=== PATIENT | female | born 1950 | race Caucasian/White ===

== ENCOUNTER 2018-08-14 19:20 | Inpatient (IN) | payer MEDICARE, SELFPAY ==
[2018-08-14] VITALS (7 sets, daily range): BP systolic 91–118; BP diastolic 41–82; PULSE 88–95; RESP 16–24; TEMP 36.7; O2SAT 96–100; BMI 54.5
--- NOTE | 2018-08-14 19:20 | DI.RAD.S_ITS ---
PROCEDURE: XR CHEST 1V INDICATIONS: weakness TECHNIQUE: One view of the chest was acquired. COMPARISON: None. FINDINGS: Surgical changes and devices: None. Lungs and pleura: No pleural effusions or pneumothorax. Lungs are grossly clear with the lung bases incompletely evaluated due to lordotic projection.. Mediastinum: Mediastinal contours appear normal. Heart size is normal. Bones and chest wall: No suspicious bony lesions. Overlying soft tissues appear unremarkable. IMPRESSION: 1. No definite acute cardiopulmonary disease. Dictated by: Desmond Sheffield M.D. on 08/14/2018 at 19:37 Approved by: Desmond Sheffield M.D. on 08/14/2018 at 19:38
--- NOTE | 2018-08-14 19:23 | ED.WEAKNESS ---
HPI - Weakness General Chief complaint: Nausea/Vomiting/Diarrhea Stated complaint: Generally doesn't feel well. Time Seen by Provider: 08/14/18 19:22 Source: patient and EMS Mode of arrival: EMS History of Present Illness HPI Narrative: 68-year-old nonsmoking female presents to the emergency department by EMS for evaluation of a general sensation of feeling unwell for upwards of 10 days. She states it took a significant turn for the worse over the past 2 days and she has become so weak she cannot make it to the bathroom. She is covered in her own urine and feces and profoundly weak though awake and alert. She denies any specific symptoms such as fever or chills nor any localized pain. She admittedly is had less to eat and drink over the past few days but denies runny nose, sore throat or cough. She denies any injury as a result of fall MD Complaint: generalized weakness Onset (ago): day(s) Duration: constant Location: generalized Migration: none Relieving factors: none Exacerbating factors: none Associated symptoms: denies other symptoms Related Data Previous Rx's Medication Instructions Recorded metformin [Glucophage] 500 mg PO BIDCC #180 tab 08/18/17 olmesartan [Benicar] 40 mg PO Q DAY #90 tab 07/27/18 Allergies Allergy/AdvReac Type Severity Reaction Status Date / Time No Known Drug Allergies Allergy Verified 08/14/18 19:29 Review of Systems Review of Systems All systems reviewed & are unremarkable except as noted in HPI and below Constitutional Denies chills, Reports fatigue, Denies fever(s), Denies lethargy, Reports malaise, Reports poor appetite and Reports weakness Eyes Denies change in vision, Denies eye discharge, Denies irritation and Denies loss of vision ENT Ears, Nose, Mouth, and Throat: Denies change in voice, Denies neck pain and Denies sore throat Cardiovascular Denies chest pain, Denies irregular heart rhythm, Denies lightheadedness, Denies palpitations, Denies dyspnea, Denies dyspnea on exertion and Denies orthopnea Respiratory Denies cough, Denies dyspnea, Denies dyspnea on exertion and Denies wheezing Gastrointestinal Gastrointestinal: Denies abdominal pain, Denies change in bowel habits, Denies diarrhea, Denies nausea and Denies vomiting Genitourinary Denies hematuria, Denies flank pain, Denies urinary incontinence and Denies urinary urgency Musculoskeletal Denies neck pain Integumentary/Breasts Denies pruritus, Denies erythema, Denies rash and Denies wounds Neurologic Denies confusion, Denies loss of vision and Reports weakness Psychiatric Denies anxiety, Denies confusion, Denies depression, Denies homicidal ideation and Denies suicidal ideation Endocrine Reports fatigue and Denies palpitations Hematologic/Lymphatic Denies easy bruising Allergic/Immunologic Denies wheezing PFSH Surgical History Status post hysterectomy Status post tubal ligation (10/29/87) Family History Father Diabetes mellitus Grandmother Diabetes mellitus Mother Amyloidosis Pancreatitis Pneumonia Sister Age: 59 Lupus Social History household members: none Smoking Status: Former smoker Exam Narrative Exam Narrative: GENERAL: 68F is obviously ill, generalized weakness, morbidly obese, foul smelling, of urine and feces HEAD: Atraumatic. Normocephalic. No temporal or scalp tenderness. EYES: Pupils equal round and reactive. Extraocular motions intact. No scleral icterus. No injection or drainage. ENT: Dry mucous membranes . Nose without bleeding, purulent drainage or septal hematoma. Throat without erythema, tonsillar hypertrophy or exudate. Uvula midline. Airway patent. NECK: Trachea midline. No JVD or lymphadenopathy. Supple, nontender, no meningeal signs. CARDIOVASCULAR: Regular rate and rhythm without murmurs, gallops, or rubs. RESPIRATORY: Clear to auscultation. Breath sounds equal bilaterally. No wheezes, rales, or rhonchi. GASTROINTESTINAL: Abdomen soft, non-tender, nondistended. No hepato-splenomegaly, or palpable masses. No guarding. EXTREMITIES: No clubbing, cyanosis, or edema. No joint tenderness, effusion, or edema noted. BACK: Nontender without deformity or crepitance. No flank tenderness. NEURO: AOx3. SKIN: L groin with erythema, warmth, and mild tenderness. Multiple areas of what appears to be necrotic tissue. Minimal pain and no crepitance. Initial Vital Signs Initial Vital Signs: Vital Signs Temperature 98.0 F 08/14/18 19:10 Pulse Rate 88 08/14/18 19:10 Respiratory Rate 22 08/14/18 19:10 Blood Pressure 118/55 L 08/14/18 19:10 Pulse Oximetry 100 08/14/18 19:10 Course Orders Ordered: ED Orders 08/14/18 19:20 XR chest 1V Stat Blood Culture Stat 08/14/18 20:38 C-Reactive Protein Quant Stat Complete Blood Count AUTO DIFF Stat Comprehensive Metabolic Panel Stat Lactate (Lactic Acid) Stat Magnesium Stat Procalcitonin Stat 08/14/18 22:20 Troponin & CK Cardiac Panel Stat 08/14/18 22:45 Wound Culture and Gram Stain Stat 08/14/18 23:20 MRSA PCR Stat 08/15/18 00:01 UA Complete [Urinalysis and Microscopic] Routine Urine Culture Routine 08/15/18 01:13 Lactate 4HR (Lactic Acid Rflx) Stat 08/15/18 05:00 B Type Natriuretic Peptide Routine Complete Blood Count AUTO DIFF Routine Comprehensive Metabolic Panel Routine 08/15/18 07:07 Procalcitonin DAILY Acetaminophen (Tylenol) 650 mg PO Q6HR PRN PRN Reason: As Needed for Fever/Mild Pain Dextrose (D50w) 25 gm IV PRN PRN PRN Reason: Hypoglycemia Docusate Sodium (Colace) 100 mg PO BID [facility] Enoxaparin Sodium (Lovenox) 40 mg SUBCUT DAILY [facility] Sodium Chloride (Normal Saline 0.9%) 4,490.55 mls @ 1,496.85 mls/hr 30 ml/kg infuse over 3 hr (4490.55 ml) IV CONT MICHAEL Last Infusion: 08/15/18 02:04 Dose: 0 mls/hr Infusion: 08/14/18 23:10 Dose: 999 mls/hr Admin: 08/14/18 21:35 Dose: 1,496.85 mls/hr Sodium Chloride (Normal Saline 0.9%) 1,000 mls @ 250 mls/hr IV CONT MICHAEL Last Admin: 08/15/18 02:15 Dose: 250 mls/hr Piperacillin/Tazobactam/Dextrose (Zosyn) 3.375 gm in 50 mls @ 100 mls/hr IV Q6H MICHAEL Vancomycin HCl 2,000 mg/ (Sodium Chloride) 500 mls @ 250 mls/hr IV NOW ONE Stop: 08/15/18 04:39 Last Admin: 08/15/18 02:53 Dose: 250 mls/hr Vancomycin HCl 1,000 mg/Vancomycin HCl 500 mg/ Sodium Chloride 500 mls @ 250 mls/hr IV Q24H [facility] Insulin Aspart (Novolog Flexpen) 0 unit SUBCUT ACHS MICHAEL; Protocol Oxycodone HCl (Percolone) 10 mg PO Q6HR PRN PRN Reason: Pain, Severe (7-10) Last Admin: 08/15/18 02:07 Dose: 10 mg Pantoprazole Sodium (Protonix) 40 mg PO 0700 [facility] Vancomycin HCl (Vancomycin Trough) 1 request MISC NOW ONE Stop: 08/18/18 02:31 Discontinued Medications Sodium Chloride (Normal Saline 0.9%) 1,000 mls @ 1,000 mls/hr IV BOLUS ONE Stop: 08/14/18 20:17 Last Infusion: 08/15/18 00:17 Dose: 0 mls/hr Admin: 08/14/18 19:56 Dose: 1,000 mls/hr Levofloxacin (Levaquin) 750 mg in 150 mls @ 100 mls/hr IV NOW [facility] Piperacillin/Tazobactam/Dextrose (Zosyn) 3.375 gm in 50 mls @ 100 mls/hr IV NOW ONE Stop: 08/14/18 22:10 Last Infusion: 08/14/18 22:45 Dose: 0 mls/hr Admin: 08/14/18 22:12 Dose: 100 mls/hr Vancomycin HCl 2,000 mg/ (Sodium Chloride) 500 mls @ 250 mls/hr IV NOW ONE Stop: 08/14/18 22:33 Last Admin: 08/15/18 02:58 Dose: Not Given Piperacillin/Tazobactam/Dextrose (Zosyn) 3.375 gm in 50 mls @ 100 mls/hr IV Q6H [facility] Last Admin: 08/15/18 03:00 Dose: Not Given Vancomycin HCl 600 mg/ Sodium (Chloride) 100 mls @ 200 mls/hr IV Q12H [facility] Vancomycin HCl (Vancomycin Per Pharmacy) 1 request MISC NOW ONE Stop: 08/15/18 00:16 Last Admin: 08/15/18 02:54 Dose: Not Given Reevaluation(s) Reevaluation #1: upon receipt of initial lactate the patient is recognized as severely septic and orders for fluid increase to 30mL/hr placed as well as initiation of antibiotics Consultations Consultation #1: call to Dr. Navarrete regarding admission, he is happy to see patient in the ED. There is discussion about possibility of surgery involvement, but will continue with fluids, ABX, and close observation for now Vital Signs - 8 hr 08/14/18 20:45 08/14/18 21:00 08/14/18 21:30 Temperature Pulse Rate 90 92 H 92 H Respiratory Rate 22 24 18 Blood Pressure Blood Pressure [Right Arm] 100/82 98/53 L 91/58 L Pulse Oximetry 98 100 08/14/18 22:00 08/14/18 22:30 08/14/18 23:00 Temperature Pulse Rate 91 H 92 H 95 H Respiratory Rate 22 21 16 Blood Pressure Blood Pressure [Right Arm] 104/41 L 116/47 L Pulse Oximetry 97 98 96 08/15/18 00:15 08/15/18 01:00 08/15/18 02:15 Temperature 97.2 F L 97.4 F L Pulse Rate 89 89 90 Respiratory Rate 22 21 25 H Blood Pressure 122/52 L 102/48 L 95/49 L Blood Pressure [Right Arm] Pulse Oximetry 99 98 97 08/15/18 03:15 Temperature Pulse Rate 88 Respiratory Rate 24 Blood Pressure 111/54 L Blood Pressure [Right Arm] Pulse Oximetry 96 MDM - Weakness Medical Records Attestation: I reviewed the patient's medical records. Lab Data Result diagrams: 08/14/18 20:38 08/14/18 20:38 Lab Results 08/14/18 08/14/18 08/14/18 Range/Units 20:38 20:38 20:38 WBC 19.1 H (4.5-11.0) X10^3/uL RBC 4.69 (4.0-5.2) X10^6/uL Hgb 13.8 (12.0-16.0) g/dL Hct 42.2 (36-46) % MCV 90.0 (80-100) fL MCH 29.4 (26-34) PG MCHC 32.7 (30-36) % RDW 13.8 (11.6-14.8) % Plt Count 277 (150-400) X10^3/uL Neut % (Auto) Not Reportable Lymph % (Auto) Not Reportable Tift % (Auto) Not Reportable Eos % (Auto) Not Reportable Baso % (Auto) Not Reportable Total Counted 100 Seg Neutrophils % 70.0 (38-70) % Band Neutrophils % 22.0 H (3-7) % Lymphocytes % (Manual) 3.0 L (25-45) % Monocytes % (Manual) 3.0 (2-11) % Metamyelocytes % 2.0 H (-0) % Neutrophils # (Manual) 16976 H (6418-8442) /uL RBC Morphology Normal morphology Sodium 138 (137-145) mmol/L Potassium 3.7 (3.4-5.1) mmol/L Chloride 98 (98-107) mmol/L Carbon Dioxide 18 L (22-32) mmol/L BUN 82 H (7-17) mg/dL Creatinine 2.10 H (0.52-1.04) mg/dL Estimated GFR 23.5 L (>60) mL/min BUN/Creatinine Ratio 39.0 H (6-22) Glucose 206 H (80-110) mg/dL Lactate (0.7-2.1) mmol/L Calcium 8.1 L (8.4-10.2) mg/dL Magnesium 2.5 H (1.6-2.3) mg/dL Total Bilirubin 1.5 H (0.2-1.3) mg/dL AST 122 H (14-36) IU/L ALT 48 (9-52) IU/L Alkaline Phosphatase 123 (38-126) U/L Total Creatine Kinase (30-135) U/L Troponin I (0.01-0.034) ng/mL C-Reactive Protein 40.7 H (<1.0) mg/dL Total Protein 6.4 (6.3-8.2) g/dL Albumin 3.0 L (3.5-5.0) g/dL Globulin 3.4 (1.7-4.1) g/dL Albumin/Globulin Ratio 0.9 L (1.0-2.8) Procalcitonin 24.73 H (<0.5) ng/mL Urine Color Urine Appearance Urine pH (4.5-8.0) Ur Specific [place] (1.000-1.035) Urine Protein (Negative) Urine Glucose (UA) (Negative) g/dL Urine Ketones (NEGATIVE) Urine Occult Blood (Negative) Urine Nitrate (Negative) Urine Bilirubin (NEGATIVE) Urine Urobilinogen (0.2) E.U./dL Ur Leukocyte Esterase (NEGATIVE) Urine RBC (0-5/HPF) Urine WBC (0-5/HPF) Ur Squamous Epith Cells Urine Bacteria (None) Ur Culture Indicated? Micro UA Comment Nasal Screen MRSA (PCR) (Negative) 08/14/18 08/14/18 08/14/18 Range/Units 20:38 22:20 23:20 WBC (4.5-11.0) X10^3/uL RBC (4.0-5.2) X10^6/uL Hgb (12.0-16.0) g/dL Hct (36-46) % MCV (80-100) fL MCH (26-34) PG MCHC (30-36) % RDW (11.6-14.8) % Plt Count (150-400) X10^3/uL Neut % (Auto) Lymph % (Auto) Tift % (Auto) Eos % (Auto) Baso % (Auto) Total Counted Seg Neutrophils % (38-70) % Band Neutrophils % (3-7) % Lymphocytes % (Manual) (25-45) % Monocytes % (Manual) (2-11) % Metamyelocytes % (-0) % Neutrophils # (Manual) (0479-7379) /uL RBC Morphology Sodium (137-145) mmol/L Potassium (3.4-5.1) mmol/L Chloride (98-107) mmol/L Carbon Dioxide (22-32) mmol/L BUN (7-17) mg/dL Creatinine (0.52-1.04) mg/dL Estimated GFR (>60) mL/min BUN/Creatinine Ratio (6-22) Glucose (80-110) mg/dL Lactate 5.4 H (0.7-2.1) mmol/L Calcium (8.4-10.2) mg/dL Magnesium (1.6-2.3) mg/dL Total Bilirubin (0.2-1.3) mg/dL AST (14-36) IU/L ALT (9-52) IU/L Alkaline Phosphatase (38-126) U/L Total Creatine Kinase 794 H (30-135) U/L Troponin I 0.019 (0.01-0.034) ng/mL C-Reactive Protein (<1.0) mg/dL Total Protein (6.3-8.2) g/dL Albumin (3.5-5.0) g/dL Globulin (1.7-4.1) g/dL Albumin/Globulin Ratio (1.0-2.8) Procalcitonin (<0.5) ng/mL Urine Color Urine Appearance Urine pH (4.5-8.0) Ur Specific [place] (1.000-1.035) Urine Protein (Negative) Urine Glucose (UA) (Negative) g/dL Urine Ketones (NEGATIVE) Urine Occult Blood (Negative) Urine Nitrate (Negative) Urine Bilirubin (NEGATIVE) Urine Urobilinogen (0.2) E.U./dL Ur Leukocyte Esterase (NEGATIVE) Urine RBC (0-5/HPF) Urine WBC (0-5/HPF) Ur Squamous Epith Cells Urine Bacteria (None) Ur Culture Indicated? Micro UA Comment Nasal Screen MRSA (PCR) Negative for mrsa (Negative) 08/15/18 08/15/18 Range/Units 00:01 01:13 WBC (4.5-11.0) X10^3/uL RBC (4.0-5.2) X10^6/uL Hgb (12.0-16.0) g/dL Hct (36-46) % MCV (80-100) fL MCH (26-34) PG MCHC (30-36) % RDW (11.6-14.8) % Plt Count (150-400) X10^3/uL Neut % (Auto) Lymph % (Auto) Tift % (Auto) Eos % (Auto) Baso % (Auto) Total Counted Seg Neutrophils % (38-70) % Band Neutrophils % (3-7) % Lymphocytes % (Manual) (25-45) % Monocytes % (Manual) (2-11) % Metamyelocytes % (-0) % Neutrophils # (Manual) (7623-4299) /uL RBC Morphology Sodium (137-145) mmol/L Potassium (3.4-5.1) mmol/L Chloride (98-107) mmol/L Carbon Dioxide (22-32) mmol/L BUN (7-17) mg/dL Creatinine (0.52-1.04) mg/dL Estimated GFR (>60) mL/min BUN/Creatinine Ratio (6-22) Glucose (80-110) mg/dL Lactate 2.7 H (0.7-2.1) mmol/L Calcium (8.4-10.2) mg/dL Magnesium (1.6-2.3) mg/dL Total Bilirubin (0.2-1.3) mg/dL AST (14-36) IU/L ALT (9-52) IU/L Alkaline Phosphatase (38-126) U/L Total Creatine Kinase (30-135) U/L Troponin I (0.01-0.034) ng/mL C-Reactive Protein (<1.0) mg/dL Total Protein (6.3-8.2) g/dL Albumin (3.5-5.0) g/dL Globulin (1.7-4.1) g/dL Albumin/Globulin Ratio (1.0-2.8) Procalcitonin (<0.5) ng/mL Urine Color Yellow Urine Appearance Cloudy Urine pH 7.5 (4.5-8.0) Ur Specific [place] 1.015 (1.000-1.035) Urine Protein 3+ H (Negative) Urine Glucose (UA) Trace H (Negative) g/dL Urine Ketones Negative (NEGATIVE) Urine Occult Blood 3+ H (Negative) Urine Nitrate Negative (Negative) Urine Bilirubin Negative (NEGATIVE) Urine Urobilinogen 0.2 (0.2) E.U./dL Ur Leukocyte Esterase 1+ H (NEGATIVE) Urine RBC 30-100/hpf H (0-5/HPF) Urine WBC 30-100/hpf H (0-5/HPF) Ur Squamous Epith Cells 1-5 /hpf Urine Bacteria Many (>30) H (None) Ur Culture Indicated? Specimen cultured Micro UA Comment Not Reportable Nasal Screen MRSA (PCR) (Negative) Point of Care Testing Glucose POC 185 Discharge Plan Departure Patient Disposition: Admitted As Inpatient Clinical Impression: Acute renal failure, Severe sepsis, Cellulitis of right thigh Discharge Date/Time: 08/14/18 23:10 Interventions: ED Discharge Assessment Last Done: 08/14/18 23:10 Admit Date/Time: 08/14/18 21:59 Admit Provider: Marc Navarrete
[2018-08-14] MEDS: SODIUM CHLORIDE 0.9% 1,000 ML 1000 ML IV (19:56)
[2018-08-14 20:57] LABS: Hematocrit 42.2 % (36-46); Hemoglobin 13.8 g/dL (12.0-16.0); Mean Corpuscular HGB Conc 32.7 % (30-36); Mean Corpuscular Hemoglobin 29.4 PG (26-34); Platelet Count 277 X10^3/uL (150-400); Red Blood Cell Count 4.69 X10^6/uL (4.0-5.2); Red Cell Distribution Width 13.8 % (11.6-14.8); White Blood Cell Count 19.1 X10^3/uL (4.5-11.0)
[2018-08-14 21:00] LABS: Add Manual Diff / Slide Review YES
[2018-08-14 21:05] LABS: Alanine Aminotransferase 48 IU/L (9-52); Albumin Globulin Ratio 0.9 (1.0-2.8); Alkaline Phosphatase 123 U/L (38-126); Aspartate Aminotransferase 122 IU/L (14-36); Bilirubin Total 1.5 mg/dL (0.2-1.3); Blood Urea Nitrogen 82 mg/dL (7-17); Calcium 8.1 mg/dL (8.4-10.2); Carbon Dioxide 18 mmol/L (22-32); Chloride 98 mmol/L (98-107); Estimated Glomerular Filt Rate 23.5 mL/min (>60); Globulin 3.4 g/dL (1.7-4.1); Glucose 206 mg/dL (80-110); HEMOLYSIS < 15 (0-50); Potassium 3.7 mmol/L (3.4-5.1); Sodium 138 mmol/L (137-145); Total Protein 6.4 g/dL (6.3-8.2)
[2018-08-14 21:06] LABS: Lactate (Lactic Acid) 5.4 mmol/L (0.7-2.1)
[2018-08-14 21:12] LABS: Neutrophils Absolute Manual 17572 /uL (3000-5900); RBC Morphology Normal Morphology; Total Cells Counted 100
[2018-08-14 21:20] LABS: Procalcitonin 24.73 ng/mL (<0.5)
[2018-08-14] MEDS: SODIUM CHLORIDE 0.9% 1496.85 ML IV (21:35)
--- NOTE | 2018-08-14 22:01 | P.HP_ITS ---
History of Present Illness Date Patient Seen: 08/14/18 Time Patient Seen: 22:35 Chief complaint: Generally doesn't feel well. Narrative: Pleasant 68-year-old female who comes into the emergency room with not feeling well. Symptoms started earlier this week. She just did not feel right. She felt like she lost her appetite her food did not taste good. She did not really want to drink. This continued throughout the week. It progressively got worse. She found it difficulty to ambulate and walk. He became more and more weak. Today her neighbor came and checked on her brought her her mail. And she was feeling so weak and tired that she became concerned. The neighbor called the son who came over and visited her and recommended she go to the emergency room she was too weak the to get out of her house and so 911 was called. She was having hard enough time moving that she was incontinent. She was not found down per se. But was really immobilized. She says maybe she has had a little bit of chills or fevers but she does not think so. She maybe have a little bit of a cough but she is not sure that. She has no dysuria or frequency. She has not had any chest pain or shortness of breath. She has had no significant diarrhea or abdominal pain or discomfort. Patient has not had any difficulty with headaches or blurry vision neck stiffness. Patient has a history of morbid obesity diabetes and hypertension. He has been well controlled. She is on blood pressure medication and medication for her diabetes. She is felt like she has not had any difficulty with high blood sugars lately. Patient History Surgical History Status post hysterectomy Status post tubal ligation (10/29/87) Family & Social History Family History Father Diabetes mellitus Grandmother Diabetes mellitus Mother Amyloidosis Pancreatitis Pneumonia Sister Age: 59 Lupus Safety & Behavioral: Feels Safe in Current Yes Environment Been Physically Hurt or No Threatened By a Person Tobacco & Substance use: Smoking Status Former smoker alcohol intake frequency 0-2 drinks per day Substance Use Type does not use Meds Home Medications Medication Instructions Recorded Confirmed Type metformin [Glucophage] 500 mg PO BIDCC #180 tab 08/18/17 08/14/18 Rx olmesartan [Benicar] 40 mg PO Q DAY #90 tab 07/27/18 08/14/18 Rx Allergies Allergy/AdvReac Type Severity Reaction Status Date / Time No Known Drug Allergies Allergy Verified 08/14/18 19:29 Exam Vital Signs (past 8 hours): - 08/14/18 19:10 08/14/18 20:45 08/14/18 21:00 Temperature 98.0 F Pulse Rate 88 90 92 H Respiratory Rate 22 22 24 Blood Pressure 118/55 L Blood Pressure [Right Arm] 100/82 98/53 L Pulse Oximetry 100 98 Oxygen Delivery Method Room Air Narrative Exam Narrative: Gen.: Alert good historian pale obese female who looks ill HEENT: Pupils equal round and reactive or mucosa is moist neck is supple Cardio: S1-S2 regular rate and rhythm no murmurs appreciated. Respiratory: Mild increased work of breathing. No wheezes crackles or rhonchi Abdomen: Soft morbidly obese no tenderness. Extremities: 2+ lower extremity edema. Right leg has a pannus from her abdomen. On med removal this significant swelling redness to the thigh area. She has got areas of necrotic tissue. That rotates from her upper thigh into her inguinal area and around her gluteal cleft. With surrounding cellulitis. Neurologic: Grossly intact. Objective Imaging Chest x-ray: My impression: PROCEDURE: XR CHEST 1V INDICATIONS: weakness TECHNIQUE: One view of the chest was acquired. COMPARISON: None. FINDINGS: Surgical changes and devices: None. Lungs and pleura: No pleural effusions or pneumothorax. Lungs are grossly clear with the lung bases incompletely evaluated due to lordotic projection.. Mediastinum: Mediastinal contours appear normal. Heart size is normal. Bones and chest wall: No suspicious bony lesions. Overlying soft tissues appear unremarkable. IMPRESSION: 1. No definite acute cardiopulmonary disease. Labs Result Diagrams: 08/15/18 04:38 08/15/18 04:38 Labs: Laboratory Results - last 24 hr 08/14/18 08/14/18 08/14/18 20:38 20:38 20:38 WBC 19.1 H RBC 4.69 Hgb 13.8 Hct 42.2 MCV 90.0 MCH 29.4 MCHC 32.7 RDW 13.8 Plt Count 277 Neut % (Auto) Not Reportable Lymph % (Auto) Not Reportable Daniels % (Auto) Not Reportable Eos % (Auto) Not Reportable Baso % (Auto) Not Reportable Total Counted 100 Seg Neutrophils % 70.0 Band Neutrophils % 22.0 H Lymphocytes % (Manual) 3.0 L Monocytes % (Manual) 3.0 Metamyelocytes % 2.0 H Neutrophils # (Manual) 51959 H RBC Morphology Normal morphology Sodium 138 Potassium 3.7 Chloride 98 Carbon Dioxide 18 L BUN 82 H Creatinine 2.10 H Estimated GFR 23.5 L BUN/Creatinine Ratio 39.0 H Glucose 206 H Lactate Calcium 8.1 L Total Bilirubin 1.5 H AST 122 H ALT 48 Alkaline Phosphatase 123 Total Protein 6.4 Albumin 3.0 L Globulin 3.4 Albumin/Globulin Ratio 0.9 L Procalcitonin 24.73 H 08/14/18 20:38 WBC RBC Hgb Hct MCV MCH MCHC RDW Plt Count Neut % (Auto) Lymph % (Auto) Daniels % (Auto) Eos % (Auto) Baso % (Auto) Total Counted Seg Neutrophils % Band Neutrophils % Lymphocytes % (Manual) Monocytes % (Manual) Metamyelocytes % Neutrophils # (Manual) RBC Morphology Sodium Potassium Chloride Carbon Dioxide BUN Creatinine Estimated GFR BUN/Creatinine Ratio Glucose Lactate 5.4 H Calcium Total Bilirubin AST ALT Alkaline Phosphatase Total Protein Albumin Globulin Albumin/Globulin Ratio Procalcitonin Assessment & Plan Plan: Assessment/Plan Narrative: Septic shock. Patient has septic shock she has greater than normal white blood cell count. She has a source of infection which is the cellulitis of her thigh and necrotic tissue. She has signs of end-organ damage with the elevation of her liver enzymes as well as acute renal failure. She is also hypotensive. She will be admitted to the ICU. If she does not respond to her initial fluid bolus. We will start pressors after 3 hr she will have a repeat lactic acid. Will go ahead and if her blood pressure remained stable place her on a higher than normal maintenance IV fluid. Want to her signs for significant the or furthering septic shock. Will go ahead and treat her initial skin infection with Zosyn IV 3.75 g q.6 hours and vancomycin. Will repeat calcitonin and lactic acid per protocol. Will continue with IV fluids at as well per protocol. Cellulitis and necrotic tissue of the upper thigh. As probable source of infection this was can a hidden by or overlying obesity and pannus. Will probably need to get General surgery involved to at this point I do not feel like there is any abscess in she has just got some necrotic and scabbing tissue here that that may need to be removed over time. Will go ahead and order a CT scan as well for further evaluation of this. Acute kidney injury patient has normal baseline BUN and creatinine. Her creatinine this time is 2.0. Will continue with IV fluid hydration hopefully this will improve. Moderate malnutrition as she has not been eating she has a low albumin and low calcium. Morbid obesity. With BMI 54. Certainly complicating her care Diabetes type 2 on oral medication which will be held. She will be provided insulin per protocol. Accu-Cheks. And at this point will keep her NPO until we have further idea what needs to happen with her skin infection. Patient meets inpatient criteria.
[2018-08-14] MEDS: PIPERACILLIN-TAZO 3.375 GM/50 ML FROZ.PIGGY IV (22:12)
--- NOTE | 2018-08-14 22:34 | ED_ITS ---
HPI - Weakness General Chief complaint: Nausea/Vomiting/Diarrhea Stated complaint: Generally doesn't feel well. Time Seen by Provider: 08/14/18 19:22 Source: patient and EMS Mode of arrival: EMS History of Present Illness HPI Narrative: 68-year-old nonsmoking female presents to the emergency department by EMS for evaluation of a general sensation of feeling unwell for upwards of 10 days. She states it took a significant turn for the worse over the past 2 days and she has become so weak she cannot make it to the bathroom. She is covered in her own urine and feces and profoundly weak though awake and alert. She denies any specific symptoms such as fever or chills nor any localized pain. She admittedly is had less to eat and drink over the past few days but denies runny nose, sore throat or cough. She denies any injury as a result of fall MD Complaint: generalized weakness Onset (ago): day(s) Duration: constant Location: generalized Migration: none Relieving factors: none Exacerbating factors: none Associated symptoms: denies other symptoms Related Data Previous Rx's Medication Instructions Recorded metformin [Glucophage] 500 mg PO BIDCC #180 tab 08/18/17 olmesartan [Benicar] 40 mg PO Q DAY #90 tab 07/27/18 Allergies Allergy/AdvReac Type Severity Reaction Status Date / Time No Known Drug Allergies Allergy Verified 08/14/18 19:29 Review of Systems Review of Systems All systems reviewed & are unremarkable except as noted in HPI and below Constitutional Denies chills, Reports fatigue, Denies fever(s), Denies lethargy, Reports malaise, Reports poor appetite and Reports weakness Eyes Denies change in vision, Denies eye discharge, Denies irritation and Denies loss of vision ENT Ears, Nose, Mouth, and Throat: Denies change in voice, Denies neck pain and Denies sore throat Cardiovascular Denies chest pain, Denies irregular heart rhythm, Denies lightheadedness, Denies palpitations, Denies dyspnea, Denies dyspnea on exertion and Denies orthopnea Respiratory Denies cough, Denies dyspnea, Denies dyspnea on exertion and Denies wheezing Gastrointestinal Gastrointestinal: Denies abdominal pain, Denies change in bowel habits, Denies diarrhea, Denies nausea and Denies vomiting Genitourinary Denies hematuria, Denies flank pain, Denies urinary incontinence and Denies urinary urgency Musculoskeletal Denies neck pain Integumentary/Breasts Denies pruritus, Denies erythema, Denies rash and Denies wounds Neurologic Denies confusion, Denies loss of vision and Reports weakness Psychiatric Denies anxiety, Denies confusion, Denies depression, Denies homicidal ideation and Denies suicidal ideation Endocrine Reports fatigue and Denies palpitations Hematologic/Lymphatic Denies easy bruising Allergic/Immunologic Denies wheezing PFSH Surgical History Status post hysterectomy Status post tubal ligation (10/29/87) Family History Father Diabetes mellitus Grandmother Diabetes mellitus Mother Amyloidosis Pancreatitis Pneumonia Sister Age: 59 Lupus Social History household members: none Smoking Status: Former smoker Exam Narrative Exam Narrative: GENERAL: 68F is obviously ill, generalized weakness, morbidly obese, foul smelling, of urine and feces HEAD: Atraumatic. Normocephalic. No temporal or scalp tenderness. EYES: Pupils equal round and reactive. Extraocular motions intact. No scleral icterus. No injection or drainage. ENT: Dry mucous membranes . Nose without bleeding, purulent drainage or septal hematoma. Throat without erythema, tonsillar hypertrophy or exudate. Uvula midline. Airway patent. NECK: Trachea midline. No JVD or lymphadenopathy. Supple, nontender, no meningeal signs. CARDIOVASCULAR: Regular rate and rhythm without murmurs, gallops, or rubs. RESPIRATORY: Clear to auscultation. Breath sounds equal bilaterally. No wheezes , rales, or rhonchi. GASTROINTESTINAL: Abdomen soft, non-tender, nondistended. No hepato-splenomegaly , or palpable masses. No guarding. EXTREMITIES: No clubbing, cyanosis, or edema. No joint tenderness, effusion, or edema noted. BACK: Nontender without deformity or crepitance. No flank tenderness. NEURO: AOx3. SKIN: L groin with erythema, warmth, and mild tenderness. Multiple areas of what appears to be necrotic tissue. Minimal pain and no crepitance. Initial Vital Signs Initial Vital Signs: Vital Signs Temperature 98.0 F 08/14/18 19:10 Pulse Rate 88 08/14/18 19:10 Respiratory Rate 22 08/14/18 19:10 Blood Pressure 118/55 L 08/14/18 19:10 Pulse Oximetry 100 08/14/18 19:10 Course Orders Ordered: ED Orders 08/14/18 19:20 XR chest 1V Stat Blood Culture Stat 08/14/18 20:38 C-Reactive Protein Quant Stat Complete Blood Count AUTO DIFF Stat Comprehensive Metabolic Panel Stat Lactate (Lactic Acid) Stat Magnesium Stat Procalcitonin Stat 08/14/18 22:20 Troponin & CK Cardiac Panel Stat 08/14/18 22:45 Wound Culture and Gram Stain Stat 08/14/18 23:20 MRSA PCR Stat 08/15/18 00:01 UA Complete [Urinalysis and Microscopic] Routine Urine Culture Routine 08/15/18 01:13 Lactate 4HR (Lactic Acid Rflx) Stat 08/15/18 05:00 B Type Natriuretic Peptide Routine Complete Blood Count AUTO DIFF Routine Comprehensive Metabolic Panel Routine 08/15/18 07:07 Procalcitonin DAILY Acetaminophen (Tylenol) 650 mg PO Q6HR PRN PRN Reason: As Needed for Fever/Mild Pain Dextrose (D50w) 25 gm IV PRN PRN PRN Reason: Hypoglycemia Docusate Sodium (Colace) 100 mg PO BID [facility] Enoxaparin Sodium (Lovenox) 40 mg SUBCUT DAILY [facility] Sodium Chloride (Normal Saline 0.9%) 4,490.55 mls @ 1,496.85 mls/hr 30 ml/kg infuse over 3 hr (4490.55 ml) IV CONT MICHAEL Last Infusion: 08/15/18 02:04 Dose: 0 mls/hr Infusion: 08/14/18 23:10 Dose: 999 mls/hr Admin: 08/14/18 21:35 Dose: 1,496.85 mls/hr Sodium Chloride (Normal Saline 0.9%) 1,000 mls @ 250 mls/hr IV CONT MICHAEL Last Admin: 08/15/18 02:15 Dose: 250 mls/hr Piperacillin/Tazobactam/Dextrose (Zosyn) 3.375 gm in 50 mls @ 100 mls/hr IV Q6H MICHAEL Vancomycin HCl 2,000 mg/ (Sodium Chloride) 500 mls @ 250 mls/hr IV NOW ONE Stop: 08/15/18 04:39 Last Admin: 08/15/18 02:53 Dose: 250 mls/hr Vancomycin HCl 1,000 mg/Vancomycin HCl 500 mg/ Sodium Chloride 500 mls @ 250 mls/hr IV Q24H [facility] Insulin Aspart (Novolog Flexpen) 0 unit SUBCUT ACHS MICHAEL; Protocol Oxycodone HCl (Percolone) 10 mg PO Q6HR PRN PRN Reason: Pain, Severe (7-10) Last Admin: 08/15/18 02:07 Dose: 10 mg Pantoprazole Sodium (Protonix) 40 mg PO 0700 [facility] Vancomycin HCl (Vancomycin Trough) 1 request MISC NOW ONE Stop: 08/18/18 02:31 Discontinued Medications Sodium Chloride (Normal Saline 0.9%) 1,000 mls @ 1,000 mls/hr IV BOLUS ONE Stop: 08/14/18 20:17 Last Infusion: 08/15/18 00:17 Dose: 0 mls/hr Admin: 08/14/18 19:56 Dose: 1,000 mls/hr Levofloxacin (Levaquin) 750 mg in 150 mls @ 100 mls/hr IV NOW [facility] Piperacillin/Tazobactam/Dextrose (Zosyn) 3.375 gm in 50 mls @ 100 mls/hr IV NOW ONE Stop: 08/14/18 22:10 Last Infusion: 08/14/18 22:45 Dose: 0 mls/hr Admin: 08/14/18 22:12 Dose: 100 mls/hr Vancomycin HCl 2,000 mg/ (Sodium Chloride) 500 mls @ 250 mls/hr IV NOW ONE Stop: 08/14/18 22:33 Last Admin: 08/15/18 02:58 Dose: Not Given Piperacillin/Tazobactam/Dextrose (Zosyn) 3.375 gm in 50 mls @ 100 mls/hr IV Q6H [facility] Last Admin: 08/15/18 03:00 Dose: Not Given Vancomycin HCl 600 mg/ Sodium (Chloride) 100 mls @ 200 mls/hr IV Q12H [facility] Vancomycin HCl (Vancomycin Per Pharmacy) 1 request MISC NOW ONE Stop: 08/15/18 00:16 Last Admin: 08/15/18 02:54 Dose: Not Given Reevaluation(s) Reevaluation #1: upon receipt of initial lactate the patient is recognized as severely septic and orders for fluid increase to 30mL/hr placed as well as initiation of antibiotics Consultations Consultation #1: call to Dr. Navarrete regarding admission, he is happy to see patient in the ED. There is discussion about possibility of surgery involvement , but will continue with fluids, ABX, and close observation for now Vital Signs - 8 hr 08/14/18 20:45 08/14/18 21:00 08/14/18 21:30 Temperature Pulse Rate 90 92 H 92 H Respiratory Rate 22 24 18 Blood Pressure Blood Pressure [Right Arm] 100/82 98/53 L 91/58 L Pulse Oximetry 98 100 08/14/18 22:00 08/14/18 22:30 08/14/18 23:00 Temperature Pulse Rate 91 H 92 H 95 H Respiratory Rate 22 21 16 Blood Pressure Blood Pressure [Right Arm] 104/41 L 116/47 L Pulse Oximetry 97 98 96 08/15/18 00:15 08/15/18 01:00 08/15/18 02:15 Temperature 97.2 F L 97.4 F L Pulse Rate 89 89 90 Respiratory Rate 22 21 25 H Blood Pressure 122/52 L 102/48 L 95/49 L Blood Pressure [Right Arm] Pulse Oximetry 99 98 97 08/15/18 03:15 Temperature Pulse Rate 88 Respiratory Rate 24 Blood Pressure 111/54 L Blood Pressure [Right Arm] Pulse Oximetry 96 MDM - Weakness Medical Records Attestation: I reviewed the patient's medical records. Lab Data Result diagrams: 08/14/18 20:38 08/14/18 20:38 Lab Results 08/14/18 08/14/18 08/14/18 Range/Units 20:38 20:38 20:38 WBC 19.1 H (4.5-11.0) X10^3/uL RBC 4.69 (4.0-5.2) X10^6/uL Hgb 13.8 (12.0-16.0) g/dL Hct 42.2 (36-46) % MCV 90.0 (80-100) fL MCH 29.4 (26-34) PG MCHC 32.7 (30-36) % RDW 13.8 (11.6-14.8) % Plt Count 277 (150-400) X10^3/uL Neut % (Auto) Not Reportable Lymph % (Auto) Not Reportable Piatt % (Auto) Not Reportable Eos % (Auto) Not Reportable Baso % (Auto) Not Reportable Total Counted 100 Seg Neutrophils % 70.0 (38-70) % Band Neutrophils % 22.0 H (3-7) % Lymphocytes % (Manual) 3.0 L (25-45) % Monocytes % (Manual) 3.0 (2-11) % Metamyelocytes % 2.0 H (-0) % Neutrophils # (Manual) 66536 H (2902-3533) /uL RBC Morphology Normal morphology Sodium 138 (137-145) mmol/L Potassium 3.7 (3.4-5.1) mmol/L Chloride 98 (98-107) mmol/L Carbon Dioxide 18 L (22-32) mmol/L BUN 82 H (7-17) mg/dL Creatinine 2.10 H (0.52-1.04) mg/dL Estimated GFR 23.5 L (>60) mL/min BUN/Creatinine Ratio 39.0 H (6-22) Glucose 206 H (80-110) mg/dL Lactate (0.7-2.1) mmol/L Calcium 8.1 L (8.4-10.2) mg/dL Magnesium 2.5 H (1.6-2.3) mg/dL Total Bilirubin 1.5 H (0.2-1.3) mg/dL AST 122 H (14-36) IU/L ALT 48 (9-52) IU/L Alkaline Phosphatase 123 (38-126) U/L Total Creatine Kinase (30-135) U/L Troponin I (0.01-0.034) ng/mL C-Reactive Protein 40.7 H (<1.0) mg/dL Total Protein 6.4 (6.3-8.2) g/dL Albumin 3.0 L (3.5-5.0) g/dL Globulin 3.4 (1.7-4.1) g/dL Albumin/Globulin Ratio 0.9 L (1.0-2.8) Procalcitonin 24.73 H (<0.5) ng/mL Urine Color Urine Appearance Urine pH (4.5-8.0) Ur Specific [place] (1.000-1.035) Urine Protein (Negative) Urine Glucose (UA) (Negative) g/dL Urine Ketones (NEGATIVE) Urine Occult Blood (Negative) Urine Nitrate (Negative) Urine Bilirubin (NEGATIVE) Urine Urobilinogen (0.2) E.U./dL Ur Leukocyte Esterase (NEGATIVE) Urine RBC (0-5/HPF) Urine WBC (0-5/HPF) Ur Squamous Epith Cells Urine Bacteria (None) Ur Culture Indicated? Micro UA Comment Nasal Screen MRSA (PCR) (Negative) 08/14/18 08/14/18 08/14/18 Range/Units 20:38 22:20 23:20 WBC (4.5-11.0) X10^3/uL RBC (4.0-5.2) X10^6/uL Hgb (12.0-16.0) g/dL Hct (36-46) % MCV (80-100) fL MCH (26-34) PG MCHC (30-36) % RDW (11.6-14.8) % Plt Count (150-400) X10^3/uL Neut % (Auto) Lymph % (Auto) Piatt % (Auto) Eos % (Auto) Baso % (Auto) Total Counted Seg Neutrophils % (38-70) % Band Neutrophils % (3-7) % Lymphocytes % (Manual) (25-45) % Monocytes % (Manual) (2-11) % Metamyelocytes % (-0) % Neutrophils # (Manual) (9342-1623) /uL RBC Morphology Sodium (137-145) mmol/L Potassium (3.4-5.1) mmol/L Chloride (98-107) mmol/L Carbon Dioxide (22-32) mmol/L BUN (7-17) mg/dL Creatinine (0.52-1.04) mg/dL Estimated GFR (>60) mL/min BUN/Creatinine Ratio (6-22) Glucose (80-110) mg/dL Lactate 5.4 H (0.7-2.1) mmol/L Calcium (8.4-10.2) mg/dL Magnesium (1.6-2.3) mg/dL Total Bilirubin (0.2-1.3) mg/dL AST (14-36) IU/L ALT (9-52) IU/L Alkaline Phosphatase (38-126) U/L Total Creatine Kinase 794 H (30-135) U/L Troponin I 0.019 (0.01-0.034) ng/mL C-Reactive Protein (<1.0) mg/dL Total Protein (6.3-8.2) g/dL Albumin (3.5-5.0) g/dL Globulin (1.7-4.1) g/dL Albumin/Globulin Ratio (1.0-2.8) Procalcitonin (<0.5) ng/mL Urine Color Urine Appearance Urine pH (4.5-8.0) Ur Specific [place] (1.000-1.035) Urine Protein (Negative) Urine Glucose (UA) (Negative) g/dL Urine Ketones (NEGATIVE) Urine Occult Blood (Negative) Urine Nitrate (Negative) Urine Bilirubin (NEGATIVE) Urine Urobilinogen (0.2) E.U./dL Ur Leukocyte Esterase (NEGATIVE) Urine RBC (0-5/HPF) Urine WBC (0-5/HPF) Ur Squamous Epith Cells Urine Bacteria (None) Ur Culture Indicated? Micro UA Comment Nasal Screen MRSA (PCR) Negative for mrsa (Negative) 08/15/18 08/15/18 Range/Units 00:01 01:13 WBC (4.5-11.0) X10^3/uL RBC (4.0-5.2) X10^6/uL Hgb (12.0-16.0) g/dL Hct (36-46) % MCV (80-100) fL MCH (26-34) PG MCHC (30-36) % RDW (11.6-14.8) % Plt Count (150-400) X10^3/uL Neut % (Auto) Lymph % (Auto) Piatt % (Auto) Eos % (Auto) Baso % (Auto) Total Counted Seg Neutrophils % (38-70) % Band Neutrophils % (3-7) % Lymphocytes % (Manual) (25-45) % Monocytes % (Manual) (2-11) % Metamyelocytes % (-0) % Neutrophils # (Manual) (2490-6109) /uL RBC Morphology Sodium (137-145) mmol/L Potassium (3.4-5.1) mmol/L Chloride (98-107) mmol/L Carbon Dioxide (22-32) mmol/L BUN (7-17) mg/dL Creatinine (0.52-1.04) mg/dL Estimated GFR (>60) mL/min BUN/Creatinine Ratio (6-22) Glucose (80-110) mg/dL Lactate 2.7 H (0.7-2.1) mmol/L Calcium (8.4-10.2) mg/dL Magnesium (1.6-2.3) mg/dL Total Bilirubin (0.2-1.3) mg/dL AST (14-36) IU/L ALT (9-52) IU/L Alkaline Phosphatase (38-126) U/L Total Creatine Kinase (30-135) U/L Troponin I (0.01-0.034) ng/mL C-Reactive Protein (<1.0) mg/dL Total Protein (6.3-8.2) g/dL Albumin (3.5-5.0) g/dL Globulin (1.7-4.1) g/dL Albumin/Globulin Ratio (1.0-2.8) Procalcitonin (<0.5) ng/mL Urine Color Yellow Urine Appearance Cloudy Urine pH 7.5 (4.5-8.0) Ur Specific [place] 1.015 (1.000-1.035) Urine Protein 3+ H (Negative) Urine Glucose (UA) Trace H (Negative) g/dL Urine Ketones Negative (NEGATIVE) Urine Occult Blood 3+ H (Negative) Urine Nitrate Negative (Negative) Urine Bilirubin Negative (NEGATIVE) Urine Urobilinogen 0.2 (0.2) E.U./dL Ur Leukocyte Esterase 1+ H (NEGATIVE) Urine RBC 30-100/hpf H (0-5/HPF) Urine WBC 30-100/hpf H (0-5/HPF) Ur Squamous Epith Cells 1-5 /hpf Urine Bacteria Many (>30) H (None) Ur Culture Indicated? Specimen cultured Micro UA Comment Not Reportable Nasal Screen MRSA (PCR) (Negative) Point of Care Testing Glucose POC 185 Discharge Plan Departure Patient Disposition: Admitted As Inpatient Clinical Impression: Acute renal failure, Severe sepsis, Cellulitis of right thigh Discharge Date/Time: 08/14/18 23:10 Interventions: ED Discharge Assessment Last Done: 08/14/18 23:10 Admit Date/Time: 08/14/18 21:59 Admit Provider: Marc Navarrete
[2018-08-14 22:43] LABS: Creatine Kinase 794 U/L (30-135)
[2018-08-14 22:50] LABS: Troponin I 0.019 ng/mL (0.01-0.034)
[2018-08-15] VITALS (12 sets, daily range): BP systolic 87–122; BP diastolic 40–69; PULSE 84–91; RESP 17–26; TEMP 36.2–36.9; O2SAT 94–100
--- NOTE | 2018-08-15 00:03 | PC.NURSE ---
Pt had extensive bed bath, on examination of skin folds, patient was noted to have very large gangrenous area, which wrapped around right thigh medially from anterior to posterior with black necrotic tissue. Area was macerated and skin sloughing in surrounding tissues. Dr Navarrete and Dr Rivera notified and brought into room to examine wounds. Patient had no pain or discomfort while cleaning these areas with mild soap and water. Area was then dried and shown to and photographed by ICU nurse Cortney BARBA. Pt tolerated procedure in trendelenberg on room air. Pt oriented and conversing throughout. Pt had extensive perineal care and cleaning prior to insertion of david. Pt had copious amounts of stool in labial folds. After cleaning and using sterile technique david was then inserted without difficulty.
[2018-08-15 00:41] LABS: Magnesium 2.5 mg/dL (1.6-2.3)
[2018-08-15 00:45] LABS: Reflexed Lactate in 2 Hours Y
[2018-08-15 01:32] LABS: Lactate 2HR (Lactic Acid Rflx) 2.7 mmol/L (0.7-2.1)
[2018-08-15 01:35] LABS: C-Reactive Protein Quant 40.7 mg/dL (<1.0)
[2018-08-15] MEDS: OXYCODONE IR 10 MG TABLET PO (02:07)
[2018-08-15] MEDS: SODIUM CHLORIDE 0.9% 1,000 ML 250 ML IV ×2 (02:15→04:31)
[2018-08-15 02:33] LABS: Appearance Urine UA CLOUDY; Bilirubin Urine UA NEGATIVE (NEGATIVE); Color Urine UA YELLOW; Glucose Urine UA TRACE g/dL (Negative); Ketones Urine UA NEGATIVE (NEGATIVE); Leukocyte Esterase Urine UA 1+ (NEGATIVE); Nitrite Urine UA NEGATIVE (Negative); Occult Blood Urine UA 3+ (Negative); Protein Urine UA 3+ (Negative); Specific Gravity Urine UA 1.015 (1.000-1.035); Urobilinogen Urine UA 0.2 E.U./dL (0.2); pH Urine UA 7.5 (4.5-8.0)
[2018-08-15 02:43] LABS: Bacteria Urine Many (>30); Culture Indicated Urine Specimen Cultured; RBC Urine 30-100/HPF (0-5/HPF); Squamous Epithelial Cell Urine 1-5 /HPF; WBC Urine 30-100/HPF (0-5/HPF)
[2018-08-15] MEDS: VANCOMYCIN 2,000 MG in SODIUM CHLORIDE 0.9% 500 ML 250 ML IV (02:53)
[2018-08-15] MEDS: PIPERACILLIN-TAZO 3.375 GM/50 ML FROZ.PIGGY IV ×2 (05:03→10:09)
[2018-08-15 05:09] LABS: Add Manual Diff / Slide Review YES; Hematocrit 34.8 % (36-46); Hemoglobin 11.5 g/dL (12.0-16.0); Mean Corpuscular HGB Conc 33.1 % (30-36); Mean Corpuscular Hemoglobin 29.5 PG (26-34); Mean Corpuscular Volume 89.1 fL (80-100); Platelet Count 223 X10^3/uL (150-400); Red Blood Cell Count 3.91 X10^6/uL (4.0-5.2); Red Cell Distribution Width 13.8 % (11.6-14.8); White Blood Cell Count 17.2 X10^3/uL (4.5-11.0)
[2018-08-15 05:15] LABS: Alanine Aminotransferase 39 IU/L (9-52); Albumin 2.2 g/dL (3.5-5.0); Albumin Globulin Ratio 0.8 (1.0-2.8); Alkaline Phosphatase 79 U/L (38-126); Aspartate Aminotransferase 89 IU/L (14-36); BUN Creatinine Ratio 51.2 (6-22); Bilirubin Total 0.9 mg/dL (0.2-1.3); Blood Urea Nitrogen 87 mg/dL (7-17); Carbon Dioxide 16 mmol/L (22-32); Chloride 105 mmol/L (98-107); Globulin 2.8 g/dL (1.7-4.1); Glucose 176 mg/dL (80-110); HEMOLYSIS 30 (0-50); Potassium 3.4 mmol/L (3.4-5.1); Sodium 138 mmol/L (137-145)
[2018-08-15 05:21] LABS: Calcium 6.4 mg/dL (8.4-10.2)
[2018-08-15 05:25] LABS: B Type Natriuretic Peptide 340 (<100)
[2018-08-15 06:23] LABS: RBC Morphology Normal Morphology
--- NOTE | 2018-08-15 06:59 | PC.NURSE ---
NOC Shift: Pt admitted from ED for severe sepsis re: open necrotic wounds to right buttock, right inner thigh under pannus, cellulitis. Pt obese, immobile. Awake, alert oriented. Afib CVR on tele w/no known history of Afib. SBP low but stable. Receiving sepsis protocol fluid boluses. IV ABX tx started. Parikh placed in ED, no urine output when adaquate amt. available UA will be sent. Ravin Cohen at bedside, he is active POA. Will be available tomorrow. ICU admit.
--- NOTE | 2018-08-15 07:10 | PM.PN.1 ---
Subjective Date Patient Seen: 08/15/18 Time Patient Seen: 07:21 Interval history: Patient seen again this morning. Reviewed care with nursing staff overnight. Patient did fairly well. Had some minimal pain to the thigh area. She says maybe she feels little bit better not quite so out of it. Blood pressures have been a little bit low at the systolic blood pressures in the 100. She has been mildly tachycardic. She is currently in atrial fibrillation which is new for her. She received to significant fluid bolus due to her sepsis in the emergency room. She is getting 250 cc/hour. She has 2 peripheral IV sites but will need a PICC line as she has a hard blood draw. She is still NPO. Exam Vital Signs (past 8 hours): - 08/15/18 00:15 08/15/18 01:00 08/15/18 02:15 Temperature 97.2 F L 97.4 F L Pulse Rate 89 89 90 Respiratory Rate 22 21 25 H Blood Pressure 122/52 L 102/48 L 95/49 L Pulse Oximetry 99 98 97 08/15/18 03:15 08/15/18 04:00 08/15/18 05:00 Temperature 97.6 F Pulse Rate 88 90 91 H Respiratory Rate 24 26 H 22 Blood Pressure 111/54 L 87/50 L 92/40 L Pulse Oximetry 96 97 95 08/15/18 05:30 08/15/18 06:00 Temperature 98.4 F Pulse Rate 89 Respiratory Rate 22 Blood Pressure 99/69 Pulse Oximetry 95 96 Oxygen Delivery Method Room Air Narrative Exam Narrative: Gen.: Alert oriented good historian HEENT: Pupils equal round and reactive or mucosa is very dry. Neck is supple. Cardio: S1-S2 distant heart sounds irregular rate and rhythm Respiratory: Normal respiratory effort. No wheezes crackles or rhonchi Abdomen: Soft nontender no rebound no guarding Extremities: Large area of cellulitis anterior medial and posterior upper thigh. With areas of scabbing or necrotic tissue. Still do not appreciate any big abscesses or fluctuant pockets. Neurologic: Grossly intact. Objective Labs Result Diagrams: 08/15/18 04:38 08/15/18 04:38 Labs: Laboratory Results - last 24 hr 08/14/18 08/14/18 08/14/18 20:38 20:38 20:38 WBC 19.1 H RBC 4.69 Hgb 13.8 Hct 42.2 MCV 90.0 MCH 29.4 MCHC 32.7 RDW 13.8 Plt Count 277 Neut % (Auto) Not Reportable Lymph % (Auto) Not Reportable [place] % (Auto) Not Reportable Eos % (Auto) Not Reportable Baso % (Auto) Not Reportable Total Counted 100 Seg Neutrophils % 70.0 Band Neutrophils % 22.0 H Lymphocytes % (Manual) 3.0 L Monocytes % (Manual) 3.0 Metamyelocytes % 2.0 H Myelocytes % Neutrophils # (Manual) 05422 H RBC Morphology Normal morphology Sodium 138 Potassium 3.7 Chloride 98 Carbon Dioxide 18 L BUN 82 H Creatinine 2.10 H Estimated GFR 23.5 L BUN/Creatinine Ratio 39.0 H Glucose 206 H Lactate Calcium 8.1 L Magnesium 2.5 H Total Bilirubin 1.5 H AST 122 H ALT 48 Alkaline Phosphatase 123 Total Creatine Kinase Troponin I C-Reactive Protein 40.7 H B-Natriuretic Peptide Total Protein 6.4 Albumin 3.0 L Globulin 3.4 Albumin/Globulin Ratio 0.9 L Procalcitonin 24.73 H Urine Color Urine Appearance Urine pH Ur Specific [place] Urine Protein Urine Glucose (UA) Urine Ketones Urine Occult Blood Urine Nitrate Urine Bilirubin Urine Urobilinogen Ur Leukocyte Esterase Urine RBC Urine WBC Ur Squamous Epith Cells Urine Bacteria Ur Culture Indicated? Micro UA Comment Nasal Screen MRSA (PCR) 08/14/18 08/14/18 08/14/18 20:38 22:20 23:20 WBC RBC Hgb Hct MCV MCH MCHC RDW Plt Count Neut % (Auto) Lymph % (Auto) [place] % (Auto) Eos % (Auto) Baso % (Auto) Total Counted Seg Neutrophils % Band Neutrophils % Lymphocytes % (Manual) Monocytes % (Manual) Metamyelocytes % Myelocytes % Neutrophils # (Manual) RBC Morphology Sodium Potassium Chloride Carbon Dioxide BUN Creatinine Estimated GFR BUN/Creatinine Ratio Glucose Lactate 5.4 H Calcium Magnesium Total Bilirubin AST ALT Alkaline Phosphatase Total Creatine Kinase 794 H Troponin I 0.019 C-Reactive Protein B-Natriuretic Peptide Total Protein Albumin Globulin Albumin/Globulin Ratio Procalcitonin Urine Color Urine Appearance Urine pH Ur Specific [place] Urine Protein Urine Glucose (UA) Urine Ketones Urine Occult Blood Urine Nitrate Urine Bilirubin Urine Urobilinogen Ur Leukocyte Esterase Urine RBC Urine WBC Ur Squamous Epith Cells Urine Bacteria Ur Culture Indicated? Micro UA Comment Nasal Screen MRSA (PCR) Negative for mrsa 08/15/18 08/15/18 08/15/18 00:01 01:13 04:38 WBC 17.2 H RBC 3.91 L Hgb 11.5 L Hct 34.8 L MCV 89.1 MCH 29.5 MCHC 33.1 RDW 13.8 Plt Count 223 Neut % (Auto) Not Reportable Lymph % (Auto) Not Reportable [place] % (Auto) Not Reportable Eos % (Auto) Not Reportable Baso % (Auto) Not Reportable Total Counted Seg Neutrophils % 72.0 H Band Neutrophils % 15.0 H Lymphocytes % (Manual) 6.0 L Monocytes % (Manual) 4.0 Metamyelocytes % 1.0 H Myelocytes % 2.0 H Neutrophils # (Manual) RBC Morphology Normal morphology Sodium Potassium Chloride Carbon Dioxide BUN Creatinine Estimated GFR BUN/Creatinine Ratio Glucose Lactate 2.7 H Calcium Magnesium Total Bilirubin AST ALT Alkaline Phosphatase Total Creatine Kinase Troponin I C-Reactive Protein B-Natriuretic Peptide 340 H Total Protein Albumin Globulin Albumin/Globulin Ratio Procalcitonin Urine Color Yellow Urine Appearance Cloudy Urine pH 7.5 Ur Specific [place] 1.015 Urine Protein 3+ H Urine Glucose (UA) Trace H Urine Ketones Negative Urine Occult Blood 3+ H Urine Nitrate Negative Urine Bilirubin Negative Urine Urobilinogen 0.2 Ur Leukocyte Esterase 1+ H Urine RBC 30-100/hpf H Urine WBC 30-100/hpf H Ur Squamous Epith Cells 1-5 /hpf Urine Bacteria Many (>30) H Ur Culture Indicated? Specimen cultured Micro UA Comment Not Reportable Nasal Screen MRSA (PCR) 08/15/18 08/15/18 04:38 04:38 WBC RBC Hgb Hct MCV MCH MCHC RDW Plt Count Neut % (Auto) Lymph % (Auto) [place] % (Auto) Eos % (Auto) Baso % (Auto) Total Counted Seg Neutrophils % Band Neutrophils % Lymphocytes % (Manual) Monocytes % (Manual) Metamyelocytes % Myelocytes % Neutrophils # (Manual) RBC Morphology Sodium 138 Potassium 3.4 Chloride 105 Carbon Dioxide 16 L BUN 87 H Creatinine 1.70 H Estimated GFR 30.0 L BUN/Creatinine Ratio 51.2 H Glucose 176 H Lactate Calcium 6.4 L* Magnesium Total Bilirubin 0.9 AST 89 H ALT 39 Alkaline Phosphatase 79 Total Creatine Kinase Troponin I C-Reactive Protein B-Natriuretic Peptide Total Protein 5.0 L Albumin 2.2 L Globulin 2.8 Albumin/Globulin Ratio 0.8 L Procalcitonin 35.70 H Urine Color Urine Appearance Urine pH Ur Specific [place] Urine Protein Urine Glucose (UA) Urine Ketones Urine Occult Blood Urine Nitrate Urine Bilirubin Urine Urobilinogen Ur Leukocyte Esterase Urine RBC Urine WBC Ur Squamous Epith Cells Urine Bacteria Ur Culture Indicated? Micro UA Comment Nasal Screen MRSA (PCR) Assessment & Plan Plan: Assessment/Plan Narrative: Septic shock. Patient has septic shock she has greater than normal white blood cell count. She has a source of infection which is the cellulitis of her thigh and necrotic tissue. She has signs of end-organ damage with the elevation of her liver enzymes as well as acute renal failure. She is also hypotensive. White blood cell count has mildly decreased she is afebrile. She still hypotension. Kidney function has improved a little bit. Will continue with aggressive IV fluids. Although we will decrease down from 250 to 175. Her blood pressure is still low she does not require pressors. Lactic acid level has improved although procalcitonin is still quite high. Next big worry with all this fluid is her ability to maintain her oxygen level and respiratory status. Due to her morbid obesity she would be very difficult to ventilate. She is a full code Cellulitis and necrotic tissue of the upper thigh. As probable source of infection this was can a hidden by or overlying obesity and pannus. Continue patient on vancomycin and Zosyn. She is a diabetic. General surgery will be consulted and I have contacted them today. Will proceed with a noncontrast CT scan of her upper thigh it to better delineate the underlying extent of infection abscess or possible fasciitis. Acute kidney injury patient has normal baseline BUN and creatinine. Creatinine is improved a little bit today with all the IV fluids. It is down to 1.7. Still not at her baseline. Monitor closely electrolytes status. Atrial fibrillation. Patient isn't known to be in atrial fibrillation. She she does not have significant tachycardia. Will go ahead and do an EKG. Cor she is not a candidate this time for anticoagulation due to her underlying health concerns additions and concern for possible surgery. We will continue on Lovenox a monitor for significant tachycardia. She will not tolerate any beta-blockers at this point due to her low blood pressure. Moderate malnutrition due to her illness. She has not been eating. She has low protein level low albumin level and this has caused a low calcium level. Morbid obesity. With BMI 54. Certainly complicating her care Diabetes type 2 on oral medication which will be held. Continue with insulin coverage. Try to keep her blood sugars below 200. She is written for Accu-Cheks and insulin sliding scale coverage Patient is critically ill. And still needs ICU care Quality VTE Deep Vein Thrombosis/Pulmonary Embolism Present on Admission: No
--- NOTE | 2018-08-15 08:41 | P.CONS_ITS ---
History of Present Illness Date Patient Seen: 08/15/18 Time Patient Seen: 08:10 Chief complaint: Generally doesn't feel well. Reason for consult: Cellulitis of the thigh/septic shock Requesting provider: Marc Navarrete Narrative: 68-year-old diabetic morbidly obese female who was admitted last evening when she presented to the emergency department generally not feeling well and was found have significant leukocytosis, acute renal injury, and clinical picture consistent with septic shock. In addition, she had a source of infection identified as cellulitis involving the right medial thigh extending toward the groin and pannus. I was consulted via telephone urgently this morning at 7:45 a.m. to evaluate the patient due to progression of her cellulitis and ongoing evidence of sepsis. Patient is awake, alert, and oriented x3 at the time of my visit. She tells me on further history today that she had not been feeling well over the last 48 hr or so. She noticed some pain in the right thigh area but was unable to identify any specific lesion. Denies any trauma to the area recently. [facility] Medical History Morbid obesity with BMI of 50.0-59.9, adult (Acute) Type 2 diabetes mellitus (Acute) Surgical History Status post hysterectomy Status post tubal ligation (10/29/87) Family History Father Diabetes mellitus Grandmother Diabetes mellitus Mother Amyloidosis Pancreatitis Pneumonia Sister Age: 59 Lupus Social History household members: none Smoking Status: Former smoker Meds Home Medications Medication Instructions Recorded Confirmed Type metformin [Glucophage] 500 mg PO BIDCC #180 tab 08/18/17 08/14/18 Rx olmesartan [Benicar] 40 mg PO Q DAY #90 tab 07/27/18 08/14/18 Rx Allergies Allergy/AdvReac Type Severity Reaction Status Date / Time No Known Drug Allergies Allergy Verified 08/14/18 19:29 Review of Systems Review of Systems All systems reviewed & are unremarkable except as noted in HPI and below Exam Vital Signs (past 8 hours): - 08/15/18 01:00 08/15/18 02:15 08/15/18 03:15 Temperature 97.4 F L Pulse Rate 89 90 88 Respiratory Rate 21 25 H 24 Blood Pressure 102/48 L 95/49 L 111/54 L Pulse Oximetry 98 97 96 08/15/18 04:00 08/15/18 05:00 08/15/18 05:30 Temperature 97.6 F Pulse Rate 90 91 H Respiratory Rate 26 H 22 Blood Pressure 87/50 L 92/40 L Pulse Oximetry 97 95 95 08/15/18 06:00 08/15/18 07:00 Temperature 98.4 F 97.8 F Pulse Rate 89 90 Respiratory Rate 22 21 Blood Pressure 99/69 102/52 L Pulse Oximetry 96 96 Oxygen Delivery Method Room Air Narrative Exam Narrative: Patient seen and examined with the assistance of the attending nurse this morning, Krystal Benito Again, patient is alert oriented x3. No fever currently. No tachycardia. She does have some expiratory wheezes that are audible. Remains mildly hypotensive with diastolic blood pressure 44 currently Urine output has been marginal Abdomen is morbidly obese with a extremely large pendulous pannus. Under the pannus is evidence of erythema consistent with cellulitis that extends over the right inguinal region to the right anterior and medial thigh. The thigh itself is clearly much more inflamed and edematous. There is also obvious necrotic tissue including skin along the entire medial thigh which is quite malodorous. No crepitus. She moves extremities symmetrically. Objective Labs Result Diagrams: 08/15/18 04:38 08/15/18 04:38 Labs: Laboratory Results - last 24 hr 08/14/18 08/14/18 08/14/18 20:38 20:38 20:38 WBC 19.1 H RBC 4.69 Hgb 13.8 Hct 42.2 MCV 90.0 MCH 29.4 MCHC 32.7 RDW 13.8 Plt Count 277 Neut % (Auto) Not Reportable Lymph % (Auto) Not Reportable [place] % (Auto) Not Reportable Eos % (Auto) Not Reportable Baso % (Auto) Not Reportable Total Counted 100 Seg Neutrophils % 70.0 Band Neutrophils % 22.0 H Lymphocytes % (Manual) 3.0 L Monocytes % (Manual) 3.0 Metamyelocytes % 2.0 H Myelocytes % Neutrophils # (Manual) 87850 H RBC Morphology Normal morphology Sodium 138 Potassium 3.7 Chloride 98 Carbon Dioxide 18 L BUN 82 H Creatinine 2.10 H Estimated GFR 23.5 L BUN/Creatinine Ratio 39.0 H Glucose 206 H Lactate Calcium 8.1 L Magnesium 2.5 H Total Bilirubin 1.5 H AST 122 H ALT 48 Alkaline Phosphatase 123 Total Creatine Kinase Troponin I C-Reactive Protein 40.7 H B-Natriuretic Peptide Total Protein 6.4 Albumin 3.0 L Globulin 3.4 Albumin/Globulin Ratio 0.9 L Procalcitonin 24.73 H Urine Color Urine Appearance Urine pH Ur Specific [place] Urine Protein Urine Glucose (UA) Urine Ketones Urine Occult Blood Urine Nitrate Urine Bilirubin Urine Urobilinogen Ur Leukocyte Esterase Urine RBC Urine WBC Ur Squamous Epith Cells Urine Bacteria Ur Culture Indicated? Micro UA Comment Nasal Screen MRSA (PCR) 08/14/18 08/14/18 08/14/18 20:38 22:20 23:20 WBC RBC Hgb Hct MCV MCH MCHC RDW Plt Count Neut % (Auto) Lymph % (Auto) [place] % (Auto) Eos % (Auto) Baso % (Auto) Total Counted Seg Neutrophils % Band Neutrophils % Lymphocytes % (Manual) Monocytes % (Manual) Metamyelocytes % Myelocytes % Neutrophils # (Manual) RBC Morphology Sodium Potassium Chloride Carbon Dioxide BUN Creatinine Estimated GFR BUN/Creatinine Ratio Glucose Lactate 5.4 H Calcium Magnesium Total Bilirubin AST ALT Alkaline Phosphatase Total Creatine Kinase 794 H Troponin I 0.019 C-Reactive Protein B-Natriuretic Peptide Total Protein Albumin Globulin Albumin/Globulin Ratio Procalcitonin Urine Color Urine Appearance Urine pH Ur Specific [place] Urine Protein Urine Glucose (UA) Urine Ketones Urine Occult Blood Urine Nitrate Urine Bilirubin Urine Urobilinogen Ur Leukocyte Esterase Urine RBC Urine WBC Ur Squamous Epith Cells Urine Bacteria Ur Culture Indicated? Micro UA Comment Nasal Screen MRSA (PCR) Negative for mrsa 08/15/18 08/15/18 08/15/18 00:01 01:13 04:38 WBC 17.2 H RBC 3.91 L Hgb 11.5 L Hct 34.8 L MCV 89.1 MCH 29.5 MCHC 33.1 RDW 13.8 Plt Count 223 Neut % (Auto) Not Reportable Lymph % (Auto) Not Reportable [place] % (Auto) Not Reportable Eos % (Auto) Not Reportable Baso % (Auto) Not Reportable Total Counted Seg Neutrophils % 72.0 H Band Neutrophils % 15.0 H Lymphocytes % (Manual) 6.0 L Monocytes % (Manual) 4.0 Metamyelocytes % 1.0 H Myelocytes % 2.0 H Neutrophils # (Manual) RBC Morphology Normal morphology Sodium Potassium Chloride Carbon Dioxide BUN Creatinine Estimated GFR BUN/Creatinine Ratio Glucose Lactate 2.7 H Calcium Magnesium Total Bilirubin AST ALT Alkaline Phosphatase Total Creatine Kinase Troponin I C-Reactive Protein B-Natriuretic Peptide 340 H Total Protein Albumin Globulin Albumin/Globulin Ratio Procalcitonin Urine Color Yellow Urine Appearance Cloudy Urine pH 7.5 Ur Specific [place] 1.015 Urine Protein 3+ H Urine Glucose (UA) Trace H Urine Ketones Negative Urine Occult Blood 3+ H Urine Nitrate Negative Urine Bilirubin Negative Urine Urobilinogen 0.2 Ur Leukocyte Esterase 1+ H Urine RBC 30-100/hpf H Urine WBC 30-100/hpf H Ur Squamous Epith Cells 1-5 /hpf Urine Bacteria Many (>30) H Ur Culture Indicated? Specimen cultured Micro UA Comment Not Reportable Nasal Screen MRSA (PCR) 08/15/18 08/15/18 04:38 04:38 WBC RBC Hgb Hct MCV MCH MCHC RDW Plt Count Neut % (Auto) Lymph % (Auto) [place] % (Auto) Eos % (Auto) Baso % (Auto) Total Counted Seg Neutrophils % Band Neutrophils % Lymphocytes % (Manual) Monocytes % (Manual) Metamyelocytes % Myelocytes % Neutrophils # (Manual) RBC Morphology Sodium 138 Potassium 3.4 Chloride 105 Carbon Dioxide 16 L BUN 87 H Creatinine 1.70 H Estimated GFR 30.0 L BUN/Creatinine Ratio 51.2 H Glucose 176 H Lactate Calcium 6.4 L* Magnesium Total Bilirubin 0.9 AST 89 H ALT 39 Alkaline Phosphatase 79 Total Creatine Kinase Troponin I C-Reactive Protein B-Natriuretic Peptide Total Protein 5.0 L Albumin 2.2 L Globulin 2.8 Albumin/Globulin Ratio 0.8 L Procalcitonin 35.70 H Urine Color Urine Appearance Urine pH Ur Specific [place] Urine Protein Urine Glucose (UA) Urine Ketones Urine Occult Blood Urine Nitrate Urine Bilirubin Urine Urobilinogen Ur Leukocyte Esterase Urine RBC Urine WBC Ur Squamous Epith Cells Urine Bacteria Ur Culture Indicated? Micro UA Comment Nasal Screen MRSA (PCR) Assessment & Plan Plan: Assessment/Plan Narrative: 68-year-old morbidly obese diabetic female with what appears to be obvious gangrene of the right medial thigh at this point. I would anticipate that the soft tissue infection is also progressing toward the perineum. In my opinion, the patient requires urgent surgical debridement which most likely will be quite aggressive resulting in significant large long-term open wound. She will require significant care for such. Furthermore, she is quite high risk not only because of her current pathology but also her comorbid medical conditions and significant morbid obesity. She is high risk for anesthesia, and may very likely have some prolonged ventilatory dependence following surgical debridement. I also suspect she will require multiple operations to control the infection in addition to the intravenous antibiotics. I have requested that she receive 20,000,000 units of penicillin G immediately as well. I discussed all the above with the patient at length. In my opinion, we do not have the necessary resources at this institution to provide adequate care in her case for the above reasons. She requires tertiary level critical care resources. I have therefore recommended to her primary physician that she be transferred urgently to such hospital that has bed availability. He is in the process of making those arrangements at the time of my dictation. Again, I discussed this with the patient at length. All questions were answered to her satisfaction, and she voiced understanding. She was agreeable to transfer.
--- NOTE | 2018-08-15 09:03 | PC.NURSE ---
Addendum entered by Wen Benito R.N. 08/15/18 11:19: pt transferred to [facility] per orders- Original Note: initial assessment of pt in coordination with Dr. Gracia's surgical consult. Pt reports no pain at present but does feel lethargic- explained at length the plan for potential transfer to [facility] for management of wounds and post-op care- updated Noel, son of pt, per telephone call as Dr. Navarrete attempting to find available bed to transfer- PEN G iv ordered and awaiting administration upon arrival from pharmacy
--- NOTE | 2018-08-15 09:56 | P.DS_ITS ---
History of Present Illness Chief complaint: Generally doesn't feel well. Narrative: Pleasant 68-year-old female who comes into the emergency room with not feeling well. Symptoms started earlier this week. She just did not feel right. She felt like she lost her appetite her food did not taste good. She did not really want to drink. This continued throughout the week. It progressively got worse. She found it difficulty to ambulate and walk. He became more and more weak. Today her neighbor came and checked on her brought her her mail. And she was feeling so weak and tired that she became concerned. The neighbor called the son who came over and visited her and recommended she go to the emergency room she was too weak the to get out of her house and so 911 was called. She was having hard enough time moving that she was incontinent. She was not found down per se. But was really immobilized. She says maybe she has had a little bit of chills or fevers but she does not think so. She maybe have a little bit of a cough but she is not sure that. She has no dysuria or frequency. She has not had any chest pain or shortness of breath. She has had no significant diarrhea or abdominal pain or discomfort. Patient has not had any difficulty with headaches or blurry vision neck stiffness. Patient has a history of morbid obesity diabetes and hypertension. He has been well controlled. She is on blood pressure medication and medication for her diabetes. She is felt like she has not had any difficulty with high blood sugars lately. Discharge Providers Date of admission: 08/14/18 21:59 Primary care physician: Marc Navarrete MD Consults: 08/15/18 07:15 Consult to General Surgery Routine Comment: Consulting Provider: Zay Gracia Reason for consultation: wound to thigh with cellulits possible absces Has provider been notified: Yes Discharge provider: Marc Navarrete MD Discharge Date: 08/15/18 Summary Discharge Diagnosis: Septic shock Right thigh gangrene cellulitis cannot exclude fasciitis or myositis Acute kidney injury Morbid obesity Diabetes Hypertension Hospital Course: Patient was admitted to the hospital after an evaluation in the emergency room. Initially there was no clear source of her infection. But after complete body exam patient was found to have cellulitis redness bili and blister and discoloration to her thigh and inguinal area. She was put started on broad-spectrum antibiotics and given a vancomycin dose Zosyn dose. She was given fluid boluses and initial fluid support at the recommended dose for sepsis. She was admitted to the ICU and surgical consultation was obtained. Over the ensuing 6 hr. Patient's blood pressure remained stable systolic blood pressure 100 with the MA P of 70. She was found to be in atrial fibrillation but no significant tachycardia. She was oxygenating well on 2 L of oxygen. She was continued on vancomycin and Zosyn surgical consultation was obtained. An surgeon felt like that she had not only cellulitis but also Spivey necrosis either necrotizing site cellulitis fasciitis or myositis. A needed as surgical debridement acutely. Due to patient's body size habitus and critical nature he recommended immediate transfer to tertiary care center. And discussion with tertiary care center. They recommended adding clindamycin 1200 mg. Patient was updated and coherent and talking and care plan was updated with her and her friend and her son Bennie who are here. Accepting physician will be Dr. Viviana Archer. Arrangements will be made for trace silver 2 transfer ACLS or by [facility] [place]. Approximately 2 hr critical care time was spent in coordination of transferring care as well as ongoing Stabilizing the patient. Exam Vital Signs (past 8 hours): - 08/15/18 02:15 08/15/18 03:15 08/15/18 04:00 Temperature 97.6 F Pulse Rate 90 88 90 Respiratory Rate 25 H 24 26 H Blood Pressure 95/49 L 111/54 L 87/50 L Pulse Oximetry 97 96 97 08/15/18 05:00 08/15/18 05:30 08/15/18 06:00 Temperature 98.4 F Pulse Rate 91 H 89 Respiratory Rate 22 22 Blood Pressure 92/40 L 99/69 Pulse Oximetry 95 95 96 08/15/18 07:00 08/15/18 08:00 08/15/18 09:00 Temperature 97.8 F Pulse Rate 90 85 84 Respiratory Rate 21 21 17 Blood Pressure 102/52 L 105/44 L 100/69 Pulse Oximetry 96 97 94 Fraction of Inspired Oxygen 0 Oxygen Delivery Method Room Air Oxygen Flow Rate 0 Narrative Exam Narrative: Gen.: Alert good historian and pale HEENT: Pupils equal round and reactive or mucosa is dry Cardio: S1-S2 irregular rate rhythm heart sounds distant Respiratory: Respiratory normal respiratory effort. Abdomen: Soft nontender no rebound or guarding no liver spleen enlargement no appreciable hernias Extremities: Redness and cellulitis to medial thigh. With areas of discoloration to lay and necrotic tissue. It goes into her groin and around onto her buttock area which has worsened since evaluation last evening Neurologic: Grossly intact. Objective Labs Result Diagrams: 08/15/18 04:38 08/15/18 04:38 Labs: Laboratory Results - last 24 hr 08/14/18 08/14/18 08/14/18 20:38 20:38 20:38 WBC 19.1 H RBC 4.69 Hgb 13.8 Hct 42.2 MCV 90.0 MCH 29.4 MCHC 32.7 RDW 13.8 Plt Count 277 Neut % (Auto) Not Reportable Lymph % (Auto) Not Reportable [place] % (Auto) Not Reportable Eos % (Auto) Not Reportable Baso % (Auto) Not Reportable Total Counted 100 Seg Neutrophils % 70.0 Band Neutrophils % 22.0 H Lymphocytes % (Manual) 3.0 L Monocytes % (Manual) 3.0 Metamyelocytes % 2.0 H Myelocytes % Neutrophils # (Manual) 38894 H RBC Morphology Normal morphology Sodium 138 Potassium 3.7 Chloride 98 Carbon Dioxide 18 L BUN 82 H Creatinine 2.10 H Estimated GFR 23.5 L BUN/Creatinine Ratio 39.0 H Glucose 206 H Lactate Calcium 8.1 L Magnesium 2.5 H Total Bilirubin 1.5 H AST 122 H ALT 48 Alkaline Phosphatase 123 Total Creatine Kinase Troponin I C-Reactive Protein 40.7 H B-Natriuretic Peptide Total Protein 6.4 Albumin 3.0 L Globulin 3.4 Albumin/Globulin Ratio 0.9 L Procalcitonin 24.73 H Urine Color Urine Appearance Urine pH Ur Specific [place] Urine Protein Urine Glucose (UA) Urine Ketones Urine Occult Blood Urine Nitrate Urine Bilirubin Urine Urobilinogen Ur Leukocyte Esterase Urine RBC Urine WBC Ur Squamous Epith Cells Urine Bacteria Ur Culture Indicated? Micro UA Comment Nasal Screen MRSA (PCR) 08/14/18 08/14/18 08/14/18 20:38 22:20 23:20 WBC RBC Hgb Hct MCV MCH MCHC RDW Plt Count Neut % (Auto) Lymph % (Auto) [place] % (Auto) Eos % (Auto) Baso % (Auto) Total Counted Seg Neutrophils % Band Neutrophils % Lymphocytes % (Manual) Monocytes % (Manual) Metamyelocytes % Myelocytes % Neutrophils # (Manual) RBC Morphology Sodium Potassium Chloride Carbon Dioxide BUN Creatinine Estimated GFR BUN/Creatinine Ratio Glucose Lactate 5.4 H Calcium Magnesium Total Bilirubin AST ALT Alkaline Phosphatase Total Creatine Kinase 794 H Troponin I 0.019 C-Reactive Protein B-Natriuretic Peptide Total Protein Albumin Globulin Albumin/Globulin Ratio Procalcitonin Urine Color Urine Appearance Urine pH Ur Specific [place] Urine Protein Urine Glucose (UA) Urine Ketones Urine Occult Blood Urine Nitrate Urine Bilirubin Urine Urobilinogen Ur Leukocyte Esterase Urine RBC Urine WBC Ur Squamous Epith Cells Urine Bacteria Ur Culture Indicated? Micro UA Comment Nasal Screen MRSA (PCR) Negative for mrsa 08/15/18 08/15/18 08/15/18 00:01 01:13 04:38 WBC 17.2 H RBC 3.91 L Hgb 11.5 L Hct 34.8 L MCV 89.1 MCH 29.5 MCHC 33.1 RDW 13.8 Plt Count 223 Neut % (Auto) Not Reportable Lymph % (Auto) Not Reportable [place] % (Auto) Not Reportable Eos % (Auto) Not Reportable Baso % (Auto) Not Reportable Total Counted Seg Neutrophils % 72.0 H Band Neutrophils % 15.0 H Lymphocytes % (Manual) 6.0 L Monocytes % (Manual) 4.0 Metamyelocytes % 1.0 H Myelocytes % 2.0 H Neutrophils # (Manual) RBC Morphology Normal morphology Sodium Potassium Chloride Carbon Dioxide BUN Creatinine Estimated GFR BUN/Creatinine Ratio Glucose Lactate 2.7 H Calcium Magnesium Total Bilirubin AST ALT Alkaline Phosphatase Total Creatine Kinase Troponin I C-Reactive Protein B-Natriuretic Peptide 340 H Total Protein Albumin Globulin Albumin/Globulin Ratio Procalcitonin Urine Color Yellow Urine Appearance Cloudy Urine pH 7.5 Ur Specific [place] 1.015 Urine Protein 3+ H Urine Glucose (UA) Trace H Urine Ketones Negative Urine Occult Blood 3+ H Urine Nitrate Negative Urine Bilirubin Negative Urine Urobilinogen 0.2 Ur Leukocyte Esterase 1+ H Urine RBC 30-100/hpf H Urine WBC 30-100/hpf H Ur Squamous Epith Cells 1-5 /hpf Urine Bacteria Many (>30) H Ur Culture Indicated? Specimen cultured Micro UA Comment Not Reportable Nasal Screen MRSA (PCR) 08/15/18 08/15/18 04:38 04:38 WBC RBC Hgb Hct MCV MCH MCHC RDW Plt Count Neut % (Auto) Lymph % (Auto) [place] % (Auto) Eos % (Auto) Baso % (Auto) Total Counted Seg Neutrophils % Band Neutrophils % Lymphocytes % (Manual) Monocytes % (Manual) Metamyelocytes % Myelocytes % Neutrophils # (Manual) RBC Morphology Sodium 138 Potassium 3.4 Chloride 105 Carbon Dioxide 16 L BUN 87 H Creatinine 1.70 H Estimated GFR 30.0 L BUN/Creatinine Ratio 51.2 H Glucose 176 H Lactate Calcium 6.4 L* Magnesium Total Bilirubin 0.9 AST 89 H ALT 39 Alkaline Phosphatase 79 Total Creatine Kinase Troponin I C-Reactive Protein B-Natriuretic Peptide Total Protein 5.0 L Albumin 2.2 L Globulin 2.8 Albumin/Globulin Ratio 0.8 L Procalcitonin 35.70 H Urine Color Urine Appearance Urine pH Ur Specific [place] Urine Protein Urine Glucose (UA) Urine Ketones Urine Occult Blood Urine Nitrate Urine Bilirubin Urine Urobilinogen Ur Leukocyte Esterase Urine RBC Urine WBC Ur Squamous Epith Cells Urine Bacteria Ur Culture Indicated? Micro UA Comment Nasal Screen MRSA (PCR) Discharge Plan Discharge Plan Patient Disposition: Xfer [facility] Discharge Med Rec/Prescriptions Prescriptions: Discontinued metformin [Glucophage] 500 MG tablet 500 mg PO BIDCC Qty: 180 RF: 3 olmesartan [Benicar] 40 mg tablet 40 mg PO Q DAY Qty: 90 RF: 2 Discharge Data Primary Care Provider: Marc Navarrete Attending Provider: Marc Navarrete Admit Date/Time: 08/14/18 21:59 Quality VTE Deep Vein Thrombosis/Pulmonary Embolism Present on Admission: No
--- NOTE | 2018-08-15 10:06 | CM.DANOTE ---
DCP: Case received, EMR reviewed. Information obtained from sonNoel. DCP Template completed with information currently available. Patient is a 68 year old female who admitted yesterday evening to the care of the hospitalist team. PCP: Dr. Navarrete. Payer: confirmed: Medicare/[employer]. Patient came to hospital via ambulance secondary to weakness. At the time, patient was covered in urine and fecies. Patient was noted to be in Septic shock, as well as A-Fib. Sepsis secondary to cellulitis of thigh (gangreanous), necrotic tissue. Patient also has Diabetes type 2, and is morbidly obese. Was unable to meet with patient in room due to complex medical needs, but did get in contact with son, Noel, who resides in [place]. Patient resides here in [place]. Asked son about baseline. He stated, she really doesn't take care of herself, she doesn't use a walker, and there are lots of stairs in her house. He stated that him and other siblings had been trying to talk patient into moving into a smaller home for years. Patient is . Mentioned her disease, Diabetes, and he stated, she really doesn't want to talk about it, she keeps changing the subject. He is aware of her complex medical condition at the present. Patient is to be transferred to a higher level hospital due to severity of leg, and other complex co-morbidities. May be going to [facility]. Patient will need multiple surgical debridements of leg, and ventilation support as well. Son is aware of this. Transfer is to happen today. P: Patient will be transferred to higher level hospital due to complex medical needs. Lupis Guzman RN/Chili Maker
[2018-08-15] MEDS: CLINDAMYCIN IV (10:08)
[2018-08-15] MEDS: WATER IV ×2 (10:08→10:10)
[2018-08-15] MEDS: DEXTROSE 5% IV ×2 (10:08→10:10)
[2018-08-15] MEDS: PENICILLIN POTASSIUM IV (10:10)
[2018-08-15] MEDS: MORPHINE 4 MG/ML INJ IV (10:20)
== END 2018-08-15 11:00 | disposition short-term general hospital (02) | DRG 871 ==
LOC: ED 21:43 → ICU 22:01
PROVIDERS: Admitting Provider Family Medicine; Emergency Provider Emergency Medicine; Family Provider Family Medicine; PCP Family Medicine; Visit Provider Family Medicine
DX: A41.9 Sepsis, unspecified organism (principal); R65.21 Severe sepsis with septic shock; L03.115 Cellulitis of right lower limb; N17.9 Acute kidney failure, unspecified; E11.52 Type 2 diabetes mellitus with diabetic peripheral angiopathy with gangrene; I96 Gangrene, not elsewhere classified; Z68.43 Body mass index [BMI] 50.0-59.9, adult; E44.0 Moderate protein-calorie malnutrition; Z79.84 Long term (current) use of oral hypoglycemic drugs; E66.01 Morbid (severe) obesity due to excess calories; I10 Essential (primary) hypertension; Z87.891 Personal history of nicotine dependence; I48.91 Unspecified atrial fibrillation
CPT/HCPCS: 36415; 51705; 71045; 80053; 81001; 82550; 82553; 82962; 83605; 83735; 83880; 84145; 84484; 85025; 86140; 87040; 87070; 87075; 87077; 87086; 87147; 87186; 87205; 87797; 93005; 96361; 96365; 96366; 99223; 99233; 99238; 99285; 99291; 99292; J2270; J2540; J2543; S0077

== ENCOUNTER → 2018-10-23 10:05 | Outpatient (CLI) | payer MEDICARE, SELFPAY ==
[2018-08-14 23:30] VITALS: BMI 54.5
== END ==
PROVIDERS: Family Provider Family Medicine; PCP Family Medicine; Visit Provider Family Medicine
DX: S71.101A Unspecified open wound, right thigh, initial encounter (principal); E11.622 Type 2 diabetes mellitus with other skin ulcer; L92.8 Other granulomatous disorders of the skin and subcutaneous tissue
CPT/HCPCS: 17250; 99203; 99212

== ENCOUNTER → 2018-10-27 10:33 | Outpatient (CLI) | payer MEDICARE, SELFPAY ==
[2018-08-14 23:30] VITALS: BMI 54.5
== END ==
PROVIDERS: Family Provider Family Medicine; PCP Family Medicine; Visit Provider Family Medicine
DX: S71.101A Unspecified open wound, right thigh, initial encounter (principal); E11.622 Type 2 diabetes mellitus with other skin ulcer
CPT/HCPCS: 11042; 97605

== ENCOUNTER → 2018-10-29 13:44 | Outpatient (CLI) | payer SELFPAY ==
[2018-08-14 23:30] VITALS: BMI 54.5
== END ==
PROVIDERS: Family Provider Family Medicine; PCP Family Medicine; Visit Provider Family Medicine
DX: S71.101A Unspecified open wound, right thigh, initial encounter (principal); E11.622 Type 2 diabetes mellitus with other skin ulcer
CPT/HCPCS: 97605

== ENCOUNTER → 2018-11-02 13:22 | Outpatient (CLI) | payer MEDICARE, SELFPAY ==
[2018-08-14 23:30] VITALS: BMI 54.5
== END ==
PROVIDERS: Family Provider Family Medicine; PCP Family Medicine; Visit Provider Family Medicine
DX: S71.101A Unspecified open wound, right thigh, initial encounter (principal); E11.622 Type 2 diabetes mellitus with other skin ulcer; B96.5 Pseudomonas (aeruginosa) (mallei) (pseudomallei) as the cause of diseases classified elsewhere
CPT/HCPCS: 11042; 87070; 87075; 87077; 87186; 87205; 99214

== ENCOUNTER → 2018-11-06 08:57 | Outpatient (CLI) | payer MEDICARE, SELFPAY ==
[2018-08-14 23:30] VITALS: BMI 54.5
== END ==
PROVIDERS: Family Provider Family Medicine; PCP Family Medicine; Visit Provider Family Medicine
DX: S71.101A Unspecified open wound, right thigh, initial encounter (principal); E11.622 Type 2 diabetes mellitus with other skin ulcer; B96.5 Pseudomonas (aeruginosa) (mallei) (pseudomallei) as the cause of diseases classified elsewhere; B96.29 Other Escherichia coli [E. coli] as the cause of diseases classified elsewhere
CPT/HCPCS: 99214

== ENCOUNTER → 2018-11-09 10:21 | Outpatient (CLI) | payer MEDICARE, SELFPAY ==
[2018-08-14 23:30] VITALS: BMI 54.5
== END ==
PROVIDERS: Family Provider Family Medicine; PCP Family Medicine; Visit Provider Family Medicine
DX: S71.101A Unspecified open wound, right thigh, initial encounter (principal); E11.622 Type 2 diabetes mellitus with other skin ulcer; B96.5 Pseudomonas (aeruginosa) (mallei) (pseudomallei) as the cause of diseases classified elsewhere; B96.29 Other Escherichia coli [E. coli] as the cause of diseases classified elsewhere
CPT/HCPCS: 11042

== ENCOUNTER → 2018-11-16 10:13 | Outpatient (CLI) | payer MEDICARE, SELFPAY ==
[2018-08-14 23:30] VITALS: BMI 54.5
== END ==
PROVIDERS: Family Provider Family Medicine; PCP Family Medicine; Visit Provider Family Medicine
DX: S71.101A Unspecified open wound, right thigh, initial encounter (principal); E11.622 Type 2 diabetes mellitus with other skin ulcer; B96.5 Pseudomonas (aeruginosa) (mallei) (pseudomallei) as the cause of diseases classified elsewhere; B96.29 Other Escherichia coli [E. coli] as the cause of diseases classified elsewhere
CPT/HCPCS: 11042; 87070; 87075; 87077; 87147; 87186; 87205; 99213

== ENCOUNTER → 2018-11-24 11:21 | Outpatient (CLI) | payer MEDICARE, SELFPAY ==
[2018-08-14 23:30] VITALS: BMI 54.5
== END ==
PROVIDERS: Family Provider Family Medicine; PCP Family Medicine; Visit Provider Family Medicine
DX: S71.101A Unspecified open wound, right thigh, initial encounter (principal); E11.622 Type 2 diabetes mellitus with other skin ulcer; L08.9 Local infection of the skin and subcutaneous tissue, unspecified; B95.7 Other staphylococcus as the cause of diseases classified elsewhere
CPT/HCPCS: 11042; 99214

== ENCOUNTER → 2018-12-01 10:17 | Outpatient (CLI) | payer MEDICARE, SELFPAY ==
[2018-08-14 23:30] VITALS: BMI 54.5
== END ==
PROVIDERS: Family Provider Family Medicine; PCP Family Medicine; Visit Provider Family Medicine
DX: S71.101A Unspecified open wound, right thigh, initial encounter (principal); E11.622 Type 2 diabetes mellitus with other skin ulcer; L08.9 Local infection of the skin and subcutaneous tissue, unspecified; B95.7 Other staphylococcus as the cause of diseases classified elsewhere
CPT/HCPCS: 11042; 97605

== ENCOUNTER → 2018-12-08 10:39 | Outpatient (CLI) | payer MEDICARE, SELFPAY ==
[2018-08-14 23:30] VITALS: BMI 54.5
== END ==
PROVIDERS: Family Provider Family Medicine; PCP Family Medicine; Visit Provider Family Medicine
DX: S71.101A Unspecified open wound, right thigh, initial encounter (principal); E11.622 Type 2 diabetes mellitus with other skin ulcer; I96 Gangrene, not elsewhere classified
CPT/HCPCS: 11042; 97605

== ENCOUNTER → 2018-12-15 09:41 | Outpatient (CLI) | payer MEDICARE, SELFPAY ==
[2018-08-14 23:30] VITALS: BMI 54.5
== END ==
PROVIDERS: Family Provider Family Medicine; PCP Family Medicine; Visit Provider Family Medicine
DX: S71.101A Unspecified open wound, right thigh, initial encounter (principal); E11.622 Type 2 diabetes mellitus with other skin ulcer
CPT/HCPCS: 11042; 87070; 87075; 87077; 87186; 87205; 97605

== ENCOUNTER → 2018-12-18 10:27 | Outpatient (CLI) | payer MEDICARE, SELFPAY ==
[2018-08-14 23:30] VITALS: BMI 54.5
== END ==
PROVIDERS: Family Provider Family Medicine; PCP Family Medicine; Visit Provider Family Medicine
DX: S71.101A Unspecified open wound, right thigh, initial encounter (principal); E11.622 Type 2 diabetes mellitus with other skin ulcer; L03.115 Cellulitis of right lower limb
CPT/HCPCS: 11042; 87070; 87075; 87077; 87147; 87186; 87205; 99214

== ENCOUNTER → 2018-12-22 11:53 | Outpatient (CLI) | payer MEDICARE, SELFPAY ==
[2018-08-14 23:30] VITALS: BMI 54.5
== END ==
PROVIDERS: Family Provider Family Medicine; PCP Family Medicine; Visit Provider Family Medicine
DX: S71.101A Unspecified open wound, right thigh, initial encounter (principal); E11.622 Type 2 diabetes mellitus with other skin ulcer; L03.115 Cellulitis of right lower limb
CPT/HCPCS: 36415; 80048; 85025; 85651; 86140; 87070; 87075; 87205

== ENCOUNTER → 2018-12-22 12:25 | Outpatient (CLI) | payer MEDICARE, SELFPAY ==
[2018-08-14 23:30] VITALS: BMI 54.5
[2018-12-22 13:25] LABS: Add Manual Diff / Slide Review NO; Basophils Absolute Auto 100 /uL (0-100); Basophils Percent Auto 0.7 % (0-2); Eosinophils Absolute Auto 200 /uL (0-450); Hematocrit 33.4 % (36-46); Hemoglobin 10.6 g/dL (12.0-16.0); Lymphocytes Absolute Auto 1400 /uL (1100-4500); Lymphocytes Percent Auto 15.6 % (25-40); Mean Corpuscular HGB Conc 31.7 % (30-36); Mean Corpuscular Hemoglobin 23.6 PG (26-34); Mean Corpuscular Volume 74.4 fL (80-100); Monocytes Absolute Auto 700 /uL (0-900); Monocytes Percent Auto 7.8 % (3-14); Neutrophils Absolute Auto 6700 /uL (1500-7000); Neutrophils Percent Auto 73.9 % (50-75); Platelet Count 429 X10^3/uL (150-400); Red Blood Cell Count 4.49 X10^6/uL (4.0-5.2); Red Cell Distribution Width 18.1 % (11.6-14.8)
[2018-12-22 13:53] LABS: Erythrocyte Sedimentation Rate 94 MM/HR (0-20)
[2018-12-22 14:00] LABS: BUN Creatinine Ratio 15.6 (6-22); Blood Urea Nitrogen 14 mg/dL (7-17); Calcium 9.5 mg/dL (8.4-10.2); Carbon Dioxide 25 mmol/L (22-32); Chloride 101 mmol/L (98-107); Estimated Glomerular Filt Rate > 60.0 mL/min (>60); Glucose 107 mg/dL (80-110); HEMOLYSIS < 15 (0-50); Potassium 4.2 mmol/L (3.4-5.1); Sodium 138 mmol/L (137-145)
[2018-12-22 14:11] LABS: C-Reactive Protein Quant 19.7 mg/dL (<1.0)
== END ==
PROVIDERS: Family Provider Family Medicine; PCP Family Medicine; Visit Provider Family Medicine
DX: L08.89 Other specified local infections of the skin and subcutaneous tissue (principal)
CPT/HCPCS: 36415; 80048; 85025; 85651; 86140

== ENCOUNTER 2018-12-22 17:40 | Inpatient (IN) | payer MEDICARE, SELFPAY ==
[2018-08-14 23:30] VITALS: BMI 54.5
[2018-12-22] VITALS (8 sets, daily range): BP systolic 122–145; BP diastolic 47–89; PULSE 79–99; RESP 17–22; TEMP 36.9; O2SAT 92–98; BMI 47.5
--- NOTE | 2018-12-22 17:47 | DI.RAD.S_ITS ---
PROCEDURE: XR CHEST 1V INDICATIONS: suspected sepsis TECHNIQUE: One view of the chest was acquired. COMPARISON: [facility], CR, XR CHEST 1V, 08/14/2018, 19:43. FINDINGS: Surgical changes and devices: None. Lungs and pleura: Lungs are clear. No pleural effusions or pneumothorax. Mediastinum: Mediastinal contours appear normal. Heart size is enlarged, as before. Bones and chest wall: No suspicious bony lesions. Overlying soft tissues appear unremarkable. IMPRESSION: No acute cardiopulmonary findings. Dictated by: Joy Whitehead M.D. on 12/22/2018 at 18:35 Approved by: Joy Whitehead M.D. on 12/22/2018 at 18:35
--- NOTE | 2018-12-22 18:08 | ED.FEVER ---
HPI - Fever General Chief Complaint: Fever Stated Complaint: Leg infection Time Seen by Provider: 12/22/18 18:08 Source: patient Mode of arrival: ambulatory Limitations: no limitations History of Present Illness HPI Narrative: The patient is a morbidly obese diabetic patient who was seen at this hospital August 2018 with a right thigh going infection. She developed necrotizing fasciitis and was sent urgently to [facility]. She underwent extensive debridement of the site and manage the site. She is now in the care of [facility]. The patient underwent extensive debridement to the necrotic area. There are 2 small deep ulcers continuing at the site. Regarding the large right groin/thigh injury and surgical site, the wounds are categorized as 4 separate injuries. She has 2 open/draining ulcers in this complex wound site. Recent cultures had revealed Staph aureus and E coli. Wound care is currently managing her with Keflex and Septra DS. The cellulitis is progressing despite these medications. A fresh wound culture was obtained today. Labs were drawn indicating most significantly and increased ESR and increased CRP. She complains of spreading erythema despite the efforts. She denies significant spur in pain. She is having no fever, chills or sweats. Related Data Allergies Allergy/AdvReac Type Severity Reaction Status Date / Time No Known Drug Allergies Allergy Verified 12/22/18 17:59 Review of Systems Review of Systems ROS Unobtainable: All systems reviewed & are unremarkable except as noted in HPI and below Constitutional Denies chills, Denies fever(s), Denies lethargy and Denies weakness ENT Ears, Nose, Mouth, and Throat: Denies change in voice, Denies neck pain and Denies sore throat Cardiovascular Denies chest pain, Denies irregular heart rhythm, Denies lightheadedness, Denies palpitations, Denies dyspnea and Denies orthopnea Respiratory Denies cough and Denies dyspnea Gastrointestinal Gastrointestinal: Denies abdominal pain, Denies change in bowel habits, Denies diarrhea, Denies nausea and Denies vomiting Genitourinary Denies dysuria Musculoskeletal Denies back pain and Denies neck pain Comments: Pain in the right thigh/groin where the infection is active. Integumentary/Breasts Comments: Erythema in the right groin and thigh at the prior surgical site. Two ulcers the site that were recently dressed in Wound Care. The bandages were not removed. Neurologic Denies weakness Endocrine Denies palpitations [facility] Medical History (Updated 12/22/18 @ 20:02 by Adebayo Livingston MD) Encounter for debridement of skin (Acute) Necrotizing fasciitis (Acute) Morbid obesity with BMI of 50.0-59.9, adult (Acute) Type 2 diabetes mellitus (Acute) Surgical History Status post hysterectomy Status post tubal ligation (10/29/87) Family History Father Diabetes mellitus Grandmother Diabetes mellitus Mother Amyloidosis Pancreatitis Pneumonia Sister Age: 59 Lupus Social History household members: none Smoking Status: Former smoker Family History Father Diabetes mellitus Grandmother Diabetes mellitus Mother Amyloidosis Pancreatitis Pneumonia Sister Age: 59 Lupus Social History household members: none Smoking Status: Former smoker Exam Initial Vital Signs Initial Vital Signs: Vital Signs Pulse Rate 91 H 12/22/18 17:40 Respiratory Rate 18 12/22/18 17:40 Blood Pressure 145/67 H 12/22/18 17:40 Pulse Oximetry 97 12/22/18 17:40 Const General: cooperative and well developed Nutritional Appearance: well nourished Orientation: alert, awake and oriented x3 HENMT Head: normocephalic and atraumatic Nose: external nose normal Face and sinus: sinuses nontender, face symmetric and No dry mucous membranes Mouth: oral mucosae normal and moist mucous membranes Throat: tonsils normal and uvula midline Eyes General: appearance normal, both eyes and all related structures Eyelids: eyelids normal Conjunctivae: conjunctivae normal Sclera: sclerae normal Pupils: PERRL EOM: EOM intact bilaterally Neck Neck: full ROM, no meningeal signs and supple Resp Effort & Inspection: normal respiratory effort, able to speak in complete sentences, no respiratory distress and no use of accessory muscles Auscultation: clear to auscultation bilaterally, no rales, no rhonchi and no wheezes Cardio Rate: regular rate Rhythm: regular rhythm Heart Sounds: no click, no gallops, no murmurs and no rubs Pulses: normal peripheral pulses GI Inspection: non-distended, large pannus, obesity and other (Right leg infection from the prior wound wound extends to the right abdomen) Palpation: No guarding Percussion: normal to percussion Auscultation: normal bowel sounds Back/Spine/Pelvis Back: No CVA tenderness Skin Other: Large wound being involving the anterior medial thigh with extension into the groin, 2 ulcers within the site that of recently being cleansed and covered at Wound Care. Erythema extending from the prior surgical site were skin transplant has occurred, erythema extending down the thigh be on the surgical site and up into the groin and lower right abdomen. There area is warm to touch with slight tenderness. There is no suggestion of fluctuance, induration or necrosis. Neuro General: alert, oriented x3, gait normal and no focal motor deficits Speech: speech normal Extrem General: full ROM, no clubbing, cyanosis or edema, no pedal edema and no calf tenderness Other: Normal peripheral pulses in both right lower extremities. Psych Appearance: well kempt Mental Status: mental status grossly normal Attitude: cooperative Thought Content: normal and suicidality Judgment: judgment good Course Course Narrative: I discussed the patient's recent medical history with Dr. Maldonado, he is the on-call physician for the patient's regular physician, Dr Navarrete. Recent cultures and care provided at the Wound Care center was reviewed. Unfortunately she is developing progressive cellulitis despite the efforts there. She has failed outpatient management with oral antibiotics. Multiple wound cultures reveal a pattern of significant resistance to the organisms involved. I have already started the patient on IV Vancomycin. Reviewing the most recent cultures and in discussion with Dr. Maldonado, it was decided to add Imipenem to the treatment regimen, awaiting more details about recent cultures. She will be admitted for inpatient care. Decision to Admit Date: 12/22/18 Decision to Admit time: 19:57 Orders Ordered: ED Orders 12/22/18 17:47 XR chest 1V Stat 12/22/18 18:06 Complete Blood Count AUTO DIFF Stat Comprehensive Metabolic Panel Stat Lactate (Lactic Acid) Stat Lipase Stat Partial Thromboplastin Time Stat Procalcitonin Stat Prothrombin Time INR Stat 12/22/18 18:25 EKG-12 Lead Stat 12/22/18 19:12 Blood Culture Stat Sodium Chloride (Normal Saline 0.9%) 1,000 mls @ 250 mls/hr IV CONT MICHAEL Last Admin: 12/22/18 19:01 Dose: 250 mls/hr Discontinued Medications Vancomycin HCl 2,000 mg/ (Sodium Chloride) 500 mls @ 250 mls/hr IV NOW ONE Stop: 12/22/18 18:59 Last Admin: 12/22/18 19:25 Dose: 250 mls/hr Vital Signs - 8 hr 12/22/18 17:40 12/22/18 18:00 12/22/18 18:30 Temperature Pulse Rate 91 H 99 H 92 H Respiratory Rate 18 18 20 Blood Pressure 145/67 H Blood Pressure [Left Arm] 122/47 L 140/48 L Pulse Oximetry 97 96 98 12/22/18 18:43 Temperature 98.4 F Pulse Rate Respiratory Rate Blood Pressure Blood Pressure [Left Arm] Pulse Oximetry MDM - Fever Lab Data Result diagrams: 12/22/18 18:06 12/22/18 18:06 Lab Results 12/22/18 12/22/18 12/22/18 Range/Units 18:06 18:06 18:06 WBC 10.1 (4.5-11.0) X10^3/uL RBC 4.35 (4.0-5.2) X10^6/uL Hgb 10.0 L (12.0-16.0) g/dL Hct 32.4 L (36-46) % MCV 74.6 L (80-100) fL MCH 23.0 L (26-34) PG MCHC 30.8 (30-36) % RDW 17.9 H (11.6-14.8) % Plt Count 366 (150-400) X10^3/uL Neut % (Auto) 78.8 H (50-75) % Lymph % (Auto) 11.7 L (25-40) % [place] % (Auto) 7.4 (3-14) % Eos % (Auto) 1.4 L (2-4) % Baso % (Auto) 0.7 (0-2) % Neut # (Auto) 8000 H (6111-4638) /uL Lymph # (Auto) 1200 (2016-7729) /uL [place] # (Auto) 700 (0-900) /uL Eos # (Auto) 100 (0-450) /uL Baso # (Auto) 100 (0-100) /uL PT 14.4 H (10.1-12.7) SECONDS INR 1.3 (0.9-1.3) APTT 26 L (26.4-36.2) SECONDS Sodium (137-145) mmol/L Potassium (3.4-5.1) mmol/L Chloride (98-107) mmol/L Carbon Dioxide (22-32) mmol/L BUN (7-17) mg/dL Creatinine (0.52-1.04) mg/dL Estimated GFR (>60) mL/min BUN/Creatinine Ratio (6-22) Glucose (80-110) mg/dL Lactate (0.7-2.1) mmol/L Calcium (8.4-10.2) mg/dL Total Bilirubin (0.2-1.3) mg/dL AST (14-36) IU/L ALT (9-52) IU/L Alkaline Phosphatase (38-126) U/L Total Protein (6.3-8.2) g/dL Albumin (3.5-5.0) g/dL Globulin (1.7-4.1) g/dL Albumin/Globulin Ratio (1.0-2.8) Lipase (23-300) U/L Procalcitonin 0.18 (<0.5) ng/mL 12/22/18 12/22/18 Range/Units 18:06 18:06 WBC (4.5-11.0) X10^3/uL RBC (4.0-5.2) X10^6/uL Hgb (12.0-16.0) g/dL Hct (36-46) % MCV (80-100) fL MCH (26-34) PG MCHC (30-36) % RDW (11.6-14.8) % Plt Count (150-400) X10^3/uL Neut % (Auto) (50-75) % Lymph % (Auto) (25-40) % [place] % (Auto) (3-14) % Eos % (Auto) (2-4) % Baso % (Auto) (0-2) % Neut # (Auto) (2084-4417) /uL Lymph # (Auto) (4839-8629) /uL [place] # (Auto) (0-900) /uL Eos # (Auto) (0-450) /uL Baso # (Auto) (0-100) /uL PT (10.1-12.7) SECONDS INR (0.9-1.3) APTT (26.4-36.2) SECONDS Sodium 139 (137-145) mmol/L Potassium 3.9 (3.4-5.1) mmol/L Chloride 101 (98-107) mmol/L Carbon Dioxide 26 (22-32) mmol/L BUN 15 (7-17) mg/dL Creatinine 0.80 (0.52-1.04) mg/dL Estimated GFR > 60.0 (>60) mL/min BUN/Creatinine Ratio 18.8 (6-22) Glucose 162 H (80-110) mg/dL Lactate 1.8 (0.7-2.1) mmol/L Calcium 9.5 (8.4-10.2) mg/dL Total Bilirubin 0.6 (0.2-1.3) mg/dL AST 18 (14-36) IU/L ALT 8 L (9-52) IU/L Alkaline Phosphatase 99 (38-126) U/L Total Protein 7.3 (6.3-8.2) g/dL Albumin 3.4 L (3.5-5.0) g/dL Globulin 3.9 (1.7-4.1) g/dL Albumin/Globulin Ratio 0.9 L (1.0-2.8) Lipase 49 (23-300) U/L Procalcitonin (<0.5) ng/mL ECG Data Attestation: I personally reviewed and interpreted this ECG as follows: Critical Care Time Total Critical Care Time: 40 Attestation: In addition to the initial evaluation and decision making, extensive review of past records was undertaken. Today's critical findings and lab studies were reviewed with the eventual attending physician, she will be admitted. Discharge Plan Departure Patient Disposition: Admitted As Inpatient Clinical Impression: Cellulitis of leg, right, Morbid obesity Controlled type 2 diabetes mellitus Qualifiers: Diabetes mellitus custodial insulin use: with custodial use
[2018-12-22 18:14] LABS: Add Manual Diff / Slide Review NO; Basophils Absolute Auto 100 /uL (0-100); Basophils Percent Auto 0.7 % (0-2); Eosinophils Absolute Auto 100 /uL (0-450); Eosinophils Percent Auto 1.4 % (2-4); Hematocrit 32.4 % (36-46); Lymphocytes Absolute Auto 1200 /uL (1100-4500); Lymphocytes Percent Auto 11.7 % (25-40); Mean Corpuscular HGB Conc 30.8 % (30-36); Mean Corpuscular Volume 74.6 fL (80-100); Monocytes Absolute Auto 700 /uL (0-900); Monocytes Percent Auto 7.4 % (3-14); Neutrophils Absolute Auto 8000 /uL (1500-7000); Neutrophils Percent Auto 78.8 % (50-75); Platelet Count 366 X10^3/uL (150-400); Red Blood Cell Count 4.35 X10^6/uL (4.0-5.2); Red Cell Distribution Width 17.9 % (11.6-14.8); White Blood Cell Count 10.1 X10^3/uL (4.5-11.0)
[2018-12-22 18:21] LABS: INR 1.3 (0.9-1.3); Prothrombin Time 14.4 SECONDS (10.1-12.7)
[2018-12-22 18:24] LABS: PTT Partial Thromboplastin Tim 26 SECONDS (26.4-36.2)
[2018-12-22 18:29] LABS: Alanine Aminotransferase 8 IU/L (9-52); Albumin 3.4 g/dL (3.5-5.0); Albumin Globulin Ratio 0.9 (1.0-2.8); Alkaline Phosphatase 99 U/L (38-126); Aspartate Aminotransferase 18 IU/L (14-36); BUN Creatinine Ratio 18.8 (6-22); Bilirubin Total 0.6 mg/dL (0.2-1.3); Blood Urea Nitrogen 15 mg/dL (7-17); Calcium 9.5 mg/dL (8.4-10.2); Carbon Dioxide 26 mmol/L (22-32); Chloride 101 mmol/L (98-107); Estimated Glomerular Filt Rate > 60.0 mL/min (>60); Globulin 3.9 g/dL (1.7-4.1); Glucose 162 mg/dL (80-110); HEMOLYSIS < 15 (0-50); Lipase 49 U/L (23-300); Potassium 3.9 mmol/L (3.4-5.1); Sodium 139 mmol/L (137-145); Total Protein 7.3 g/dL (6.3-8.2)
[2018-12-22 18:30] LABS: Lactate (Lactic Acid) 1.8 mmol/L (0.7-2.1)
[2018-12-22 18:52] LABS: Procalcitonin 0.18 ng/mL (<0.5)
[2018-12-22] MEDS: SODIUM CHLORIDE 0.9% 1,000 ML 250 ML IV (19:01)
[2018-12-22] MEDS: VANCOMYCIN 2,000 MG in SODIUM CHLORIDE 0.9% 500 ML 250 ML IV (19:25)
--- NOTE | 2018-12-22 21:34 | PC.NURSE ---
2120: Patient admitted to room 205 from ED with Sultana BARBA. Patient up out of [place], ambulated to bed. Took only a few steps, unsteady gait noted. Used bedpan for void upon arrival. States has been feeling weak as of recently and will use bedpan. Fall risk precautions initiated, BA active and call light within reach. Verbalized understanding, and demonstrated use of call light. Photos obtained for RLE, please see flowsheet for details. C/O pain to Right groin, no nausea or vomiting. Alert, oriented and very pleasant. Oriented to room, environment, and plan of care.
[2018-12-22] MEDS: OXYCODONE IR 5 MG TABLET 10 MG PO (22:01)
[2018-12-22] MEDS: SODIUM CHLORIDE 0.9% 1,000 ML 150 ML IV (22:02)
[2018-12-22] MEDS: IMIPENEM/CILASTATIN 500 MG in SODIUM CHLORIDE 0.9% 100 ML 200 ML IV (22:05)
[2018-12-23] VITALS (17 sets, daily range): BP systolic 109–147; BP diastolic 44–87; PULSE 69–96; RESP 14–21; TEMP 36.3–37.1; O2SAT 90–96
[2018-12-23] MEDS: IMIPENEM/CILASTATIN 1,000 MG in SODIUM CHLORIDE 0.9% 250 ML IV ×3 (05:02→22:06)
[2018-12-23] MEDS: SODIUM CHLORIDE 0.9% 1,000 ML 150 ML IV ×3 (05:07→16:42)
[2018-12-23 06:06] LABS: Add Manual Diff / Slide Review NO; Basophils Absolute Auto 100 /uL (0-100); Basophils Percent Auto 0.6 % (0-2); Eosinophils Absolute Auto 300 /uL (0-450); Eosinophils Percent Auto 2.6 % (2-4); Hematocrit 30.9 % (36-46); Hemoglobin 9.8 g/dL (12.0-16.0); Lymphocytes Absolute Auto 1100 /uL (1100-4500); Lymphocytes Percent Auto 11.4 % (25-40); Mean Corpuscular HGB Conc 31.8 % (30-36); Mean Corpuscular Hemoglobin 23.6 PG (26-34); Mean Corpuscular Volume 74.2 fL (80-100); Monocytes Absolute Auto 700 /uL (0-900); Monocytes Percent Auto 6.7 % (3-14); Neutrophils Absolute Auto 7800 /uL (1500-7000); Neutrophils Percent Auto 78.7 % (50-75); Platelet Count 368 X10^3/uL (150-400); Red Blood Cell Count 4.16 X10^6/uL (4.0-5.2); Red Cell Distribution Width 17.9 % (11.6-14.8); White Blood Cell Count 9.9 X10^3/uL (4.5-11.0)
[2018-12-23 06:33] LABS: BUN Creatinine Ratio 15.7 (6-22); Blood Urea Nitrogen 11 mg/dL (7-17); Calcium 8.6 mg/dL (8.4-10.2); Carbon Dioxide 24 mmol/L (22-32); Chloride 102 mmol/L (98-107); Estimated Glomerular Filt Rate > 60.0 mL/min (>60); Glucose 112 mg/dL (80-110); HEMOLYSIS < 15 (0-50); Potassium 4.2 mmol/L (3.4-5.1); Sodium 135 mmol/L (137-145)
--- NOTE | 2018-12-23 08:26 | P.HP_ITS ---
History of Present Illness Date Patient Seen: 12/23/18 Time Patient Seen: 07:23 Chief complaint: Leg infection Narrative: 68-year-old female who comes in today with concerns about cellulitis. Patient has a rather recent complex medical history. She has a past history of morbid obesity diabetes and high blood pressure. She was admitted to the hospital in August with necrotizing fasciitis. She was then transferred to [facility] undergoing approximately 20 surgeries over month. Had significant debridement of a wound on her thigh right side but abdominal wall except trip. She has now been residing at [facility] and doing wound care there with Dr. liudmila Ghotra. Things have been progressing nicely. But in the last week she began have a little bit of fever not feel well. I guess she had some blood work and a flu swab done which was negative. She saw Dr. Rubio the end of last week. They are concerned about beginning of cellulitis. So was started on some oral outpatient antibiotics. Things got worse so she ended up in the emergency department. She describes her symptoms as soreness and heat in the leg. She always has draining. She has recently had a wound VAC but that was stopped about a week or so ago. She says she feels okay now she is still weak. She has just been learning how to walk with a walker she was hoping to get out of [facility] in transfer to an assisted living. She says she knows she is not ready to go home. She does not have much of an appetite. She is not complaining of significant amount of pain. I reviewed her recent emergency room laboratory tests and recent wound cultures from the regulatory submissions specialist. Patient History Medical History (Updated 12/22/18 @ 20:02 by Adebayo Livingston MD) Encounter for debridement of skin (Acute) Necrotizing fasciitis (Acute) Morbid obesity with BMI of 50.0-59.9, adult (Acute) Type 2 diabetes mellitus (Acute) Surgical History Status post hysterectomy Status post tubal ligation (10/29/87) Family History Father Diabetes mellitus Grandmother Diabetes mellitus Mother Amyloidosis Pancreatitis Pneumonia Sister Age: 59 Lupus Social History household members: none Smoking Status: Former smoker Family & Social History Family History Father Diabetes mellitus Grandmother Diabetes mellitus Mother Amyloidosis Pancreatitis Pneumonia Sister Age: 59 Lupus Social History: household members none Safety & Behavioral: Feels Safe in Current Yes Environment Been Physically Hurt or No Threatened By a Person Suicidal Ideation Description None Suicide Plan Description No Plan Tobacco & Substance use: Smoking Status Former smoker alcohol intake frequency a few times a month Substance Use Type does not use Meds Home Medications Medication Instructions Recorded Confirmed Type acetaminophen 1,000 mg PO Q6H PRN 12/22/18 12/22/18 History amlodipine 2.5 mg PO DAILY 12/22/18 12/22/18 History ascorbic acid (vitamin C) 500 mg PO DAILY 12/22/18 12/22/18 History aspirin 81 mg PO DAILY 12/22/18 12/22/18 History calcium carbonate 1,000 mg PO TID 12/22/18 12/22/18 History camphor-menthol 1 applic TOPICAL BID 12/22/18 12/22/18 History cephalexin 500 mg PO QID 12/22/18 12/22/18 History cholecalciferol (vitamin D3) 2,000 unit PO DAILY 12/22/18 12/22/18 History diclofenac sodium [Voltaren] 5 g TOPICAL Q12H PRN 12/22/18 12/22/18 History ferrous gluconate 240 mg PO DAILY 12/22/18 12/22/18 History melatonin 3 mg PO BEDTIME PRN 12/22/18 12/22/18 History metformin 500 mg PO BID 12/22/18 12/22/18 History oxycodone 5 mg PO Q3H PRN 12/22/18 12/22/18 History oxycodone 100 mg PO Q3H PRN 12/22/18 12/22/18 History sulfamethoxazole-trimethoprim 1 tab PO BID 12/22/18 12/22/18 History [Bactrim DS] Allergies Allergy/AdvReac Type Severity Reaction Status Date / Time No Known Drug Allergies Allergy Verified 12/22/18 17:59 Exam Vital Signs (past 8 hours): - 12/23/18 01:40 12/23/18 05:20 Temperature 98.4 F Pulse Rate 95 H Respiratory Rate 20 Blood Pressure 121/65 Pulse Oximetry 96 Oxygen Delivery Method Room Air Narrative Exam Narrative: Gen.: Alert no apparent distress HEENT: Pupils equal round and reactive oral mucosa is moist neck is supple Cardio: S1-S2 regular rate and rhythm Respiratory: Normal respiratory effort lungs are clear Abdomen: Obese nontender Extremities: Significant surgical scarring redness to the right thigh lower abdomen area buttock area. There is tenderness and warmth on the medial aspect of the thigh. There is a draining wound on the posterior aspect of the upper thigh buttock area. Objective Labs Result Diagrams: 12/23/18 05:50 12/23/18 05:50 Labs: Laboratory Results - last 24 hr 12/22/18 12/22/18 12/22/18 18:06 18:06 18:06 WBC 10.1 RBC 4.35 Hgb 10.0 L Hct 32.4 L MCV 74.6 L MCH 23.0 L MCHC 30.8 RDW 17.9 H Plt Count 366 Neut % (Auto) 78.8 H Lymph % (Auto) 11.7 L [place] % (Auto) 7.4 Eos % (Auto) 1.4 L Baso % (Auto) 0.7 Neut # (Auto) 8000 H Lymph # (Auto) 1200 [place] # (Auto) 700 Eos # (Auto) 100 Baso # (Auto) 100 PT 14.4 H INR 1.3 APTT 26 L Sodium Potassium Chloride Carbon Dioxide BUN Creatinine Estimated GFR BUN/Creatinine Ratio Glucose Lactate Calcium Total Bilirubin AST ALT Alkaline Phosphatase Total Protein Albumin Globulin Albumin/Globulin Ratio Lipase Procalcitonin 0.18 12/22/18 12/22/18 12/23/18 18:06 18:06 05:50 WBC 9.9 RBC 4.16 Hgb 9.8 L Hct 30.9 L MCV 74.2 L MCH 23.6 L MCHC 31.8 RDW 17.9 H Plt Count 368 Neut % (Auto) 78.7 H Lymph % (Auto) 11.4 L [place] % (Auto) 6.7 Eos % (Auto) 2.6 Baso % (Auto) 0.6 Neut # (Auto) 7800 H Lymph # (Auto) 1100 [place] # (Auto) 700 Eos # (Auto) 300 Baso # (Auto) 100 PT INR APTT Sodium 139 Potassium 3.9 Chloride 101 Carbon Dioxide 26 BUN 15 Creatinine 0.80 Estimated GFR > 60.0 BUN/Creatinine Ratio 18.8 Glucose 162 H Lactate 1.8 Calcium 9.5 Total Bilirubin 0.6 AST 18 ALT 8 L Alkaline Phosphatase 99 Total Protein 7.3 Albumin 3.4 L Globulin 3.9 Albumin/Globulin Ratio 0.9 L Lipase 49 Procalcitonin 12/23/18 05:50 WBC RBC Hgb Hct MCV MCH MCHC RDW Plt Count Neut % (Auto) Lymph % (Auto) [place] % (Auto) Eos % (Auto) Baso % (Auto) Neut # (Auto) Lymph # (Auto) [place] # (Auto) Eos # (Auto) Baso # (Auto) PT INR APTT Sodium 135 L Potassium 4.2 Chloride 102 Carbon Dioxide 24 BUN 11 Creatinine 0.70 Estimated GFR > 60.0 BUN/Creatinine Ratio 15.7 Glucose 112 H Lactate Calcium 8.6 Total Bilirubin AST ALT Alkaline Phosphatase Total Protein Albumin Globulin Albumin/Globulin Ratio Lipase Procalcitonin Assessment & Plan Assessment & Plan narrative: Cellulitis right thigh. With the patient with complex recent history of necrotizing fasciitis and been on multiple antibiotics. She has a has a draining wound and sore on her buttock area. Reviewed recent culture results. Continue with vancomycin and Primaxin which should cover the most recent cultures. Her blood cultures are pending. She had a negative procalcitonin and white blood cell count that was not elevated and she is afebrile. Will go ahead and have Dr. Kapoor the regulatory submissions specialist come in and evaluate her in the hospital to see if there needs to be re-application of wound VAC. She is going to need local wound care as well as she has continued draining obvious area from her buttock area. Morbid obesity. Certainly compounding her underlying health issues. Which makes treatment and management of her care significantly more difficult. Anemia probably of chronic disease. She is already on iron supplementation. I would like to repeat vitamin B12 folic acid iron studies as she says she is not eating well has been quite sick for some time and has been debilitated. Diabetes type 2. Patient is on metformin. I think I will continue her metformin while she is here in the hospital. Certainly would want to stop this if there was concern about having CT scans or other type of scanning done but right now our blood sugars seem to be well controlled. Will continue with a diabetic diet. Hypertension will restart her antihypertensive medication. Disposition plan patient will be in the hospital for a number of days receiving IV antibiotics. Local wound care. We will follow new culture results. Quality VTE Deep Vein Thrombosis/Pulmonary Embolism Present on Admission: No
--- NOTE | 2018-12-23 09:08 | CM.DANOTE ---
Addendum entered by Lupis Guzman R.N. 12/23/18 12:37: Spoke to Mira at [facility], and confirmed that they will accept patient back. She has approximately 30 more days of skilled services there. She stated that their social human services assistants at [facility] have been working on discharge planning as well. Stated that she is putting her home on the market, and may be getting a room at [facility]. Reminded her that this is completely independent living. Stated that son is working on other options. At this time, will follow closely while patient is here at hospital with expectation of patient returning to [facility]. Original Note: DCP: Case received, EMR reviewed and met with patient. Introduced self and role. DCP template completed with information currently available. Patient is a 68 year old female who admitted yesterday evening to the care of the hospitalist team. PCP: Dr. Navarrete. Payer: confirmed: Medicare/[employer]. Patient came to hospital from [facility], due to warmth, potential infection to her leg. She was here back in August, and had gone to [place], secondary to Necrosis/Fascitis. She stated that she had been there for approximately 2 months, and had surgical debridements. She has been at [facility] since. She uses a wheel-chair for most mobility, but has walker as well. She plans on going back to [facility]. P: DCP to follow closely. Anticipate patient to be here for a few days, for she is on IV Imipemen at this time. Will also continue to collaborate and update [facility], to ensure that they can still accept her back under her Medicare. Lupis Guzman RN/Voice Intercept Technician.
[2018-12-23] MEDS: VANCOMYCIN 300 ML 200 MG IV ×2 (10:02→20:28)
[2018-12-23] MEDS: ENOXAPARIN 40 MG/0.4 ML SYRINGE SUBCUT ×2 (10:03→20:29)
[2018-12-23] MEDS: ONDANSETRON 4 MG/2 ML INJ IV (10:27)
[2018-12-23] MEDS: LACTATED RINGERS 1,000 ML 42 ML IV (12:00)
[2018-12-23] MEDS: DEXTROSE 5% IV ×4 (12:14→23:37)
[2018-12-23] MEDS: WATER IV ×4 (12:14→23:37)
[2018-12-23] MEDS: CLINDAMYCIN IV (12:14)
[2018-12-23] MEDS: PENICILLIN POTASSIUM IV ×3 (12:14→23:37)
--- NOTE | 2018-12-23 12:36 | P.CONS_ITS ---
History of Present Illness Date Patient Seen: 12/23/18 Time Patient Seen: 12:34 Chief complaint: Leg infection Reason for consult: concern for NSTI Narrative: 68 yo woman HD2 with hx of T2DM and morbid obesity with recent complex history of RLE NSTI. In August of this year she developed marked malaise and sepsis and was found to have a RLE narcotizing cellulites - underwent multiple debridements of her R thigh and groin area with limited perineal debridement on the R as well. She has since had a long process of reconstruction and recovery -including numerous STSG. Per records her infection was polymicrobial: actinomyces europaeus, mixed anaerobes, E coli, diphtheroid ease with 2 colony types, + coag-negative staph. Patient reports several days of erythema and discomfort to her medial right thigh with associated mild malaise, she was started on a course of oral antibiotics, but recent laboratory values demonstrated an elevated CRP of 19.7 that was concerning enough to prompt admission for IV antibiotics. She was admitted yesterday evening and started on imipenem and vancomycin. She has a chronic wound on the inferior medial right buttock near where it joins her perineum -wound care visit her late this morning and was concerned about an area of necrosis on her right medial thigh which was draining a dishwater fluid. Wound care called me directly and within minutes we were together at her bedside. Patient reports overall she feels much better than she did at the time of her initial diagnosis in August. She feels improvement overnight on the IV antibiotics as well. Her medial thigh has some discomfort but is not frankly painful [facility] Medical History (Updated 12/22/18 @ 20:02 by Adebayo Livingston MD) Encounter for debridement of skin (Acute) Necrotizing fasciitis (Acute) Morbid obesity with BMI of 50.0-59.9, adult (Acute) Type 2 diabetes mellitus (Acute) Surgical History Status post hysterectomy Status post tubal ligation (10/29/87) Family History Father Diabetes mellitus Grandmother Diabetes mellitus Mother Amyloidosis Pancreatitis Pneumonia Sister Age: 59 Lupus Social History household members: none Smoking Status: Former smoker Family History Father Diabetes mellitus Grandmother Diabetes mellitus Mother Amyloidosis Pancreatitis Pneumonia Sister Age: 59 Lupus Social History household members: none Smoking Status: Former smoker Meds Home Medications Medication Instructions Recorded Confirmed Type acetaminophen 1,000 mg PO Q6H PRN 12/22/18 12/22/18 History amlodipine 2.5 mg PO DAILY 12/22/18 12/22/18 History ascorbic acid (vitamin C) 500 mg PO DAILY 12/22/18 12/22/18 History aspirin 81 mg PO DAILY 12/22/18 12/22/18 History calcium carbonate 1,000 mg PO TID 12/22/18 12/22/18 History camphor-menthol 1 applic TOPICAL BID 12/22/18 12/22/18 History cephalexin 500 mg PO QID 12/22/18 12/22/18 History cholecalciferol (vitamin D3) 2,000 unit PO DAILY 12/22/18 12/22/18 History diclofenac sodium [Voltaren] 5 g TOPICAL Q12H PRN 12/22/18 12/22/18 History ferrous gluconate 240 mg PO DAILY 12/22/18 12/22/18 History melatonin 3 mg PO BEDTIME PRN 12/22/18 12/22/18 History metformin 500 mg PO BID 12/22/18 12/22/18 History oxycodone 5 mg PO Q3H PRN 12/22/18 12/22/18 History oxycodone 100 mg PO Q3H PRN 12/22/18 12/22/18 History sulfamethoxazole-trimethoprim 1 tab PO BID 12/22/18 12/22/18 History [Bactrim DS] Allergies Allergy/AdvReac Type Severity Reaction Status Date / Time No Known Drug Allergies Allergy Verified 12/22/18 17:59 Review of Systems Review of Systems other (Unable to obtain due to extreme urgency to proceed towards surgery) Exam Vital Signs (past 8 hours): - 12/23/18 05:20 12/23/18 08:00 Temperature 98.4 F 98.7 F Pulse Rate 95 H 88 Respiratory Rate 20 16 Blood Pressure 121/65 147/87 H Pulse Oximetry 94 Oxygen Delivery Method Room Air Narrative Exam Narrative: Well-appearing woman in no acute distress She is mentating quite well Breathing comfortably on room air Regular rate and rhythm -no tachycardia, strong radial pulse Abdomen is rotund soft nontender nondistended -there is no erythema or induration that extends up onto the anterior abdominal wall including the pannus Right lower extremity -there is well-healed split thickness skin graft overlying the groin area approximately 15 cm in width that extends onto the medial right perineum. On the medial thigh there is a large area of erythema that extends from the area of split-thickness skin graft to nearly the level of the medial epicondyle In the mid to upper 3rd of the right medial thigh there is a large ar ea of induration with a focal 2x2cm area of necrosis with dark purple skin. Compression of this area expresses a thin purulent hoover material from this necrotic area. I am able to palpate crepitous. The area is painful but not exquisitely so. Periphery warm Objective Labs Result Diagrams: 12/23/18 05:50 12/23/18 05:50 Labs: Laboratory Results - last 24 hr 12/22/18 12/22/18 12/22/18 18:06 18:06 18:06 WBC 10.1 RBC 4.35 Hgb 10.0 L Hct 32.4 L MCV 74.6 L MCH 23.0 L MCHC 30.8 RDW 17.9 H Plt Count 366 Neut % (Auto) 78.8 H Lymph % (Auto) 11.7 L [place] % (Auto) 7.4 Eos % (Auto) 1.4 L Baso % (Auto) 0.7 Neut # (Auto) 8000 H Lymph # (Auto) 1200 [place] # (Auto) 700 Eos # (Auto) 100 Baso # (Auto) 100 PT 14.4 H INR 1.3 APTT 26 L Sodium Potassium Chloride Carbon Dioxide BUN Creatinine Estimated GFR BUN/Creatinine Ratio Glucose Lactate Calcium Total Bilirubin AST ALT Alkaline Phosphatase Total Protein Albumin Globulin Albumin/Globulin Ratio Lipase Procalcitonin 0.18 12/22/18 12/22/18 12/23/18 18:06 18:06 05:50 WBC 9.9 RBC 4.16 Hgb 9.8 L Hct 30.9 L MCV 74.2 L MCH 23.6 L MCHC 31.8 RDW 17.9 H Plt Count 368 Neut % (Auto) 78.7 H Lymph % (Auto) 11.4 L [place] % (Auto) 6.7 Eos % (Auto) 2.6 Baso % (Auto) 0.6 Neut # (Auto) 7800 H Lymph # (Auto) 1100 [place] # (Auto) 700 Eos # (Auto) 300 Baso # (Auto) 100 PT INR APTT Sodium 139 Potassium 3.9 Chloride 101 Carbon Dioxide 26 BUN 15 Creatinine 0.80 Estimated GFR > 60.0 BUN/Creatinine Ratio 18.8 Glucose 162 H Lactate 1.8 Calcium 9.5 Total Bilirubin 0.6 AST 18 ALT 8 L Alkaline Phosphatase 99 Total Protein 7.3 Albumin 3.4 L Globulin 3.9 Albumin/Globulin Ratio 0.9 L Lipase 49 Procalcitonin 12/23/18 05:50 WBC RBC Hgb Hct MCV MCH MCHC RDW Plt Count Neut % (Auto) Lymph % (Auto) [place] % (Auto) Eos % (Auto) Baso % (Auto) Neut # (Auto) Lymph # (Auto) [place] # (Auto) Eos # (Auto) Baso # (Auto) PT INR APTT Sodium 135 L Potassium 4.2 Chloride 102 Carbon Dioxide 24 BUN 11 Creatinine 0.70 Estimated GFR > 60.0 BUN/Creatinine Ratio 15.7 Glucose 112 H Lactate Calcium 8.6 Total Bilirubin AST ALT Alkaline Phosphatase Total Protein Albumin Globulin Albumin/Globulin Ratio Lipase Procalcitonin Assessment & Plan Assessment & Plan narrative: 68-year-old woman with recent complex history of mixed corby necrotizing soft tissue infection of the right lower extremity who now presents with obvious cellulitis of the medial right thigh. I a.m. concerned that this could constitute her current necrotizing soft tissue infection in the form of a necrotizing cellulitis. It is also possible that this constitutes a more benign infectious process such as an undrained or partially drained collection. Somewhat reassuring with the the patient is without leukocytosis or septic changes at the moment. She continued to have adiquate UOP this morning is without evidence of end organ injury such as ZAKIYA. However given the risk of a necrotizing process in a recently infected diabetic pt with concerning exam findings including localized area of necrosis and crepitence she needs and urgent operative exploration of her soft tissues. With drainage/debridement and collection of tissue cultures. En route to the OR needs broadened abx coverage: in addition to vanco/imipenum adding pen G for actinomyces coverage and high dose clindamycin to arrest exotoxin production. IF this is a significant NSTI will need urgent transfer to higher level of care post debridement Plan: Emergent debridment/drainage of RLE, possible debridement of perineum and abdominal wall - joseph Clinda IV PEN G IV Consents obtained pt eager to proceed, all questions answered, risks including bleeding, significant morbidity from open wounds, injury to nerves and muscle all discussed.
--- NOTE | 2018-12-23 12:43 | PC.NURSE ---
Pt was assessed this am with area of marked cellulitis to right thigh as well as two known wounds to the right leg. The first is to the right groin (covered with allyven dressing) and the other to the posterior, right proximal thigh under the right gluteal fold ([employer]). A new, moist wound with white and purple exudate drainage in addition to copious serous fluid draining intermittently was discovered to the proximal, medial right thigh within the area of marked cellulitis. Wound care center was called at approx. 1030 to ask about this new wound and how to dress the other two. Concern was expressed by this nurse in regard to the appearance and behavior of the new wound. Rogelio came to this pts bedside at approx. 11:00 out of concern for the new wound area. Dr. Singh, pulmonology technician Surgeon was contacted by Michelle and arrive at the bedside at approx. 1120. This nurse was informed shortly after Dr. Singh's assessment that this patient would need to go to emergent surgery as there was concern for the possible return of patient's previous necrotizing fasciitis. Dr. Navarrete was then contacted by this nurse and he spoke with Dr. Singh about the situation. Surgical consent was signed, a secondary IV site started and both Penicillian and Clindamycin antibiotics infusions were started. Pt was taken to surgery at approx. 1230.
--- NOTE | 2018-12-23 13:30 | SUR.OPER ---
Lithotomy on padded OR bed, head on pillow, arms secured on padded arm boards at <90 degrees abduction. Legs secured in padded yellow fins stirrups.
--- NOTE | 2018-12-23 14:03 | PM.OP.1 ---
Operative Date/Time/Diagnoses Date of procedure: 12/23/18 Time of procedure: 14:04 Pre-op diagnosis: Concern for necrotizing soft tissue infection of the right medial thigh Post-op diagnosis: other (Deep chronic abscess of the right medial thigh) Procedure & Clinicians Procedure: Incision and drainage of deep abscess cavity Washout of abscess cavity Sharp debridement down to subcutaneous layer of total of 5 x 3 cm of tissue Same procedure as scheduled: Yes Indications: 68-year-old woman with recent history of an NSTI some 4 months ago was admitted yesterday for cellulitis of the medial right thigh. This morning was seen by wound care that noted an area of necrotic skin approximately 2 x 2 cm that was draining dishwater type fluid. Surgery was called to evaluate the patient which noted the small area of necrotic skin, draining fluid, and adjacent erythema consistent with cellulitis. There is concern for possible necrotizing process and she was emergently taken to the operating room for exploration and possible debridement. Surgeon: [employer] Hvac R Instructor: Casimiro Page Anesthesia Type: General Operative Notes Findings: Large deep abscess cavity of the right medial thigh No necrotizing soft tissue infection Closure Type: non-primary Specimen(s): other (Culture only) Applied: catheter Estimated Blood Loss (mL): 15 Blood products transfused: none Procedure in detail: Patient was brought to the operating room she was intubated without incident, perioperative antibiotics including penicillin, vancomycin, clindamycin were administered in route to the operating room. An additional dose of imipenem was given during the case. A time-out was completed. Patient was prepped and draped in the usual sterile fashion in high lithotomy position to allow good access to the medial thigh on the right side. A 2 x 2 cm of necrotic skin which had eroded into the deeper tissue area was identified. Finger was inserted into this following a deep abscess tract inferiorly. The overlying skin and subcutaneous tissue were widely opened over this track for a total length of approximately 17 cm. The opened a abscess cavity that was approximately 10 x 14 cm just superficial to the fascial layer. There was some necrotic debris within the abscess cavity and significant pus. Several small adjacent abscess pockets were identified and opened in continuity with the main abscess pocket. The adjacent tissue was probed aggressively to identify if tissue planes would dissect pathologically -this was not the case. Some time was spent to ensure there were no additional adjacent abscess cavity. At this point -culture swabs were obtained. Hemostasis was obtained using primarily Bovie cautery and several [id number] sutures. The wound was copiously washed out. A 4 x 4 cm wound on the more posterior aspect of the thigh was identified palpated to ensure it did not communicate to the area of drainage. It did not. This cavity was opened somewhat with Bovie to facilitate ease of packing. At this point small amount of necrotic tissue measuring 5 x 3 cm adjacent to the initially draining skin wound was debrided back to healthy tissue. The deepest layer of sharp debridement with scissor subcutaneous tissue. The wound was again irrigated out and then packed wet-to-dry utilizing Kerlix ABDs and circumferential compression wraps. Patient tolerated the procedure well Complications: none Condition: stable Disposition: Acute Care Plan for aftercare: Follow-up tissue cultures LAURA clindamycin Okay for clear liquid diet Surgery will continue to follow
--- NOTE | 2018-12-23 14:22 | PC.NURSE ---
Addendum entered by Michelle Lopez R.N. 12/24/18 09:50: Mispelled surgeons name. Surgeon was Dr. Hernán Gongora. Original Note: Wound Nurse Consult Note Mrs. Espinosa's nurse Addie called down to the wound care center because patient developed a new wound on her right anterior thigh. I went up right away to see the wound. It is a raised purple blister measuring 2.0 x 2.0 cm, depth not checked as copious amount of dish water colored drainage with some dumont puss continues to drain. I called Dr. Mejia as he is not on campus today. We decided to call surgery [facility]. I spoke with Dr. Gao and he arrived right away and has decided to take Mrs. Espinosa to surgery. Mrs. Espinosa upset but understands the need. She called and text her children and a close friend whom will also help to contact her children. Addie and Esperanza will prepare patient for surgery. I notified Dr. Mejia.
[2018-12-23] MEDS: HYDROMORPHONE 2 MG INJ 0.5 MG IV ×2 (14:35→14:48)
--- NOTE | 2018-12-23 15:01 | PT.IPTN ---
Current Diagnoses Cellulitis of right lower limb (12/22/18) Surgery Performed Operation Date: 12/23/18 12:30 Actual Procedures p I&D medial thigh abscess and full thickness debridement of subcutaneous layer(Right) - Hernán Alberts MD Physical Therapy Treatment Note M3 PT-IP Subjective Start: 12/23/18 14:30 Freq: NEEDED Status: Active Protocol: Document 12/23/18 15:00 DLM (Rec: 12/23/18 15:01 DLM [id number]) Subjective Physical Therapy Visit Type Type Patient Unavailable Notes Pt out of room and not available for PT eval. Pt underwent I&D of wound today.
--- NOTE | 2018-12-23 16:18 | PC.NURSE ---
Jess shift note: Patient arrived to room 205 from PACU, awake, alert, and oriented. Gauze dressing to right thigh extending from above knee to upper thigh secured with Juan A wrap. Shadow drainage to distal/ inner end of thigh, noted upon arrival, no active bleeding. Skin to surrounding area, pink, warm, without noted discoloration. CMS intact to RLE. First dressing change to be performed by surgeon on 5/16 am, as read in communication order. Michelle wound nurse at bedside. Family at bedside providing supportive care. Will continue to monitor for changes in skin perfusion or abnormal drainage. Call light within reach.
--- NOTE | 2018-12-23 16:41 | PC.NURSE ---
Wound Nurse Consult Note Went up to see how Mrs. Espinosa was doing post surgical abscess drainage. Her nurse Milly stated that the surgeon will change the dressing tomorrow morning as the surgical team will manage this wound. Mrs. Espinosa is in bed and he three grown sons are at her bedside. Mrs. Espinosa is awake and oriented and joining in the conversation. She has some pain but it is tolerable. I did not see the dressing as her sons are in the room and her nurse Milly has assessed the bandage and spoke with the surgical team. Mrs. Espinosa's sons had a lot of question which I was able to answer. We also discussed options for discharge. The have paid a security deposit on an apartment at [facility] here in [place]. I told them I have been encouraging Mrs. Espinosa to consider this as a good option for her since she has been at [facility] and has completed her physical therapy training and is now there for wound care. I have explained to Mrs. Espinosa and now her son's that if she did go to [facility] we would set up for home health nursing to help with her wound care and that she would also be coming into the wound care center for wound care. Now that she is on IV antibiotics she may need to return to [facility] for wound care and IV medications. I did also suggest that it is possible to have [facility] provide IV antibiotics at [facility] if she was wanting to move to there. I also discussed the possibility of private hiring care givers. I did explain that her providers, the surgical team and the wound care team as well as the care management would be discussing her treatment plan to come up with the best plan of care for her physically and emotionally. Her sons were thankful for the conversations and so was Mrs. Espinosa.
[2018-12-23] MEDS: HYDROCODONE/ACET 5/325 TABLET 1 TAB PO (17:30)
[2018-12-23] MEDS: LACTOBACILLUS ACIDOPHILUS TABLET 1 EACH PO (17:31)
[2018-12-23] MEDS: METFORMIN HCL 500 MG TABLET PO (20:28)
[2018-12-24] VITALS (9 sets, daily range): BP systolic 112–130; BP diastolic 65–76; PULSE 71–82; RESP 16–20; TEMP 36.3–36.9; O2SAT 86–98; BMI 50.5
--- NOTE | 2018-12-24 00:22 | PC.NURSE ---
Addendum entered by Chase Shaw R.N. 12/24/18 00:25: 0015: RT at bedside, placed pt on O2 2.5L/NC. Original Note: Industrial Hygiene Manager Note: 0000: Sleeping intermittently. Remains on continuous pulse oximetry: O2 sats drop to 80's when asleep; RT notified. IVs in place in rt hand and rt wrist. Vital signs stable. SCD on lt leg only. Dressing and earnest wrap to rt thigh intact, with old drainage noted on lower 1/3 of dressing. Pt denies pain at this time.
[2018-12-24] MEDS: WATER IV ×3 (02:45→13:00)
[2018-12-24] MEDS: PENICILLIN POTASSIUM IV ×3 (02:45→13:00)
[2018-12-24] MEDS: DEXTROSE 5% IV ×3 (02:45→13:00)
[2018-12-24] MEDS: IMIPENEM/CILASTATIN 1,000 MG in SODIUM CHLORIDE 0.9% 250 ML IV ×3 (05:07→21:21)
[2018-12-24] MEDS: SODIUM CHLORIDE 0.9% 1,000 ML 150 ML IV (06:53)
--- NOTE | 2018-12-24 06:56 | PM.PN.1 ---
Subjective Date Patient Seen: 12/24/18 Time Patient Seen: 06:56 Interval history: Patient seen and evaluated last night postoperatively was doing well. Three sons at the bedside. She did not have much pain. She had a good night last night. She says she has not taken any pain medication. She is not eating much although she had a little bit of broth. She says she does not feel quite hungry. Certainly worry about her nutrition. She has been hospitalized in a half-way for a number of months. Have to keep an eye on her calorie intake will have Nutrition evaluate her. Blood sugars seem to be okay. For some reason blood work was not drawn this morning. Blood pressures been a little bit elevated she is afebrile not tachycardic. Or hypotensive. Exam Vital Signs (past 8 hours): - 12/23/18 23:55 12/24/18 02:29 12/24/18 03:00 Temperature 98.8 F 97.5 F L Pulse Rate 69 76 Respiratory Rate 20 16 Blood Pressure 110/44 L 112/65 Pulse Oximetry 96 97 98 Oxygen Delivery Method Room Air Oxygen Flow Rate 2 Narrative Exam Narrative: Alert good historian slightly pale. HEENT pupils equal round and reactive or mucosa is mildly dry Cardio S1-S2 regular rate and rhythm Respiratory clear to auscultation decreased breath sounds at the bases and distant Abdomen soft nontender. Extremities warm dry perfused. Bandage on right leg up to thigh. Hard to assess cellulitis or progression. Surgeon will be in later today to do dressing changes Objective Labs Result Diagrams: 12/23/18 05:50 12/23/18 05:50 Assessment & Plan Assessment & Plan narrative: Cellulitis right thigh with I&D of abscess by surgery yesterday consultation appreciated. Does not appear to be necrotizing fasciitis. Continue vancomycin Primaxin started on penicillin G by surgeon. Will await further culture results. Patient has a dressing on like today. Difficult to evaluate extent of cellulitis and progression if any. We will let surgery evaluate her wound cellulitis today continue with current antibiotics and follow culture results. Current antibiotic therapy based on previous cultures of E coli Staph aureus and diphtheroids. No growth 2 cultures done in the operating room. Morbid obesity. Certainly compounding her underlying health issues. Which makes treatment and management of her care significantly more difficult. Patient has poor nutrition. Will obtain a nutritional consult for calorie evaluation and recommendations on supplementation. Anemia probably of chronic disease. She is already on iron supplementation. Iron and vitamin B12 folic acid studies are pending for today. Diabetes type 2. Continue with insulin sliding scale and metformin. Blood sugars have been well controlled will keep an eye on these due to infection and try to keep her blood sugars lower than 200. Hypertension mild high blood pressure today increase Norvasc to 5 mg daily. Quality VTE Deep Vein Thrombosis/Pulmonary Embolism Present on Admission: No
[2018-12-24 08:30] LABS: Add Manual Diff / Slide Review NO; Basophils Absolute Auto 100 /uL (0-100); Basophils Percent Auto 0.9 % (0-2); Eosinophils Absolute Auto 300 /uL (0-450); Eosinophils Percent Auto 4.6 % (2-4); Hematocrit 28.7 % (36-46); Lymphocytes Absolute Auto 1000 /uL (1100-4500); Lymphocytes Percent Auto 17.1 % (25-40); Mean Corpuscular HGB Conc 31.5 % (30-36); Mean Corpuscular Hemoglobin 23.7 PG (26-34); Mean Corpuscular Volume 75.1 fL (80-100); Monocytes Absolute Auto 400 /uL (0-900); Monocytes Percent Auto 7.5 % (3-14); Neutrophils Absolute Auto 4100 /uL (1500-7000); Neutrophils Percent Auto 69.9 % (50-75); Platelet Count 331 X10^3/uL (150-400); Red Blood Cell Count 3.82 X10^6/uL (4.0-5.2); Red Cell Distribution Width 17.9 % (11.6-14.8); White Blood Cell Count 5.8 X10^3/uL (4.5-11.0)
[2018-12-24 08:43] LABS: BUN Creatinine Ratio 11.7 (6-22); Blood Urea Nitrogen 7 mg/dL (7-17); Carbon Dioxide 25 mmol/L (22-32); Chloride 102 mmol/L (98-107); Estimated Glomerular Filt Rate > 60.0 mL/min (>60); Glucose 134 mg/dL (80-110); HEMOLYSIS < 15 (0-50); Potassium 4.3 mmol/L (3.4-5.1); Sodium 133 mmol/L (137-145)
[2018-12-24 09:10] LABS: HEMOLYSIS < 15 (0-50); Iron 17 ug/dL (37-170)
[2018-12-24 09:21] LABS: Percent Iron Saturation 8 % (15-50); Total Iron Binding Capacity 203 ug/dL (265-497); Transferrin 147 mg/dL (206-381)
[2018-12-24] MEDS: VANCOMYCIN 300 ML 200 MG IV (09:21)
[2018-12-24] MEDS: METFORMIN HCL 500 MG TABLET PO ×2 (09:22→21:21)
[2018-12-24] MEDS: LACTOBACILLUS ACIDOPHILUS TABLET 1 EACH PO ×3 (09:22→17:19)
[2018-12-24] MEDS: ENOXAPARIN 40 MG/0.4 ML SYRINGE SUBCUT ×2 (09:22→21:21)
[2018-12-24] MEDS: ASCORBIC ACID 500 MG TABLET PO (09:23)
[2018-12-24] MEDS: ASPIRIN EC 81 MG TABLET PO (09:23)
[2018-12-24] MEDS: INSULIN ASPART 100 UNIT/ML INSULN PEN SUBCUT (09:25)
[2018-12-24] MEDS: AMLODIPINE 5 MG TABLET PO (09:25)
--- NOTE | 2018-12-24 10:16 | PT.IIE ---
Current Diagnoses Cellulitis of right lower limb (12/22/18) Surgery Performed Operation Date: 12/23/18 12:30 Actual Procedures p I&D medial thigh abscess and full thickness debridement of subcutaneous layer(Right) - Hernán Alberts MD Surgical History (Last Reviewed 12/22/18 @ 19:50 by Adebayo Livingston MD) Status post hysterectomy Status post tubal ligation (10/29/87) Medical History (Last Updated 12/22/18 @ 19:50 by Adebayo Livingston MD) Encounter for debridement of skin (Acute) Necrotizing fasciitis (Acute) Morbid obesity with BMI of 50.0-59.9, adult (Acute) Type 2 diabetes mellitus (Acute) Physical Therapy Inpatient Evaluation/Re-Eval M1 PT/OT-IP Prior Functional Status Start: 12/23/18 14:30 Freq: NEEDED Status: Active Protocol: Document 12/24/18 10:16 DLM (Rec: 12/24/18 13:30 DLM [id number]) Medical Review Prior Functional Status Medical History Reviewed Yes Diet/Fluid Consistency Regular Communication WNL Mobility and Gait ambulating with fWW at rehab up to 300 feet, otherwise she used a wheelchair at rehab Activities of Daily Living and IADL's before going to rehab she was independent, while at rehab it was difficult for her to dress when she had the wound vac, staff was assisting her with bathing and dressing Prior Functional Level (Other details) Pt has been at [facility] for rehab since being hospitalized for necrotizing fascitis in August. She had an extensive hospitalization at [facility] in Aug. Her wound vac was removed about a week ago. Social History Household Members none Employment Status Retired Additional Social History Comment Her house is being sold. Her Son is making plans for her to get an apt at [employer]. Pt reports it will be all one level with no stairs. Before going to rehab she lives alone in a house with many stairs. M2 PT-IP Current Condition Start: 12/23/18 14:30 Freq: NEEDED Status: Active Protocol: Document 12/24/18 10:16 DLM (Rec: 12/24/18 13:30 DLM [id number]) Physical Therapy Current Condition Current Condition Evaluation Date 12/24/18 Treatment Diagnosis right thigh infection, impaired mobility and gait Onset Date 12/22/18, I&D 12/23/18 M3 PT-IP Subjective Start: 12/23/18 14:30 Freq: NEEDED Status: Active Protocol: Document 12/24/18 10:16 DLM (Rec: 12/24/18 13:30 DL [id number]) Subjective Physical Therapy Visit Type Type Initial Evaluation Visit Start Time 09:45 Visit Stop Time 10:16 Total Visit Minutes 31 Number of ESTHETICIAN/SKIN THERAPIST Visits 0 Physical Therapy Visit Comments Patient Comments She thinks she will need to go back to rehab at [facility] before she will be ready to go move into her apt, Son is still getting things ready for her regarding the apt. Patient Goals get strong enough to go live alone in an apt, would like to get strong enough to walk with a cane instead of the fWW M4 PT-IP Mobility and Gait Start: 12/23/18 14:30 Freq: NEEDED Status: Active Protocol: Document 12/24/18 10:16 DLM (Rec: 12/24/18 13:30 DLM [id number]) PT-Bed Mobility Assessment Rolling Level of Assist Standby Assistance Supine to Sit Supine to Sit Contact Guard Assistance Head of Bed Elevated Bedrails Sit to Supine Sit to Supine Contact Guard Assistance Bedrails Scooting Scooting to Edge of Bed Minimal Assistance Moderate Assistance PT-Transfer Assessment Sit to and From Stand Sit to and from Stand Contact Guard Assistance Use of Upper Extremities Equipment Transfer Assistive Device Gait Belt Front Wheeled Walker Transfers Transfer Destination Bed Transfer Technique Stand Step Pivot Transfer Ability Level of Assist Contact Guard Assistance Comments Mobility Comments pain right thigh sitting edge of bed due to pressure on wound by bed edge Gait Assessment Gait Gait Assistance Required: Contact Guard Assist Distance (Feet) 30 Assistive Devices Assistive Device Gait Belt Front Wheeled Walker Factors Limiting Gait Function Factors Limiting Gait Function Decreased Activity Tolerance Decreased Strength Pain Comments Gait Comments mild shortness of breath during gait with good recover with standing rest breaks, pt returned to bed because she is expecting the surgeon for a dressing change, she agrees to sit up in recliner for lunch today. PT-Balance Assessment Sitting Balance and Reactions Static Sitting Balance Ability Good Dynamic Sitting Balance Ability Good M5 PT-IP Objective Assessments Start: 12/23/18 14:30 Freq: NEEDED Status: Active Protocol: Document 12/24/18 10:16 DLM (Rec: 12/24/18 13:30 DLM [id number]) Orientation Orientation/Cognition Level of Alertness Alert Orientation Name Age Birthday Month Date Year Day of Week Place Situation Language Function Ability No Deficits Noted Safety Awareness Understands Safety Issues Memory Description No Deficits Noted Gross Range of Motion Upper Extremity ROM Assessment Within Functional Limits Lower Extremity ROM Assessment Within Functional Limits Strength Upper Extremity Strength Assessment Within Functional Limits Lower Extremity Strength Assessment Right Impaired Comments Strength Comments functional right LE weakness with pain in right thigh wound Coordination Assessment Gross Coordination Gross Coordination WNL Sensation Assessment Comments Sensation Comments painful right thigh with earnest wrap in place over wound Muscle Tone Muscle Tone WNL Yes M6 PT-IP Treatment Start: 12/23/18 14:30 Freq: NEEDED Status: Active Protocol: Document 12/24/18 10:16 DLM (Rec: 12/24/18 13:30 [facility] [id number]) Physical Therapy Treatment Exercises Exercises Ankle Pumps Education Education Provided Safety M7 PT-IP Assessment and Plan Start: 12/23/18 14:30 Freq: NEEDED Status: Active Protocol: Document 12/24/18 10:16 DLM (Rec: 12/24/18 13:30 [facility] [id number]) PT Summary Assessment and Plan Potential Rehabilitation Potential Good Status of Condition at Evaluation Evolving Summary Impairments Pain ROM Strength Balance Bed Mobility Transfers Gait Activity Tolerance Assessment Summary Barbara is alert and willing to participate in physical therapy. She tolerated gait in her room well with fWW. She has limited activity tolerance with mild shortness of breath during gait. Discussed discharge planning with pt who feels she will need to return to [facility] for rehab before being ready to go home alone to an apt. She is concerned about managing her right thigh wound. Will continue to follow her to increase her mobility, gait and activity tolerance. Goals Bed Mobility Goal Independent Transfer Goal Standby Assistance Front Wheeled Walker Gait Goal Standby Assistance Front Wheel Walker Gait Distance 100 feet Days to Meet Goals 5 Frequency of Treatment Frequency Of Treatment Twice a Day Treatment Plan Physical Therapy Treatment Plan Bed Mobility Training Transfer Training Gait Training Therapeutic Exercise Discharge Planning Recommendations To Nursing Amount of Assist Needed 1 Person Assist Discharge Recommendations PT Discharge Recommendations SNF Rehab Other Discharge Recommendations pt also currently needing SNF for IV antibiotics and wound care
[2018-12-24 10:17] LABS: Folate 9.5 ng/mL (2.76-20.0); Vitamin B12 758 pg/mL (239-931)
--- NOTE | 2018-12-24 13:10 | PM.PN.1 ---
Subjective Date Patient Seen: 12/24/18 Time Patient Seen: 13:10 Interval history: Events : Taken emergency to OR with abscess identified and drained. limited debridement. Pt feeling improved wound cultures growing staph a Pt feeling well, pain of LLE minimal and appropriate. Exam Vital Signs (past 8 hours): - 12/24/18 07:30 12/24/18 11:13 12/24/18 11:51 Temperature 97.8 F 97.8 F Pulse Rate 80 75 Respiratory Rate 20 20 Blood Pressure 130/69 124/76 Pulse Oximetry 93 86 L 98 Oxygen Delivery Method Room Air Oxygen Flow Rate 1 Narrative Exam Narrative: Well appering breating comfortably Wound on R medial thigh - tissue appers quite health. no necrosis. redness on medial thigh resolved minimally tender Objective Labs Result Diagrams: 12/24/18 08:15 12/24/18 08:15 Labs: Laboratory Results - last 24 hr 12/24/18 12/24/18 12/24/18 05:00 05:00 08:15 WBC 5.8 RBC 3.82 L Hgb 9.0 L Hct 28.7 L MCV 75.1 L MCH 23.7 L MCHC 31.5 RDW 17.9 H Plt Count 331 Neut % (Auto) 69.9 Lymph % (Auto) 17.1 L Barbour % (Auto) 7.5 Eos % (Auto) 4.6 H Baso % (Auto) 0.9 Neut # (Auto) 4100 Lymph # (Auto) 1000 L Barbour # (Auto) 400 Eos # (Auto) 300 Baso # (Auto) 100 Sodium Potassium Chloride Carbon Dioxide BUN Creatinine Estimated GFR BUN/Creatinine Ratio Glucose Calcium Iron 17 L TIBC 203 L % Saturation 8 L Transferrin 147 L Ferritin 117.0 Vitamin B12 758 Folate 9.5 12/24/18 08:15 WBC RBC Hgb Hct MCV MCH MCHC RDW Plt Count Neut % (Auto) Lymph % (Auto) Barbour % (Auto) Eos % (Auto) Baso % (Auto) Neut # (Auto) Lymph # (Auto) Barbour # (Auto) Eos # (Auto) Baso # (Auto) Sodium 133 L Potassium 4.3 Chloride 102 Carbon Dioxide 25 BUN 7 Creatinine 0.60 Estimated GFR > 60.0 BUN/Creatinine Ratio 11.7 Glucose 134 H Calcium 8.0 L Iron TIBC % Saturation Transferrin Ferritin Vitamin B12 Folate Assessment & Plan Assessment & Plan narrative: 68 yo woman POD1 after I and D and minimal debridement of medial thigh abscess on R, now healling well and rapidly resolving infection 1) Wound care BID WTD dressings of abscess cavity on medial thigh, If looking good tomorrow with pace a wound vac 2) antibiosis - Wound cultures with S aureus - sensitivities pending - OK to stop imipenum and pen G - Await sensitivities prior to switch to PO Quality VTE Deep Vein Thrombosis/Pulmonary Embolism Present on Admission: No
--- NOTE | 2018-12-24 13:12 | PC.NURSE ---
Wound Care Nurse Consult Note with Dr. Mejia We arrived to see patient with Dr. Alberts. I removed the bandage. The full thickness surgical wound measures 16.5 x 9.0 x 5.0 cm. The wound is free of necrotic tissue or slough. The base of the wound is visible and beefy red and adipose is visible. There was a large amount of serosanguenous drainage on the gauze packing as well as on the outer dressing. The edges of the wound are attached. There olesya-wound is without redness and the patient has minimal pain. Pictures of the wound were taken. Addie her nurse was also at the bedside. Dr. Alberts will place a [facility] wound vac tomorrow morning with Addie. I have notified María Jay from [facility] that we are going to be placing a wound vac and I will fill out the [facility] paper work for this therapy and bring up the supplies this evening. Dr. Mejia, Dr. Alberts and I have agreed to have her posterior and anterior wounds bridged with the wound vac. For now the anterior thigh dressing will be a wet to damp gauze covered with an ABD and the posterior thigh wound and right groin wound will have Aquacel into these two wounds and covered with a border foam.
[2018-12-24] MEDS: HYDROCODONE/ACET 5/325 TABLET 1 TAB PO ×3 (13:34→22:20)
--- NOTE | 2018-12-24 14:06 | PC.NURSE ---
CLARIFIED WOUND ORDERS FOR GROIN AND POSTERIOR WOUND WITH [facility]. SHE WAS NOTIFIED THAT WE DO NOT HAVE AQUACEL AG FOR PACKING ON THE UNIT AT THIS TIME. OK TO USE AGUACEL EXTRA INSTEAD. ALSO, USE BOARDER FOAM DRSG SECONDARY DRSG. PRIMARY NURSE BRITTNI NOTIFIED OF SAME.
--- NOTE | 2018-12-24 15:40 | PT.IPTN ---
Current Diagnoses Cellulitis of right lower limb (12/22/18) Surgery Performed Operation Date: 12/23/18 12:30 Actual Procedures p I&D medial thigh abscess and full thickness debridement of subcutaneous layer(Right) - Hernán Alberts MD Physical Therapy Treatment Note M2 PT-IP Current Condition Start: 12/23/18 14:30 Freq: NEEDED Status: Active Protocol: Document 12/24/18 10:16 DLM (Rec: 12/24/18 13:30 DLM [id number]) Physical Therapy Current Condition Current Condition Evaluation Date 12/24/18 Treatment Diagnosis right thigh infection, impaired mobility and gait Onset Date 12/22/18, I&D 12/23/18 M3 PT-IP Subjective Start: 12/23/18 14:30 Freq: NEEDED Status: Active Protocol: Document 12/24/18 15:29 SA (Rec: 12/24/18 15:40 SA [email or web address]) Subjective Physical Therapy Visit Type Type Treatment Note Visit Start Time 15:05 Visit Stop Time 15:25 Total Visit Minutes 20 Number of AIR DISPATCHER Visits 1 Physical Therapy Visit Comments Patient Comments Pt reports her pain level at about 2/10 but she is feeling fatigued and emotionally drained this afternoon. They did dressing change ealier and she is to have a wound vac placed tomorrow AM. Therapy Pain Assessment Pain When Pain Assessed At Rest Pain Present Pain Present Pain Reported Location Right groin Intensity 2 Scale Used Numeric (1 - 10) Pain Management Techniques Re-positioning Timing of Activity with Medications M4 PT-IP Mobility and Gait Start: 12/23/18 14:30 Freq: NEEDED Status: Active Protocol: Document 12/24/18 15:29 SA (Rec: 12/24/18 15:40 SA [id number]) PT-Bed Mobility Assessment Rolling Type of Rolling Roll to Right Roll to Left Level of Assist Standby Assistance Supine to Sit Supine to Sit Contact Guard Assistance Bedrails Sit to Supine Sit to Supine Contact Guard Assistance Bedrails Scooting Scooting to Edge of Bed Minimal Assistance Scooting Up and Down in Bed Minimal Assistance PT-Transfer Assessment Comments Mobility Comments Pt declined gait or getting up to chair, completed bed mobility with CGA-Min A and min cues. M5 PT-IP Objective Assessments Start: 12/23/18 14:30 Freq: NEEDED Status: Active Protocol: Document 12/24/18 10:16 DLM (Rec: 12/24/18 13:30 [facility] [id number]) Orientation Orientation/Cognition Level of Alertness Alert Orientation Name Age Birthday Month Date Year Day of Week Place Situation Language Function Ability No Deficits Noted Safety Awareness Understands Safety Issues Memory Description No Deficits Noted Gross Range of Motion Upper Extremity ROM Assessment Within Functional Limits Lower Extremity ROM Assessment Within Functional Limits Strength Upper Extremity Strength Assessment Within Functional Limits Lower Extremity Strength Assessment Right Impaired Comments Strength Comments functional right LE weakness with pain in right thigh wound Coordination Assessment Gross Coordination Gross Coordination WNL Sensation Assessment Comments Sensation Comments painful right thigh with earnest wrap in place over wound Muscle Tone Muscle Tone WNL Yes M6 PT-IP Treatment Start: 12/23/18 14:30 Freq: NEEDED Status: Active Protocol: Document 12/24/18 15:29 SA (Rec: 12/24/18 15:40 SA [id number]) Physical Therapy Treatment Exercises Exercises Ankle Pumps Gluteal Sets Straight Leg Raises Supine Hip Abduction Education Education Provided Safety Other Treatments Other Treatment Performed Education for nutrition and daily activity in regards to wound healing and circulation. Pt plans to continue with supine exercises in bed on her own. M7 PT-IP Assessment and Plan Start: 12/23/18 14:30 Freq: NEEDED Status: Active Protocol: Document 12/24/18 15:29 SA (Rec: 12/24/18 15:40 SA [id number]) PT Summary Assessment and Plan Summary Impairments Pain ROM Strength Balance Bed Mobility Transfers Gait Activity Tolerance Assessment Summary Pt declined ambulation or transfers this afternoon but did complete bed exercises and mobility. Admits to feeling discouraged with her medical situation but is hopeful she will heal quickly. Frequency of Treatment Frequency Of Treatment Twice a Day Treatment Plan Physical Therapy Treatment Plan Bed Mobility Training Transfer Training Gait Training Therapeutic Exercise Discharge Planning Other Recommendations and Next Treatment Pt plans to d/c to [facility] prior [facility] to home for continued IV antibiotics, wound vac and rehab. Recommendations To Nursing Amount of Assist Needed 1 Person Assist Discharge Recommendations PT Discharge Recommendations SNF Rehab Other Discharge Recommendations pt also currently needing SNF for IV antibiotics and wound care
--- NOTE | 2018-12-24 15:49 | PC.NURSE ---
Pt surgical site dressing changed to right upper thigh by Dr. Doyle. Dr. De Leon and Michelle RN from wound care this nurse and nursing officer Orly assisted. Wound bed visualized as beefy red. Wound was packed with wet to dry dressing, covered with abd pads and wrapped with LISSETTE wrap. Pt was medicated with one tablet Simla for pain. Dressings to right groin and right posterior thigh are PHARMACY SCHEDULER with instruction to evening shift to apply aquacell packing and cover with Allevyn dressing as instructed by record press supervisor-Michelle. Dr. Doyle has requested nursing staff assist with wound vac application to right thigh surgical wound at 0800 tomorrow morning, Friday, December 25 with all needed equipment at the bedside.
[2018-12-24 19:38] LABS: Add Manual Diff / Slide Review NO; Basophils Absolute Auto 100 /uL (0-100); Basophils Percent Auto 0.9 % (0-2); Eosinophils Absolute Auto 300 /uL (0-450); Eosinophils Percent Auto 4.9 % (2-4); Hematocrit 30.1 % (36-46); Hemoglobin 9.4 g/dL (12.0-16.0); Lymphocytes Absolute Auto 1100 /uL (1100-4500); Lymphocytes Percent Auto 17.7 % (25-40); Mean Corpuscular HGB Conc 31.3 % (30-36); Mean Corpuscular Hemoglobin 23.3 PG (26-34); Mean Corpuscular Volume 74.3 fL (80-100); Monocytes Absolute Auto 400 /uL (0-900); Monocytes Percent Auto 6.3 % (3-14); Neutrophils Absolute Auto 4400 /uL (1500-7000); Neutrophils Percent Auto 70.2 % (50-75); Platelet Count 380 X10^3/uL (150-400); Red Blood Cell Count 4.05 X10^6/uL (4.0-5.2); Red Cell Distribution Width 17.7 % (11.6-14.8); White Blood Cell Count 6.2 X10^3/uL (4.5-11.0)
[2018-12-24 19:57] LABS: BUN Creatinine Ratio 13.3 (6-22); Blood Urea Nitrogen 8 mg/dL (7-17); Calcium 8.1 mg/dL (8.4-10.2); Carbon Dioxide 24 mmol/L (22-32); Chloride 104 mmol/L (98-107); Estimated Glomerular Filt Rate > 60.0 mL/min (>60); Glucose 130 mg/dL (80-110); HEMOLYSIS 19 (0-50); Potassium 4.1 mmol/L (3.4-5.1); Sodium 135 mmol/L (137-145)
[2018-12-24 20:20] LABS: Vancomycin Trough 20.2 ug/mL (10-20)
--- NOTE | 2018-12-24 20:22 | PC.NURSE ---
Vanco dose held, per Robina in pharmacy, due to trough value of 20.2
[2018-12-24] MEDS: VANCOMYCIN TROUGH 1 REQUEST MISC (21:22)
--- NOTE | 2018-12-24 21:36 | PC.NURSE ---
Jess shift note: Dressing changed to Right mid thigh, wet to dry dressing, with abdominal pads, secured with Juan A wrap. Wound base appears beefy, pink to red. Moderate amount of sanguenous drainage to ABD dressing upon removal with a tinge of blood. Approx 16 cm x 9 cm in a triagular shape. Pre medicated for pain prior, tolerated procedure well. CMS to extremity intact. Surrounding area of full thickness surgical wound, pink and warm. Equipment for Wound VAC at bedside for MD to perform on 12/25.
[2018-12-25] VITALS (11 sets, daily range): BP systolic 112–139; BP diastolic 48–74; PULSE 69–88; RESP 16–18; TEMP 36.3–36.9; O2SAT 94–99
--- NOTE | 2018-12-25 03:21 | PC.NURSE ---
Fitness Management Director Note: 0030: Resting in bed. Vital signs stable. IVs in place in rt hand and rt wrist. Remains on O2 1L/NC. Dressing to rt thigh intact and clean, with earnest wrap over dressing. Pt aware that wound vac will be placed in the morning by the doctors.
[2018-12-25] MEDS: IMIPENEM/CILASTATIN 1,000 MG in SODIUM CHLORIDE 0.9% 250 ML IV (05:41)
--- NOTE | 2018-12-25 07:11 | P.PN_ITS ---
Subjective Date Patient Seen: 12/25/18 Time Patient Seen: 07:05 Interval history: Patient seen and evaluated this morning. Did well yesterday. Discussed the care with the surgeon. She says she slept well last night. Obviously has obesity hypoventilation syndrome. Her oxygen levels dropped when she goes to sleep. She definitely be a candidate for CPAP will arrange for that once things stabilize as an outpatient. She is not having a lot of pain. She is on a calorie count for nutrition. She also started eating. Pain is well controlled. No bowel movement urination problems. He had blood cultures are no growth. Wound culture grew out Staph aureus probably consistent with previous wound cultures so we will make adjustments to her antibiotics today. Exam Vital Signs (past 8 hours): - 12/25/18 00:00 12/25/18 00:30 12/25/18 06:00 Temperature 98.4 F 97.8 F Pulse Rate 74 69 Respiratory Rate 18 16 Blood Pressure 112/48 L 128/60 Pulse Oximetry 97 97 99 Oxygen Delivery Method Nasal Cannula Oxygen Flow Rate 1 Narrative Exam Narrative: Gen.: Alert good historian HEENT: Pupils equal round reactive or mucosa is moist Cardio: S1-S2 regular rate and rhythm Respiratory: Clear to auscultation no wheezes crackles Abdomen: Obese soft Extremities: Warm dry perfused bandage in place on right thigh Objective Labs Result Diagrams: 12/24/18 19:32 12/24/18 19:32 Labs: Laboratory Results - last 24 hr 12/24/18 12/24/18 12/24/18 05:00 05:00 08:15 WBC 5.8 RBC 3.82 L Hgb 9.0 L Hct 28.7 L MCV 75.1 L MCH 23.7 L MCHC 31.5 RDW 17.9 H Plt Count 331 Neut % (Auto) 69.9 Lymph % (Auto) 17.1 L [place] % (Auto) 7.5 Eos % (Auto) 4.6 H Baso % (Auto) 0.9 Neut # (Auto) 4100 Lymph # (Auto) 1000 L [place] # (Auto) 400 Eos # (Auto) 300 Baso # (Auto) 100 Sodium Potassium Chloride Carbon Dioxide BUN Creatinine Estimated GFR BUN/Creatinine Ratio Glucose Calcium Iron 17 L TIBC 203 L % Saturation 8 L Transferrin 147 L Ferritin 117.0 Vitamin B12 758 Folate 9.5 Vancomycin Trough 12/24/18 12/24/18 12/24/18 08:15 19:32 19:32 WBC 6.2 RBC 4.05 Hgb 9.4 L Hct 30.1 L MCV 74.3 L MCH 23.3 L MCHC 31.3 RDW 17.7 H Plt Count 380 Neut % (Auto) 70.2 Lymph % (Auto) 17.7 L [place] % (Auto) 6.3 Eos % (Auto) 4.9 H Baso % (Auto) 0.9 Neut # (Auto) 4400 Lymph # (Auto) 1100 [place] # (Auto) 400 Eos # (Auto) 300 Baso # (Auto) 100 Sodium 133 L Potassium 4.3 Chloride 102 Carbon Dioxide 25 BUN 7 Creatinine 0.60 Estimated GFR > 60.0 BUN/Creatinine Ratio 11.7 Glucose 134 H Calcium 8.0 L Iron TIBC % Saturation Transferrin Ferritin Vitamin B12 Folate Vancomycin Trough 20.2 H* 12/24/18 19:32 WBC RBC Hgb Hct MCV MCH MCHC RDW Plt Count Neut % (Auto) Lymph % (Auto) [place] % (Auto) Eos % (Auto) Baso % (Auto) Neut # (Auto) Lymph # (Auto) [place] # (Auto) Eos # (Auto) Baso # (Auto) Sodium 135 L Potassium 4.1 Chloride 104 Carbon Dioxide 24 BUN 8 Creatinine 0.60 Estimated GFR > 60.0 BUN/Creatinine Ratio 13.3 Glucose 130 H Calcium 8.1 L Iron TIBC % Saturation Transferrin Ferritin Vitamin B12 Folate Vancomycin Trough Assessment & Plan Assessment & Plan narrative: Abscess with cellulitis right thigh posterior. Wound VAC placement probably today. Cultures growing out Staph aureus. Continue with vancomycin. All other antibiotics. May be able to switch over to oral antibiotics here in a few days. Continue with localized wound care. As per surgery and wound physician. Blood counts stable afebrile. Morbid obesity. With mild nourishment. Calorie counting happening today. Vitamin B12 folic acid levels are normal. Ferritin normal. Iron percentages a re low. Continue with iron supplementation. Anemia probably of chronic disease. With mild iron deficiency. Obesity hypoventilation. Oxygen levels are low at night. Requires O2 at night when sleeping as her oxygen levels dropped. Certainly would be a candidate for CPAP. Will arrange for that as an outpatient. Diabetes type 2. Continue with insulin sliding scale and metformin. Blood sugars have been well controlled will keep an eye on these due to infection and try to keep her blood sugars lower than 200. Hypertension blood pressure better controlled Disposition plan and local wound care. Follow sensitivities of cultures. Continue with vancomycin encourage eating. Quality VTE Deep Vein Thrombosis/Pulmonary Embolism Present on Admission: No
[2018-12-25] MEDS: VANCOMYCIN 1,250 MG in SODIUM CHLORIDE 0.9% 250 ML IV ×2 (09:09→21:30)
[2018-12-25] MEDS: LACTOBACILLUS ACIDOPHILUS TABLET 1 EACH PO ×3 (09:10→17:04)
[2018-12-25] MEDS: FERROUS GLUCONATE 324 MG TABLET PO ×2 (09:10→20:11)
[2018-12-25] MEDS: HYDROCODONE/ACET 5/325 TABLET 1 TAB PO ×2 (09:11→20:10)
[2018-12-25] MEDS: METFORMIN HCL 500 MG TABLET PO ×2 (09:11→20:11)
[2018-12-25] MEDS: AMLODIPINE 5 MG TABLET PO (09:11)
[2018-12-25] MEDS: ENOXAPARIN 40 MG/0.4 ML SYRINGE SUBCUT ×2 (09:11→20:11)
[2018-12-25] MEDS: ASPIRIN EC 81 MG TABLET PO (09:11)
--- NOTE | 2018-12-25 10:45 | PM.PN.1 ---
Subjective Date Patient Seen: 12/25/18 Time Patient Seen: 10:46 Interval history: Feeling well, no RLE pain, Exam Vital Signs (past 8 hours): - 12/25/18 06:00 12/25/18 07:25 12/25/18 07:50 Temperature 97.8 F Pulse Rate 69 Respiratory Rate 16 Blood Pressure 128/60 Pulse Oximetry 99 98 94 12/25/18 08:45 Temperature 97.4 F L Pulse Rate 81 Respiratory Rate 18 Blood Pressure 139/74 Pulse Oximetry 96 Oxygen Delivery Method Nasal Cannula Oxygen Flow Rate 0 Narrative Exam Narrative: Dressings taken down on medial thigh wound - tissue appears healthy - no necrosis, healthy red, surrounding erythema is resolved. Improving wound exam daily. Objective Labs Result Diagrams: 12/24/18 19:32 12/24/18 19:32 Labs: Laboratory Results - last 24 hr 12/24/18 12/24/18 12/24/18 19:32 19:32 19:32 WBC 6.2 RBC 4.05 Hgb 9.4 L Hct 30.1 L MCV 74.3 L MCH 23.3 L MCHC 31.3 RDW 17.7 H Plt Count 380 Neut % (Auto) 70.2 Lymph % (Auto) 17.7 L [place] % (Auto) 6.3 Eos % (Auto) 4.9 H Baso % (Auto) 0.9 Neut # (Auto) 4400 Lymph # (Auto) 1100 [place] # (Auto) 400 Eos # (Auto) 300 Baso # (Auto) 100 Sodium 135 L Potassium 4.1 Chloride 104 Carbon Dioxide 24 BUN 8 Creatinine 0.60 Estimated GFR > 60.0 BUN/Creatinine Ratio 13.3 Glucose 130 H Calcium 8.1 L Vancomycin Trough 20.2 H* Assessment & Plan Assessment & Plan narrative: 68 yo woman POD2 after I and D and minimal debridement of medial thigh abscess on R, now healling well and rapidly resolving infection 1) Wound care I paced wound vac today Should be changed on SAT and then can go to [facility] changes - Needs exam over weekend - ie should not wait until friday for next dressing change If issues with wound or concern for worsening infection REMOVE wound vac and restart WTD dressing BID 2) antibiosis - Wound cultures with S aureus - sensensitive to oxacillin suggestive of MSSA, though odd resistance pattern has TMP/SMX and Clinda resistence - On vanco. Consider switch to PO dicloxacillin - effectiveness predicted by oxacillin sensitively. - Wound improvement significant enough oral abx is OK starting SAT. Quality VTE Deep Vein Thrombosis/Pulmonary Embolism Present on Admission: No
--- NOTE | 2018-12-25 10:53 | CM.DPC ---
DCP: continued: case received, EMR reviewed and met with pt. Introduced self and role. Pt confirms her plan to return to [facility] when stable to leave the hospital. She says Dr. Navarrete told her this would likely be in several days. Wound Care Team are consulting along with surgery. The surgeon did place a KCI wound vac this morning. Spoke with [facility] January to update her and she will followup with Mira on the snf wound vac process. She is alerted to Michelle Lopez' wound care notes for specifics and the wounds and treatment plan. P: return to [facility] under Medicare benefit when stable for same.
--- NOTE | 2018-12-25 11:24 | PC.NURSE ---
Day Shift- Wound vac placed to right medial thigh by Dr. Alberts with this writers assist and the assist of 1 TITLE ABSTRACTOR. Wound vac to continuous suction 125mmhg per verbal by . After procedure, pt reported 5/10 throbbing to area, prn Meyers Chuck 1 tab given with good effect. Urinary catheter removed at 0850 per verbal order by Dr. Alberts at bedside. Pt tolerated well. Pt OOB with 1 PA with PT, walked in room from bed to window and back. Tolerated fair, slowly. Allevyn dressing to right buttock fold area CDI. Small allevyn dressing to right groin CDI.
[2018-12-25] MEDS: INSULIN ASPART 100 UNIT/ML INSULN PEN SUBCUT (12:00)
--- NOTE | 2018-12-25 13:16 | PT.IPTN ---
Current Diagnoses Cellulitis of right lower limb (12/22/18) Surgery Performed Operation Date: 12/23/18 12:30 Actual Procedures p I&D medial thigh abscess and full thickness debridement of subcutaneous layer(Right) - Hernán Albetrs MD Physical Therapy Treatment Note M2 PT-IP Current Condition Start: 12/23/18 14:30 Freq: NEEDED Status: Active Protocol: Document 12/24/18 10:16 DLM (Rec: 12/24/18 13:30 DLM [id number]) Physical Therapy Current Condition Current Condition Evaluation Date 12/24/18 Treatment Diagnosis right thigh infection, impaired mobility and gait Onset Date 12/22/18, I&D 12/23/18 M3 PT-IP Subjective Start: 12/23/18 14:30 Freq: NEEDED Status: Active Protocol: Document 12/25/18 13:06 LJ (Rec: 12/25/18 13:16 LJ [id number]) Subjective Physical Therapy Visit Type Type Treatment Note Visit Start Time 09:00 Visit Stop Time 09:23 Total Visit Minutes 23 Number of BUILDING TRADES INSTRUCTOR Visits 2 Physical Therapy Visit Comments Patient Comments Pt with wound vac in place. Reports her thigh is throbbing but is willing to get up for a while. Therapy Pain Assessment Pain When Pain Assessed At Rest Pain Present Pain Present Pain Reported M4 PT-IP Mobility and Gait Start: 12/23/18 14:30 Freq: NEEDED Status: Active Protocol: Document 12/25/18 13:06 LJ (Rec: 12/25/18 13:16 LJ [id number]) PT-Bed Mobility Assessment Rolling Type of Rolling Roll to Right Roll to Left Level of Assist Standby Assistance Supine to Sit Supine to Sit Contact Guard Assistance Bedrails Sit to Supine Sit to Supine Contact Guard Assistance Bedrails Scooting Scooting to Edge of Bed Standby Assistance Scooting Up and Down in Bed Standby Assistance PT-Transfer Assessment Sit to and From Stand Sit to and from Stand Standby Assistance Use of Upper Extremities Equipment Transfer Assistive Device Gait Belt Front Wheeled Walker Transfers Transfer Destination Bed Transfer Technique Stand Step Pivot Transfer Ability Level of Assist Contact Guard Assistance Comments Mobility Comments Pt moves with SBA requiring verbal cues for maneuvering to edge of bed. Able to use UEs and bed rail to scoot up in bed. equires assist with RLE to lift in bed. Gait Assessment Gait Gait Assistance Required: Contact Guard Assist Distance (Feet) 30 Assistive Devices Assistive Device Gait Belt Front Wheeled Walker Factors Limiting Gait Function Factors Limiting Gait Function Decreased Activity Tolerance Decreased Strength Pain Comments Gait Comments No shortness of breath. Able to ambulate in room to bathroom and back with verbal cuing for directional changes due to IV and wound vac. Pt SBA for sit<>stand with heave reliance on UEs to stand M5 PT-IP Objective Assessments Start: 12/23/18 14:30 Freq: NEEDED Status: Active Protocol: Document 12/24/18 10:16 DLM (Rec: 12/24/18 13:30 DLM [id number]) Orientation Orientation/Cognition Level of Alertness Alert Orientation Name Age Birthday Month Date Year Day of Week Place Situation Language Function Ability No Deficits Noted Safety Awareness Understands Safety Issues Memory Description No Deficits Noted Gross Range of Motion Upper Extremity ROM Assessment Within Functional Limits Lower Extremity ROM Assessment Within Functional Limits Strength Upper Extremity Strength Assessment Within Functional Limits Lower Extremity Strength Assessment Right Impaired Comments Strength Comments functional right LE weakness with pain in right thigh wound Coordination Assessment Gross Coordination Gross Coordination WNL Sensation Assessment Comments Sensation Comments painful right thigh with earnest wrap in place over wound Muscle Tone Muscle Tone WNL Yes M6 PT-IP Treatment Start: 12/23/18 14:30 Freq: NEEDED Status: Active Protocol: Document 12/24/18 15:29 SA (Rec: 12/24/18 15:40 SA [id number]) Physical Therapy Treatment Exercises Exercises Ankle Pumps Gluteal Sets Straight Leg Raises Supine Hip Abduction Education Education Provided Safety Other Treatments Other Treatment Performed Education for nutrition and daily activity in regards to wound healing and circulation. Pt plans to continue with supine exercises in bed on her own. M7 PT-IP Assessment and Plan Start: 12/23/18 14:30 Freq: NEEDED Status: Active Protocol: Document 12/25/18 13:06 LJ (Rec: 12/25/18 13:16 LJ [id number]) PT Summary Assessment and Plan Summary Impairments Pain ROM Strength Balance Bed Mobility Transfers Gait Activity Tolerance Assessment Summary Pt moving better with assist due to IV and wound vac. Demonstrates ability to ambulate with FWW for 30' needing cuing for directional changes. Returned back to bed SBA with min for lifting RLE into bed. Frequency of Treatment Frequency Of Treatment Twice a Day Treatment Plan Physical Therapy Treatment Plan Bed Mobility Training Transfer Training Gait Training Therapeutic Exercise Discharge Planning Recommendations To Nursing Amount of Assist Needed 1 Person Assist Discharge Recommendations PT Discharge Recommendations SNF Rehab
--- NOTE | 2018-12-25 13:54 | OT.IP.TRT ---
Current Diagnoses Cellulitis of right lower limb (12/22/18) Surgery Performed Operation Date: 12/23/18 12:30 Actual Procedures p I&D medial thigh abscess and full thickness debridement of subcutaneous layer(Right) - Hernán Alberts MD Occupational Therapy Treatment Note M3 OT- IP Subjective and Pain Start: 12/25/18 13:53 Freq: Status: Active Protocol: Document 12/25/18 13:53 [facility] (Rec: 12/25/18 13:54 [facility] [id number]) OT- Subjective Occupational Therapy Visit Type Type Patient Refusal Notes Pt not wanting to get up to the toilet as felt could not make it in time and therefore use of bed lee. Pt too tired and not wanting to do OT eval today and wanting to be evaled tomorrow.
--- NOTE | 2018-12-25 15:24 | PT.IPTN ---
Current Diagnoses Cellulitis of right lower limb (12/22/18) Surgery Performed Operation Date: 12/23/18 12:30 Actual Procedures p I&D medial thigh abscess and full thickness debridement of subcutaneous layer(Right) - Hernán Alberts MD Physical Therapy Treatment Note M2 PT-IP Current Condition Start: 12/23/18 14:30 Freq: NEEDED Status: Active Protocol: Document 12/24/18 10:16 DLM (Rec: 12/24/18 13:30 DLM [id number]) Physical Therapy Current Condition Current Condition Evaluation Date 12/24/18 Treatment Diagnosis right thigh infection, impaired mobility and gait Onset Date 12/22/18, I&D 12/23/18 M3 PT-IP Subjective Start: 12/23/18 14:30 Freq: NEEDED Status: Active Protocol: Document 12/25/18 15:20 LJ (Rec: 12/25/18 15:24 LJ [id number]) Subjective Physical Therapy Visit Type Type Patient Refusal Notes Pt states she has not been able to sleep and is in pain from the wound vac. States she will get up with nursing to go to the restroom and will also continue to do bed exercises. M4 PT-IP Mobility and Gait Start: 12/23/18 14:30 Freq: NEEDED Status: Active Protocol: Document 12/25/18 13:06 LJ (Rec: 12/25/18 13:16 LJ [id number]) PT-Bed Mobility Assessment Rolling Type of Rolling Roll to Right Roll to Left Level of Assist Standby Assistance Supine to Sit Supine to Sit Contact Guard Assistance Bedrails Sit to Supine Sit to Supine Contact Guard Assistance Bedrails Scooting Scooting to Edge of Bed Standby Assistance Scooting Up and Down in Bed Standby Assistance PT-Transfer Assessment Sit to and From Stand Sit to and from Stand Standby Assistance Use of Upper Extremities Equipment Transfer Assistive Device Gait Belt Front Wheeled Walker Transfers Transfer Destination Bed Transfer Technique Stand Step Pivot Transfer Ability Level of Assist Contact Guard Assistance Comments Mobility Comments Pt moves with SBA requiring verbal cues for maneuvering to edge of bed. Able to use UEs and bed rail to scoot up in bed. equires assist with RLE to lift in bed. Gait Assessment Gait Gait Assistance Required: Contact Guard Assist Distance (Feet) 30 Assistive Devices Assistive Device Gait Belt Front Wheeled Walker Factors Limiting Gait Function Factors Limiting Gait Function Decreased Activity Tolerance Decreased Strength Pain Comments Gait Comments No shortness of breath. Able to ambulate in room to bathroom and back with verbal cuing for directional changes due to IV and wound vac. Pt SBA for sit<>stand with heave reliance on UEs to stand M5 PT-IP Objective Assessments Start: 12/23/18 14:30 Freq: NEEDED Status: Active Protocol: Document 12/24/18 10:16 DLM (Rec: 12/24/18 13:30 DLM [id number]) Orientation Orientation/Cognition Level of Alertness Alert Orientation Name Age Birthday Month Date Year Day of Week Place Situation Language Function Ability No Deficits Noted Safety Awareness Understands Safety Issues Memory Description No Deficits Noted Gross Range of Motion Upper Extremity ROM Assessment Within Functional Limits Lower Extremity ROM Assessment Within Functional Limits Strength Upper Extremity Strength Assessment Within Functional Limits Lower Extremity Strength Assessment Right Impaired Comments Strength Comments functional right LE weakness with pain in right thigh wound Coordination Assessment Gross Coordination Gross Coordination WNL Sensation Assessment Comments Sensation Comments painful right thigh with earnest wrap in place over wound Muscle Tone Muscle Tone WNL Yes M6 PT-IP Treatment Start: 12/23/18 14:30 Freq: NEEDED Status: Active Protocol: Document 12/24/18 15:29 SA (Rec: 12/24/18 15:40 SA [id number]) Physical Therapy Treatment Exercises Exercises Ankle Pumps Gluteal Sets Straight Leg Raises Supine Hip Abduction Education Education Provided Safety Other Treatments Other Treatment Performed Education for nutrition and daily activity in regards to wound healing and circulation. Pt plans to continue with supine exercises in bed on her own. M7 PT-IP Assessment and Plan Start: 12/23/18 14:30 Freq: NEEDED Status: Active Protocol: Document 12/25/18 13:06 LJ (Rec: 12/25/18 13:16 LJ [id number]) PT Summary Assessment and Plan Summary Impairments Pain ROM Strength Balance Bed Mobility Transfers Gait Activity Tolerance Assessment Summary Pt moving better with assist due to IV and wound vac. Demonstrates ability to ambulate with FWW for 30' needing cuing for directional changes. Returned back to bed SBA with min for lifting RLE into bed. Frequency of Treatment Frequency Of Treatment Twice a Day Treatment Plan Physical Therapy Treatment Plan Bed Mobility Training Transfer Training Gait Training Therapeutic Exercise Discharge Planning Recommendations To Nursing Amount of Assist Needed 1 Person Assist Discharge Recommendations PT Discharge Recommendations SNF Rehab
--- NOTE | 2018-12-25 18:07 | P.PN_ITS ---
Exam Vital Signs (past 8 hours): - 12/25/18 11:30 12/25/18 15:00 12/25/18 16:09 Temperature 97.6 F 97.6 F Pulse Rate 78 88 Respiratory Rate 18 16 Blood Pressure 122/68 113/62 Pulse Oximetry 95 96 96 Oxygen Delivery Method Room Air Oxygen Flow Rate 0 Objective Labs Result Diagrams: 12/24/18 19:32 12/24/18 19:32 Labs: Laboratory Results - last 24 hr 12/24/18 12/24/18 12/24/18 19:32 19:32 19:32 WBC 6.2 RBC 4.05 Hgb 9.4 L Hct 30.1 L MCV 74.3 L MCH 23.3 L MCHC 31.3 RDW 17.7 H Plt Count 380 Neut % (Auto) 70.2 Lymph % (Auto) 17.7 L [place] % (Auto) 6.3 Eos % (Auto) 4.9 H Baso % (Auto) 0.9 Neut # (Auto) 4400 Lymph # (Auto) 1100 [place] # (Auto) 400 Eos # (Auto) 300 Baso # (Auto) 100 Sodium 135 L Potassium 4.1 Chloride 104 Carbon Dioxide 24 BUN 8 Creatinine 0.60 Estimated GFR > 60.0 BUN/Creatinine Ratio 13.3 Glucose 130 H Calcium 8.1 L Vancomycin Trough 20.2 H* Assessment & Plan Assessment & Plan narrative: Reviewed the patient's final sensitivities on culture. It appears the patient has 2 different species of staff with similar though not identical resistant patterns. She also grew an unusual organism from the culture in the clinic that is often seen in skin but can be pathologic. The recommendations for the early treatment of this organism(Allisonris sethystena) are 14 drugs a 1 of the drugs that has been used successfully in the past since there is no panel on sensitivities for the organism is rifampin. The 2 staph species that grew are also sensitive to it. Will begin oral rifampin. Quality VTE Deep Vein Thrombosis/Pulmonary Embolism Present on Admission: No
--- NOTE | 2018-12-25 18:40 | PC.NURSE ---
Addendum entered by Yojana Rehman R.N. 12/25/18 22:49: Faint leak heard from vac; KCI vac dressing re-enforced with tegaderm and KCI drape, no leak heard since. Vanco competed infusion and pt saline locked. c/o 5/10 pain and administered Langley 5mg, decreased pain to 2/10. Right forearm PIV is leaking, so I switched the vanco infusion to wrist PIV for the last 5mL, pt tolerated wrist infusion well. Original Note: pt AO, pleasant and receptive to care. SBA with FWW to BR. Able to reposition in bed IND. KCI wound vac suctioning 125mmhg, minor leak head from medial aspect of thigh, but vac still suctioning appropriately. NS running at 21/hr to keep finicky right hand PIV open and clear prior to ABX, right forearm saline locked. Right thigh graph site is warm to the touch, vac sit has mild odor. Dressing change to right gluteal cleft due to dressing peeling off during reposition (Aquacel to wound base, 5x5 Alleyvn covering, moderate draining noted during ambulation and olesya-wound care provided). Lung sounds clear and diminished. +2 pitting edema to bilateral ankles and feet. 96% RA. CBG 120 at 1600, no coverage. Ate 50% dinner salad and drank entire Ensure. BM at change of shift. Tolerating 3/10 pain.
[2018-12-25] MEDS: rifAMPin 300 MG CAPSULE 600 MG PO (20:11)
[2018-12-25] MEDS: SODIUM CHLORIDE 0.9% 250 ML 21 ML IV (20:12)
[2018-12-26] VITALS (11 sets, daily range): BP systolic 120–143; BP diastolic 59–77; PULSE 67–91; RESP 16–20; TEMP 36.3–36.9; O2SAT 85–99
--- NOTE | 2018-12-26 05:48 | PC.NURSE ---
Pt doing well. No pain. Wound Vac at 125mmHg continuous suction without issues. Wound Vac shift output= 50mL serosanguinous drainage. Voiding in bed lee, orange urine. Desaturating on room air while sleeping to mid to low 80%s, placed on 2L NC overnight, continuos pulse ox on.
[2018-12-26 06:52] LABS: Blood Urea Nitrogen 12 mg/dL (7-17); Calcium 8.4 mg/dL (8.4-10.2); Carbon Dioxide 27 mmol/L (22-32); Chloride 104 mmol/L (98-107); Estimated Glomerular Filt Rate > 60.0 mL/min (>60); Glucose 106 mg/dL (80-110); HEMOLYSIS < 15 (0-50); Sodium 136 mmol/L (137-145)
[2018-12-26] MEDS: ENOXAPARIN 40 MG/0.4 ML SYRINGE SUBCUT ×2 (09:26→20:23)
[2018-12-26] MEDS: VANCOMYCIN 1,250 MG in SODIUM CHLORIDE 0.9% 250 ML 175 ML IV (09:26)
[2018-12-26] MEDS: ASCORBIC ACID 500 MG TABLET PO (09:27)
[2018-12-26] MEDS: ASPIRIN EC 81 MG TABLET PO (09:27)
[2018-12-26] MEDS: FERROUS GLUCONATE 324 MG TABLET PO ×2 (09:27→20:23)
[2018-12-26] MEDS: METFORMIN HCL 500 MG TABLET PO ×2 (09:27→20:24)
[2018-12-26] MEDS: AMLODIPINE 5 MG TABLET PO (09:27)
[2018-12-26] MEDS: rifAMPin 300 MG CAPSULE 600 MG PO (09:27)
[2018-12-26] MEDS: SODIUM CHLORIDE 0.9% 250 ML 21 ML IV (09:28)
[2018-12-26] MEDS: LACTOBACILLUS ACIDOPHILUS TABLET 1 EACH PO ×3 (09:45→17:22)
--- NOTE | 2018-12-26 10:43 | PT.IPTN ---
Current Diagnoses Cellulitis of right lower limb (12/22/18) Surgery Performed Operation Date: 12/23/18 12:30 Actual Procedures p I&D medial thigh abscess and full thickness debridement of subcutaneous layer(Right) - Hernán Alberts MD Physical Therapy Treatment Note M2 PT-IP Current Condition Start: 12/23/18 14:30 Freq: NEEDED Status: Active Protocol: Document 12/24/18 10:16 DLM (Rec: 12/24/18 13:30 DLM [id number]) Physical Therapy Current Condition Current Condition Evaluation Date 12/24/18 Treatment Diagnosis right thigh infection, impaired mobility and gait Onset Date 12/22/18, I&D 12/23/18 M3 PT-IP Subjective Start: 12/23/18 14:30 Freq: NEEDED Status: Active Protocol: Document 12/26/18 10:42 GGD (Rec: 12/26/18 12:42 GGD [id number]) Subjective Physical Therapy Visit Type Type Patient Unavailable Notes Pt having wound vac placed. Will see in PM.
--- NOTE | 2018-12-26 10:55 | PM.PN.1 ---
Subjective Date Patient Seen: 12/26/18 Time Patient Seen: 10:55 Interval history: Patient's up on the bedside chair. Is in good spirits. Really has no complaints issues or problems. She seen in conjunction with surgery who is planning to take her wound VAC down and re-evaluate the wound. Patient is growing Staph aureus which does have multiple resistances. Also growing Kocuria kristinae for which Dr. Page rifampin yesterday. Exam Vital Signs (past 8 hours): - 12/26/18 05:59 12/26/18 07:45 12/26/18 08:25 Temperature 97.4 F L 97.5 F L Pulse Rate 67 80 Respiratory Rate 18 18 Blood Pressure 120/59 L 134/68 Pulse Oximetry 96 96 95 12/26/18 09:44 Temperature Pulse Rate Respiratory Rate Blood Pressure Pulse Oximetry 95 Fraction of Inspired Oxygen 21 Oxygen Delivery Method Room Air Oxygen Flow Rate 0 Objective Labs Result Diagrams: 12/24/18 19:32 12/26/18 06:26 Labs: Laboratory Results - last 24 hr 12/26/18 06:26 Sodium 136 L Potassium 4.0 Chloride 104 Carbon Dioxide 27 BUN 12 Creatinine 0.60 Estimated GFR > 60.0 BUN/Creatinine Ratio 20.0 Glucose 106 Calcium 8.4 Assessment & Plan Assessment & Plan narrative: 1. right thigh cellulitis/abscess status post multiple surgeries recent debridement and wound VAC in place. Continue with current IV antibiotics as well as the oral rifampin as per General surgery. Ongoing wound care as per General surgery and our instructional support specialist as well. Clearly patient's current status is far improved over where she was when she was here last time before her multiple surgeries in [place] etc, etc. 2. Diabetes-adequate control blood sugars for now. No changes made. 3. Obesity hypoventilation-continue with nocturnal oxygen as necessary monitoring numbers Overall patient medically seems to be doing well. Biggest issues really at this point our management of her infection which well out for her wounds to heal. Defer management of these issues primarily to General surgery. I agree with current antibiotic therapy. It appears treatment of her Staph aureus is going to be limited to IV antibiotics given its sensitivities. Quality VTE Deep Vein Thrombosis/Pulmonary Embolism Present on Admission: No
[2018-12-26] MEDS: HYDROCODONE/ACET 5/325 TABLET 1 TAB PO ×2 (11:17→20:23)
--- NOTE | 2018-12-26 12:25 | PM.PN.1 ---
Subjective Date Patient Seen: 12/26/18 Time Patient Seen: 10:25 Interval history: Doing well with VAC, no issues since placement. Pain controlled although leg still sore with manipulation. No fevers. Exam Vital Signs (past 8 hours): - 12/26/18 05:59 12/26/18 07:45 12/26/18 08:25 Temperature 97.4 F L 97.5 F L Pulse Rate 67 80 Respiratory Rate 18 18 Blood Pressure 120/59 L 134/68 Pulse Oximetry 96 96 95 12/26/18 09:44 12/26/18 11:45 Temperature 97.8 F Pulse Rate 71 Respiratory Rate 18 Blood Pressure 142/63 H Pulse Oximetry 95 96 Fraction of Inspired Oxygen 21 Oxygen Delivery Method Room Air Oxygen Flow Rate 0 Narrative Exam Narrative: AAO, NAD, morbidly obese female EOMI, MMM, no scleral icterus unlabored RA soft, nt/nd MAEW, uses walker; R medial thigh VAC in place with good seal, underlying wound clean bed, no necrosis or purulence, no erythema, no drainage visible skin dry and intact Objective Labs Result Diagrams: 12/24/18 19:32 12/26/18 06:26 Labs: Laboratory Results - last 24 hr 12/26/18 06:26 Sodium 136 L Potassium 4.0 Chloride 104 Carbon Dioxide 27 BUN 12 Creatinine 0.60 Estimated GFR > 60.0 BUN/Creatinine Ratio 20.0 Glucose 106 Calcium 8.4 Assessment & Plan Assessment & Plan narrative: - s/p debridement of R thigh abscess --> cellulitis improving, no signs of active infection --> VAC replaced today, wound clean and healing; move to [facility] changes --> complex speciation picture, currently on Vanc and oral Rifampin. Clinically doing well, discussed with pharmacy and will change Vanc to Cefazolin with transition to oral cephalosporin on d/c - ambulate, OOB with walker Quality VTE Deep Vein Thrombosis/Pulmonary Embolism Present on Admission: No
[2018-12-26] MEDS: CEFAZOLIN VIAL 3 GM in SODIUM CHLORIDE 0.9% 100 ML 200 ML IV ×2 (13:23→20:23)
--- NOTE | 2018-12-26 14:53 | PC.NURSE ---
Addendum entered by Yina Reyna R.N. 12/26/18 15:40: Measurements of wound to right medial thigh prior to wound vac placement today was 16 cm length, 7.5 cm width, 6 cm depth. Original Note: Day Shift- Wound VAC dressing removed by Dr. Chaudhry around 1105. placed adaptic to wound bed. Pre-medication given prior to further wound vac placement. [place] 1 tab given at 1120. Black foam cut to place in wound, clear dressings applied to cover then cut around foam, skin prep to skin, clear dressing placed over again to further seal. Small area cut into foam where suction disc/tubing applied. Continuous Suction at 125 mmhg obtained, small leak, reinforced dressing. Pt tolerated fair, was verbally moaning when placing pressure of foam in wound. Pt states was tolerable. Explained to ask for pre-medication prior to next wound vac change. Total ouput in wound vac canister was 375 mls of sero-sang drainage.
--- NOTE | 2018-12-26 16:12 | PT.IPTN ---
Current Diagnoses Cellulitis of right lower limb (12/22/18) Surgery Performed Operation Date: 12/23/18 12:30 Actual Procedures p I&D medial thigh abscess and full thickness debridement of subcutaneous layer(Right) - Hernán Alberts MD Physical Therapy Treatment Note M2 PT-IP Current Condition Start: 12/23/18 14:30 Freq: NEEDED Status: Active Protocol: Document 12/24/18 10:16 DLM (Rec: 12/24/18 13:30 DLM [id number]) Physical Therapy Current Condition Current Condition Evaluation Date 12/24/18 Treatment Diagnosis right thigh infection, impaired mobility and gait Onset Date 12/22/18, I&D 12/23/18 M3 PT-IP Subjective Start: 12/23/18 14:30 Freq: NEEDED Status: Active Protocol: Document 12/26/18 16:07 GGD (Rec: 12/26/18 16:12 GGD [id number]) Subjective Physical Therapy Visit Type Type Treatment Note Visit Start Time 15:40 Visit Stop Time 16:05 Total Visit Minutes 25 Number of EGG WORKER Visits 1 Physical Therapy Visit Comments Patient Comments Pt willing to work with therapy. Therapy Pain Assessment Pain When Pain Assessed At Rest Pain Present Pain Present Pain Reported M4 PT-IP Mobility and Gait Start: 12/23/18 14:30 Freq: NEEDED Status: Active Protocol: Document 12/26/18 16:07 GGD (Rec: 12/26/18 16:12 GGD [id number]) PT-Bed Mobility Assessment Sit to Supine Sit to Supine Contact Guard Assistance Bedrails Scooting Scooting to Edge of Bed Standby Assistance PT-Transfer Assessment Sit to and From Stand Sit to and from Stand Standby Assistance Use of Upper Extremities Equipment Transfer Assistive Device Gait Belt Front Wheeled Walker Transfers Transfer Destination Bed Toilet Transfer Technique Stand Step Pivot Transfer Ability Level of Assist Contact Guard Assistance Comments Mobility Comments pt uses momentum for sit to stand Gait Assessment Gait Gait Assistance Required: Contact Guard Assist Distance (Feet) 230 Assistive Devices Assistive Device Gait Belt Front Wheeled Walker Factors Limiting Gait Function Factors Limiting Gait Function Decreased Activity Tolerance Decreased Strength Pain Comments Gait Comments Pt needed 2 standing rest breaks with gait. M5 PT-IP Objective Assessments Start: 12/23/18 14:30 Freq: NEEDED Status: Active Protocol: Document 12/24/18 10:16 DLM (Rec: 12/24/18 13:30 DLM [id number]) Orientation Orientation/Cognition Level of Alertness Alert Orientation Name Age Birthday Month Date Year Day of Week Place Situation Language Function Ability No Deficits Noted Safety Awareness Understands Safety Issues Memory Description No Deficits Noted Gross Range of Motion Upper Extremity ROM Assessment Within Functional Limits Lower Extremity ROM Assessment Within Functional Limits Strength Upper Extremity Strength Assessment Within Functional Limits Lower Extremity Strength Assessment Right Impaired Comments Strength Comments functional right LE weakness with pain in right thigh wound Coordination Assessment Gross Coordination Gross Coordination WNL Sensation Assessment Comments Sensation Comments painful right thigh with earnest wrap in place over wound Muscle Tone Muscle Tone WNL Yes M6 PT-IP Treatment Start: 12/23/18 14:30 Freq: NEEDED Status: Active Protocol: Document 12/24/18 15:29 SA (Rec: 12/24/18 15:40 SA [id number]) Physical Therapy Treatment Exercises Exercises Ankle Pumps Gluteal Sets Straight Leg Raises Supine Hip Abduction Education Education Provided Safety Other Treatments Other Treatment Performed Education for nutrition and daily activity in regards to wound healing and circulation. Pt plans to continue with supine exercises in bed on her own. M7 PT-IP Assessment and Plan Start: 12/23/18 14:30 Freq: NEEDED Status: Active Protocol: Document 12/26/18 16:07 GGD (Rec: 12/26/18 16:12 GGD [id number]) PT Summary Assessment and Plan Summary Assessment Summary PT is improving with mobility. She tends to move fast and use momentum. She did need standing rest breaks with gait due to fatigue. Frequency of Treatment Frequency Of Treatment Twice a Day Treatment Plan Physical Therapy Treatment Plan Bed Mobility Training Transfer Training Gait Training Therapeutic Exercise Discharge Planning Recommendations To Nursing Amount of Assist Needed 1 Person Assist Discharge Recommendations PT Discharge Recommendations SNF Rehab
[2018-12-26] MEDS: INSULIN ASPART 100 UNIT/ML INSULN PEN SUBCUT (17:18)
[2018-12-26 21:23] LABS: Vancomycin Trough 16.6 ug/mL (10-20)
--- NOTE | 2018-12-26 23:40 | PC.NURSE ---
SHIFT 3p-11p Report received, care assumed. Pt. A&Ox3, VSS. Ambulated entire loop of unit with PT tech. Reports pain is under control. Wound vac intact, suction maintained. Dressing of right groin intact. Dressing of left posterior thigh rolled off; beefy red wound bed. Calcium alginate placed in wound bed, covered with Alevyn. Per report from day shift, pt. drops sats at night. at 2200, placed on 1LNC and continuous pulse ox.
[2018-12-27] VITALS (10 sets, daily range): BP systolic 126–149; BP diastolic 69–81; PULSE 71–100; RESP 16–20; TEMP 36.5–36.9; O2SAT 94–98
--- NOTE | 2018-12-27 01:48 | PC.NURSE ---
Pt's lung sounds clear bilaterally, VSS. Pt is on 1liter O2 NC for sleeping, 02 sats at 98%. Pt wound vac is on w/ continuous suction at 125. Dressings on wounds are clean/dry and intact.
[2018-12-27] MEDS: CEFAZOLIN VIAL 3 GM in SODIUM CHLORIDE 0.9% 100 ML 200 ML IV ×3 (04:37→21:28)
[2018-12-27 06:06] LABS: Add Manual Diff / Slide Review NO; Basophils Absolute Auto 100 /uL (0-100); Basophils Percent Auto 1.1 % (0-2); Eosinophils Absolute Auto 400 /uL (0-450); Eosinophils Percent Auto 7.3 % (2-4); Hematocrit 29.5 % (36-46); Hemoglobin 9.3 g/dL (12.0-16.0); Lymphocytes Absolute Auto 1300 /uL (1100-4500); Lymphocytes Percent Auto 23.6 % (25-40); Mean Corpuscular HGB Conc 31.5 % (30-36); Mean Corpuscular Hemoglobin 23.4 PG (26-34); Mean Corpuscular Volume 74.4 fL (80-100); Monocytes Absolute Auto 400 /uL (0-900); Monocytes Percent Auto 8.1 % (3-14); Neutrophils Absolute Auto 3200 /uL (1500-7000); Neutrophils Percent Auto 59.9 % (50-75); Platelet Count 390 X10^3/uL (150-400); Red Blood Cell Count 3.96 X10^6/uL (4.0-5.2); White Blood Cell Count 5.4 X10^3/uL (4.5-11.0)
[2018-12-27] MEDS: rifAMPin 300 MG CAPSULE 600 MG PO (08:32)
[2018-12-27] MEDS: METFORMIN HCL 500 MG TABLET PO ×2 (08:33→21:29)
[2018-12-27] MEDS: LACTOBACILLUS ACIDOPHILUS TABLET 1 EACH PO ×3 (08:33→16:44)
[2018-12-27] MEDS: ENOXAPARIN 40 MG/0.4 ML SYRINGE SUBCUT ×2 (08:33→21:29)
[2018-12-27] MEDS: FERROUS GLUCONATE 324 MG TABLET PO ×2 (08:33→21:29)
[2018-12-27] MEDS: AMLODIPINE 5 MG TABLET PO (10:04)
[2018-12-27] MEDS: ASPIRIN EC 81 MG TABLET PO (10:04)
--- NOTE | 2018-12-27 10:15 | PT.IPTN ---
Current Diagnoses Cellulitis of right lower limb (12/22/18) Surgery Performed Operation Date: 12/23/18 12:30 Actual Procedures p I&D medial thigh abscess and full thickness debridement of subcutaneous layer(Right) - Hernán Alberts MD Physical Therapy Treatment Note M2 PT-IP Current Condition Start: 12/23/18 14:30 Freq: NEEDED Status: Active Protocol: Document 12/24/18 10:16 DLM (Rec: 12/24/18 13:30 DLM [id number]) Physical Therapy Current Condition Current Condition Evaluation Date 12/24/18 Treatment Diagnosis right thigh infection, impaired mobility and gait Onset Date 12/22/18, I&D 12/23/18 M3 PT-IP Subjective Start: 12/23/18 14:30 Freq: NEEDED Status: Active Protocol: Document 12/27/18 10:00 CLB (Rec: 12/27/18 12:12 CLB [id number]) Subjective Physical Therapy Visit Type Type Treatment Note Visit Start Time 10:00 Visit Stop Time 10:15 Total Visit Minutes 15 Number of MEDICAL TRANSCRIPTION EDITOR Visits 2 Physical Therapy Visit Comments Patient Comments Pt willing to work with therapy. M4 PT-IP Mobility and Gait Start: 12/23/18 14:30 Freq: NEEDED Status: Active Protocol: Document 12/27/18 10:00 CLB (Rec: 12/27/18 12:12 CLB [id number]) PT-Transfer Assessment Sit to and From Stand Sit to and from Stand Standby Assistance Use of Upper Extremities Equipment Transfer Assistive Device Gait Belt Front Wheeled Walker Transfers Transfer Destination Chair Transfer Technique Stand Step Pivot Transfer Ability Level of Assist Standby Assistance Use of Upper Extremities Comments Mobility Comments pt uses momentum for sit to stand Gait Assessment Gait Gait Assistance Required: Standby Assistance Contact Guard Assist Distance (Feet) 350 Assistive Devices Assistive Device Gait Belt Front Wheeled Walker Factors Limiting Gait Function Factors Limiting Gait Function Decreased Activity Tolerance Decreased Strength Comments Gait Comments Pt wanting to ambulate further than yesterday requiring 4 rest breaks. O2 saturations on RA 95% and HR 104-109 during activity. M5 PT-IP Objective Assessments Start: 12/23/18 14:30 Freq: NEEDED Status: Active Protocol: Document 12/24/18 10:16 DLM (Rec: 12/24/18 13:30 DLM [id number]) Orientation Orientation/Cognition Level of Alertness Alert Orientation Name Age Birthday Month Date Year Day of Week Place Situation Language Function Ability No Deficits Noted Safety Awareness Understands Safety Issues Memory Description No Deficits Noted Gross Range of Motion Upper Extremity ROM Assessment Within Functional Limits Lower Extremity ROM Assessment Within Functional Limits Strength Upper Extremity Strength Assessment Within Functional Limits Lower Extremity Strength Assessment Right Impaired Comments Strength Comments functional right LE weakness with pain in right thigh wound Coordination Assessment Gross Coordination Gross Coordination WNL Sensation Assessment Comments Sensation Comments painful right thigh with earnest wrap in place over wound Muscle Tone Muscle Tone WNL Yes M6 PT-IP Treatment Start: 12/23/18 14:30 Freq: NEEDED Status: Active Protocol: Document 12/27/18 10:00 CLB (Rec: 12/27/18 12:12 CLB [id number]) Physical Therapy Treatment Exercises Exercises Ankle Pumps M7 PT-IP Assessment and Plan Start: 12/23/18 14:30 Freq: NEEDED Status: Active Protocol: Document 12/27/18 10:00 CLB (Rec: 12/27/18 12:12 CLB [id number]) PT Summary Assessment and Plan Summary Assessment Summary Pt continues to use momentum for sit to stand with rocking motion before standing. Pt required 4 standing breaks with gait and increased gait to ~350ft. Pt reported tightness not pain with ambulation. Pt requested RN check bandage, PRINT SHOP HELPER informed after tx. Goals Bed Mobility Goal Independent Transfer Goal Standby Assistance Front Wheeled Walker Gait Goal Standby Assistance Front Wheel Walker Gait Distance 100 feet Days to Meet Goals 5 Frequency of Treatment Frequency Of Treatment Twice a Day Treatment Plan Physical Therapy Treatment Plan Bed Mobility Training Transfer Training Gait Training Therapeutic Exercise Discharge Planning Recommendations To Nursing Amount of Assist Needed Standby Assistance Discharge Recommendations PT Discharge Recommendations SNF Rehab
--- NOTE | 2018-12-27 10:27 | P.PN_ITS ---
Subjective Date Patient Seen: 12/27/18 Time Patient Seen: 09:26 Interval history: No changes, no complaints other than hoarse voice since surgery. VAC replaced yesterday, no issues. Exam Vital Signs (past 8 hours): - 12/27/18 06:00 12/27/18 07:30 Temperature 97.9 F Pulse Rate 76 77 Respiratory Rate 16 18 Blood Pressure 142/79 H 136/81 Pulse Oximetry 97 97 Fraction of Inspired Oxygen 21 Oxygen Delivery Method Nasal Cannula Oxygen Flow Rate 0 Narrative Exam Narrative: AAO, NAD, morbidly obese female EOMI, MMM, no scleral icterus mild hoarse quality to voice unlabored RA soft, nt/nd MAEW, uses walker; R medial thigh VAC in place with good seal, no erythema or visible signs of infection visible skin dry and intact Objective Labs Result Diagrams: 12/27/18 05:46 12/26/18 06:26 Labs: Laboratory Results - last 24 hr 12/26/18 12/27/18 20:40 05:46 WBC 5.4 RBC 3.96 L Hgb 9.3 L Hct 29.5 L MCV 74.4 L MCH 23.4 L MCHC 31.5 RDW 18.0 H Plt Count 390 Neut % (Auto) 59.9 Lymph % (Auto) 23.6 L [place] % (Auto) 8.1 Eos % (Auto) 7.3 H Baso % (Auto) 1.1 Neut # (Auto) 3200 Lymph # (Auto) 1300 [place] # (Auto) 400 Eos # (Auto) 400 Baso # (Auto) 100 Vancomycin Trough 16.6 Assessment & Plan Assessment & Plan narrative: - s/p debridement of R thigh abscess --> cellulitis improving, no signs of active infection --> VAC replaced yesterday, wound clean and healing; move to [facility] changes by woun d care --> complex speciation picture, currently on Cefazolin per pharm recs and oral Rifampin. should be able to transition to oral cephalosporin on d/c - ambulate, OOB with walker - hoarseness likely from ETT, should resolve Quality VTE Deep Vein Thrombosis/Pulmonary Embolism Present on Admission: No
--- NOTE | 2018-12-27 10:59 | PM.PN.1 ---
Subjective Date Patient Seen: 12/27/18 Time Patient Seen: 11:00 Interval history: Patient doing well. Up ambulating in the halls. Looks like there is active wound healing going on per surgery blood sugars have been well controlled Exam Vital Signs (past 8 hours): - 12/27/18 06:00 12/27/18 07:30 Temperature 97.9 F Pulse Rate 76 77 Respiratory Rate 16 18 Blood Pressure 142/79 H 136/81 Pulse Oximetry 97 97 Fraction of Inspired Oxygen 21 Oxygen Delivery Method Nasal Cannula Oxygen Flow Rate 0 Narrative Exam Narrative: No change, wound not examined by myself Objective Labs Result Diagrams: 12/27/18 05:46 12/26/18 06:26 Labs: Laboratory Results - last 24 hr 12/26/18 12/27/18 20:40 05:46 WBC 5.4 RBC 3.96 L Hgb 9.3 L Hct 29.5 L MCV 74.4 L MCH 23.4 L MCHC 31.5 RDW 18.0 H Plt Count 390 Neut % (Auto) 59.9 Lymph % (Auto) 23.6 L [place] % (Auto) 8.1 Eos % (Auto) 7.3 H Baso % (Auto) 1.1 Neut # (Auto) 3200 Lymph # (Auto) 1300 [place] # (Auto) 400 Eos # (Auto) 400 Baso # (Auto) 100 Vancomycin Trough 16.6 Assessment & Plan Assessment & Plan narrative: 1. Thigh wound-continued wound care management including therapies with antibiotics as per surgery. Patient currently on cefazolin IV plus rifampin p.o.. Patients Staph aureus was not tested against cephalosporinsBut is sensitive to oxacillin so the presumption is cephalosporin should be appropriate. Continue monitor carefully after the switch from vancomycin to cefazolin to be sure she continues to show evidence of healing. 2. Diabetes-continues with very good blood sugar control no active issues their 3. Otherwise patient is doing well. Continue with increased activity as able which will be helpful in preventing further medical complications and issues etc. Dr. Navarrete to resume medical care tomorrow. Note: Greater than 30 minutes was spent evaluating the patient on the floor, including examining the patient, discussing clinical course with clinical and nursing staff, reviewing clinical course in the computer, preparing documentation and writing orders for continued management of care, discussing status with family as appropriate, reviewing plans for the next 24 hours with both patient/family and nursing staff as appropriate. Quality VTE Deep Vein Thrombosis/Pulmonary Embolism Present on Admission: No
--- NOTE | 2018-12-27 13:04 | CM.DPC ---
DCP: continued: Spoke with Mira/[facility] as planned to get greater clarity re the wound van process at [facility]. She confirms they do keep wound vacs in stock but also says that this pt had used a wound vac placed at the [facility] on and off during her stay there and they currently have this. At d/c should take vac off and leave it at , cover wound as indicated and [facility] will place their wound vac on pt when she arrives there.
--- NOTE | 2018-12-27 14:00 | PT.IPTN ---
Current Diagnoses Cellulitis of right lower limb (12/22/18) Surgery Performed Operation Date: 12/23/18 12:30 Actual Procedures p I&D medial thigh abscess and full thickness debridement of subcutaneous layer(Right) - Hernán Alberts MD Physical Therapy Treatment Note M2 PT-IP Current Condition Start: 12/23/18 14:30 Freq: NEEDED Status: Active Protocol: Document 12/24/18 10:16 DLM (Rec: 12/24/18 13:30 DLM [id number]) Physical Therapy Current Condition Current Condition Evaluation Date 12/24/18 Treatment Diagnosis right thigh infection, impaired mobility and gait Onset Date 12/22/18, I&D 12/23/18 M3 PT-IP Subjective Start: 12/23/18 14:30 Freq: NEEDED Status: Active Protocol: Document 12/27/18 14:00 CLB (Rec: 12/27/18 14:26 CLB [id number]) Subjective Physical Therapy Visit Type Type Patient Refusal Notes Pt refused therapy but assisted pt with elevating legs in recliner and adjusting her table to the right side of chair as pt requested. SEARCH MARKETING COORDINATOR notified. M4 PT-IP Mobility and Gait Start: 12/23/18 14:30 Freq: NEEDED Status: Active Protocol: Document 12/27/18 10:00 CLB (Rec: 12/27/18 12:12 CLB [id number]) PT-Transfer Assessment Sit to and From Stand Sit to and from Stand Standby Assistance Use of Upper Extremities Equipment Transfer Assistive Device Gait Belt Front Wheeled Walker Transfers Transfer Destination Chair Transfer Technique Stand Step Pivot Transfer Ability Level of Assist Standby Assistance Use of Upper Extremities Comments Mobility Comments pt uses momentum for sit to stand Gait Assessment Gait Gait Assistance Required: Standby Assistance Contact Guard Assist Distance (Feet) 350 Assistive Devices Assistive Device Gait Belt Front Wheeled Walker Factors Limiting Gait Function Factors Limiting Gait Function Decreased Activity Tolerance Decreased Strength Comments Gait Comments Pt wanting to ambulate further than yesterday requiring 4 rest breaks. O2 saturations on RA 95% and HR 104-109 during activity. M5 PT-IP Objective Assessments Start: 12/23/18 14:30 Freq: NEEDED Status: Active Protocol: Document 12/24/18 10:16 DLM (Rec: 12/24/18 13:30 DLM [id number]) Orientation Orientation/Cognition Level of Alertness Alert Orientation Name Age Birthday Month Date Year Day of Week Place Situation Language Function Ability No Deficits Noted Safety Awareness Understands Safety Issues Memory Description No Deficits Noted Gross Range of Motion Upper Extremity ROM Assessment Within Functional Limits Lower Extremity ROM Assessment Within Functional Limits Strength Upper Extremity Strength Assessment Within Functional Limits Lower Extremity Strength Assessment Right Impaired Comments Strength Comments functional right LE weakness with pain in right thigh wound Coordination Assessment Gross Coordination Gross Coordination WNL Sensation Assessment Comments Sensation Comments painful right thigh with earnest wrap in place over wound Muscle Tone Muscle Tone WNL Yes M6 PT-IP Treatment Start: 12/23/18 14:30 Freq: NEEDED Status: Active Protocol: Document 12/27/18 10:00 CLB (Rec: 12/27/18 12:12 CLB [id number]) Physical Therapy Treatment Exercises Exercises Ankle Pumps M7 PT-IP Assessment and Plan Start: 12/23/18 14:30 Freq: NEEDED Status: Active Protocol: Document 12/27/18 10:00 CLB (Rec: 12/27/18 12:12 CLB [id number]) PT Summary Assessment and Plan Summary Assessment Summary Pt continues to use momentum for sit to stand with rocking motion before standing. Pt required 4 standing breaks with gait and increased gait to ~350ft. Pt reported tightness not pain with ambulation. Pt requested RN check bandage, SEARCH MARKETING COORDINATOR informed after tx. Goals Bed Mobility Goal Independent Transfer Goal Standby Assistance Front Wheeled Walker Gait Goal Standby Assistance Front Wheel Walker Gait Distance 100 feet Days to Meet Goals 5 Frequency of Treatment Frequency Of Treatment Twice a Day Treatment Plan Physical Therapy Treatment Plan Bed Mobility Training Transfer Training Gait Training Therapeutic Exercise Discharge Planning Recommendations To Nursing Amount of Assist Needed Standby Assistance Discharge Recommendations PT Discharge Recommendations SNF Rehab
--- NOTE | 2018-12-27 14:22 | PC.NURSE ---
Day Shift- Right medical thigh wound VAC dressing intact, continuous suction 125 mmhg. At 1415, pt had an episode of nausea with emesis. Approx 600mls of orange fluid. Pt had orange slices, yogurt and milk for lunch. Pt rates 1-2/10 pain cull aching, pressure to wound vac site, no prn's needed throughout shift.
[2018-12-27] MEDS: HYDROCODONE/ACET 5/325 TABLET 1 TAB PO (21:27)
[2018-12-28] VITALS (9 sets, daily range): BP systolic 121–146; BP diastolic 61–78; PULSE 66–84; RESP 16–18; TEMP 35.8–36.9; O2SAT 92–98
--- NOTE | 2018-12-28 00:05 | PC.NURSE ---
2300- Pt admit for wound on R upper thigh; POD#5 I&D w/ wound + for staph infection. Pt remains on contact precautions w/ vac set to 125mmHg continuously. Moving SBA w/ FWW during daytime & using bedpan @ night. Saline locked w/ 1L O2 applied at night. AC/HS BG checks taking place. 0015- VSS on O2; wound vac canister emptied.
[2018-12-28] MEDS: CEFAZOLIN VIAL 3 GM in SODIUM CHLORIDE 0.9% 100 ML 200 ML IV (04:17)
--- NOTE | 2018-12-28 08:56 | PM.PN.1 ---
Subjective Date Patient Seen: 12/28/18 Time Patient Seen: 08:00 Interval history: S: feeling fatigued but well. no pain in RLE Wound vac changed over weekend with no concerning wound findings Tolerating a diet Exam Vital Signs (past 8 hours): - 12/28/18 04:30 12/28/18 06:34 12/28/18 07:51 Temperature 98.2 F 97.5 F L 97.5 F L Pulse Rate 66 75 84 Respiratory Rate 18 16 16 Blood Pressure 137/73 121/61 146/77 H Pulse Oximetry 95 98 97 Fraction of Inspired Oxygen 28 Oxygen Delivery Method Nasal Cannula Oxygen Flow Rate 2 Narrative Exam Narrative: Breathing comfortably on RA medial thigh wound - vac removed. Underlying tissue viable, well vascularized with healthy red look. Small amount of tissue on anterior flap sharply debrided. No tracking. Adjacent skin without induration or erythema Objective Labs Result Diagrams: 12/27/18 05:46 12/26/18 06:26 Assessment & Plan Assessment & Plan narrative: 68 yo woman POD6 after I and D and minimal debridement of medial thigh abscess on R, objective evidence on exam and leukocytosis resolved. 1) Wound care - Wound continues to progress into early stages of healing by secondary intention without concern for recurrent/progressive infection or tissue necrosis. OK for VAC MWF per wound care. No further debridement needed or planned. 2) antibiosis - Surgery OK with PO abx given marked improvement/resolution of cellulites - Plans for cepholosporin + rifampin General Surgery will Sign off As long a wound continues to heal well - does not need clinic follow up Quality VTE Deep Vein Thrombosis/Pulmonary Embolism Present on Admission: No
--- NOTE | 2018-12-28 09:00 | P.PN_ITS ---
Subjective Date Patient Seen: 12/28/18 Time Patient Seen: 07:55 Interval history: Patient seen and evaluated. Patient was getting her dressing changed. Wound looks good this morning. Surrounding area of cellulitis definitely has improved significantly. Patient has minimal discomfort pain. she admits to feeling a little bit down and blue kind of depressed about her current situation. Wondering when it is ever going to and. She is struggling with this. Still has not ate much. She has been up walking around. Exam Vital Signs (past 8 hours): - 12/28/18 04:30 12/28/18 06:34 12/28/18 07:51 Temperature 98.2 F 97.5 F L 97.5 F L Pulse Rate 66 75 84 Respiratory Rate 18 16 16 Blood Pressure 137/73 121/61 146/77 H Pulse Oximetry 95 98 97 Fraction of Inspired Oxygen 28 Oxygen Delivery Method Nasal Cannula Oxygen Flow Rate 2 Narrative Exam Narrative: Gen.: Alert good historian somewhat down HEENT: Pupils equal round and reactive or mucosa is moist Cardio: Regular rate and rhythm Respiratory: Normal respiratory effort Abdomen: Soft obese nontender Extremities: Warm dry perfused. Medial upper thigh right leg wound. Surrounding cellulitis is improved. Objective Labs Result Diagrams: 12/27/18 05:46 12/26/18 06:26 Assessment & Plan Assessment & Plan narrative: Right thigh wound cellulitis. Doing wet to dry dressings wound VAC. Wound cultures grew out Staph aureus. Currently on ceftriaxone and rifampin. Antibiotic choices were chosen by pharmacy and surgery. Discussed with surgeon this morning. Will continue with local wound care and dressing changes every 3 days. Infection appears to be controlled. Convert her over to orals. Afebrile blood counts are stable. Discussed about foot care plan. Anticipate back to [facility] once we get the wound care up and running. Diabetes. Blood sugars been okay controlled. No greater blood sugar than 200. Although not eating well. Dietary counts in place for malnutrition. Trying to provide support she is not hungry. Depression. Have encouraged and will start Zoloft 50 mg once daily. Disposition plan off IV antibiotics today. Make care planning to [facility]. She will need wound care and wound VAC placement there. Quality VTE Deep Vein Thrombosis/Pulmonary Embolism Present on Admission: No
[2018-12-28] MEDS: METFORMIN HCL 500 MG TABLET PO ×2 (09:05→20:11)
[2018-12-28] MEDS: AMLODIPINE 5 MG TABLET PO (09:05)
[2018-12-28] MEDS: rifAMPin 300 MG CAPSULE 600 MG PO (09:05)
[2018-12-28] MEDS: FERROUS GLUCONATE 324 MG TABLET PO ×2 (09:05→20:11)
[2018-12-28] MEDS: ASPIRIN EC 81 MG TABLET PO (09:05)
[2018-12-28] MEDS: LACTOBACILLUS ACIDOPHILUS TABLET 1 EACH PO ×3 (09:05→16:52)
[2018-12-28] MEDS: ACETAMINOPHEN 325 MG TABLET 650 MG PO (09:06)
[2018-12-28] MEDS: ENOXAPARIN 40 MG/0.4 ML SYRINGE SUBCUT ×2 (09:06→20:11)
--- NOTE | 2018-12-28 09:45 | PT.IPTN ---
Current Diagnoses Cellulitis of right lower limb (12/22/18) Surgery Performed Operation Date: 12/23/18 12:30 Actual Procedures p I&D medial thigh abscess and full thickness debridement of subcutaneous layer(Right) - Hernán Alberts MD Physical Therapy Treatment Note M2 PT-IP Current Condition Start: 12/23/18 14:30 Freq: NEEDED Status: Active Protocol: Document 12/24/18 10:16 DLM (Rec: 12/24/18 13:30 DLM [id number]) Physical Therapy Current Condition Current Condition Evaluation Date 12/24/18 Treatment Diagnosis right thigh infection, impaired mobility and gait Onset Date 12/22/18, I&D 12/23/18 M3 PT-IP Subjective Start: 12/23/18 14:30 Freq: NEEDED Status: Active Protocol: Document 12/28/18 09:45 CLB (Rec: 12/28/18 10:55 CLB [id number]) Subjective Physical Therapy Visit Type Type Patient Refusal Notes PT refused ambulation until wound vac is put back on. Spoke with RN and she was unsure of when that would be done. Will check back with pt and RN. M4 PT-IP Mobility and Gait Start: 12/23/18 14:30 Freq: NEEDED Status: Active Protocol: Document 12/27/18 10:00 CLB (Rec: 12/27/18 12:12 CLB [id number]) PT-Transfer Assessment Sit to and From Stand Sit to and from Stand Standby Assistance Use of Upper Extremities Equipment Transfer Assistive Device Gait Belt Front Wheeled Walker Transfers Transfer Destination Chair Transfer Technique Stand Step Pivot Transfer Ability Level of Assist Standby Assistance Use of Upper Extremities Comments Mobility Comments pt uses momentum for sit to stand Gait Assessment Gait Gait Assistance Required: Standby Assistance Contact Guard Assist Distance (Feet) 350 Assistive Devices Assistive Device Gait Belt Front Wheeled Walker Factors Limiting Gait Function Factors Limiting Gait Function Decreased Activity Tolerance Decreased Strength Comments Gait Comments Pt wanting to ambulate further than yesterday requiring 4 rest breaks. O2 saturations on RA 95% and HR 104-109 during activity. M5 PT-IP Objective Assessments Start: 12/23/18 14:30 Freq: NEEDED Status: Active Protocol: Document 12/24/18 10:16 DLM (Rec: 12/24/18 13:30 DLM [id number]) Orientation Orientation/Cognition Level of Alertness Alert Orientation Name Age Birthday Month Date Year Day of Week Place Situation Language Function Ability No Deficits Noted Safety Awareness Understands Safety Issues Memory Description No Deficits Noted Gross Range of Motion Upper Extremity ROM Assessment Within Functional Limits Lower Extremity ROM Assessment Within Functional Limits Strength Upper Extremity Strength Assessment Within Functional Limits Lower Extremity Strength Assessment Right Impaired Comments Strength Comments functional right LE weakness with pain in right thigh wound Coordination Assessment Gross Coordination Gross Coordination WNL Sensation Assessment Comments Sensation Comments painful right thigh with earnest wrap in place over wound Muscle Tone Muscle Tone WNL Yes M6 PT-IP Treatment Start: 12/23/18 14:30 Freq: NEEDED Status: Active Protocol: Document 12/27/18 10:00 CLB (Rec: 12/27/18 12:12 CLB [id number]) Physical Therapy Treatment Exercises Exercises Ankle Pumps M7 PT-IP Assessment and Plan Start: 12/23/18 14:30 Freq: NEEDED Status: Active Protocol: Document 12/27/18 10:00 CLB (Rec: 12/27/18 12:12 CLB [id number]) PT Summary Assessment and Plan Summary Assessment Summary Pt continues to use momentum for sit to stand with rocking motion before standing. Pt required 4 standing breaks with gait and increased gait to ~350ft. Pt reported tightness not pain with ambulation. Pt requested RN check bandage, 911 [employer] DISPATCHER informed after tx. Goals Bed Mobility Goal Independent Transfer Goal Standby Assistance Front Wheeled Walker Gait Goal Standby Assistance Front Wheel Walker Gait Distance 100 feet Days to Meet Goals 5 Frequency of Treatment Frequency Of Treatment Twice a Day Treatment Plan Physical Therapy Treatment Plan Bed Mobility Training Transfer Training Gait Training Therapeutic Exercise Discharge Planning Recommendations To Nursing Amount of Assist Needed Standby Assistance Discharge Recommendations PT Discharge Recommendations SNF Rehab
--- NOTE | 2018-12-28 10:16 | CM.MNRNOTE ---
Addendum entered by Felicita Romo R.N. 12/28/18 13:00: [employer] - discussed wound vac with Michelle, replacement depends on when pt will ret to [facility], she will speak to Radha and Dr. Navarrete as wound vac would have to be removed prior to tsf. Addendum entered by Felicita Romo R.N. 12/28/18 11:04: [facility]/TSF - Spoke to Radha in [facility], wound clinic and , pt will not be tsf to [facility] today per Radha, they do have a bed, agreeable to whatever plan from wound clinic, leaving wound w/kerlex w/d versus replace wound vac, and per Yamileth at wound clinic, will speak to Michelle who will call or be over closer to noon, also mentioned area r back throat that has a very small, thin white spot to and he will look at. Original Note: AM NOTE - pt is awake this am, surgeon in and the wound vac was removed for inspection, wound base pink, some serosang drainage, few scattered spots dark blackkened tissue at margins, replaced with kerlex and abd pads over until wound clinic consult, pt states occassional discomfort, given tylenol 650mg po this am, ra 98%.
--- NOTE | 2018-12-28 11:36 | OT.IP.EVAL ---
Current Diagnoses Cellulitis of right lower limb (12/22/18) Surgery Performed Operation Date: 12/23/18 12:30 Actual Procedures p I&D medial thigh abscess and full thickness debridement of subcutaneous layer(Right) - Hernán Alberts MD Past Medical History (Last Updated 12/26/18 @ 09:33 by Ronaldo Maldonado MD) Morbid obesity (Chronic) Controlled type 2 diabetes mellitus (Chronic) Essential hypertension (Chronic) Hyperlipidemia, unspecified (Chronic) Encounter for debridement of skin (Acute) Morbid obesity with BMI of 50.0-59.9, adult (Acute) Necrotizing fasciitis (Acute) Type 2 diabetes mellitus (Acute) Surgical History (Last Reviewed 12/22/18 @ 19:50 by Adebayo Livingston MD) Status post hysterectomy Status post tubal ligation (10/29/87) Occupational Therapy Inpatient Evaluation/Re-Eval M1 PT/OT-IP Prior Functional Status Start: 12/25/18 13:53 Freq: NEEDED Status: Active Protocol: Document 12/28/18 09:15 [facility] (Rec: 12/28/18 11:36 [facility] [id number]) Medical Review Prior Functional Status Medical History Reviewed Yes Diet/Fluid Consistency Regular Communication WNL Mobility and Gait ambulating with fWW at rehab up to 300 feet, otherwise she used a wheelchair at rehab Activities of Daily Living and IADL's before going to rehab she was independent, while at rehab it was difficult for her to dress when she had the wound vac, staff was assisting her with bathing and dressing Prior Functional Level (Other details) Pt has been at [facility] for rehab since being hospitalized for necrotizing fascitis in August. She had an extensive hospitalization at [facility] in Aug. Social History Household Members none Employment Status Retired Additional Social History Comment Her house is being sold. Her Son is making plans for her to get an apt at [employer]. Pt reports it will be all one level with no stairs. Before going to rehab she lives alone in a house with many stairs. M2 OT-IP Current Condition Start: 12/25/18 13:53 Freq: Status: Active Protocol: Document 12/28/18 09:15 [facility] (Rec: 12/28/18 11:36 [facility] [id number]) Occupational Therapy Current Condition Current Condition Evaluation Date 05/20/19 Treatment Diagnosis Right Thigh Cellulitis Diagnosis Onset Date 12/22/18 M3 OT- IP Subjective and Pain Start: 12/25/18 13:53 Freq: Status: Active Protocol: Document 12/28/18 09:15 [facility] (Rec: 12/28/18 11:36 [facility] [id number]) OT- Subjective Occupational Therapy Visit Type Type Initial Evaluation Visit Start Time 09:15 Visit Stop Time 09:35 Total Visit Minutes 20 Occupational Therapy Visit Comments Patient Comments Pt agreeable to get up to use the bathroom and do grooming needs. OT Pain Assessment Pain When Pain Assessed During Mobility Pain Present Pain Present Pain Reported M4 OT- IP ADL's Start: 12/25/18 13:53 Freq: Status: Active Protocol: Document 12/28/18 09:15 [facility] (Rec: 12/28/18 11:36 [facility] [id number]) OT ADL-Grooming General Evaluation Grooming Ability Standby Assistance Comments OT Grooming Comments Pt able to stand with FWW and do all grooming needs with distant SBA. OT ADL-Oral Care General Eval Oral Care Ability Independent OT ADL-Dressing Comments OT Dressing Comments Pt not wanting to wear socks. OT ADL-Toileting General Evaluation Toileting Ability Standby Assistance OT ADL-Bathing Comments OT Bathing Comments Pt states wants to try to do sponge bath tomorrow. M5 OT- IP IADL's Start: 12/25/18 13:53 Freq: Status: Active Protocol: Document 12/28/18 09:15 [facility] (Rec: 12/28/18 11:36 [facility] [id number]) OT-Instrumental Activities of Daily Living Home Safety Awareness Home Safety Comments Pt plans after going back to [facility] to live at [facility]. M6 OT- IP Functional Cognition Start: 12/25/18 13:53 Freq: Status: Active Protocol: Document 12/28/18 09:15 [facility] (Rec: 12/28/18 11:36 [facility] [id number]) Cognitive Factors Limiting Selfcare Function Cognitive Ability Level of Alertness Alert Patient Orientation Name Age Birthday Month Date Year Day of Week Place Situation Attention Span Ability Capable of Focused Attention Capable of Sustained Attention Ability to Follow Commands Able to Follow Multi-Step Commands Memory Description No Deficits Noted Cognitive Comments Cognitive Assessment Comments Pt appears to have no deficits at this time cognitively. OT- Vision and Hearing OT- Hearing Assessment OT- Hearing Assessment WFL M7 OT- IP Mobility and Balance Start: 12/25/18 13:53 Freq: Status: Active Protocol: Document 12/28/18 09:15 [facility] (Rec: 12/28/18 11:36 [facility] [id number]) OT- Bed Mobility Assessment Supine to Sit Supine to Sit Assist Standby Assistance Head of Bed Elevated OT-Transfer Assessment Sit to and From Stand Sit to and from Stand Standby Assistance Transfers Transfer Ability Standby Assistance Technique Transfer Destination Bed Chair Transfer Technique Stand Step Pivot Devices Transfer Assistive Devices Gait Belt Front Wheeled Walker Comments Mobility Comments SBA with FWW for needs. OT- Balance Assessment Sitting Balance and Reactions Static Sitting Balance Ability Normal Dynamic Sitting Balance Ability Normal Standing Balance and Reactions Static Standing Balance Ability Good M8 OT- IP Objective Assessments Start: 12/25/18 13:53 Freq: Status: Active Protocol: Document 12/28/18 09:15 [facility] (Rec: 12/28/18 11:36 [facility] [id number]) OT Gross Range of Motion Upper Extremity Range of Motion Assessment Within Functional Limits OT Strength Upper Extremity Strength Assessment Within Functional Limits M9 OT- IP Assessment and Plan Start: 12/25/18 13:53 Freq: Status: Active Protocol: Document 12/28/18 09:15 [facility] (Rec: 12/28/18 11:36 [facility] [id number]) OT Summary Assessment and Plan Potential Rehabilitation Potential Good Analytic Complexity at Evaluation Low Summary OT Impairments Balance Functional Mobility Dressing Bathing Progress Towards Goals Progressing Toward Goals Assessment Summary Pt low complexity and main barrier is right thigh wound and receiving wound care needs and also has decreased activity tolerance at this time. After being medically stable, pt will go back to [facility] prior to going to [facility]. Goals Grooming Goal Independent Dressing Goal Independent Long Handled Shoe Horn Hand Straightener Sock Aid Toileting Goal Independent Bathing Goal Minimal Assistance Toilet Transfer Goal Independent OT-Other Goals Goal for bathing is for sponge bath as currently pt has wound vac. Days to Meet Goals 7 Frequency of Treatment Frequency Of Treatment Once a Day Treatment Plan OT Treatment Plan ADL Training Functional Mobility Patient/Family Education Discharge Planning Other Treatment Recommendations and Next sponge bath, practice LB AEd Treatment Focus Discharge Recommendations OT Discharge Recommendations SNF Rehab
[2018-12-28] MEDS: INSULIN ASPART 100 UNIT/ML INSULN PEN SUBCUT ×2 (12:12→16:52)
--- NOTE | 2018-12-28 14:03 | CM.DPC ---
Addendum entered by Lupis Guzman R.N. 12/28/18 15:11: Was able to speak to Michelle Gonzalesas at wound clinic. Updated her on conversation with Dr. Navarrete, and doing wet to dry dressing. [facility] will apply wound vac tomorrow. Addendum entered by Lupis Guzman R.N. 12/28/18 15:07: Spoke with Nora at [facility], she confirmed that they can accept tomorrow. At this time, they are looking at [facility] [phone]. She will call and verify time tomorrow. Original Note: DCP Cont: Spoke to Maren Gonzalesas in wound care, and she was inquiring if patient could be discharged today or tomorrow. Looking at Dr. Navarrete's note, there was no discharge planned for today, and surgeon has already signed off. Maren was inquiring if she is discharged tomorrow, she would have to have her wound vac changed again, since it was due to be placed back on today. Called over at [facility] and spoke to Dr. Navarrete. He stated that she could be discharged tomorrow, if medically stable, for plan is in place for [facility]. Asked him about wound vac, since it will be placed at [facility] tomorrow. He stated that wet to dry dressing can be done today, and plan to have Uli put on wound vac when she arrives. Left Maren at wound clinic a message, and updated nurse, Felicita. She will update patient as well. P: DCP to continue to follow. Plan is for discharge tomorrow back to [facility]. Left a message with Nora, in admissions at [facility]. Lupis Guzman RN/St[employer]
--- NOTE | 2018-12-28 14:28 | PT.IPTN ---
Current Diagnoses Cellulitis of right lower limb (12/22/18) Surgery Performed Operation Date: 12/23/18 12:30 Actual Procedures p I&D medial thigh abscess and full thickness debridement of subcutaneous layer(Right) - Hernán Alberts MD Physical Therapy Treatment Note M2 PT-IP Current Condition Start: 12/23/18 14:30 Freq: NEEDED Status: Active Protocol: Document 12/24/18 10:16 DLM (Rec: 12/24/18 13:30 DLM [id number]) Physical Therapy Current Condition Current Condition Evaluation Date 12/24/18 Treatment Diagnosis right thigh infection, impaired mobility and gait Onset Date 12/22/18, I&D 12/23/18 M3 PT-IP Subjective Start: 12/23/18 14:30 Freq: NEEDED Status: Active Protocol: Document 12/28/18 14:00 CLB (Rec: 12/28/18 14:27 CLB [id number]) Subjective Physical Therapy Visit Type Type Treatment Note Visit Start Time 14:00 Visit Stop Time 14:20 Total Visit Minutes 20 Number of CONTROL DIRECTOR Visits 3 Physical Therapy Visit Comments Patient Comments Pt willing to work with therapy. Therapy Pain Assessment Pain When Pain Assessed At Rest Pain Present Pain Present Pain Reported M4 PT-IP Mobility and Gait Start: 12/23/18 14:30 Freq: NEEDED Status: Active Protocol: Document 12/28/18 14:00 CLB (Rec: 12/28/18 14:27 CLB [id number]) PT-Transfer Assessment Sit to and From Stand Sit to and from Stand Standby Assistance Use of Upper Extremities Equipment Transfer Assistive Device Gait Belt Front Wheeled Walker Transfers Transfer Destination Chair Transfer Technique Stand Step Pivot Transfer Ability Level of Assist Standby Assistance Use of Upper Extremities Comments Mobility Comments pt uses momentum for sit to stand Gait Assessment Gait Gait Assistance Required: Standby Assistance Distance (Feet) 220 Assistive Devices Assistive Device Gait Belt Front Wheeled Walker Factors Limiting Gait Function Factors Limiting Gait Function Decreased Activity Tolerance Decreased Strength Comments Gait Comments Pt ambulated ~220ft with SBA. M5 PT-IP Objective Assessments Start: 12/23/18 14:30 Freq: NEEDED Status: Active Protocol: Document 12/24/18 10:16 DLM (Rec: 12/24/18 13:30 DLM [id number]) Orientation Orientation/Cognition Level of Alertness Alert Orientation Name Age Birthday Month Date Year Day of Week Place Situation Language Function Ability No Deficits Noted Safety Awareness Understands Safety Issues Memory Description No Deficits Noted Gross Range of Motion Upper Extremity ROM Assessment Within Functional Limits Lower Extremity ROM Assessment Within Functional Limits Strength Upper Extremity Strength Assessment Within Functional Limits Lower Extremity Strength Assessment Right Impaired Comments Strength Comments functional right LE weakness with pain in right thigh wound Coordination Assessment Gross Coordination Gross Coordination WNL Sensation Assessment Comments Sensation Comments painful right thigh with earnest wrap in place over wound Muscle Tone Muscle Tone WNL Yes M6 PT-IP Treatment Start: 12/23/18 14:30 Freq: NEEDED Status: Active Protocol: Document 12/27/18 10:00 CLB (Rec: 12/27/18 12:12 CLB [id number]) Physical Therapy Treatment Exercises Exercises Ankle Pumps M7 PT-IP Assessment and Plan Start: 12/23/18 14:30 Freq: NEEDED Status: Active Protocol: Document 12/28/18 14:00 CLB (Rec: 12/28/18 14:27 CLB [id number]) PT Summary Assessment and Plan Summary Assessment Summary Pt using momentum with rocking to get to full stand from sitting. Pt able to ambulate ~ 220ft with SBA and no rest breaks. Pt with no wound vac but had bandage. Bandage fell off with ambulation and RN notified, RN addressed bandage . Goals Bed Mobility Goal Independent Transfer Goal Standby Assistance Front Wheeled Walker Gait Goal Standby Assistance Front Wheel Walker Gait Distance 100 feet Days to Meet Goals 5 Frequency of Treatment Frequency Of Treatment Twice a Day Treatment Plan Physical Therapy Treatment Plan Bed Mobility Training Transfer Training Gait Training Therapeutic Exercise Discharge Planning Recommendations To Nursing Amount of Assist Needed Standby Assistance Discharge Recommendations PT Discharge Recommendations SNF Rehab
--- NOTE | 2018-12-28 15:50 | PC.NURSE ---
accidentdanitza naik on medical record request
[2018-12-28] MEDS: CEFDINIR 300 MG CAPSULE PO (20:11)
[2018-12-28] MEDS: SERTRALINE 50 MG TABLET PO (20:11)
[2018-12-28] MEDS: HYDROCODONE/ACET 5/325 TABLET 1 TAB PO (20:11)
[2018-12-29 00:30] VITALS: BP 133/76; PULSE 102; RESP 20; TEMP 36.6; O2SAT 92
--- NOTE | 2018-12-29 01:06 | PC.NURSE ---
2300- POD#5 I&D of R upper thigh; wound vac taken out today w/ wet to dry dressings in place (earnest wrap around leg to keep dressing in place). Pt remains on contact precautions of +staph infection in wound; A+O; VSS; saline locked. Moving SBA assist during day prefers bedpan @ night. 0200- Pt cont to use bedpan thru the night. No need for O2 thru the night. Dressing change completed.
[2018-12-29 02:45] VITALS: BP 141/85; PULSE 93; RESP 20; TEMP 36.9
--- NOTE | 2018-12-29 07:21 | PM.DS.1 ---
History of Present Illness Chief complaint: Leg infection Narrative: 68-year-old female who comes in today with concerns about cellulitis. Patient has a rather recent complex medical history. She has a past history of morbid obesity diabetes and high blood pressure. She was admitted to the hospital in August with necrotizing fasciitis. She was then transferred to [facility] undergoing approximately 20 surgeries over month. Had significant debridement of a wound on her thigh right side but abdominal wall except trip. She has now been residing at [facility] and doing wound care there with Dr. liudmila Ghotra. Things have been progressing nicely. But in the last week she began have a little bit of fever not feel well. I guess she had some blood work and a flu swab done which was negative. She saw Dr. Rubio the end of last week. They are concerned about beginning of cellulitis. So was started on some oral outpatient antibiotics. Things got worse so she ended up in the emergency department. She describes her symptoms as soreness and heat in the leg. She always has draining. She has recently had a wound VAC but that was stopped about a week or so ago. She says she feels okay now she is still weak. She has just been learning how to walk with a walker she was hoping to get out of [facility] in transfer to an assisted living. She says she knows she is not ready to go home. She does not have much of an appetite. She is not complaining of significant amount of pain. I reviewed her recent emergency room laboratory tests and recent wound cultures from the online communications specialist. Discharge Providers Date of admission: 12/22/18 20:19 Discharge Date: 12/29/18 Primary care physician: Marc Navarrete MD Consults: 12/22/18 21:33 Consult to Discharge Planning Routine Comment: Consult to Wound Care Stat Comment: Consulting Provider: Daniele- Wound Care 12/23/18 08:36 Consult to Physical Therapy Evaluate & Treat Comment: Physician Instructions: Evaluate and Treat 12/24/18 08:09 Consult to Dietitian, Adult Routine Comment: Reason For Exam: Calorie count 12/25/18 10:21 Consult to Occupational Therapy Evaluate & Treat Comment: per recommendation of PT Physician Instructions: Evaluate and treat Discharge provider: Mrac Navarrtee MD Summary Discharge Diagnosis: Right lower extremity cellulitis Right lower extremity abscess with surgical debridement Right lower extremity wound requiring wound VAC Morbid obesity Diabetes type 2 Essential hypertension Protein calorie malnutrition mild Situational depression Hospital Course: 68-year-old female with complex infectious history due to necrotizing fasciitis earlier this year was admitted to the hospital through wound care after discussion about increasing cellulitis. Draining wound. On evaluation at the hospital. She was normal tensive normal vitals and normal blood pressure normal white blood cell count on examination by me she had cellulitis an area of draining wound. Wound Care and surgery were consulted. Patient ended up going to the operating room because of concerns of abscess versus recurrence of necrotizing fasciitis. The surgical suite. Patient had debridement of surgical wound. Which was an abscess formation without necrotizing fasciitis. Wound grew out polymicrobial bacteria consistent with Staph aureus. Her antibiotics initially were vancomycin and Primaxin. Based on pharmacy recommendation and final wound cultures she was placed on a 3rd generation cephalosporin with rifampin. During hospital stay. Patient had management of her blood pressure and blood sugars. Which were both well controlled. During hospital stay and previously patient has had poor nutritious intake. Has not been hungry. She has also been struggling with a little bit of depression. During hospital stay her blood pressures were managed well her blood sugars were managed well and she was started on antidepressant. The time of discharge. The wound looked clean. Wound care management was discussed with surgeon wine specialist in [facility]. Patient will go to [facility] with wound VAC placement. In changing of the wound VAC every 3 days and following up with outpatient wound therapy. Her antibiotics will be continued for 7 additional days. Exam Vital Signs (past 8 hours): - 12/29/18 00:30 12/29/18 02:45 Temperature 97.9 F 98.4 F Pulse Rate 102 H 93 H Respiratory Rate 20 20 Blood Pressure 133/76 141/85 H Pulse Oximetry 92 Fraction of Inspired Oxygen 28 Oxygen Delivery Method Room Air Oxygen Flow Rate 95 Narrative Exam Narrative: Gen.: Alert good historian HEENT: Pupils equal round and reactive Cardio: Regular rate and rhythm Respiratory: Clear Abdomen: Soft nontender Extremities: Wound is dressed Objective Labs Result Diagrams: 12/27/18 05:46 12/26/18 06:26 Discharge Plan Discharge Plan Discharge Problem: Cellulitis of leg, right, Controlled type 2 diabetes mellitus, Morbid obesity Patient Disposition: SNF Transfer to: [facility] Transportation: Facility vehicle Discharge comment: wound care with wound vac placement I certify the postop hospital residential care is medically necessary on a continuing basis for any conditions for which he/ she received care during this hospitalization.: Yes The receiving facility has agreed to accept transfer and provide medical treatment.: Yes Discharge Med Rec/Prescriptions Prescriptions: New rifampin 300 mg Capsule 600 mg PO DAILY Qty: 7 RF: 0 cefdinir 300 mg Capsule 300 mg PO BID Qty: 14 RF: 0 sertraline [Zoloft] 50 mg Tablet 50 mg PO BEDTIME Qty: 60 RF: 0 Continued acetaminophen 500 mg Tablet 1,000 mg PO Q6H PRN (Reason: Pain (Scale Score 1-3)) RF: 0 ascorbic acid (vitamin C) 500 mg Tablet 500 mg PO DAILY RF: 0 ferrous gluconate 240 mg (27 mg iron) Tablet 240 mg PO DAILY RF: 0 camphor-menthol 0.5-0.5 % Lotion 1 applic TOPICAL BID RF: 0 aspirin 81 mg Tablet,Chewable 81 mg PO DAILY RF: 0 calcium carbonate 500 mg calcium (1,250 mg) Tablet,Chewable 1,000 mg PO TID RF: 0 metformin 500 mg Tablet 500 mg PO BID RF: 0 melatonin 3 mg Tablet 3 mg PO BEDTIME PRN (Reason: sleep) RF: 0 oxycodone 5 mg Tablet 100 mg PO Q3H PRN (Reason: pain) RF: 0 diclofenac sodium [Voltaren] 1 % Gel 5 g TOPICAL Q12H PRN (Reason: Pain (Scale Score 1-3)) RF: 0 cholecalciferol (vitamin D3) 2,000 unit Tablet 2,000 unit PO DAILY RF: 0 Changed amlodipine 2.5 mg Tablet 5 mg PO DAILY Qty: 0 RF: 0 Discontinued sulfamethoxazole-trimethoprim [Bactrim DS] 800-160 mg Tablet 1 tab PO BID RF: 0 cephalexin 500 mg Tablet 500 mg PO QID RF: 0 oxycodone 5 mg Tablet 5 mg PO Q3H PRN (Reason: Pain (Scale Score 1-3)) RF: 0 Follow up/Referrals: Marc Navarrete MD [Primary Care Provider] - Discharge Data Primary Care Provider: Marc Navarrete Attending Provider: Marc Navarrete Admit Date/Time: 12/22/18 20:19 Quality VTE Deep Vein Thrombosis/Pulmonary Embolism Present on Admission: No
--- NOTE | 2018-12-29 07:26 | P.DS_ITS ---
History of Present Illness Chief complaint: Leg infection Narrative: 68-year-old female who comes in today with concerns about cellulitis. Patient has a rather recent complex medical history. She has a past history of morbid obesity diabetes and high blood pressure. She was admitted to the hospital in August with necrotizing fasciitis. She was then transferred to [facility] undergoing approximately 20 surgeries over month. Had significant debridement of a wound on her thigh right side but abdominal wall except trip. She has now been residing at [facility] and doing wound care there with Dr. liudmila Ghotra. Things have been progressing nicely. But in the last week she began have a little bit of fever not feel well. I guess she had some blood work and a flu swab done which was negative. She saw Dr. Rubio the end of last week. They are concerned about beginning of cellulitis. So was started on some oral outpatient antibiotics. Things got worse so she ended up in the emergency department. She describes her symptoms as soreness and heat in the leg. She always has draining. She has recently had a wound VAC but that was stopped about a week or so ago. She says she feels okay now she is still weak. She has just been learning how to walk with a walker she was hoping to get out of [facility] in transfer to an assisted living. She says she knows she is not ready to go home. She does not have much of an appetite. She is not complaining of significant amount of pain. I reviewed her recent emergency room laboratory tests and recent wound cultures from the certified legal secretary specialist. Discharge Providers Date of admission: 12/22/18 20:19 Discharge Date: 12/29/18 Primary care physician: Marc Navarrete MD Consults: 12/22/18 21:33 Consult to Discharge Planning Routine Comment: Consult to Wound Care Stat Comment: Consulting Provider: Daniele- Wound Care 12/23/18 08:36 Consult to Physical Therapy Evaluate & Treat Comment: Physician Instructions: Evaluate and Treat 12/24/18 08:09 Consult to Dietitian, Adult Routine Comment: Reason For Exam: Calorie count 12/25/18 10:21 Consult to Occupational Therapy Evaluate & Treat Comment: per recommendation of PT Physician Instructions: Evaluate and treat Discharge provider: Marc Navarrete MD Summary Discharge Diagnosis: Right lower extremity cellulitis Right lower extremity abscess with surgical debridement Right lower extremity wound requiring wound VAC Morbid obesity Diabetes type 2 Essential hypertension Protein calorie malnutrition mild Situational depression Hospital Course: 68-year-old female with complex infectious history due to necrotizing fasciitis earlier this year was admitted to the hospital through wound care after discussion about increasing cellulitis. Draining wound. On evaluation at the hospital. She was normal tensive normal vitals and normal blood pressure normal white blood cell count on examination by me she had cellulitis an area of draining wound. Wound Care and surgery were consulted. Patient ended up going to the operating room because of concerns of abscess versus recurrence of necrotizing fasciitis. The surgical suite. Patient had debridement of surgical wound. Which was an abscess formation without necrotizing fasciitis. Wound grew out polymicrobial bacteria consistent with Staph aureus. Her antibiotics initially were vancomycin and Primaxin. Based on pharmacy recommendation and final wound cultures she was placed on a 3rd generation cephalosporin with rifampin. During hospital stay. Patient had management of her blood pressure and blood sugars. Which were both well controlled. During hospital stay and previously patient has had poor nutritious intake. Has not been hungry. She has also been struggling with a little bit of depression. During hospital stay her blood pressures were managed well her blood sugars were managed well and she was started on antidepressant. The time of discharge. The wound looked clean. Wound care management was discussed with surgeon database management specialist in [facility]. Patient will go to [facility] with wound VAC placement. In changing of the wound VAC every 3 days and following up with outpatient wound therapy. Her antibiotics will be continued for 7 additional days. Exam Vital Signs (past 8 hours): - 12/29/18 00:30 12/29/18 02:45 Temperature 97.9 F 98.4 F Pulse Rate 102 H 93 H Respiratory Rate 20 20 Blood Pressure 133/76 141/85 H Pulse Oximetry 92 Fraction of Inspired Oxygen 28 Oxygen Delivery Method Room Air Oxygen Flow Rate 95 Narrative Exam Narrative: Gen.: Alert good historian HEENT: Pupils equal round and reactive Cardio: Regular rate and rhythm Respiratory: Clear Abdomen: Soft nontender Extremities: Wound is dressed Objective Labs Result Diagrams: 12/27/18 05:46 12/26/18 06:26 Discharge Plan Discharge Plan Discharge Problem: Cellulitis of leg, right, Controlled type 2 diabetes mellitus, Morbid obesity Patient Disposition: SNF Transfer to: [facility] Transportation: Facility vehicle Discharge comment: wound care with wound vac placement I certify the postop hospital [facility] care is medically necessary on a continuing basis for any conditions for which he/ she received care during this hospitalization.: Yes The receiving facility has agreed to accept transfer and provide medical treatment.: Yes Discharge Med Rec/Prescriptions Prescriptions: New rifampin 300 mg Capsule 600 mg PO DAILY Qty: 7 RF: 0 cefdinir 300 mg Capsule 300 mg PO BID Qty: 14 RF: 0 sertraline [Zoloft] 50 mg Tablet 50 mg PO BEDTIME Qty: 60 RF: 0 Continued acetaminophen 500 mg Tablet 1,000 mg PO Q6H PRN (Reason: Pain (Scale Score 1-3)) RF: 0 ascorbic acid (vitamin C) 500 mg Tablet 500 mg PO DAILY RF: 0 ferrous gluconate 240 mg (27 mg iron) Tablet 240 mg PO DAILY RF: 0 camphor-menthol 0.5-0.5 % Lotion 1 applic TOPICAL BID RF: 0 aspirin 81 mg Tablet,Chewable 81 mg PO DAILY RF: 0 calcium carbonate 500 mg calcium (1,250 mg) Tablet,Chewable 1,000 mg PO TID RF: 0 metformin 500 mg Tablet 500 mg PO BID RF: 0 melatonin 3 mg Tablet 3 mg PO BEDTIME PRN (Reason: sleep) RF: 0 oxycodone 5 mg Tablet 100 mg PO Q3H PRN (Reason: pain) RF: 0 diclofenac sodium [Voltaren] 1 % Gel 5 g TOPICAL Q12H PRN (Reason: Pain (Scale Score 1-3)) RF: 0 cholecalciferol (vitamin D3) 2,000 unit Tablet 2,000 unit PO DAILY RF: 0 Changed amlodipine 2.5 mg Tablet 5 mg PO DAILY Qty: 0 RF: 0 Discontinued sulfamethoxazole-trimethoprim [Bactrim DS] 800-160 mg Tablet 1 tab PO BID RF: 0 cephalexin 500 mg Tablet 500 mg PO QID RF: 0 oxycodone 5 mg Tablet 5 mg PO Q3H PRN (Reason: Pain (Scale Score 1-3)) RF: 0 Follow up/Referrals: Marc Navarrete MD [Primary Care Provider] - Discharge Data Primary Care Provider: Marc Navarrete Attending Provider: Marc Navarrete Admit Date/Time: 12/22/18 20:19 Quality VTE Deep Vein Thrombosis/Pulmonary Embolism Present on Admission: No
[2018-12-29 08:00] VITALS: BP 146/69; PULSE 75; RESP 16; TEMP 36.6; O2SAT 93; O2SAT 95
--- NOTE | 2018-12-29 09:05 | CM.DPC ---
Faxed facesheet, discharge summary and signed med list to [facility] at fax # [phone]. Fax confirmation scanned in. Gilma Restrepo, [facility] Portrait Studio Photographer
[2018-12-29] MEDS: LACTOBACILLUS ACIDOPHILUS TABLET 1 EACH PO ×2 (09:26→12:27)
[2018-12-29] MEDS: ASPIRIN EC 81 MG TABLET PO (09:27)
[2018-12-29] MEDS: ASCORBIC ACID 500 MG TABLET PO (09:27)
[2018-12-29] MEDS: CEFDINIR 300 MG CAPSULE PO (09:27)
[2018-12-29] MEDS: AMLODIPINE 5 MG TABLET PO (09:27)
[2018-12-29] MEDS: rifAMPin 300 MG CAPSULE 600 MG PO (09:28)
[2018-12-29] MEDS: FERROUS GLUCONATE 324 MG TABLET PO (09:28)
[2018-12-29] MEDS: METFORMIN HCL 500 MG TABLET PO (09:28)
[2018-12-29] MEDS: ENOXAPARIN 40 MG/0.4 ML SYRINGE SUBCUT (09:28)
[2018-12-29] MEDS: ACETAMINOPHEN 325 MG TABLET 650 MG PO (09:29)
--- NOTE | 2018-12-29 10:48 | PC.NURSE ---
Addendum entered by Felicita Romo R.N. 12/29/18 14:20: TSF - pt belongings packed, including glasses, wearing dentures and earrings and watch, handbag, cell phone and handbag stitcher, clothing and shoes, abd and kerlex to r thigh replaced prior to tsf, had serous drainage only, report called to syd at [facility], packet provided to staff, saline lock was removed. Addendum entered by Felicita Romo R.N. 12/29/18 13:43: PAIN - pt declined any pain medication this afternoon. Original Note: AM NOTE - pt is alert, assisted x 1 person w/fww up to br w/void, ret to bed and replaced with guaze in wound bed, moistened with noral saline and replaced wet to dry, wound bed pink with a few spots dark tissue at margins, has allevyn dsg r groin under abd cdi, does have red rash area under abd skin folds, allevyn post buttock area cdi, plan for [facility] at 1400 today, spoke to Radha in [facility] and pt that they do have wound vac available and staff to place this afternoon, also spoke Michelle at wound clinic and pt has a f/u appt there 12/31 245pm.
--- NOTE | 2018-12-29 11:13 | PT.IPTN ---
Current Diagnoses Cellulitis of right lower limb (12/22/18) Surgery Performed Operation Date: 12/23/18 12:30 Actual Procedures p I&D medial thigh abscess and full thickness debridement of subcutaneous layer(Right) - Hernán Alberts MD Physical Therapy Treatment Note M2 PT-IP Current Condition Start: 12/23/18 14:30 Freq: NEEDED Status: Active Protocol: Document 12/24/18 10:16 DLM (Rec: 12/24/18 13:30 DLM [id number]) Physical Therapy Current Condition Current Condition Evaluation Date 12/24/18 Treatment Diagnosis right thigh infection, impaired mobility and gait Onset Date 12/22/18, I&D 12/23/18 M3 PT-IP Subjective Start: 12/23/18 14:30 Freq: NEEDED Status: Active Protocol: Document 12/29/18 11:04 SA (Rec: 12/29/18 11:13 SA [id number]) Subjective Physical Therapy Visit Type Type Treatment Note Visit Start Time 10:24 Visit Stop Time 10:44 Total Visit Minutes 20 Number of DRUM FILLER Visits 4 Physical Therapy Visit Comments Patient Comments Pt in bed and willing to get up with PT. Therapy Pain Assessment Pain When Pain Assessed At Rest Pain Present Pain Present Pain Reported Location Right Thigh Intensity 1 Pain Management Techniques Re-positioning Timing of Activity with Medications M4 PT-IP Mobility and Gait Start: 12/23/18 14:30 Freq: NEEDED Status: Active Protocol: Document 12/29/18 11:04 SA (Rec: 12/29/18 11:13 SA [id number]) PT-Bed Mobility Assessment Rolling Type of Rolling Roll to Right Level of Assist Standby Assistance Supine to Sit Supine to Sit Standby Assistance Bedrails Scooting Scooting to Edge of Bed Standby Assistance PT-Transfer Assessment Sit to and From Stand Sit to and from Stand Standby Assistance Use of Upper Extremities Equipment Transfer Assistive Device Gait Belt Front Wheeled Walker Transfers Transfer Destination Chair Toilet Transfer Technique Stand Step Pivot Transfer Ability Level of Assist Standby Assistance Use of Upper Extremities Comments Mobility Comments Pt SBA with bed mobility and increased time. SBA with transfers and use of FWW. Cues for PLB as pt seems SOB but 02 sats 95-97% Gait Assessment Gait Gait Assistance Required: Standby Assistance Distance (Feet) 85 Assistive Devices Assistive Device Gait Belt Front Wheeled Walker Gait Deviations General Gait Pattern Antalgic Decreased Stride Length Wide Based Gait Factors Limiting Gait Function Factors Limiting Gait Function Decreased Activity Tolerance Decreased Strength Comments Gait Comments Short distance gait around room, to/from chair, bathroom and sink with SBA. Pt did not want ot leave room for fear of bandage on leg falling off. PT-Balance Assessment Standing Balance and Reactions Static Standing Balance Ability Good Dynamic Standing Balance Ability Fair Device Used FWW Comments Other Balance Tests/Deviations/Treatment Pt stood at sink x 6 min to : brush teeth, wash face and hands, lateral stepping completed with no LOB. M5 PT-IP Objective Assessments Start: 12/23/18 14:30 Freq: NEEDED Status: Active Protocol: Document 12/24/18 10:16 DLM (Rec: 12/24/18 13:30 [facility] [id number]) Orientation Orientation/Cognition Level of Alertness Alert Orientation Name Age Birthday Month Date Year Day of Week Place Situation Language Function Ability No Deficits Noted Safety Awareness Understands Safety Issues Memory Description No Deficits Noted Gross Range of Motion Upper Extremity ROM Assessment Within Functional Limits Lower Extremity ROM Assessment Within Functional Limits Strength Upper Extremity Strength Assessment Within Functional Limits Lower Extremity Strength Assessment Right Impaired Comments Strength Comments functional right LE weakness with pain in right thigh wound Coordination Assessment Gross Coordination Gross Coordination WNL Sensation Assessment Comments Sensation Comments painful right thigh with earnest wrap in place over wound Muscle Tone Muscle Tone WNL Yes M6 PT-IP Treatment Start: 12/23/18 14:30 Freq: NEEDED Status: Active Protocol: Document 12/29/18 11:04 (Rec: 12/29/18 11:13 [id number]) Physical Therapy Treatment Exercises Exercises Ankle Pumps Gluteal Sets Education Education Provided Safety Other Treatments Other Treatment Performed Education for PLB and pacing with activity as pt fatigues quickly. M7 PT-IP Assessment and Plan Start: 12/23/18 14:30 Freq: NEEDED Status: Active Protocol: Document 12/29/18 11:04 (Rec: 12/29/18 11:13 [id number]) PT Summary Assessment and Plan Summary Assessment Summary Pt to d/c to [facility] this afternoon and have wound vac placed. Will benefit from continued balance and strength training and improving activity tolerance. Frequency of Treatment Frequency Of Treatment Twice a Day Treatment Plan Physical Therapy Treatment Plan Bed Mobility Training Transfer Training Gait Training Therapeutic Exercise Discharge Planning Recommendations To Nursing Amount of Assist Needed Standby Assistance Discharge Recommendations PT Discharge Recommendations SNF Rehab
[2018-12-29 12:00] VITALS: BP 131/88; PULSE 77; RESP 16; TEMP 36.5; O2SAT 96
[2018-12-29] MEDS: INSULIN ASPART 100 UNIT/ML INSULN PEN SUBCUT (12:22)
--- NOTE | 2018-12-29 12:23 | OT.IP.TRT ---
Current Diagnoses Cellulitis of right lower limb (12/22/18) Surgery Performed Operation Date: 12/23/18 12:30 Actual Procedures p I&D medial thigh abscess and full thickness debridement of subcutaneous layer(Right) - Hernán Alberts MD Occupational Therapy Treatment Note M2 OT-IP Current Condition Start: 12/25/18 13:53 Freq: Status: Active Protocol: Document 12/28/18 09:15 [facility] (Rec: 12/28/18 11:36 [facility] [id number]) Occupational Therapy Current Condition Current Condition Evaluation Date 12/28/18 Treatment Diagnosis Right Thigh Cellulitis Diagnosis Onset Date 12/22/18 M3 OT- IP Subjective and Pain Start: 12/25/18 13:53 Freq: Status: Active Protocol: Document 12/29/18 12:20 [facility] (Rec: 12/29/18 12:23 [facility] [id number]) OT- Subjective Occupational Therapy Visit Type Type Treatment Note Visit Start Time 11:10 Visit Stop Time 11:25 Total Visit Minutes 15 Occupational Therapy Visit Comments Patient Comments Pt wanting to do sponge bath. OT Pain Assessment Pain When Pain Assessed At Rest Pain Present Pain Present Denied Pain M4 OT- IP ADL's Start: 12/25/18 13:53 Freq: Status: Active Protocol: Document 12/29/18 12:20 [facility] (Rec: 12/29/18 12:23 [facility] [id number]) OT ADL-Bathing Bathing Type Bathing Type Sponge Bath General Evaluation Bathing Ability Minimal Assistance Areas Needing Assistance Wash/Dry Back Comments OT Bathing Comments Pt just needing assist for back at this time and not wanting to do pericare needs as states aid prior just used wipes to assist after toileting needs. M5 OT- IP IADL's Start: 12/25/18 13:53 Freq: Status: Active Protocol: Document 12/28/18 09:15 [facility] (Rec: 12/28/18 11:36 [facility] [id number]) OT-Instrumental Activities of Daily Living Home Safety Awareness Home Safety Comments Pt plans after going back to [facility] to live at [facility]. M6 OT- IP Functional Cognition Start: 12/25/18 13:53 Freq: Status: Active Protocol: Document 12/29/18 12:20 [facility] (Rec: 12/29/18 12:23 [facility] [id number]) Cognitive Factors Limiting Selfcare Function Cognitive Comments Cognitive Assessment Comments Pt appears to have no deficits at this time cognitively. M7 OT- IP Mobility and Balance Start: 12/25/18 13:53 Freq: Status: Active Protocol: Document 12/28/18 09:15 [facility] (Rec: 12/28/18 11:36 [facility] [id number]) OT- Bed Mobility Assessment Supine to Sit Supine to Sit Assist Standby Assistance Head of Bed Elevated OT-Transfer Assessment Sit to and From Stand Sit to and from Stand Standby Assistance Transfers Transfer Ability Standby Assistance Technique Transfer Destination Bed Chair Transfer Technique Stand Step Pivot Devices Transfer Assistive Devices Gait Belt Front Wheeled Walker Comments Mobility Comments SBA with FWW for needs. OT- Balance Assessment Sitting Balance and Reactions Static Sitting Balance Ability Normal Dynamic Sitting Balance Ability Normal Standing Balance and Reactions Static Standing Balance Ability Good M8 OT- IP Objective Assessments Start: 12/25/18 13:53 Freq: Status: Active Protocol: Document 12/28/18 09:15 [facility] (Rec: 12/28/18 11:36 [facility] [id number]) OT Gross Range of Motion Upper Extremity Range of Motion Assessment Within Functional Limits OT Strength Upper Extremity Strength Assessment Within Functional Limits M9 OT- IP Assessment and Plan Start: 12/25/18 13:53 Freq: Status: Active Protocol: Document 12/29/18 12:20 [facility] (Rec: 12/29/18 12:23 [facility] [id number]) OT Summary Assessment and Plan Potential Rehabilitation Potential Good Analytic Complexity at Evaluation Low Summary OT Impairments Balance Functional Mobility Dressing Bathing Progress Towards Goals Progressing Toward Goals Assessment Summary Pt looking to go back to [facility] today from skilled rehab. Discharge Recommendations OT Discharge Recommendations SNF Rehab
== END 2018-12-29 14:15 | DRG 264 ==
LOC: ED 20:02 → AC 20:20
PROVIDERS: Emergency Medicine; Surgery; Admitting Provider Internal Medicine; Emergency Provider Emergency Medicine; Family Provider Family Medicine; PCP Family Medicine; Visit Provider Family Medicine
PROC: 0JBM0ZZ Excision of Left Upper Leg Subcutaneous Tissue and Fascia, Open Approach (ICD-10-PCS; principal; 2018-12-23 12:30)
DX: E11.52 Type 2 diabetes mellitus with diabetic peripheral angiopathy with gangrene (principal); L03.115 Cellulitis of right lower limb; Z68.42 Body mass index [BMI] 45.0-49.9, adult; L97.119 Non-pressure chronic ulcer of right thigh with unspecified severity; I96 Gangrene, not elsewhere classified; E66.2 Morbid (severe) obesity with alveolar hypoventilation; E44.1 Mild protein-calorie malnutrition; E11.622 Type 2 diabetes mellitus with other skin ulcer; Z79.84 Long term (current) use of oral hypoglycemic drugs; Z87.891 Personal history of nicotine dependence; D63.8 Anemia in other chronic diseases classified elsewhere; I10 Essential (primary) hypertension; B95.61 Methicillin susceptible Staphylococcus aureus infection as the cause of diseases classified elsewhere; F43.21 Adjustment disorder with depressed mood
CPT/HCPCS: 11042; 36415; 36591; 71045; 80048; 80053; 80202; 82607; 82728; 82746; 82962; 83540; 83550; 83605; 83690; 84145; 85025; 85610; 85651; 85730; 86140; 87040; 87070; 87075; 87077; 87147; 87186; 87205; 93005; 93010; 94760; 94762; 96365; 96366; 97116; 97162; 97165; 97530; 97535; 99214; 99223; 99232; 99238; 99284; 99285; J0330; J0690; J0743; J1170; J1650; J2405; J2540; J2704; J3010; S0077

== ENCOUNTER → 2018-12-31 15:27 | Outpatient (CLI) | payer MEDICARE, SELFPAY ==
[2018-12-22 22:06] VITALS: BMI 47.5
== END ==
PROVIDERS: Family Provider Family Medicine; PCP Family Medicine; Visit Provider Family Medicine
DX: E11.622 Type 2 diabetes mellitus with other skin ulcer (principal); S71.101A Unspecified open wound, right thigh, initial encounter; L02.415 Cutaneous abscess of right lower limb
CPT/HCPCS: 11042; 11045; 36415; 86703; 86803; 87070; 87075; 87077; 87147; 87186; 87205; 87340; 87350; 99214

== ENCOUNTER → 2018-12-31 16:57 | Outpatient (CLI) | payer MEDICARE, SELFPAY ==
[2018-12-22 22:06] VITALS: BMI 47.5
[2018-12-31 19:14] LABS: HIV 1 and 2 Antibody NEGATIVE (NEGATIVE); Hep C Virus Ab w/Reflex Quant NEGATIVE s/c (NEGATIVE)
[2019-01-01 18:09] LABS: Hepatitis B Surface Antigen NEGATIVE s/c (NEGATIVE)
== END ==
PROVIDERS: Family Provider Family Medicine; PCP Family Medicine; Visit Provider Family Medicine
DX: L08.89 Other specified local infections of the skin and subcutaneous tissue (principal)
CPT/HCPCS: 36415; 86703; 86803; 87350

== ENCOUNTER → 2019-01-06 14:40 | Outpatient (CLI) | payer MEDICARE, SELFPAY ==
[2018-12-22 22:06] VITALS: BMI 47.5
== END ==
PROVIDERS: Family Provider Family Medicine; PCP Family Medicine; Visit Provider Family Medicine
DX: S71.101A Unspecified open wound, right thigh, initial encounter (principal); E11.622 Type 2 diabetes mellitus with other skin ulcer; L02.415 Cutaneous abscess of right lower limb
CPT/HCPCS: 11042; 11045

== ENCOUNTER → 2019-01-12 14:06 | Outpatient (CLI) | payer MEDICARE, SELFPAY ==
[2018-12-22 22:06] VITALS: BMI 47.5
== END ==
PROVIDERS: Family Provider Family Medicine; PCP Family Medicine; Visit Provider Family Medicine
DX: S71.101A Unspecified open wound, right thigh, initial encounter (principal); E11.622 Type 2 diabetes mellitus with other skin ulcer; L02.415 Cutaneous abscess of right lower limb
CPT/HCPCS: 11042; 11045; 97606

== ENCOUNTER → 2019-01-15 11:50 | Outpatient (CLI) | payer MEDICARE, SELFPAY ==
[2018-12-22 22:06] VITALS: BMI 47.5
== END ==
PROVIDERS: Family Provider Family Medicine; PCP Family Medicine; Visit Provider Family Medicine
DX: E11.622 Type 2 diabetes mellitus with other skin ulcer (principal); S71.101D Unspecified open wound, right thigh, subsequent encounter; L02.415 Cutaneous abscess of right lower limb
CPT/HCPCS: 99214

== ENCOUNTER → 2019-01-20 13:07 | Outpatient (CLI) | payer MEDICARE, SELFPAY ==
[2018-12-22 22:06] VITALS: BMI 47.5
== END ==
PROVIDERS: Family Provider Family Medicine; PCP Family Medicine; Visit Provider Family Medicine
DX: S71.101A Unspecified open wound, right thigh, initial encounter (principal); E11.622 Type 2 diabetes mellitus with other skin ulcer
CPT/HCPCS: 11042; 11045; 99214

== ENCOUNTER → 2019-01-27 10:29 | Outpatient (CLI) | payer MEDICARE, SELFPAY ==
[2018-12-22 22:06] VITALS: BMI 47.5
== END ==
PROVIDERS: Family Provider Family Medicine; PCP Family Medicine; Visit Provider Family Medicine
DX: S71.101A Unspecified open wound, right thigh, initial encounter (principal); E11.622 Type 2 diabetes mellitus with other skin ulcer; L02.415 Cutaneous abscess of right lower limb
CPT/HCPCS: 11042

== ENCOUNTER → 2019-02-03 08:59 | Outpatient (CLI) | payer MEDICARE, SELFPAY ==
[2018-12-22 22:06] VITALS: BMI 47.5
== END ==
PROVIDERS: Family Provider Family Medicine; PCP Family Medicine; Visit Provider Family Medicine
DX: S71.101A Unspecified open wound, right thigh, initial encounter (principal); E11.622 Type 2 diabetes mellitus with other skin ulcer; R21 Rash and other nonspecific skin eruption
CPT/HCPCS: 11042

== ENCOUNTER → 2019-02-10 08:48 | Outpatient (CLI) | payer MEDICARE, SELFPAY ==
[2018-12-22 22:06] VITALS: BMI 47.5
== END ==
PROVIDERS: Family Provider Family Medicine; PCP Family Medicine; Visit Provider Podiatrist Primary Podiatric Medicine
DX: S71.101D Unspecified open wound, right thigh, subsequent encounter (principal)
CPT/HCPCS: 99213

== ENCOUNTER → 2019-02-17 15:59 | Outpatient (CLI) | payer MEDICARE, SELFPAY ==
[2018-12-22 22:06] VITALS: BMI 47.5
== END ==
PROVIDERS: Family Provider Family Medicine; PCP Family Medicine; Visit Provider Family Medicine
DX: S71.101A Unspecified open wound, right thigh, initial encounter (principal); E11.622 Type 2 diabetes mellitus with other skin ulcer
CPT/HCPCS: 11042

== ENCOUNTER → 2019-02-24 13:40 | Outpatient (CLI) | payer MEDICARE, SELFPAY ==
[2018-12-22 22:06] VITALS: BMI 47.5
== END ==
PROVIDERS: Family Provider Family Medicine; PCP Family Medicine; Visit Provider Family Medicine
DX: S71.101A Unspecified open wound, right thigh, initial encounter (principal); E11.622 Type 2 diabetes mellitus with other skin ulcer; L02.415 Cutaneous abscess of right lower limb; L92.3 Foreign body granuloma of the skin and subcutaneous tissue
CPT/HCPCS: 11042; 99214

== ENCOUNTER → 2019-03-03 08:53 | Outpatient (CLI) | payer MEDICARE, SELFPAY ==
[2018-12-22 22:06] VITALS: BMI 47.5
== END ==
PROVIDERS: Family Provider Family Medicine; PCP Family Medicine; Visit Provider Family Medicine
DX: S71.101A Unspecified open wound, right thigh, initial encounter (principal); E11.628 Type 2 diabetes mellitus with other skin complications; L02.415 Cutaneous abscess of right lower limb; L92.3 Foreign body granuloma of the skin and subcutaneous tissue; M79.651 Pain in right thigh
CPT/HCPCS: 11042

== ENCOUNTER → 2019-03-10 09:14 | Outpatient (CLI) | payer MEDICARE, SELFPAY ==
[2018-12-22 22:06] VITALS: BMI 47.5
== END ==
PROVIDERS: Family Provider Family Medicine; PCP Family Medicine; Visit Provider Family Medicine
DX: S71.101A Unspecified open wound, right thigh, initial encounter (principal); E11.622 Type 2 diabetes mellitus with other skin ulcer; L02.415 Cutaneous abscess of right lower limb; E66.01 Morbid (severe) obesity due to excess calories; T81.31XA Disruption of external operation (surgical) wound, not elsewhere classified, initial encounter
CPT/HCPCS: 11042

== ENCOUNTER → 2019-03-17 08:44 | Outpatient (CLI) | payer MEDICARE, SELFPAY ==
[2018-12-22 22:06] VITALS: BMI 47.5
== END ==
PROVIDERS: Family Provider Family Medicine; PCP Family Medicine; Visit Provider Family Medicine
DX: T81.31XA Disruption of external operation (surgical) wound, not elsewhere classified, initial encounter (principal); S71.101A Unspecified open wound, right thigh, initial encounter; E11.622 Type 2 diabetes mellitus with other skin ulcer; L02.415 Cutaneous abscess of right lower limb; E66.01 Morbid (severe) obesity due to excess calories
CPT/HCPCS: 11042; 87070; 87077; 87186; 87205

== ENCOUNTER → 2019-03-24 08:38 | Outpatient (CLI) | payer MEDICARE, SELFPAY ==
[2018-12-22 22:06] VITALS: BMI 47.5
== END ==
PROVIDERS: Family Provider Family Medicine; PCP Family Medicine; Visit Provider Family Medicine
DX: S71.101A Unspecified open wound, right thigh, initial encounter (principal); E11.621 Type 2 diabetes mellitus with foot ulcer; B96.4 Proteus (mirabilis) (morganii) as the cause of diseases classified elsewhere
CPT/HCPCS: 11042; 99214

== ENCOUNTER → 2019-03-31 14:31 | Outpatient (CLI) | payer MEDICARE, SELFPAY ==
[2018-12-22 22:06] VITALS: BMI 47.5
== END ==
PROVIDERS: Family Provider Family Medicine; PCP Family Medicine; Visit Provider Family Medicine
DX: S71.101A Unspecified open wound, right thigh, initial encounter (principal); E11.622 Type 2 diabetes mellitus with other skin ulcer; B96.4 Proteus (mirabilis) (morganii) as the cause of diseases classified elsewhere
CPT/HCPCS: 11042

== ENCOUNTER → 2019-04-07 08:40 | Outpatient (CLI) | payer MEDICARE, SELFPAY ==
[2018-12-22 22:06] VITALS: BMI 47.5
== END ==
PROVIDERS: Family Provider Family Medicine; PCP Family Medicine; Visit Provider Family Medicine
DX: S71.101A Unspecified open wound, right thigh, initial encounter (principal); E11.622 Type 2 diabetes mellitus with other skin ulcer
CPT/HCPCS: 11042; 99213

== ENCOUNTER → 2019-04-14 10:08 | Outpatient (CLI) | payer MEDICARE, SELFPAY ==
[2018-12-22 22:06] VITALS: BMI 47.5
== END ==
PROVIDERS: Family Provider Family Medicine; PCP Family Medicine; Visit Provider Family Medicine
DX: E11.622 Type 2 diabetes mellitus with other skin ulcer (principal); S71.101A Unspecified open wound, right thigh, initial encounter; E66.01 Morbid (severe) obesity due to excess calories
CPT/HCPCS: 11042

== ENCOUNTER → 2019-04-22 07:47 | Outpatient (CLI) | payer MEDICARE, SELFPAY ==
[2018-12-22 22:06] VITALS: BMI 47.5
[2019-04-22 08:12] LABS: Hematocrit 40.3 % (36-46); Hemoglobin 13.1 g/dL (12.0-16.0); Mean Corpuscular HGB Conc 32.4 % (30-36); Mean Corpuscular Hemoglobin 26.4 PG (26-34); Mean Corpuscular Volume 81.6 fL (80-100); Platelet Count 292 X10^3/uL (150-400); Red Blood Cell Count 4.94 X10^6/uL (4.0-5.2); Red Cell Distribution Width 16.1 % (11.6-14.8); White Blood Cell Count 6.4 X10^3/uL (4.5-11.0)
[2019-04-22 08:29] LABS: Hemoglobin A1C% w Est Avg Glu 5.8 % (4.0-6.0)
[2019-04-22 08:46] LABS: Alanine Aminotransferase 13 IU/L (9-52); Albumin 4.1 g/dL (3.5-5.0); Albumin Globulin Ratio 1.2 (1.0-2.8); Alkaline Phosphatase 83 U/L (38-126); Aspartate Aminotransferase 25 IU/L (14-36); Bilirubin Total 0.8 mg/dL (0.2-1.3); Blood Urea Nitrogen 16 mg/dL (7-17); Calcium 9.7 mg/dL (8.4-10.2); Carbon Dioxide 25 mmol/L (22-32); Chloride 101 mmol/L (98-107); Cholesterol 237 mg/dL (140-199); Estimated Glomerular Filt Rate > 60.0 mL/min (>60); Globulin 3.4 g/dL (1.7-4.1); Glucose 122 mg/dL (80-110); HDL Cholesterol 75 mg/dL (40-60); HEMOLYSIS < 15 (0-50); LDL Cholesterol Calculated 130 mg/dL (<100); Potassium 4.5 mmol/L (3.4-5.1); Sodium 139 mmol/L (137-145); Total Protein 7.5 g/dL (6.3-8.2); Triglycerides 162 mg/dL (35-150)
[2019-04-22 09:17] LABS: TSH w/ Reflex to FT4 2.01 uIU/mL (0.47-4.68)
== END ==
PROVIDERS: PCP Family Medicine; Visit Provider Family Medicine
DX: E66.01 Morbid (severe) obesity due to excess calories (principal); E78.5 Hyperlipidemia, unspecified; I10 Essential (primary) hypertension; L03.115 Cellulitis of right lower limb; E11.9 Type 2 diabetes mellitus without complications
CPT/HCPCS: 36415; 80053; 80061; 83036; 84443; 85027

== ENCOUNTER → 2019-04-28 08:34 | Outpatient (CLI) | payer MEDICARE, SELFPAY ==
[2018-12-22 22:06] VITALS: BMI 47.5
== END ==
PROVIDERS: PCP Family Medicine; Visit Provider Family Medicine
DX: S71.101A Unspecified open wound, right thigh, initial encounter (principal); E11.628 Type 2 diabetes mellitus with other skin complications
CPT/HCPCS: 97597; 99213

== ENCOUNTER → 2019-05-12 10:46 | Outpatient (CLI) | payer MEDICARE, SELFPAY ==
[2018-12-22 22:06] VITALS: BMI 47.5
== END ==
PROVIDERS: PCP Family Medicine; Visit Provider Family Medicine
DX: E11.628 Type 2 diabetes mellitus with other skin complications (principal); S71.101D Unspecified open wound, right thigh, subsequent encounter; E66.01 Morbid (severe) obesity due to excess calories
CPT/HCPCS: 99212

== ENCOUNTER 2019-07-19 14:57 | Emergency (ER) | payer MEDICARE, SELFPAY ==
[2018-12-22 22:06] VITALS: BMI 47.5
[2019-07-19 15:05] VITALS: BP 178/71; PULSE 92; RESP 20; TEMP 36.6; O2SAT 98; BMI 43.5
--- NOTE | 2019-07-19 15:26 | ED_ITS ---
HPI - Extremity Problem <CRISTOPHER Webb - Last Filed: 07/19/19 17:13> General Chief complaint: Extremity Problem,Nontraumatic Stated complaint: Pain in Right Calf and Swelling Time Seen by Provider: 07/19/19 15:12 Source: patient Mode of arrival: Ambulatory Limitations: no limitations History of Present Illness HPI Narrative: This is a pleasant 69-year-old female, prior smoker, who presents to ED with chief complain of right lower leg discomfort, redness, swelling to for last 2 days. Patient has significant history of right upper necrotic infection and was treated at [facility] for 2.5 month duration with surgeries. Patient states she was coma for 3 weeks due to sepsis. Patient then again had another infection on right upper leg with staph infection in December. Patient víctor es any open skin is in right lower leg with a recent discomfort. Patient denies fever, chills, nausea or vomiting. She felt out of sorts 2 nights ago with coughing but this has been resolved and she has feelings much beter. Patient reports pain increases with movements. Patient denies recent prolonged travel. She is not currently on anticoagulants. Patient attempted to be seen by her [facility] physician Dr. Navarrete but instructed to coming in to ED for an evaluation due to patient's significant infection history on right leg. Related Data Home Medications Medication Instructions Recorded Confirmed acetaminophen 1,000 mg PO Q6H PRN 12/22/18 04/27/19 ascorbic acid (vitamin C) 500 mg PO DAILY 12/22/18 04/27/19 aspirin 81 mg PO DAILY 12/22/18 04/27/19 cholecalciferol (vitamin D3) 2,000 unit PO DAILY 12/22/18 04/27/19 diclofenac sodium [Voltaren] 5 g TOPICAL Q12H PRN 12/22/18 04/27/19 calcium carbonate 500 mg calcium 1,000 mg PO DAILY tab 04/27/19 04/27/19 (1,250 mg) tablet camphor-menthol 0.5 %-0.5 % lotion 1 applictn TOP BID PRN 04/27/19 04/27/19 Previous Rx's Medication Instructions Recorded metformin 500 mg tablet 500 mg PO BID #180 tab 02/16/19 olmesartan 40 mg tablet 40 mg PO DAILY #90 tab 02/16/19 sertraline 50 mg tablet 50 mg PO BEDTIME #60 tab 02/17/19 atorvastatin 20 mg tablet 20 mg PO DAILY #90 tab 04/27/19 ketoconazole 2 % topical cream See Rx Instructions TOP BID #30 04/27/19 gram triamcinolone acetonide 0.1 % See Rx Instructions TOP BID #30 04/27/19 topical cream gram sulfamethoxazole-trimethoprim 1 tab PO Q12H 7 Days #14 tab 07/19/19 Allergies Allergy/AdvReac Type Severity Reaction Status Date / Time No Known Drug Allergies Allergy Verified 07/19/19 15:05 Review of Systems <CRISTOPHER Webb - Last Filed: 07/19/19 17:13> Review of Systems Narrative: General: Denies fever, chills, fatigue, malaise, sweats. HEENT: Denies sinus pain, ear pain, sore throat, difficulty swallowing, dizziness. Respiratory: Denies dyspnea, cough, wheezing, hemoptysis, sputum. Cardiovascular: Denies chest pain, palpitations, orthopnea, edema. Gastrointestinal: Denies nausea, vomiting, abdominal pain, diarrhea, constipation, melena. : Denies dysuria, frequency, incontinence, hematuria, urinary retention. Musculoskeletal: See HPI Skin: See HPI Neurologic: Denies weakness, headache, numbness, change in speech, confusion, seizures, incoordination. Psychiatric: No concerning psychosocial issues. 12-point review of systems is negative except for those stated above. Patient History <CRISTOPHER Webb - Last Filed: 07/19/19 17:13> Medical History Controlled type 2 diabetes mellitus (Chronic) Encounter for debridement of skin (Acute) Essential hypertension (Chronic) Hyperlipidemia (Acute) Hyperlipidemia, unspecified (Chronic) Morbid obesity with BMI of 50.0-59.9, adult (Acute) Necrotizing fasciitis (Acute) Type 2 diabetes mellitus (Acute) Surgical History Status post hysterectomy Status post tubal ligation (10/29/87) Family History Father Diabetes mellitus Grandmother Diabetes mellitus Mother Amyloidosis Pancreatitis Pneumonia Sister Age: 60 Lupus Social History marital status: household members: none Smoking Status: Former smoker alcohol intake: current (ON OCCASION ) substance use type: does not use Smoking Status: Former smoker alcohol intake frequency: a few times a month Substance Use Type: does not use Exam <CRISTOPHER Webb - Last Filed: 07/19/19 17:13> Narrative Exam Narrative: GEN: Alert, oriented x 3, well appearing and nourished, and in no acute distress. Head: Normal cephalic, atraumatic. No scalp or temporal tenderness, palpable mass or rash. EYES: Pupils are equal, round, and reactive to light and accommodation. Extraocular muscles are intact bilaterally. There is no subconjunctival hemorrhage, exudate and sclera non-icteric. ENT: Bilateral auditory canals and tympanic membranes clear. Hearing grossly intact. Nose without bleeding, purulent discharge or deviation. Facial sinuses nontender to palpate. Mucous membrane moist, no mucosal lesion. Throat without erythema, tonsillar hypertrophy or exudate. Uvula in midline, airway patent. Neck: Trachea in midline. No JVD, non-tender without lymphadenopathy. No masses or thyroid megaly. Supple, non-tender and no meningeal signs. CARDIAC: Normal regular rate and rhythm without murmurs, gallops, or rubs. No chest wall tenderness. No peripheral edema, cyanosis or pallor. Capillary refill is less than 2 seconds. RESPIRATORY: Lungs are clear to auscultate bilaterally. No cough, wheezes, rale s, or rhonchi. No stridor, respiratory distress, increase work of breathing, or accessary muscle used. ABD: Abdomen soft, nontender and non-distended. No guarding or rebound tenderness to palpate. Bowel sounds are normal in all 4 quadrants. There is no palpable masses or organomegaly. EXT: Full painless ROM of all extremities with no loss of strength, effusion. SKIN: Warm, dry, normal color for patient. Mild diffuse erythema around right lower extremity erythema, no lesions or rash over other visible areas. Mild warmth to palpate on affected side with mild nonpitting edema. BACK: Nontender without deformity or crepitance. No flank tenderness. NEUROLOGICAL: Alert and oriented to place, time and person. Sensation and motor function intact bilaterally. No facial droops, dysphasia. PSYCHIATRIC: Good judgement and reason, without hallucinations, abnormal affect or abnormal behaviors during the examination. Patient is not suicidal. Initial Vital Signs Initial Vital Signs: Vital Signs Temperature 97.8 F 07/19/19 15:05 Pulse Rate 92 H 07/19/19 15:05 Respiratory Rate 20 07/19/19 15:05 Blood Pressure 178/71 H 07/19/19 15:05 Pulse Oximetry 98 07/19/19 15:05 Extrem Right lower extremity: hip/thigh (Healed surgical wounds in right thigh without new signs of infection), lower leg Details: erythema, tenderness, localized swelling and other (Bilateral ankle with vertical surgical wounds from previous ankle surgery about 30 years ago without new signs of infection); no abrasions, no lacerations, no ecchymosis, no foreign bodies and no penetrating wound and foot Details: normal capillary refill, toes with normal ROM, vascular exam Details: dorsalis pedis pulse present and tendon exam Details: active flexion normal and active extension normal <Yasmin Knutson DO - Last Filed: 07/20/19 08:11> Initial Vital Signs Initial Vital Signs: Vital Signs Temperature 97.8 F 07/19/19 15:05 Pulse Rate 92 H 07/19/19 15:05 Respiratory Rate 20 07/19/19 15:05 Blood Pressure 178/71 H 07/19/19 15:05 Pulse Oximetry 98 07/19/19 15:05 Course <CRISTOPHER Webb - Last Filed: 07/19/19 17:13> Orders Ordered: ED Orders 07/19/19 15:45 Complete Blood Count AUTO DIFF Stat Comprehensive Metabolic Panel Stat Procalcitonin Stat 07/19/19 16:09 Lactate (Lactic Acid) Stat Vital Signs Vital signs: Vital Signs - 8 hr 07/19/19 15:05 Temperature 97.8 F Pulse Rate 92 H Respiratory Rate 20 Blood Pressure 178/71 H Pulse Oximetry 98 <Yasmin Knutson DO - Last Filed: 07/20/19 08:11> Orders Ordered: ED Orders 07/19/19 15:45 Complete Blood Count AUTO DIFF Stat Comprehensive Metabolic Panel Stat Procalcitonin Stat 07/19/19 16:09 Lactate (Lactic Acid) Stat Vital Signs Vital signs: Vital Signs - 8 hr 07/19/19 15:05 Temperature 97.8 F Pulse Rate 92 H Respiratory Rate 20 Blood Pressure 178/71 H Pulse Oximetry 98 MDM - Extremity (Nontraumatic) <AXEL WebbP - Last Filed: 07/19/19 17:13> Differential Diagnosis Differential diagnosis: Likely cellulitis and other (Sepsis) Medical Records Attestation: I reviewed the patient's medical records. Lab Data Attestation: I reviewed the patient's lab results. Result diagrams: 07/19/19 15:45 07/19/19 15:45 Labs: Lab Results 07/19/19 07/19/19 07/19/19 Range/Units 15:45 15:45 15:45 WBC 6.0 (4.5-11.0) X10^3/uL RBC 4.09 (4.0-5.2) X10^6/uL Hgb 11.0 L (12.0-16.0) g/dL Hct 33.4 L (36-46) % MCV 81.5 (80-100) fL MCH 27.0 (26-34) PG MCHC 33.1 (30-36) % RDW 15.0 H (11.6-14.8) % Plt Count 216 (150-400) X10^3/uL Neut % (Auto) 61.7 (50-75) % Lymph % (Auto) 24.4 L (25-40) % [place] % (Auto) 10.7 (3-14) % Eos % (Auto) 2.3 (2-4) % Baso % (Auto) 0.9 (0-2) % Neut # (Auto) 3700 (4730-6411) /uL Lymph # (Auto) 1500 (2396-1522) /uL [place] # (Auto) 600 (0-900) /uL Eos # (Auto) 100 (0-450) /uL Baso # (Auto) 100 (0-100) /uL Sodium 141 (137-145) mmol/L Potassium 4.1 (3.4-5.1) mmol/L Chloride 106 (98-107) mmol/L Carbon Dioxide 26 (22-32) mmol/L BUN 24 H (7-17) mg/dL Creatinine 0.90 (0.52-1.04) mg/dL Estimated GFR > 60.0 (>60) mL/min BUN/Creatinine Ratio 26.7 H (6-22) Glucose 141 H (80-110) mg/dL Lactate (0.7-2.1) mmol/L Calcium 9.2 (8.4-10.2) mg/dL Total Bilirubin 0.8 (0.2-1.3) mg/dL AST 30 (14-36) IU/L ALT 17 (<35) IU/L Alkaline Phosphatase 65 (38-126) U/L Total Protein 7.4 (6.3-8.2) g/dL Albumin 4.1 (3.5-5.0) g/dL Globulin 3.3 (1.7-4.1) g/dL Albumin/Globulin Ratio 1.2 (1.0-2.8) Procalcitonin 0.05 (<0.5) ng/mL 07/19/19 Range/Units 16:09 WBC (4.5-11.0) X10^3/uL RBC (4.0-5.2) X10^6/uL Hgb (12.0-16.0) g/dL Hct (36-46) % MCV (80-100) fL MCH (26-34) PG MCHC (30-36) % RDW (11.6-14.8) % Plt Count (150-400) X10^3/uL Neut % (Auto) (50-75) % Lymph % (Auto) (25-40) % [place] % (Auto) (3-14) % Eos % (Auto) (2-4) % Baso % (Auto) (0-2) % Neut # (Auto) (3821-9172) /uL Lymph # (Auto) (3751-6236) /uL [place] # (Auto) (0-900) /uL Eos # (Auto) (0-450) /uL Baso # (Auto) (0-100) /uL Sodium (137-145) mmol/L Potassium (3.4-5.1) mmol/L Chloride (98-107) mmol/L Carbon Dioxide (22-32) mmol/L BUN (7-17) mg/dL Creatinine (0.52-1.04) mg/dL Estimated GFR (>60) mL/min BUN/Creatinine Ratio (6-22) Glucose (80-110) mg/dL Lactate 1.4 (0.7-2.1) mmol/L Calcium (8.4-10.2) mg/dL Total Bilirubin (0.2-1.3) mg/dL AST (14-36) IU/L ALT (<35) IU/L Alkaline Phosphatase (38-126) U/L Total Protein (6.3-8.2) g/dL Albumin (3.5-5.0) g/dL Globulin (1.7-4.1) g/dL Albumin/Globulin Ratio (1.0-2.8) Procalcitonin (<0.5) ng/mL MDM Narrative Medical decision making narrative: This is a 69-year-old female who presents to ED with 2-3 days of duration of right lower leg discomfort, warmth, redness. Patient has history of necrotic fasciitis beginning of this year and was hospit alized for 2.5 months at [place] with sepsis and reconstructive surgery. Patient denies constitutional symptoms. Physical exam is consistent with early cellulitis. There was no leukocytosis or shift left with normal lactate and procalcitonin. There is no open skin sore drainage noticed and unable to obtain wound culture. Review to patient's record for wound cultures right thigh which showed E coli, staphylococci, Pseudomonas, strep the coccus group C, diphtherosid. Patient discharged to home with Bactrim for 7 days for b.i.d. course. Strict return precautions were discussed with the patient and advised to follow up with PCP in 2-3 days. Patient verbalized understanding and agrees with the treatment plan at this time. <Yasmin Knutson, - Last Filed: 07/20/19 08:11> Lab Data Labs: Lab Results 07/19/19 07/19/19 07/19/19 Range/Units 15:45 15:45 15:45 WBC 6.0 (4.5-11.0) X10^3/uL RBC 4.09 (4.0-5.2) X10^6/uL Hgb 11.0 L (12.0-16.0) g/dL Hct 33.4 L (36-46) % MCV 81.5 (80-100) fL MCH 27.0 (26-34) PG MCHC 33.1 (30-36) % RDW 15.0 H (11.6-14.8) % Plt Count 216 (150-400) X10^3/uL Neut % (Auto) 61.7 (50-75) % Lymph % (Auto) 24.4 L (25-40) % [place] % (Auto) 10.7 (3-14) % Eos % (Auto) 2.3 (2-4) % Baso % (Auto) 0.9 (0-2) % Neut # (Auto) 3700 (4617-5401) /uL Lymph # (Auto) 1500 (7076-1598) /uL [place] # (Auto) 600 (0-900) /uL Eos # (Auto) 100 (0-450) /uL Baso # (Auto) 100 (0-100) /uL Sodium 141 (137-145) mmol/L Potassium 4.1 (3.4-5.1) mmol/L Chloride 106 (98-107) mmol/L Carbon Dioxide 26 (22-32) mmol/L BUN 24 H (7-17) mg/dL Creatinine 0.90 (0.52-1.04) mg/dL Estimated GFR > 60.0 (>60) mL/min BUN/Creatinine Ratio 26.7 H (6-22) Glucose 141 H (80-110) mg/dL Lactate (0.7-2.1) mmol/L Calcium 9.2 (8.4-10.2) mg/dL Total Bilirubin 0.8 (0.2-1.3) mg/dL AST 30 (14-36) IU/L ALT 17 (<35) IU/L Alkaline Phosphatase 65 (38-126) U/L Total Protein 7.4 (6.3-8.2) g/dL Albumin 4.1 (3.5-5.0) g/dL Globulin 3.3 (1.7-4.1) g/dL Albumin/Globulin Ratio 1.2 (1.0-2.8) Procalcitonin 0.05 (<0.5) ng/mL 07/19/19 Range/Units 16:09 WBC (4.5-11.0) X10^3/uL RBC (4.0-5.2) X10^6/uL Hgb (12.0-16.0) g/dL Hct (36-46) % MCV (80-100) fL MCH (26-34) PG MCHC (30-36) % RDW (11.6-14.8) % Plt Count (150-400) X10^3/uL Neut % (Auto) (50-75) % Lymph % (Auto) (25-40) % [place] % (Auto) (3-14) % Eos % (Auto) (2-4) % Baso % (Auto) (0-2) % Neut # (Auto) (4862-2058) /uL Lymph # (Auto) (7049-9636) /uL [place] # (Auto) (0-900) /uL Eos # (Auto) (0-450) /uL Baso # (Auto) (0-100) /uL Sodium (137-145) mmol/L Potassium (3.4-5.1) mmol/L Chloride (98-107) mmol/L Carbon Dioxide (22-32) mmol/L BUN (7-17) mg/dL Creatinine (0.52-1.04) mg/dL Estimated GFR (>60) mL/min BUN/Creatinine Ratio (6-22) Glucose (80-110) mg/dL Lactate 1.4 (0.7-2.1) mmol/L Calcium (8.4-10.2) mg/dL Total Bilirubin (0.2-1.3) mg/dL AST (14-36) IU/L ALT (<35) IU/L Alkaline Phosphatase (38-126) U/L Total Protein (6.3-8.2) g/dL Albumin (3.5-5.0) g/dL Globulin (1.7-4.1) g/dL Albumin/Globulin Ratio (1.0-2.8) Procalcitonin (<0.5) ng/mL Discharge Plan Departure Patient Disposition: Home Clinical Impression: Cellulitis of right lower extremity Discharge Date/Time: 07/19/19 17:15 Activity Restrictions/Additional Instructions: You have been diagnosed with [cellulitis on right lower leg. Today's blood tests are looking good. There is no increase in white cell count, procalcitonin and lactate.]. What to do: *Take your medications as directed. Please start Bactrim twice a day for next 7 days as soon as possible. Please use warm pack on affected site and elevate the affected leg during rest. You can take [id number] Tylenol and or Motrin as needed for discomfort and mild fever. *Follow up with your primary care provider in 2-3 days, call for an appointment. Let them know you were seen in the ED and that we asked you to be seen in follow up. *Return to ED if you have any new, worsening, or concerning symptoms, such as [increasing pain, high fever, chest pain, breathing difficulty, feeling like fainting, unable to tolerate fluids, swelling and redness or any acute concerns]. Prescriptions: New sulfamethoxazole-trimethoprim 800-160 mg tablet 1 tab PO Q12H 7 Days Qty: 14 RF: 0 No Action calcium carbonate 500 mg calcium (1,250 mg) tablet 1,000 mg PO DAILY RF: 0 camphor-menthol 0.5-0.5 % lotion 1 applictn TOP BID PRNRF: 0 atorvastatin 20 mg tablet 20 mg PO DAILY Qty: 90 RF: 3 triamcinolone acetonide 0.1 % cream See Rx Instructions TOP BID Qty: 30 RF: 0 ketoconazole 2 % cream See Rx Instructions TOP BID Qty: 30 RF: 0 olmesartan [Benicar] 40 mg tablet 40 mg PO DAILY Qty: 90 RF: 3 metformin 500 mg tablet 500 mg PO BID Qty: 180 RF: 3 sertraline [Zoloft] 50 mg tablet 50 mg PO BEDTIME Qty: 60 RF: 5 acetaminophen 500 mg Tablet 1,000 mg PO Q6H PRN (Reason: Pain (Scale Score 1-3)) RF: 0 ascorbic acid (vitamin C) 500 mg Tablet 500 mg PO DAILY RF: 0 aspirin 81 mg Tablet,Chewable 81 mg PO DAILY RF: 0 diclofenac sodium [Voltaren] 1 % Gel 5 g TOPICAL Q12H PRN (Reason: Pain (Scale Score 1-3)) RF: 0 cholecalciferol (vitamin D3) 2,000 unit Tablet 2,000 unit PO DAILY RF: 0 Referrals: Marc Navarrete MD [Primary Care Provider] -
[2019-07-19 15:54] LABS: Add Manual Diff / Slide Review NO; Basophils Absolute Auto 100 /uL (0-100); Basophils Percent Auto 0.9 % (0-2); Eosinophils Absolute Auto 100 /uL (0-450); Eosinophils Percent Auto 2.3 % (2-4); Hematocrit 33.4 % (36-46); Lymphocytes Absolute Auto 1500 /uL (1100-4500); Lymphocytes Percent Auto 24.4 % (25-40); Mean Corpuscular HGB Conc 33.1 % (30-36); Mean Corpuscular Volume 81.5 fL (80-100); Monocytes Absolute Auto 600 /uL (0-900); Monocytes Percent Auto 10.7 % (3-14); Neutrophils Absolute Auto 3700 /uL (1500-7000); Neutrophils Percent Auto 61.7 % (50-75); Platelet Count 216 X10^3/uL (150-400); Red Blood Cell Count 4.09 X10^6/uL (4.0-5.2)
[2019-07-19 16:07] LABS: Alanine Aminotransferase 17 IU/L (<35); Albumin 4.1 g/dL (3.5-5.0); Albumin Globulin Ratio 1.2 (1.0-2.8); Alkaline Phosphatase 65 U/L (38-126); Aspartate Aminotransferase 30 IU/L (14-36); BUN Creatinine Ratio 26.7 (6-22); Bilirubin Total 0.8 mg/dL (0.2-1.3); Blood Urea Nitrogen 24 mg/dL (7-17); Calcium 9.2 mg/dL (8.4-10.2); Carbon Dioxide 26 mmol/L (22-32); Chloride 106 mmol/L (98-107); Estimated Glomerular Filt Rate > 60.0 mL/min (>60); Globulin 3.3 g/dL (1.7-4.1); Glucose 141 mg/dL (80-110); HEMOLYSIS 49 (0-50); Potassium 4.1 mmol/L (3.4-5.1); Sodium 141 mmol/L (137-145); Total Protein 7.4 g/dL (6.3-8.2)
[2019-07-19 16:27] LABS: Procalcitonin 0.05 ng/mL (<0.5)
[2019-07-19 16:29] LABS: Lactate (Lactic Acid) 1.4 mmol/L (0.7-2.1)
[2019-07-19 17:15] VITALS: BP 165/68; PULSE 90; RESP 18; TEMP 36.6; O2SAT 99
== END 2019-07-19 17:15 | disposition home or self-care (01) ==
PROVIDERS: Emergency Provider Nurse Practitioner Family; PCP Family Medicine
DX: L03.115 Cellulitis of right lower limb (principal)
CPT/HCPCS: 36415; 80053; 83605; 84145; 85025; 99282; 99283

== ENCOUNTER 2020-03-13 09:19 | Emergency (ER) | payer MEDICARE, SELFPAY ==
[2018-12-22 22:06] VITALS: BMI 47.5
[2020-03-13] VITALS (48 sets, daily range): BP systolic 78–159; BP diastolic 45–90; PULSE 93–109; RESP 26–59; TEMP 37.7; O2SAT 88–100; BMI 51.5
--- NOTE | 2020-03-13 09:29 | DI.RAD.S_ITS ---
PROCEDURE: XR CHEST 1V INDICATIONS: flu-like symptoms/ SOB TECHNIQUE: One view of the chest was acquired. COMPARISON: [facility], CR, XR CHEST 1V, 12/22/2018, 18:00. FINDINGS: Surgical changes and devices: None. Lungs and pleura: Lungs are clear. No pleural effusions or pneumothorax. Mediastinum: Mediastinal contours appear normal. Heart size is enlarged. Bones and chest wall: No suspicious bony lesions. Overlying soft tissues appear unremarkable. IMPRESSION: No acute process. Cardiomegaly. Dictated by: Sallie Vigil M.D. on 03/13/2020 at 10:31 Approved by: Sallie Vigil M.D. on 03/13/2020 at 10:36
--- NOTE | 2020-03-13 09:29 | ED_ITS ---
HPI - URI/Sore Throat General Chief Complaint: Fever Stated Complaint: Not feeling well, SOB and fever Time Seen by Provider: 03/13/20 09:28 History of Present Illness HPI Narrative: CC: Sent from walk in clinic for SOB and Covid Evaluation HPI: The patient was seen at the walk-in clinic and sent over to the emergency department for acute shortness of breath and rapid respirations. The patient states that she has been developing shortness of breath over the last 3-4 days associated with a cough that is minimally productive of sputum that appears to be clear without hemoptysis. She has had intermittent wheezing. She has had no significant chest pain. She has had no discomfort radiating to her neck jaw back arm arms. She denies any numbness or tingling heaviness in her arms. She denies a history of a myocardial infarction congestive heart failure asthma or COPD. One year ago the patient was transferred to [place] for necrotizing fasciitis and sepsis in her groin. She states that she was in a induced coma for 3 weeks. The patient is a former smoker. She denies any fever has had intermittent chills but no sweats. She had a temperature of a 101? in the walk-in clinic. She denies a headache. She has had no significant nasal drainage sinus congestion sore throat or dysphagia. She denies palpitations or dizziness. She has just been weak and tired short of breath with no energy. She has had no nausea with minimal vomiting arm and arm a few soft diarrhea bowel movements. She has had no urinary symptoms. Related Data Home Medications Medication Instructions Recorded Confirmed acetaminophen 1,000 mg PO Q6H PRN 12/22/18 07/27/19 ascorbic acid (vitamin C) 500 mg PO DAILY 12/22/18 07/27/19 aspirin 81 mg PO DAILY 12/22/18 07/27/19 cholecalciferol (vitamin D3) 2,000 unit PO DAILY 12/22/18 07/27/19 diclofenac sodium [Voltaren] 5 g TOPICAL Q12H PRN 12/22/18 07/27/19 calcium carbonate 500 mg calcium 1,000 mg PO DAILY tab 04/27/19 07/27/19 (1,250 mg) tablet camphor-menthol 0.5 %-0.5 % lotion 1 applictn TOP BID PRN 04/27/19 07/27/19 Previous Rx's Medication Instructions Recorded metformin 500 mg tablet 500 mg PO BID #180 tab 02/16/19 sertraline 50 mg tablet 50 mg PO BEDTIME #60 tab 02/17/19 atorvastatin 20 mg tablet 20 mg PO DAILY #90 tab 04/27/19 ketoconazole 2 % topical cream See Rx Instructions TOP BID #30 04/27/19 gram triamcinolone acetonide 0.1 % See Rx Instructions TOP BID #30 04/27/19 topical cream gram furosemide 20 mg tablet 20 mg PO DAILY #30 tab 07/27/19 olmesartan 40 mg tablet 40 mg PO DAILY #90 tab 01/06/20 Allergies Allergy/AdvReac Type Severity Reaction Status Date / Time No Known Drug Allergies Allergy Verified 07/27/19 08:39 Review of Systems Review of Systems Narrative: Her review of systems were all negative except for those mentioned in history of present illness. Patient History Medical History Controlled type 2 diabetes mellitus (Chronic) Encounter for debridement of skin (Acute) Essential hypertension (Chronic) Fever (Acute) Hyperlipidemia (Acute) Hyperlipidemia, unspecified (Chronic) Morbid obesity with BMI of 50.0-59.9, adult (Acute) Necrotizing fasciitis (Acute) Shortness of breath (Acute) Type 2 diabetes mellitus (Acute) Surgical History Status post hysterectomy Status post tubal ligation (10/29/87) Family History Father Diabetes mellitus Grandmother Diabetes mellitus Mother Amyloidosis Pancreatitis Pneumonia Sister Age: 60 Lupus Social History marital status: household members: none Smoking Status: Former smoker alcohol intake: current (ON OCCASION ) substance use type: does not use Smoking Status: Former smoker alcohol intake frequency: a few times a month Substance Use Type: does not use Exam Narrative Exam Narrative: PHYSICAL EXAM: CONSTITUTIONAL: Awake, Alert, moderate distress, tachypneic with a dry unproductive cough.. Does not appear toxic . HEAD: AT/NC EARS:No drainage from the ears, Tympanic membranes intact bilaterally, clear EAC NOSE:No epistaxis or nasal drainage MOUTH:Oral mucosa is moist and pink, posterior pharynx is without erythema or exudate. NECK: Supple, no obvious JVD, Trachea is midline without stridor, . No CVA tenderness. THORAX: No deformity, retractions, chest wall tenderness. LUNGS: Decreased breath sounds symmetrical no inspiratory crackles appreciated no expiratory wheezes or rhonchi. HEART: Irregular heart tones tachycardic no murmur distant ABDOMEN: Soft, non-tender, normal bowel sounds without guarding, rebound, rigidi ty or palpable mass. EXTREMITIES: 2+ pretibial pitting edema without calf tenderness or cyanosis. SKIN: No rash, bruising, petechiae or purpura. NEURO: Awake, alert, oriented, conversive, cranial nerves II-XII are symmetrical , moves all 4 extremities and is ambulatory. MENTAL HEALTH: The patient appears apprehensive and anxious. Initial Vital Signs Initial Vital Signs: Vital Signs Temperature 99.9 F H 03/13/20 09:20 Pulse Rate 109 H 03/13/20 09:20 Respiratory Rate 36 H 03/13/20 09:20 Blood Pressure 78/45 L 03/13/20 09:20 Pulse Oximetry 88 L 03/13/20 09:20 Course Course Course Narrative: 0945: The patient's pH is 7.367 pCO2 is 32.9 PO2 of 71 oxygen saturation is 94%. 12:13 the patient's chest x-ray revealed: IMPRESSION: No acute process. Cardiomegaly. 1220: The patient's [place] it is not detected. Her initial troponin is 1.310. White blood count is 18.4. Dimer 6753. Lactic acid is 4.8. GFR is 23. A CT scan cannot be performed with IV contrast because of her renal insufficiency. The patient is had a fever when she came in and is being treated as though she is septic. Zosyn and vancomycin has been ordered on the patient. We are waiting for the patient's 2nd troponin to return to determine disposition. 1251: I spoke with Dr. Forbes the pourer bull ladle at [facility] in [place], he agrees that the patient needs to be transferred to [facility] ICU he will c onsult for the elevated troponin. He agrees with the antibiotics the heparin therapy. He advised that I call and discuss the patient with the ICU attending at [facility]. 1412Discussed with Dr. Saldana, Tax Expert at [facility] who has accepted the patient being admitted. 1457: Patient's repeat chest x-ray does not show any infiltrate or increased pulmonary vascular markings. The patient will be placed on a non-rebreather mask. The patient's oxygen saturation is 98% on nasal cannula at the present time. Orders Ordered: Discontinued Medications Heparin Sodium (Porcine) (Heparin) 5,000 unit IV NOW ONE Stop: 03/13/20 12:16 Last Admin: 03/13/20 12:30 Dose: 5,000 unit Documented by: ASHTYN Sodium Chloride (Normal Saline 0.9%) 1,000 mls @ 1,000 mls/hr IV BOLUS PRN PRN Reason: Fluid replacement Sodium Chloride (Normal Saline 0.9%) 1,000 mls @ 1,000 mls/hr IV BOLUS ONE Stop: 03/13/20 11:23 Last Infusion: 03/13/20 12:32 Dose: 0 mls/hr Documented by: Admin: 03/13/20 10:52 Dose: 1,000 mls/hr Documented by: ADDISON Sodium Chloride (Normal Saline 0.9%) 1,000 mls @ 1,000 mls/hr IV BOLUS ONE Stop: 03/13/20 11:24 Last Infusion: 03/13/20 10:50 Dose: 0 mls/hr Documented by: Admin: 03/13/20 09:50 Dose: 1,000 mls/hr Documented by: ADDISON Piperacillin/Tazobactam/Dextrose (Zosyn) 4.5 gm in 100 mls @ 200 mls/hr IV NOW ONE Stop: 03/13/20 12:44 Last Infusion: 03/13/20 13:28 Dose: 0 mls/hr Documented by: Admin: 03/13/20 12:30 Dose: 200 mls/hr Documented by: ASHTYN Vancomycin HCl/Dextrose (Vancomycin) 2,000 mg in 400 mls @ 200 mls/hr IV NOW ONE Stop: 03/13/20 14:15 Last Infusion: 03/13/20 16:17 Dose: 0 mls/hr Documented by: Admin: 03/13/20 13:28 Dose: 200 mls/hr Documented by: ASHTYN Heparin Sodium/Dextrose (Heparin Drip) 25,000 unit in 500 mls @ 20 mls/hr IV CONT MICHAEL; Protocol Last Admin: 03/13/20 12:32 Dose: 1,000 units/hr, 20 mls/hr Documented by: ASHTYN Vital Signs Vital signs: Vital Signs - 8 hr 03/13/20 09:20 03/13/20 09:28 03/13/20 09:30 Temperature 99.9 F H Pulse Rate 109 H 109 H 109 H Respiratory Rate 36 H 34 H Blood Pressure 78/45 L 78/45 L Pulse Oximetry 88 L 88 L 91 03/13/20 09:40 03/13/20 09:45 03/13/20 09:50 Temperature Pulse Rate 106 H 106 H 104 H Respiratory Rate 33 H 34 H 34 H Blood Pressure 109/75 115/73 Pulse Oximetry 91 91 97 03/13/20 10:00 03/13/20 10:10 03/13/20 10:20 Temperature Pulse Rate 94 H 103 H 100 H Respiratory Rate 33 H 35 H 41 H Blood Pressure 150/68 H 140/82 125/70 Pulse Oximetry 98 97 96 03/13/20 10:30 03/13/20 10:40 03/13/20 10:50 Temperature Pulse Rate 102 H 99 H 106 H Respiratory Rate 33 H 30 H 38 H Blood Pressure 140/67 146/76 H 152/76 H Pulse Oximetry 98 95 96 03/13/20 11:00 03/13/20 11:10 03/13/20 11:20 Temperature Pulse Rate 102 H 101 H 103 H Respiratory Rate 31 H 28 H 31 H Blood Pressure 142/76 H 145/79 H 139/88 Pulse Oximetry 98 100 98 03/13/20 11:30 03/13/20 12:00 03/13/20 12:10 Temperature Pulse Rate 98 H 101 H 103 H Respiratory Rate 26 H 30 H 29 H Blood Pressure 159/74 H 149/88 H 146/90 H Pulse Oximetry 98 96 97 03/13/20 12:20 03/13/20 12:30 03/13/20 12:40 Temperature Pulse Rate 93 H 103 H 104 H Respiratory Rate 30 H 29 H 59 H Blood Pressure 154/90 H 144/89 H 135/80 Pulse Oximetry 96 94 97 03/13/20 12:50 03/13/20 13:00 08/03/20 13:10 Temperature 99.9 F H Pulse Rate 104 H 100 H 103 H Respiratory Rate 42 H 33 H 36 H Blood Pressure 137/86 130/77 Pulse Oximetry 98 97 98 03/13/20 13:20 03/13/20 13:30 03/13/20 13:31 Temperature Pulse Rate 104 H 108 H 101 H Respiratory Rate 41 H 39 H 38 H Blood Pressure 133/76 126/80 Pulse Oximetry 97 92 92 03/13/20 13:40 03/13/20 13:50 03/13/20 14:00 Temperature Pulse Rate 100 H 102 H 100 H Respiratory Rate 36 H 35 H 35 H Blood Pressure 147/80 H 135/82 128/69 Pulse Oximetry 95 97 96 03/13/20 14:10 03/13/20 14:20 Temperature Pulse Rate 103 H 102 H Respiratory Rate 35 H 33 H Blood Pressure 143/78 H 141/81 H Pulse Oximetry 96 94 MDM - URI/Sore Throat Medical Records Attestation: I reviewed the patient's medical records. Lab Data Attestation: I reviewed the patient's lab results. Result diagrams: 03/13/20 09:45 03/13/20 09:28 Labs: Lab Results 03/13/20 03/13/20 03/13/20 Range/Units 09:28 09:42 09:45 WBC 18.4 H (4.5-11.0) X10^3/uL RBC 4.45 (4.0-5.2) X10^6/uL Hgb 11.5 L (12.0-16.0) g/dL Hct 35.8 L (36-46) % MCV 80.5 (80-100) fL MCH 25.8 L (26-34) PG MCHC 32.1 (30-36) % RDW 15.9 H (11.6-14.8) % Plt Count 132 L (150-400) X10^3/uL Neut % (Auto) Not Reportable Lymph % (Auto) Not Reportable Christian % (Auto) Not Reportable Eos % (Auto) Not Reportable Baso % (Auto) Not Reportable Lymph # (Auto) Not Reportable Christian # (Auto) Not Reportable Baso # (Auto) Not Reportable Total Counted 100 Seg Neutrophils % 74.0 H (38-70) % Band Neutrophils % 15.0 H (3-7) % Lymphocytes % (Manual) 4.0 L (25-45) % Atypical Lymphs % 2.0 H ( - 0) % Monocytes % (Manual) 5.0 (2-11) % Neutrophils # (Manual) 61735 H (2807-3968) /uL RBC Morphology Not Reportable Heidi Cells 2+ H D-Dimer (<230) ng/mL ABG pH 7.36 (7.35-7.45) ABG pCO2 32.9 L (35-45) mmHg ABG pO2 71 L (80-100) mmHg ABG HCO3 19 L (22-26) mmol/L ABG Total CO2 20 L (21-31) mmol/L ABG O2 Saturation 94 L (95-100) % ABG Base Excess -6.0 L (-2-2) mmol/L FiO2 21 Sodium 135 L (137-145) mmol/L Potassium 4.1 (3.4-5.1) mmol/L Chloride 102 (98-107) mmol/L Carbon Dioxide 19 L (22-32) mmol/L BUN 36 H (7-17) mg/dL Creatinine 2.07 H (0.52-1.04) mg/dL Estimated GFR 23.8 L (>60) mL/min BUN/Creatinine Ratio 17.4 (6-22) Glucose 162 H (80-110) mg/dL Lactate (0.7-2.1) mmol/L Calcium 8.4 (8.4-10.2) mg/dL Ferritin (11-264) ng/mL Total Bilirubin 1.7 H (0.2-1.3) mg/dL AST 59 H (14-36) IU/L ALT 28 (<35) IU/L Alkaline Phosphatase 105 (38-126) U/L Lactate Dehydrogenase (313-618) U/L Total Creatine Kinase 233 H (30-135) U/L CK-MB (CK-2) 2.95 H (<2.37) ng/mL CK-MB (CK-2) Rel Index 1.3 L (1.5-5.0) % Troponin I 1.310 H* (0.01-0.034) ng/mL C-Reactive Protein (<1.0) mg/dL NT-Pro-B Natriuret Pep (<125) pg/mL Total Protein 7.1 (6.3-8.2) g/dL Albumin 3.6 (3.5-5.0) g/dL Globulin 3.5 (1.7-4.1) g/dL Albumin/Globulin Ratio 1.0 (1.0-2.8) Procalcitonin (<0.5) ng/mL Urine Color Urine Appearance Urine pH (4.5-8.0) Ur Specific [place] (1.000-1.035) Urine Protein (Negative) Urine Glucose (UA) (Negative) g/dL Urine Ketones (NEGATIVE) Urine Occult Blood (Negative) Urine Nitrate (Negative) Urine Bilirubin (NEGATIVE) Urine Urobilinogen (0.2) E.U./dL Ur Leukocyte Esterase (NEGATIVE) Urine RBC (0-5/HPF) Urine WBC (0-5/HPF) Ur Squamous Epith Cells (0-5/HPF) Amorphous Sediment Urine Bacteria (None) Urine Mucus (Negative) Ur Culture Indicated? A. baumannii (PCR) (Not Detect) Kenn[place] albicans (PCR) (Not Detect) C. glabrata (PCR) (Not Detect) C. krusei (PCR) (Not Detect) C. parapsilosis (PCR) (Not Detect) C. tropicalis (PCR) (Not Detect) COVID-19 PCR Enterobacteriac sp PCR (Not Detect) E. cloacae complex PCR (Not Detect) Enterococcus sp PCR (Not Detect) E. coli (PCR) (Not Detect) H. influenzae (PCR) (Not Detect) Influenza A (RT-PCR) (NEGATIVE) Influenza B (RT-PCR) (NEGATIVE) Klebsiella oxytoca PCR (Not Detect) Klebsiella pneumoniae (Not Detect) List. monocytogenes PCR (Not Detect) N. meningitidis (PCR) (Not Detect) Proteus species (PCR) (Not Detect) Serratia marcescens PCR (Not Detect) Staphylococcus sp PCR (Not Detect) Staph aureus (PCR) (Not Detect) mecA-Methicil Res Gene Streptococcus sp PCR (Not Detect) Group A Strep (PCR) (Not Detect) Strep agalactiae (PCR) (Not Detect) Strep pneumoniae (PCR) (Not Detect) P. aeruginosa (PCR) (Not Detect) Daly/B-Vanco Res Genes KPC-Carbap Res Gene PCR (Not Detect) 03/13/20 03/13/20 03/13/20 Range/Units 09:45 09:45 09:45 WBC (4.5-11.0) X10^3/uL RBC (4.0-5.2) X10^6/uL Hgb (12.0-16.0) g/dL Hct (36-46) % MCV (80-100) fL MCH (26-34) PG MCHC (30-36) % RDW (11.6-14.8) % Plt Count (150-400) X10^3/uL Neut % (Auto) Lymph % (Auto) Christian % (Auto) Eos % (Auto) Baso % (Auto) Lymph # (Auto) Christian # (Auto) Baso # (Auto) Total Counted Seg Neutrophils % (38-70) % Band Neutrophils % (3-7) % Lymphocytes % (Manual) (25-45) % Atypical Lymphs % ( - 0) % Monocytes % (Manual) (2-11) % Neutrophils # (Manual) (2592-4383) /uL RBC Morphology Heidi Cells D-Dimer 6753 H (<230) ng/mL ABG pH (7.35-7.45) ABG pCO2 (35-45) mmHg ABG pO2 (80-100) mmHg ABG HCO3 (22-26) mmol/L ABG Total CO2 (21-31) mmol/L ABG O2 Saturation (95-100) % ABG Base Excess (-2-2) mmol/L FiO2 Sodium (137-145) mmol/L Potassium (3.4-5.1) mmol/L Chloride (98-107) mmol/L Carbon Dioxide (22-32) mmol/L BUN (7-17) mg/dL Creatinine (0.52-1.04) mg/dL Estimated GFR (>60) mL/min BUN/Creatinine Ratio (6-22) Glucose (80-110) mg/dL Lactate (0.7-2.1) mmol/L Calcium (8.4-10.2) mg/dL Ferritin (11-264) ng/mL Total Bilirubin (0.2-1.3) mg/dL AST (14-36) IU/L ALT (<35) IU/L Alkaline Phosphatase (38-126) U/L Lactate Dehydrogenase (313-618) U/L Total Creatine Kinase (30-135) U/L CK-MB (CK-2) (<2.37) ng/mL CK-MB (CK-2) Rel Index (1.5-5.0) % Troponin I (0.01-0.034) ng/mL C-Reactive Protein (<1.0) mg/dL NT-Pro-B Natriuret Pep (<125) pg/mL Total Protein (6.3-8.2) g/dL Albumin (3.5-5.0) g/dL Globulin (1.7-4.1) g/dL Albumin/Globulin Ratio (1.0-2.8) Procalcitonin 51.13 H (<0.5) ng/mL Urine Color Urine Appearance Urine pH (4.5-8.0) Ur Specific Franklin (1.000-1.035) Urine Protein (Negative) Urine Glucose (UA) (Negative) g/dL Urine Ketones (NEGATIVE) Urine Occult Blood (Negative) Urine Nitrate (Negative) Urine Bilirubin (NEGATIVE) Urine Urobilinogen (0.2) E.U./dL Ur Leukocyte Esterase (NEGATIVE) Urine RBC (0-5/HPF) Urine WBC (0-5/HPF) Ur Squamous Epith Cells (0-5/HPF) Amorphous Sediment Urine Bacteria (None) Urine Mucus (Negative) Ur Culture Indicated? A. baumannii (PCR) (Not Detect) Kennedi albicans (PCR) (Not Detect) C. glabrata (PCR) (Not Detect) C. krusei (PCR) (Not Detect) C. parapsilosis (PCR) (Not Detect) C. tropicalis (PCR) (Not Detect) COVID-19 PCR Enterobacteriac sp PCR (Not Detect) E. cloacae complex PCR (Not Detect) Enterococcus sp PCR (Not Detect) E. coli (PCR) (Not Detect) H. influenzae (PCR) (Not Detect) Influenza A (RT-PCR) Flu a negative (NEGATIVE) Influenza B (RT-PCR) Flu b negative (NEGATIVE) Klebsiella oxytoca PCR (Not Detect) Klebsiella pneumoniae (Not Detect) List. monocytogenes PCR (Not Detect) N. meningitidis (PCR) (Not Detect) Proteus species (PCR) (Not Detect) Serratia marcescens PCR (Not Detect) Staphylococcus sp PCR (Not Detect) Staph aureus (PCR) (Not Detect) mecA-Methicil Res Gene Streptococcus sp PCR (Not Detect) Group A Strep (PCR) (Not Detect) Strep agalactiae (PCR) (Not Detect) Strep pneumoniae (PCR) (Not Detect) P. aeruginosa (PCR) (Not Detect) Daly/B-Vanco Res Genes KPC-Carbap Res Gene PCR (Not Detect) 03/13/20 03/13/20 03/13/20 Range/Units 09:45 09:45 09:45 WBC (4.5-11.0) X10^3/uL RBC (4.0-5.2) X10^6/uL Hgb (12.0-16.0) g/dL Hct (36-46) % MCV (80-100) fL MCH (26-34) PG MCHC (30-36) % RDW (11.6-14.8) % Plt Count (150-400) X10^3/uL Neut % (Auto) Lymph % (Auto) Christian % (Auto) Eos % (Auto) Baso % (Auto) Lymph # (Auto) Christian # (Auto) Baso # (Auto) Total Counted Seg Neutrophils % (38-70) % Band Neutrophils % (3-7) % Lymphocytes % (Manual) (25-45) % Atypical Lymphs % ( - 0) % Monocytes % (Manual) (2-11) % Neutrophils # (Manual) (4305-6870) /uL RBC Morphology [place] Cells D-Dimer (<230) ng/mL ABG pH (7.35-7.45) ABG pCO2 (35-45) mmHg ABG pO2 (80-100) mmHg ABG HCO3 (22-26) mmol/L ABG Total CO2 (21-31) mmol/L ABG O2 Saturation (95-100) % ABG Base Excess (-2-2) mmol/L FiO2 Sodium (137-145) mmol/L Potassium (3.4-5.1) mmol/L Chloride (98-107) mmol/L Carbon Dioxide (22-32) mmol/L BUN (7-17) mg/dL Creatinine (0.52-1.04) mg/dL Estimated GFR (>60) mL/min BUN/Creatinine Ratio (6-22) Glucose (80-110) mg/dL Lactate 4.8 H* (0.7-2.1) mmol/L Calcium (8.4-10.2) mg/dL Ferritin 124 (11-264) ng/mL Total Bilirubin (0.2-1.3) mg/dL AST (14-36) IU/L ALT (<35) IU/L Alkaline Phosphatase (38-126) U/L Lactate Dehydrogenase 846 H (313-618) U/L Total Creatine Kinase (30-135) U/L CK-MB (CK-2) (<2.37) ng/mL CK-MB (CK-2) Rel Index (1.5-5.0) % Troponin I (0.01-0.034) ng/mL C-Reactive Protein 35.0 H (<1.0) mg/dL NT-Pro-B Natriuret Pep 24382 H Cancelled (<125) pg/mL Total Protein (6.3-8.2) g/dL Albumin (3.5-5.0) g/dL Globulin (1.7-4.1) g/dL Albumin/Globulin Ratio (1.0-2.8) Procalcitonin (<0.5) ng/mL Urine Color Urine Appearance Urine pH (4.5-8.0) Ur Specific Franklin (1.000-1.035) Urine Protein (Negative) Urine Glucose (UA) (Negative) g/dL Urine Ketones (NEGATIVE) Urine Occult Blood (Negative) Urine Nitrate (Negative) Urine Bilirubin (NEGATIVE) Urine Urobilinogen (0.2) E.U./dL Ur Leukocyte Esterase (NEGATIVE) Urine RBC (0-5/HPF) Urine WBC (0-5/HPF) Ur Squamous Epith Cells (0-5/HPF) Amorphous Sediment Urine Bacteria (None) Urine Mucus (Negative) Ur Culture Indicated? A. baumannii (PCR) (Not Detect) Kennedi albicans (PCR) (Not Detect) C. glabrata (PCR) (Not Detect) C. krusei (PCR) (Not Detect) C. parapsilosis (PCR) (Not Detect) C. tropicalis (PCR) (Not Detect) COVID-19 PCR Enterobacteriac sp PCR (Not Detect) E. cloacae complex PCR (Not Detect) Enterococcus sp PCR (Not Detect) E. coli (PCR) (Not Detect) H. influenzae (PCR) (Not Detect) Influenza A (RT-PCR) (NEGATIVE) Influenza B (RT-PCR) (NEGATIVE) Klebsiella oxytoca PCR (Not Detect) Klebsiella pneumoniae (Not Detect) List. monocytogenes PCR (Not Detect) N. meningitidis (PCR) (Not Detect) Proteus species (PCR) (Not Detect) Serratia marcescens PCR (Not Detect) Staphylococcus sp PCR (Not Detect) Staph aureus (PCR) (Not Detect) mecA-Methicil Res Gene Streptococcus sp PCR (Not Detect) Group A Strep (PCR) (Not Detect) Strep agalactiae (PCR) (Not Detect) Strep pneumoniae (PCR) (Not Detect) P. aeruginosa (PCR) (Not Detect) Daly/B-Vanco Res Genes KPC-Carbap Res Gene PCR (Not Detect) 03/13/20 03/13/20 03/13/20 Range/Units 09:45 09:45 09:50 WBC (4.5-11.0) X10^3/uL RBC (4.0-5.2) X10^6/uL Hgb (12.0-16.0) g/dL Hct (36-46) % MCV (80-100) fL MCH (26-34) PG MCHC (30-36) % RDW (11.6-14.8) % Plt Count (150-400) X10^3/uL Neut % (Auto) Lymph % (Auto) Christian % (Auto) Eos % (Auto) Baso % (Auto) Lymph # (Auto) Christian # (Auto) Baso # (Auto) Total Counted Seg Neutrophils % (38-70) % Band Neutrophils % (3-7) % Lymphocytes % (Manual) (25-45) % Atypical Lymphs % ( - 0) % Monocytes % (Manual) (2-11) % Neutrophils # (Manual) (2743-3289) /uL RBC Morphology [place] Cells D-Dimer (<230) ng/mL ABG pH (7.35-7.45) ABG pCO2 (35-45) mmHg ABG pO2 (80-100) mmHg ABG HCO3 (22-26) mmol/L ABG Total CO2 (21-31) mmol/L ABG O2 Saturation (95-100) % ABG Base Excess (-2-2) mmol/L FiO2 Sodium (137-145) mmol/L Potassium (3.4-5.1) mmol/L Chloride (98-107) mmol/L Carbon Dioxide (22-32) mmol/L BUN (7-17) mg/dL Creatinine (0.52-1.04) mg/dL Estimated GFR (>60) mL/min BUN/Creatinine Ratio (6-22) Glucose (80-110) mg/dL Lactate (0.7-2.1) mmol/L Calcium (8.4-10.2) mg/dL Ferritin (11-264) ng/mL Total Bilirubin (0.2-1.3) mg/dL AST (14-36) IU/L ALT (<35) IU/L Alkaline Phosphatase (38-126) U/L Lactate Dehydrogenase (313-618) U/L Total Creatine Kinase (30-135) U/L CK-MB (CK-2) (<2.37) ng/mL CK-MB (CK-2) Rel Index (1.5-5.0) % Troponin I (0.01-0.034) ng/mL C-Reactive Protein (<1.0) mg/dL NT-Pro-B Natriuret Pep (<125) pg/mL Total Protein (6.3-8.2) g/dL Albumin (3.5-5.0) g/dL Globulin (1.7-4.1) g/dL Albumin/Globulin Ratio (1.0-2.8) Procalcitonin (<0.5) ng/mL Urine Color Urine Appearance Urine pH (4.5-8.0) Ur Specific Franklin (1.000-1.035) Urine Protein (Negative) Urine Glucose (UA) (Negative) g/dL Urine Ketones (NEGATIVE) Urine Occult Blood (Negative) Urine Nitrate (Negative) Urine Bilirubin (NEGATIVE) Urine Urobilinogen (0.2) E.U./dL Ur Leukocyte Esterase (NEGATIVE) Urine RBC (0-5/HPF) Urine WBC (0-5/HPF) Ur Squamous Epith Cells (0-5/HPF) Amorphous Sediment Urine Bacteria (None) Urine Mucus (Negative) Ur Culture Indicated? A. baumannii (PCR) Not detected (Not Detect) Kennedi albicans (PCR) Not detected (Not Detect) C. glabrata (PCR) Not detected (Not Detect) C. krusei (PCR) Not detected (Not Detect) C. parapsilosis (PCR) Not detected (Not Detect) C. tropicalis (PCR) Not detected (Not Detect) COVID-19 PCR Cancelled Negative Enterobacteriac sp PCR Detected H (Not Detect) E. cloacae complex PCR Not detected (Not Detect) Enterococcus sp PCR Not detected (Not Detect) E. coli (PCR) Detected H (Not Detect) H. influenzae (PCR) Not detected (Not Detect) Influenza A (RT-PCR) (NEGATIVE) Influenza B (RT-PCR) (NEGATIVE) Klebsiella oxytoca PCR Not detected (Not Detect) Klebsiella pneumoniae Not detected (Not Detect) List. monocytogenes PCR Not detected (Not Detect) N. meningitidis (PCR) Not detected (Not Detect) Proteus species (PCR) Not detected (Not Detect) Serratia marcescens PCR Not detected (Not Detect) Staphylococcus sp PCR Not detected (Not Detect) Staph aureus (PCR) Not detected (Not Detect) mecA-Methicil Res Gene Not Reportable Streptococcus sp PCR Not detected (Not Detect) Group A Strep (PCR) Not detected (Not Detect) Strep agalactiae (PCR) Not detected (Not Detect) Strep pneumoniae (PCR) Not detected (Not Detect) P. aeruginosa (PCR) Not detected (Not Detect) Daly/B-Vanco Res Genes Not Reportable KPC-Carbap Res Gene PCR Not detected (Not Detect) 03/13/20 03/13/20 03/13/20 Range/Units 11:45 12:52 12:55 WBC (4.5-11.0) X10^3/uL RBC (4.0-5.2) X10^6/uL Hgb (12.0-16.0) g/dL Hct (36-46) % MCV (80-100) fL MCH (26-34) PG MCHC (30-36) % RDW (11.6-14.8) % Plt Count (150-400) X10^3/uL Neut % (Auto) Lymph % (Auto) Christian % (Auto) Eos % (Auto) Baso % (Auto) Lymph # (Auto) Christian # (Auto) Baso # (Auto) Total Counted Seg Neutrophils % (38-70) % Band Neutrophils % (3-7) % Lymphocytes % (Manual) (25-45) % Atypical Lymphs % ( - 0) % Monocytes % (Manual) (2-11) % Neutrophils # (Manual) (9654-6467) /uL RBC Morphology [place] Cells D-Dimer (<230) ng/mL ABG pH (7.35-7.45) ABG pCO2 (35-45) mmHg ABG pO2 (80-100) mmHg ABG HCO3 (22-26) mmol/L ABG Total CO2 (21-31) mmol/L ABG O2 Saturation (95-100) % ABG Base Excess (-2-2) mmol/L FiO2 Sodium (137-145) mmol/L Potassium (3.4-5.1) mmol/L Chloride (98-107) mmol/L Carbon Dioxide (22-32) mmol/L BUN (7-17) mg/dL Creatinine (0.52-1.04) mg/dL Estimated GFR (>60) mL/min BUN/Creatinine Ratio (6-22) Glucose (80-110) mg/dL Lactate 2.4 H (0.7-2.1) mmol/L Calcium (8.4-10.2) mg/dL Ferritin (11-264) ng/mL Total Bilirubin (0.2-1.3) mg/dL AST (14-36) IU/L ALT (<35) IU/L Alkaline Phosphatase (38-126) U/L Lactate Dehydrogenase (313-618) U/L Total Creatine Kinase (30-135) U/L CK-MB (CK-2) (<2.37) ng/mL CK-MB (CK-2) Rel Index (1.5-5.0) % Troponin I 1.490 H* (0.01-0.034) ng/mL C-Reactive Protein (<1.0) mg/dL NT-Pro-B Natriuret Pep (<125) pg/mL Total Protein (6.3-8.2) g/dL Albumin (3.5-5.0) g/dL Globulin (1.7-4.1) g/dL Albumin/Globulin Ratio (1.0-2.8) Procalcitonin (<0.5) ng/mL Urine Color Yellow Urine Appearance Cloudy Urine pH 5.0 (4.5-8.0) Ur Specific Franklin 1.025 (1.000-1.035) Urine Protein 3+ H (Negative) Urine Glucose (UA) Negative (Negative) g/dL Urine Ketones Negative (NEGATIVE) Urine Occult Blood 3+ H (Negative) Urine Nitrate Negative (Negative) Urine Bilirubin Negative (NEGATIVE) Urine Urobilinogen 0.2 (0.2) E.U./dL Ur Leukocyte Esterase Trace H (NEGATIVE) Urine RBC 10-30/hpf H (0-5/HPF) Urine WBC 10-30/hpf H (0-5/HPF) Ur Squamous Epith Cells 1-5 /hpf (0-5/HPF) Amorphous Sediment 1+ Urine Bacteria Many (>30) H (None) Urine Mucus 2+ H (Negative) Ur Culture Indicated? Specimen cultured A. baumannii (PCR) (Not Detect) Kennedi albicans (PCR) (Not Detect) C. glabrata (PCR) (Not Detect) C. krusei (PCR) (Not Detect) C. parapsilosis (PCR) (Not Detect) C. tropicalis (PCR) (Not Detect) COVID-19 PCR Enterobacteriac sp PCR (Not Detect) E. cloacae complex PCR (Not Detect) Enterococcus sp PCR (Not Detect) E. coli (PCR) (Not Detect) H. influenzae (PCR) (Not Detect) Influenza A (RT-PCR) (NEGATIVE) Influenza B (RT-PCR) (NEGATIVE) Klebsiella oxytoca PCR (Not Detect) Klebsiella pneumoniae (Not Detect) List. monocytogenes PCR (Not Detect) N. meningitidis (PCR) (Not Detect) Proteus species (PCR) (Not Detect) Serratia marcescens PCR (Not Detect) Staphylococcus sp PCR (Not Detect) Staph aureus (PCR) (Not Detect) mecA-Methicil Res Gene Streptococcus sp PCR (Not Detect) Group A Strep (PCR) (Not Detect) Strep agalactiae (PCR) (Not Detect) Strep pneumoniae (PCR) (Not Detect) P. aeruginosa (PCR) (Not Detect) Daly/B-Vanco Res Genes KPC-Carbap Res Gene PCR (Not Detect) 03/13/20 Range/Units 13:59 WBC (4.5-11.0) X10^3/uL RBC (4.0-5.2) X10^6/uL Hgb (12.0-16.0) g/dL Hct (36-46) % MCV (80-100) fL MCH (26-34) PG MCHC (30-36) % RDW (11.6-14.8) % Plt Count (150-400) X10^3/uL Neut % (Auto) Lymph % (Auto) Christian % (Auto) Eos % (Auto) Baso % (Auto) Lymph # (Auto) Christian # (Auto) Baso # (Auto) Total Counted Seg Neutrophils % (38-70) % Band Neutrophils % (3-7) % Lymphocytes % (Manual) (25-45) % Atypical Lymphs % ( - 0) % Monocytes % (Manual) (2-11) % Neutrophils # (Manual) (8956-1307) /uL RBC Morphology [place] Cells D-Dimer (<230) ng/mL ABG pH 7.33 L (7.35-7.45) ABG pCO2 40.1 (35-45) mmHg ABG pO2 82 (80-100) mmHg ABG HCO3 21 L (22-26) mmol/L ABG Total CO2 22 (21-31) mmol/L ABG O2 Saturation 95 (95-100) % ABG Base Excess -5.0 L (-2-2) mmol/L FiO2 0.28 Sodium (137-145) mmol/L Potassium (3.4-5.1) mmol/L Chloride (98-107) mmol/L Carbon Dioxide (22-32) mmol/L BUN (7-17) mg/dL Creatinine (0.52-1.04) mg/dL Estimated GFR (>60) mL/min BUN/Creatinine Ratio (6-22) Glucose (80-110) mg/dL Lactate (0.7-2.1) mmol/L Calcium (8.4-10.2) mg/dL Ferritin (11-264) ng/mL Total Bilirubin (0.2-1.3) mg/dL AST (14-36) IU/L ALT (<35) IU/L Alkaline Phosphatase (38-126) U/L Lactate Dehydrogenase (313-618) U/L Total Creatine Kinase (30-135) U/L CK-MB (CK-2) (<2.37) ng/mL CK-MB (CK-2) Rel Index (1.5-5.0) % Troponin I (0.01-0.034) ng/mL C-Reactive Protein (<1.0) mg/dL NT-Pro-B Natriuret Pep (<125) pg/mL Total Protein (6.3-8.2) g/dL Albumin (3.5-5.0) g/dL Globulin (1.7-4.1) g/dL Albumin/Globulin Ratio (1.0-2.8) Procalcitonin (<0.5) ng/mL Urine Color Urine Appearance Urine pH (4.5-8.0) Ur Specific Franklin (1.000-1.035) Urine Protein (Negative) Urine Glucose (UA) (Negative) g/dL Urine Ketones (NEGATIVE) Urine Occult Blood (Negative) Urine Nitrate (Negative) Urine Bilirubin (NEGATIVE) Urine Urobilinogen (0.2) E.U./dL Ur Leukocyte Esterase (NEGATIVE) Urine RBC (0-5/HPF) Urine WBC (0-5/HPF) Ur Squamous Epith Cells (0-5/HPF) Amorphous Sediment Urine Bacteria (None) Urine Mucus (Negative) Ur Culture Indicated? A. baumannii (PCR) (Not Detect) Kennedi albicans (PCR) (Not Detect) C. glabrata (PCR) (Not Detect) C. krusei (PCR) (Not Detect) C. parapsilosis (PCR) (Not Detect) C. tropicalis (PCR) (Not Detect) COVID-19 PCR Enterobacteriac sp PCR (Not Detect) E. cloacae complex PCR (Not Detect) Enterococcus sp PCR (Not Detect) E. coli (PCR) (Not Detect) H. influenzae (PCR) (Not Detect) Influenza A (RT-PCR) (NEGATIVE) Influenza B (RT-PCR) (NEGATIVE) Klebsiella oxytoca PCR (Not Detect) Klebsiella pneumoniae (Not Detect) List. monocytogenes PCR (Not Detect) N. meningitidis (PCR) (Not Detect) Proteus species (PCR) (Not Detect) Serratia marcescens PCR (Not Detect) Staphylococcus sp PCR (Not Detect) Staph aureus (PCR) (Not Detect) mecA-Methicil Res Gene Streptococcus sp PCR (Not Detect) Group A Strep (PCR) (Not Detect) Strep agalactiae (PCR) (Not Detect) Strep pneumoniae (PCR) (Not Detect) P. aeruginosa (PCR) (Not Detect) Daly/B-Vanco Res Genes KPC-Carbap Res Gene PCR (Not Detect) ECG Data Attestation: I personally reviewed and interpreted this ECG as follows: Interpretation: 0945: The patient's EKG obtained at 9:30 a.m. reveals a questionable sinus rhythm that is irregular and may actually represent atrial fibrillation. There are few P-waves visible. The patient has a Q-wave in V1. There are no acute diagnostic ST segment changes noted. The T-waves are flat in V6 inverted in V5 and V4 as well as V3. T-waves are also inverted in aVL and I. There is a Q-wave in lead aVL. Patient appears to have lateral wall ischemia. The patient has a marked right axis deviation. She has what appears to be an incomplete right bundle branch block with a QRS of 102 milliseconds. Ventricular rate is tachycardic at 1:01 a.m.. QTC is prolonged at 529 milliseconds. 1219: Discharge Plan Departure Patient Disposition: [facility] Clinical Impression: Shortness of breath, Tachypnea, Acidosis, lactic, Elevated troponin, Non-ST elevated myocardial infarction (non-STEMI) Fever Qualifiers: Fever type: unspecified Qualified Code(s): R50.9 - Fever, unspecified Sepsis Qualifiers: Sepsis type: sepsis due to unspecified organism Sepsis acute organ dysfunction status: unspecified Qualified Code(s): A41.9 - Sepsis, unspecified organism Discharge Date/Time: 03/13/20 16:48 Prescriptions: No Action calcium carbonate 500 mg calcium (1,250 mg) tablet 1,000 mg PO DAILY RF: 0 camphor-menthol 0.5-0.5 % lotion 1 applictn TOP BID PRNRF: 0 atorvastatin 20 mg tablet 20 mg PO DAILY Qty: 90 RF: 3 triamcinolone acetonide 0.1 % cream See Rx Instructions TOP BID Qty: 30 RF: 0 ketoconazole 2 % cream See Rx Instructions TOP BID Qty: 30 RF: 0 metformin 500 mg tablet 500 mg PO BID Qty: 180 RF: 3 furosemide [Lasix] 20 mg tablet 20 mg PO DAILY Qty: 30 RF: 0 sertraline [Zoloft] 50 mg tablet 50 mg PO BEDTIME Qty: 60 RF: 5 olmesartan [Benicar] 40 mg tablet 40 mg PO DAILY Qty: 90 RF: 3 acetaminophen 500 mg Tablet 1,000 mg PO Q6H PRN (Reason: Pain (Scale Score 1-3)) RF: 0 ascorbic acid (vitamin C) 500 mg Tablet 500 mg PO DAILY RF: 0 aspirin 81 mg Tablet,Chewable 81 mg PO DAILY RF: 0 diclofenac sodium [Voltaren] 1 % Gel 5 g TOPICAL Q12H PRN (Reason: Pain (Scale Score 1-3)) RF: 0 cholecalciferol (vitamin D3) 2,000 unit Tablet 2,000 unit PO DAILY RF: 0 Referrals: Marc Navarrete MD [Primary Care Provider] -
[2020-03-13] MEDS: SODIUM CHLORIDE 0.9% 1,000 ML 1000 ML IV ×2 (09:50→10:52)
[2020-03-13 09:59] LABS: HCO3 ABG 19 mmol/L (22-26); Oxygen Saturation ABG 94 % (95-100); PCO2 ABG 32.9 mmHg (35-45); PO2 ABG 71 mmHg (80-100); TCO2 ABG 20 mmol/L (21-31); pH ABG 7.36 (7.35-7.45)
[2020-03-13 09:59] LABS: Hematocrit 35.8 % (36-46); Hemoglobin 11.5 g/dL (12.0-16.0); Mean Corpuscular HGB Conc 32.1 % (30-36); Mean Corpuscular Hemoglobin 25.8 PG (26-34); Mean Corpuscular Volume 80.5 fL (80-100); Platelet Count 132 X10^3/uL (150-400); Red Blood Cell Count 4.45 X10^6/uL (4.0-5.2); Red Cell Distribution Width 15.9 % (11.6-14.8); White Blood Cell Count 18.4 X10^3/uL (4.5-11.0)
[2020-03-13 10:00] LABS: Add Manual Diff / Slide Review YES
[2020-03-13 10:01] LABS: Fractionated Inspired Oxygen 21
[2020-03-13 10:13] LABS: Lactate Dehydrogenase 846 U/L (313-618)
[2020-03-13 10:20] LABS: Burr Cells 2+; Neutrophils Absolute Manual 16376 /uL (3000-5900); Total Cells Counted 100
[2020-03-13 10:24] LABS: Lactate (Lactic Acid) 4.8 mmol/L (0.7-2.1)
[2020-03-13 10:27] LABS: Procalcitonin 51.13 ng/mL (<0.5)
[2020-03-13 10:31] LABS: D Dimer 6753 ng/mL (<230)
[2020-03-13 10:38] LABS: NT-proBNP (BNP-Adult 18+) 47600 pg/mL (<125)
[2020-03-13 10:42] LABS: Alanine Aminotransferase 28 IU/L (<35); Albumin 3.6 g/dL (3.5-5.0); Alkaline Phosphatase 105 U/L (38-126); Aspartate Aminotransferase 59 IU/L (14-36); BUN Creatinine Ratio 17.4 (6-22); Bilirubin Total 1.7 mg/dL (0.2-1.3); Blood Urea Nitrogen 36 mg/dL (7-17); Calcium 8.4 mg/dL (8.4-10.2); Carbon Dioxide 19 mmol/L (22-32); Chloride 102 mmol/L (98-107); Creatine Kinase 233 U/L (30-135); Estimated Glomerular Filt Rate 23.8 mL/min (>60); Globulin 3.5 g/dL (1.7-4.1); Glucose 162 mg/dL (80-110); HEMOLYSIS 23 (0-50); Potassium 4.1 mmol/L (3.4-5.1); Sodium 135 mmol/L (137-145); Total Protein 7.1 g/dL (6.3-8.2)
[2020-03-13 10:46] LABS: Ferritin 124 ng/mL (11-264)
[2020-03-13 10:54] LABS: COVID19 -Nasal RAPID Negative (Negative)
[2020-03-13 10:54] LABS: Influenza A - CEPHEID Flu A NEGATIVE (NEGATIVE); Influenza B - CEPHEID Flu B NEGATIVE (NEGATIVE)
[2020-03-13 10:58] LABS: CKMB % Relative Index 1.3 % (1.5-5.0); Creatine Kinase MB 2.95 ng/mL (<2.37)
[2020-03-13 11:55] LABS: Reflexed Lactate in 2 Hours Y
[2020-03-13] MEDS: HEPARIN 5,000 UNIT/ML VIAL 5000 UNIT IV (12:30)
[2020-03-13] MEDS: PIPERACILLIN-TAZO 4.5 GM/100 ML FROZ.PIGGY IV (12:30)
[2020-03-13] MEDS: HEPARIN DRIP 25,000 UNIT/500 ML IV.SOLN 20 UNIT IV (12:32)
[2020-03-13 13:05] LABS: Lactate 2HR (Lactic Acid Rflx) 2.4 mmol/L (0.7-2.1)
[2020-03-13 13:09] LABS: Appearance Urine UA CLOUDY; Bilirubin Urine UA NEGATIVE (NEGATIVE); Color Urine UA YELLOW; Glucose Urine UA NEGATIVE (Negative); Ketones Urine UA NEGATIVE (NEGATIVE); Leukocyte Esterase Urine UA TRACE (NEGATIVE); Nitrite Urine UA NEGATIVE (Negative); Occult Blood Urine UA 3+ (Negative); Protein Urine UA 3+ (Negative); Specific Gravity Urine UA 1.025 (1.000-1.035); Urobilinogen Urine UA 0.2 E.U./dL (0.2)
[2020-03-13 13:22] LABS: Amorphous Sediment Urine 1+; Bacteria Urine Many (>30); Culture Indicated Urine Specimen Cultured; Mucus Urine 2+ (Negative); RBC Urine 10-30/HPF (0-5/HPF); Squamous Epithelial Cell Urine 1-5 /HPF (0-5/HPF); WBC Urine 10-30/HPF (0-5/HPF)
--- NOTE | 2020-03-13 13:22 | PC.NURSE ---
Dr. Dee states no lasix / diuretic at this time.
[2020-03-13] MEDS: VANCOMYCIN 2,000 MG/400 ML PIGGYBACK 200 MG IV (13:28)
--- NOTE | 2020-03-13 13:36 | DI.RAD.S_ITS ---
PROCEDURE: XR CHEST 1V INDICATIONS: repeat, increased work of breathing TECHNIQUE: One view of the chest was acquired. COMPARISON: [facility], CR, XR CHEST 1V, 03/13/2020, 10:06. FINDINGS: Surgical changes and devices: None. Lungs and pleura: Lungs are clear. No pleural effusions or pneumothorax. Mediastinum: Mediastinal contours appear normal. Heart size is enlarged.. Bones and chest wall: No suspicious bony lesions. Overlying soft tissues appear unremarkable. IMPRESSION: No acute process. Cardiomegaly. Dictated by: Sallie Vigil M.D. on 03/13/2020 at 13:55 Approved by: Sallie Vigil M.D. on 03/13/2020 at 13:55
--- NOTE | 2020-03-13 13:44 | PC.NURSE ---
Spoke w/ [facility]. Pt has been accepted. Report to FREDA Castillo Coach Operator.
[2020-03-13 14:13] LABS: Fractionated Inspired Oxygen 0.28; HCO3 ABG 21 mmol/L (22-26); Oxygen Saturation ABG 95 % (95-100); PCO2 ABG 40.1 mmHg (35-45); PO2 ABG 82 mmHg (80-100); TCO2 ABG 22 mmol/L (21-31); pH ABG 7.33 (7.35-7.45)
[2020-03-13 23:35] LABS: Acinetobacter baumannii Not Detected (Not Detect); Enterobacteriaceae species Detected (Not Detect); Enterococcus species Not Detected (Not Detect); KPC (carbapenem-resist gene) Not Detected (Not Detect); Listeria monocytogenes Not Detected (Not Detect); Staphylococcus species Not Detected (Not Detect); Streptococcus agalactiae (Gr B Not Detected (Not Detect); Streptococcus pneumonia Not Detected (Not Detect); Streptococcus pyogenes (Gr A) Not Detected (Not Detect); Streptococcus species Not Detected (Not Detect)
[2020-03-13 23:38] LABS: Candida albicans Not Detected (Not Detect); Candida glabrata Not Detected (Not Detect); Candida krusei Not Detected (Not Detect); Candida parapsilosis Not Detected (Not Detect); Candida tropicalis Not Detected (Not Detect); E. coli Detected (Not Detect); Enterobacter cloacae complex Not Detected (Not Detect); Haemophilus influenzae Not Detected (Not Detect); Neisseria meningitidis Not Detected (Not Detect); Proteus species Not Detected (Not Detect); Pseudomonas aeruginosa Not Detected (Not Detect); Serratia marcescens Not Detected (Not Detect)
--- NOTE | 2020-03-14 03:30 | PC.NURSE ---
Positive blood culture results were faxed to [facility] ICU at [phone]
--- NOTE | 2020-04-11 16:16 | PC.NURSE ---
Late entry: Heparin infusing as documented completed for purposes of [facility] documentation on 03/13/20 @ 1646 upon transfer of care to transport team. Heparin continued during transport under transport team guidance.
== END 2020-03-13 16:48 | disposition short-term general hospital (02) ==
PROVIDERS: Emergency Provider Emergency Medicine; PCP Family Medicine
DX: I21.4 Non-ST elevation (NSTEMI) myocardial infarction (principal); A41.9 Sepsis, unspecified organism; R06.82 Tachypnea, not elsewhere classified; E87.2 Acidosis; R79.89 Other specified abnormal findings of blood chemistry; R50.9 Fever, unspecified; R05 Cough
CPT/HCPCS: 36415; 36600; 51701; 71045; 80053; 81001; 82550; 82553; 82728; 82805; 83605; 83615; 83880; 84145; 84484; 85025; 85379; 86140; 87040; 87077; 87086; 87150; 87186; 87205; 87502; 87635; 93005; 96361; 96365; 96366; 96368; 96375; 99285; J1644; J2543

== ENCOUNTER → 2020-05-02 09:51 | Outpatient (CLI) | payer MEDICARE, SELFPAY ==
[2018-12-22 22:06] VITALS: BMI 47.5
[2020-05-02 11:02] LABS: Add Manual Diff / Slide Review NO; Basophils Absolute Auto 100 /uL (0-100); Basophils Percent Auto 1.1 % (0-2); Eosinophils Absolute Auto 200 /uL (0-450); Eosinophils Percent Auto 3.4 % (2-4); Hematocrit 37.9 % (36-46); Hemoglobin 12.2 g/dL (12.0-16.0); Hemoglobin A1C% w Est Avg Glu 6.1 % (4.0-6.0); Lymphocytes Absolute Auto 1700 /uL (1100-4500); Lymphocytes Percent Auto 26.4 % (25-40); Mean Corpuscular HGB Conc 32.1 % (30-36); Mean Corpuscular Hemoglobin 25.7 PG (26-34); Monocytes Absolute Auto 600 /uL (0-900); Monocytes Percent Auto 9.6 % (3-14); Neutrophils Absolute Auto 3800 /uL (1500-7000); Neutrophils Percent Auto 59.5 % (50-75); Platelet Count 281 X10^3/uL (150-400); Red Blood Cell Count 4.74 X10^6/uL (4.0-5.2); Red Cell Distribution Width 18.5 % (11.6-14.8); White Blood Cell Count 6.4 X10^3/uL (4.5-11.0)
[2020-05-02 11:17] LABS: Alanine Aminotransferase 14 IU/L (<35); Albumin 4.3 g/dL (3.5-5.0); Albumin Globulin Ratio 0.9 (1.0-2.8); Alkaline Phosphatase 88 U/L (38-126); Aspartate Aminotransferase 33 IU/L (14-36); BUN Creatinine Ratio 19.1 (6-22); Blood Urea Nitrogen 22 mg/dL (7-17); Calcium 9.6 mg/dL (8.4-10.2); Carbon Dioxide 26 mmol/L (22-32); Chloride 104 mmol/L (98-107); Estimated Glomerular Filt Rate 46.9 mL/min (>60); Globulin 4.6 g/dL (1.7-4.1); Glucose 128 mg/dL (80-110); HEMOLYSIS < 15 (0-50); Potassium 4.5 mmol/L (3.4-5.1); Sodium 140 mmol/L (137-145); Total Protein 8.9 g/dL (6.3-8.2)
[2020-05-02 11:44] LABS: TSH w/ Reflex to FT4 1.67 uIU/mL (0.47-4.68)
== END ==
PROVIDERS: PCP Family Medicine; Referring Provider Family Medicine; Visit Provider Family Medicine
DX: E11.9 Type 2 diabetes mellitus without complications (principal); E78.5 Hyperlipidemia, unspecified; I10 Essential (primary) hypertension; N18.3 Chronic kidney disease, stage 3 (moderate)
CPT/HCPCS: 36415; 80053; 83036; 84443; 85025

== ENCOUNTER → 2020-05-08 08:10 | Outpatient (CLI) | payer MEDICARE, SELFPAY ==
[2018-12-22 22:06] VITALS: BMI 47.5
[2020-05-08 09:14] LABS: BUN Creatinine Ratio 29.9 (6-22); Blood Urea Nitrogen 50 mg/dL (7-17); Calcium 10.1 mg/dL (8.4-10.2); Carbon Dioxide 28 mmol/L (22-32); Chloride 100 mmol/L (98-107); Estimated Glomerular Filt Rate 30.5 mL/min (>60); Glucose 150 mg/dL (80-110); HEMOLYSIS < 15 (0-50); Potassium 4.8 mmol/L (3.4-5.1); Sodium 138 mmol/L (137-145)
[2020-05-09 07:37] LABS: COVID19 Sendout Not Detected (Not Detect)
== END ==
PROVIDERS: Physician Assistant; PCP Family Medicine; Referring Provider Nurse Practitioner; Visit Provider Nurse Practitioner
DX: I48.91 Unspecified atrial fibrillation (principal); E78.5 Hyperlipidemia, unspecified; I21.9 Acute myocardial infarction, unspecified; I10 Essential (primary) hypertension; R06.02 Shortness of breath; I50.23 Acute on chronic systolic (congestive) heart failure; Z11.59 Encounter for screening for other viral diseases
CPT/HCPCS: 36415; 80048; 87635

== ENCOUNTER → 2020-05-31 07:54 | Outpatient (CLI) | payer MEDICARE, SELFPAY ==
[2018-12-22 22:06] VITALS: BMI 47.5
[2020-05-31 09:53] LABS: Add Manual Diff / Slide Review NO; Basophils Absolute Auto 100 /uL (0-100); Basophils Percent Auto 0.8 % (0-2); Eosinophils Absolute Auto 200 /uL (0-450); Hematocrit 37.6 % (36-46); Hemoglobin 12.3 g/dL (12.0-16.0); Lymphocytes Absolute Auto 2100 /uL (1100-4500); Lymphocytes Percent Auto 33.4 % (25-40); Mean Corpuscular HGB Conc 32.8 % (30-36); Mean Corpuscular Hemoglobin 26.4 PG (26-34); Mean Corpuscular Volume 80.5 fL (80-100); Monocytes Absolute Auto 500 /uL (0-900); Monocytes Percent Auto 7.6 % (3-14); Neutrophils Absolute Auto 3300 /uL (1500-7000); Neutrophils Percent Auto 54.2 % (50-75); Platelet Count 198 X10^3/uL (150-400); Red Blood Cell Count 4.66 X10^6/uL (4.0-5.2); Red Cell Distribution Width 18.1 % (11.6-14.8); White Blood Cell Count 6.2 X10^3/uL (4.5-11.0)
[2020-05-31 10:07] LABS: Alanine Aminotransferase 17 IU/L (<35); Albumin 4.2 g/dL (3.5-5.0); Albumin Globulin Ratio 1.1 (1.0-2.8); Alkaline Phosphatase 62 U/L (38-126); Aspartate Aminotransferase 31 IU/L (14-36); BUN Creatinine Ratio 23.5 (6-22); Bilirubin Total 0.8 mg/dL (0.2-1.3); Blood Urea Nitrogen 46 mg/dL (7-17); Calcium 9.7 mg/dL (8.4-10.2); Carbon Dioxide 25 mmol/L (22-32); Chloride 104 mmol/L (98-107); Cholesterol 141 mg/dL (140-199); Estimated Glomerular Filt Rate 25.4 mL/min (>60); Glucose 125 mg/dL (80-110); HDL Cholesterol 55 mg/dL (40-60); HEMOLYSIS < 15 (0-50); LDL Cholesterol Calculated 61 mg/dL (<100); Magnesium 1.8 mg/dL (1.6-2.3); Potassium 5.1 mmol/L (3.4-5.1); Sodium 137 mmol/L (137-145); Total Protein 8.2 g/dL (6.3-8.2); Triglycerides 123 mg/dL (35-150)
[2020-05-31 10:11] LABS: NT-proBNP (BNP-Adult 18+) 3170 pg/mL (<125)
[2020-05-31 10:36] LABS: Thyroid Stimulating Hormone 1.68 uIU/mL (0.47-4.68)
== END ==
PROVIDERS: PCP Family Medicine; Referring Provider Nurse Practitioner; Visit Provider Nurse Practitioner
DX: I10 Essential (primary) hypertension (principal); I48.91 Unspecified atrial fibrillation; E78.5 Hyperlipidemia, unspecified; I21.9 Acute myocardial infarction, unspecified; R06.02 Shortness of breath; I50.23 Acute on chronic systolic (congestive) heart failure
CPT/HCPCS: 36415; 80053; 80061; 83735; 83880; 84443; 85025

== ENCOUNTER → 2020-08-28 08:02 | Outpatient (CLI) | payer MEDICARE, SELFPAY ==
[2018-12-22 22:06] VITALS: BMI 47.5
[2020-08-28 08:34] LABS: Add Manual Diff / Slide Review NO; Basophils Absolute Auto 100 /uL (0-100); Eosinophils Absolute Auto 600 /uL (0-450); Eosinophils Percent Auto 6.7 % (2-4); Hematocrit 37.1 % (36-46); Hemoglobin 12.5 g/dL (12.0-16.0); Lymphocytes Absolute Auto 2900 /uL (1100-4500); Lymphocytes Percent Auto 35.8 % (25-40); Mean Corpuscular HGB Conc 33.8 % (30-36); Mean Corpuscular Hemoglobin 29.1 PG (26-34); Mean Corpuscular Volume 86.4 fL (80-100); Monocytes Absolute Auto 800 /uL (0-900); Monocytes Percent Auto 9.4 % (3-14); Neutrophils Absolute Auto 3800 /uL (1500-7000); Neutrophils Percent Auto 47.1 % (50-75); Platelet Count 274 X10^3/uL (150-400); Red Cell Distribution Width 16.3 % (11.6-14.8); White Blood Cell Count 8.2 X10^3/uL (4.5-11.0)
[2020-08-28 08:42] LABS: Hemoglobin A1C% w Est Avg Glu 5.6 % (4.0-6.0)
[2020-08-28 09:12] LABS: Blood Urea Nitrogen 36 mg/dL (7-17); Calcium 10.1 mg/dL (8.4-10.2); Carbon Dioxide 24 mmol/L (22-32); Chloride 108 mmol/L (98-107); Estimated Glomerular Filt Rate 31.1 mL/min (>60); Glucose 122 mg/dL (80-110); HEMOLYSIS < 15 (0-50); Potassium 5.1 mmol/L (3.4-5.1); Sodium 140 mmol/L (137-145)
== END ==
PROVIDERS: PCP Family Medicine; Referring Provider Family Medicine; Visit Provider Family Medicine
DX: E11.9 Type 2 diabetes mellitus without complications (principal); N18.30 Chronic kidney disease, stage 3 unspecified; I48.91 Unspecified atrial fibrillation
CPT/HCPCS: 36415; 80048; 83036; 85025

== ENCOUNTER → 2020-09-27 07:42 | Outpatient (CLI) | payer MEDICARE, SELFPAY ==
[2018-12-22 22:06] VITALS: BMI 47.5
--- NOTE | 2020-09-27 | DI.ECHO.S_ITS ---
[facility] +---------+ [facility] +---------+ : : [address] : : : : [id number] : : : : Phone: [phone]---------+ Echocardiogram Report + + :Name: OLAMIDE ESQUIVEL Study Date: 09/27/2020 Height: 67 in : :[facility] ReadingLocation: Weight: 272 lb : : Gender: Female BSA: 2.3 m2 : :: 1950 Age: 70 yrs BP: 152/77 mmHg: :Reason For Study: LV DYSFUNCTION : :Ordering Physician: EVAN, : :PREM Performed By: Jaki Penny : :Referring: PREM GORDON : + + Interpretation Summary Limited study. Color Doppler evaluation of valves were not performed. The patient was in atrial flutter/atrial fibrillation with heart rates between 45-63 bpm during the exam. The left ventricle is mildly dilated. The ejection fraction is estimated to be 45-50%. The right ventricle is mildly dilated. Right ventricular systolic function is at the lower limits of normal. The left atrium is moderately dilated. The IVC is of normal diameter and collapses greater than 50% with a sniff. This suggests a low right atrial pressure of 3 mm Hg. Procedure: A two-dimensional transthoracic echocardiogram with color flow and Doppler was performed in limited views only to assess Heart Disease for LV Function.. The study quality was technically adequate. There is no prior echocardiogram noted for this patient. The patient was in atrial fibrillation with heart rates between 45-63 bpm during the exam. Left Ventricle: The left ventricle is mildly dilated. There is normal left ventricular wall thickness. There is no thrombus. The ejection fraction is estimated to be 45-50%. There are no focal wall motion abnormalities. Not assessed. Right Ventricle: The right ventricle is mildly dilated. Right ventricular systolic function is at the lower limits of normal. Atria: The left atrium is moderately dilated. The right atrium is mildly dilated. Mitral Valve: The mitral valve leaflets appear to open well. There is mild mitral annular calcification. No color Doppler was performed. Aortic Valve: The aortic valve is trileaflet. The aortic valve opens well. The aortic valve is slightly calcified. There is no aortic valve stenosis. The aortic valve area is 2.7 centimeters squared by planimetry. Tricuspid Valve: The tricuspid valve is not well visualized, but is grossly normal. Great Vessels: The IVC is of normal diameter and collapses greater than 50% with a sniff. This suggests a low right atrial pressure of 3 mm Hg. Pericardium/ Pleura There is no pericardial effusion. There is no pleural effusion. MMode/2D Measurements & Calculations LVIDd: 5.5 cm LA A2 area: 23.5 cm2 LVIDs: 3.6 cm LA A4 area: 29.9 cm2 FS: 33.8 % LA length (vol): 7.0 cm IVSd: 0.80 cm LA vol: 85.0 ml LVPWd: 0.92 cm LA vol index: 36.9 ml/m2 LV irvin. diameter/BSA (cm/m^2): 2.4 LV sys. diameter/BSA (cm/m^2): 1.6 RA long axis: 7.3 cm RVD1 (basal): 3.9 cm RA area: 29.4 cm2 TAPSE: 1.8 cm RA vol: 101.1 ml RA : 43.9 ml/m2 IVC diam: 1.4 cm KEELEY (plan): 2.7 cm2 Reading Physician:01:10 PM
== END ==
PROVIDERS: PCP Family Medicine; Referring Provider Family Medicine; Visit Provider Internal Medicine Cardiovascular Disease
DX: I51.9 Heart disease, unspecified (principal)
CPT/HCPCS: 93307

== ENCOUNTER → 2020-09-30 08:12 | Outpatient (CLI) | payer MEDICARE, SELFPAY ==
[2018-12-22 22:06] VITALS: BMI 47.5
[2020-09-30 09:08] LABS: BUN Creatinine Ratio 19.8 (6-22); Blood Urea Nitrogen 32 mg/dL (7-17); Carbon Dioxide 25 mmol/L (22-32); Chloride 106 mmol/L (98-107); Cholesterol 142 mg/dL (140-199); Estimated Glomerular Filt Rate 31.5 mL/min (>60); Glucose 115 mg/dL (80-110); HDL Cholesterol 58 mg/dL (40-60); HEMOLYSIS 30 (0-50); LDL Cholesterol Calculated 64 mg/dL (<100); Potassium 4.9 mmol/L (3.4-5.1); Sodium 137 mmol/L (137-145); Triglycerides 101 mg/dL (35-150)
--- OUTSIDE RECORDS SUMMARY | 2020-12-14 09:17 | XMS_ITS | Referral Summary ---
:1950 Author Organization [facility] [address] [place] [address] Care Team Providers Name Role Phone Marc Navarrete Primary Care Provider Reason for Referral Consultation (Routine) Status Reason Specialty Diagnoses / Referred By Referred To Procedures Contact Contact Pending Review Specialty Nephrology Diagnoses Hypertension, unspecified type Atrial fibrillation, unspecified type ([facility]/HCC) Morbid obesity with BMI of 45.0-49.9, adult ([facility]/HCC) Stage 3 chronic kidney disease, unspecified whether stage 3a or 3b CKD Sharath Hernandez [facility] CRISTOPHER Levin Nephrology Required [address] [facility] [address] [place] [address] [place] [address] Phone: Fax: Electronically signed by Sharath NICHOLAS atConsultation (Routine) Status Reason Specialty Diagnoses / Referred By Referred To Procedures Contact Contact Authorized Specialty Sleep Medicine Diagnoses Atrial fibrillation, unspecified type ([facility]/HCC) History of cardioversion Morbid obesity with BMI of 45.0-49.9, adult ([facility]/HCC) Sharath Hernandez ARNP HOSPITAL Required [address] [place] [id number] [place], Phone: [place] [phone] Electronically signed by Sharath NICHOLAS at Reason for Visit Reason Comments Atrial Fibrillation Follow-up Encounter Details Date Type Department Care Team Description 12/05/2020 Office Visit [facility] Sharath Hernandez, Hypertens ion, unspecified type (Primary Dx); Clinics Cardiology STAFF ASSISTANT Atrial fibrillation, unspecified type ([facility]/HCC); e[address] [place] [address] History of cardioversion; [address] Morbid obesity with BMI of 45.0-49.9, ad ult (CMS/HCC); [place], [place] Stage 3 ch ronic kidney disease, unspecified whether stage 3a or 3b [place] [id number] [phone] Allergies Active Allergy Reactions Severity Noted Date Comments Adhesive Tape-Silicones Rash Low 05/02/2020 Cefdinir 04/13/2020 Rash, itching a nd redness. documented as of this encounter (statuses as of 12/12/2020) Medications Medication Sig Dispensed Refills Start Date End Date Status metFORMIN (GLUCOPHAGE) 500 mg 2 (two) 0 03/14/2020 Active 500 mg tablet times a day ascorbic acid, vitamin Take 500 mg by 0 Active C, (VITAMIN C) 500 mg mouth daily tablet mv-mn/iron/folic Take 2,000 Units 0 Active acid/herb 190 (VITAMIN by mouth D3 COMPLETE ORAL) calcium carbonate Take 2 tablets 0 Active (OS-ADOLPH) 500 mg by mouth daily calcium (1,250 mg) tablet ketoconazole (NIZORAL) Apply topically 0 Active 2 % cream as needed glucosamine-chondroiti Take 1 tablet by 0 Active n 500-400 mg tablet mouth atorvastatin (LIPITOR) Take 1 tablet 90 tablet 3 05/02/2020 Active 20 mg tablet (20 mg total) by mouth daily metoprolol succinate Take 1 tablet 90 tablet 3 05/02/2020 Active XL (TOPROL-XL) 50 mg (50 mg total) by 24 hr tablet mouth daily olmesartan (BENICAR) Take 1 tablet 90 tablet 3 05/02/2020 Active 40 mg tablet (40 mg total) by mouth daily spironolactone Take 0.5 tablets 45 tablet 3 05/02/2020 021 Active (ALDACTONE) 25 mg (12.5 mg total) tablet by mouth daily rivaroxaban (XARELTO) Take 1 tablet 90 tablet 3 08/30/2020 Active 15 mg tablet (15 mg total) by mouth daily documented as of this encounter (statuses as of 12/12/2020) Active Problems Problem Noted Date NSTEMI (non-ST elevated myocardial infarction) 020 Acute on chronic systolic heart failure 05/02/2020 Cardiomegaly 05/02/2020 Essential hypertension 05/02/2020 LV dysfunction 05/02/2020 Chronic systolic congestive heart failure 05/02/2020 Shortness of breath 05/02/2020 documented as of this encounter (statuses as of 12/12/2020) Social History Tobacco Use Types Packs/Day Years Used Date Former Smoker Cigarettes 1969 - 1977 Smokeless Tobacco: Never Used Alcohol Use Drinks/Week oz/Week Comments Yes a glass every f ew months Alcohol Habits Answer Date Recorded How often do you have a drink containing alcohol? Monthly or less 05/02/2020 How many drinks containing alcohol do you have on a 1 or 2 05/02/2020 typical day when you are drinking? How often do you have six or more drinks on one Not asked occasion? Sex Assigned at Date Recorded Not on file Job Start Date Occupation Industry Not on file Not on file Not on file documented as of this encounter Last Filed Vital Signs Vital Sign Reading Time Taken Comments Blood Pressure 102/70 12/05/2020 9:32 AM PDT Pulse 63 12/05/2020 9:32 AM PDT Temperature - - Respiratory Rate - - Oxygen Saturation - - Inhaled Oxygen Concentration - - Weight 124 kg (273 lb 12.8 oz) 12/05/2020 9:32 AM PDT Height 170.2 cm (5' 7) 12/05/2020 9:32 AM PDT Body Mass Index 42.88 12/05/2020 9:32 AM PDT documented in this encounter Patient Instructions Patient InstructionsSharath Hernandez ARNP - 12/05/2020 9:30 AM PDT- Continue current medications - Consult with sleep medicine. A referral has been placed. - Consult with a kidney doctor (nephrology). A referral has been placed. documented in this encounter Progress Notes Shraath Hernandez ARNP - 12/05/2020 9:30 AM PDT Subjective Patient ID: Barbara Espinosa is a 70 y.o. female that had concerns including Atrial Fibrillation and Follow-up. HPI: Barbara is a delightful 70-year-old patient of Dr. Courtney who comes to the clinic today for follow-up after cardioversion. She reports some exertional dyspnea prior to cardioversion that improved immediately afterwards. She is taking her medications as prescribed and tolerating it well. She deniesany personal history of hyperthyroid. Patient sleeps alone but does believe that she does snore. She sleeps 5 to 6 hours a night and generally feels rested. She is only a social drinker and can go months without alcohol. She had 1 [employer] hard lemonade since cardioversion. She denies any emotionaldistress. No recent infections. She completed the COVID-19 vaccination but during series without issue. Patient lives alone in a senior independent living apartment. Problem list: Atrial fibrillation Hypertension Hyperlipidemia Prediabetes Past Medical History: Diagnosis Date ??? Arrhythmia ??? Cardiomegaly ??? Diabetes mellitus (CMS/HCC) ??? DVT (deep venous thrombosis) (CMS/HCC) ??? Hyperlipidemia ??? Hypertension ??? Kidney calculi ??? NSTEMI (non-ST elevated myocardial infarction) (CMS/HCC) 05/02/2020 ??? Sepsis (CMS/HCC) ??? Systolic CHF (CMS/HCC) Past Surgical History: Procedure Laterality Date ??? ANKLE FRACTURE SURGERY ??? HYSTERECTOMY 1998 Family History Problem Relation Age of Onset ??? No Known Problems Mother ??? Diabetes Father ??? Heart attack Father 57 ??? No Known Problems Brother Social History Socioeconomic History ??? Marital status: Spouse name: Not on file ??? Number of children: Not on file ??? Years of education: Not on file ??? Highest education level: Not on file Occupational History ??? Not on file Tobacco Use ??? Smoking status: Former Smoker Types: Cigarettes Start date: 1969 Quit date: 1977 Years since quittin.3 ??? Smokeless tobacco: Never Used Substance and Sexual Activity ??? Alcohol use: Yes Comment: a glass every few months ??? Drug use: Never ??? Sexual activity: Defer Other Topics Concern ??? Not on file Social History Narrative ??? Not on file Social Determinants of Health Financial Resource Strain: ??? Difficulty of Paying Living Expenses: Food Insecurity: ??? Worried About Running Out of Food in the Last Year: ??? Ran Out of Food in the Last Year: Transportation Needs: ??? Lack of Transportation (Medical): ??? Lack of Transportation (Non-Medical): Physical Activity: ??? Days of Exercise per Week: ??? Minutes of Exercise per Session: Stress: ??? Feeling of Stress : Social Connections: ??? Frequency of Communication with Friends and Family: ??? Frequency of Social Gatherings with Friends and Family: ??? Attends [employer] Services: ??? Active Member of Clubs or Organizations: ??? Attends Club or Organization Meetings: ??? Marital Status: Allergies Allergen Reactions ??? Cefdinir Rash, itching and redness. ??? Adhesive Tape-Silicones Rash Current Medication List Sig ascorbic acid, vitamin C, (VITAMIN C) 500 mg tablet Take 500 mg by mouth daily atorvastatin (LIPITOR) 20 mg tablet Take 1 tablet (20 mg total) by mouth daily calcium carbonate (OS-ADOLPH) 500 mg calcium (1,250 mg) tablet Take 2 tablets by mouth daily glucosamine-chondroitin 500-400 mg tablet Take 1 tablet by mouth ketoconazole (NIZORAL) 2 % cream Apply topically as needed metFORMIN (GLUCOPHAGE) 500 mg tablet 500 mg 2 (two) times a day metoprolol succinate XL (TOPROL-XL) 50 mg 24 hr tablet Take 1 tablet (50 mg total) by mouth daily mv-mn/iron/folic acid/herb 190 (VITAMIN D3 COMPLETE ORAL) Take 2,000 Units by mouth olmesartan (BENICAR) 40 mg tablet Take 1 tablet (40 mg total) by mouth daily rivaroxaban (XARELTO) 15 mg tablet Take 1 tablet (15 mg total) by mouth daily spironolactone (ALDACTONE) 25 mg tablet Take 0.5 tablets (12.5 mg total) by mouth daily Review of Systems Constitutional: Negative for chills, fatigue and fever. HENT: Negative for nosebleeds. Respiratory: Negative for cough, chest tightness and wheezing. Cardiovascular: Negative for chest pain, palpitations and leg swelling. Gastrointestinal: Negative for abdominal pain and blood in stool. Genitourinary: Negative for hematuria. Musculoskeletal: Negative for arthralgias and myalgias. Neurological: Negative for dizziness, syncope and light-headedness. Hematological: Does not bruise/bleed easily. Psychiatric/Behavioral: Negative for confusion. The patient is not nervous/anxious. Objective BP 102/70 (BP Location: Right arm, Patient Position: Sitting) Pulse 63 Ht 1.702 m Wt 124 kg BMI 42.88 kg/m?? Physical Exam: General Appearance: Well-nourished, pleasant, cooperative, no apparent distress HEET: Normocephalic atraumatic, EOMI Neck: No obvious mass, supple Respiratory: Good aeration, clear to auscultation and percussion, no rales or wheeze Cardiovascular: Irregularly irregular rhythm. Normal rate. Variable S1 and normal S2, no murmurs/rubs/gallops, JVP 4-5 cm, no JVD Pulses: Carotid and radial pulses 2+ bilaterally without bruit, dorsalis pedis and anterior tibial pulses 2+ bilaterally Abdomen: Obese, soft, nondistended, nontender, no heptosplenomegally, no hepatojugular reflux, normal bowel sounds without bruits Extremities: No clubbing, cyanosis or edema Neuro: Alert, no facial droop, tongue midline, no gross motor deficits Psych: Appropriate affect, normal mentation and memory Skin: Warm and dry, no rashes on face, neck, and lower extremities Studies: ECG today, 12/05/20: Atrial fibrillation 63 bpm, QTC 451 ms. ALEX 10/19/20 Interpretation Summary No left atrial mass or thrombus visualized. No thrombus is detected in the left atrial appendage. There is no LV thrombus. ?? Cardioversion 10/19/20 Successful direct current cardioversion with yazidism of sinus rhythm from atrial fibrillation with no immediate complication.?? Transesophageal echocardiogram 09/27/2020 Left ventricle mildly dilated Ejection fraction 45-50% Right ventricle mildly dilated RVSP lower limits of normal Left atrium mildly dilated ZIO monitor 14-day 06/02/20???06/16/20 100% A. fib burden, HR 36-157 bpm, average 64 bpm 6 beats irregular wide QRS tachycardia, max rate 169 bpm, average 143 bpm, likely aberrant conduction Rare PVCs. No sustained ventricular tachycardia. No significant pauses. No symptoms reported Lexiscan 05/25/2020 Interpretation Summary A pharmacologic vasodilator stress and rest myocardial perfusion SPECT study was performed. Gating was unable to be performed to assess ejection fraction and regional wall motion. There was no significant ST segment depression with stress. Reduced uptake was noted in the anterolateral fortune. Most of this normalizes completely with prone imaging, barring a small area in the apex which I believe represents the normal apical slit. The defect noted during stress imaging I believe is due to breast attenuation artifact. No significant areas of ischemia noted. Assessment/Plan Diagnoses and all orders for this visit: Hypertension, unspecified type - ECG 12 Lead (Clinic - Same Day) - *SRC MV Referral to Nephrology Atrial fibrillation, unspecified type ([facility]) - XTRNL Referral to Sleep Medicine - *SRC MV Referral to Nephrology History of cardioversion - XTRNL Referral to Sleep Medicine Morbid obesity with BMI of 45.0-49.9, adult ([facility]) - XTRNL Referral to Sleep Medicine - *SRC MV Referral to Nephrology Stage 3 chronic kidney disease, unspecified whether stage 3a or 3b CKD - *SRC MV Referral to Nephrology Assessment/Plan Comments: Barbara comes to the clinic today for follow-up after successful cardioversion of atrial fibrillationon 10/19/2020. Patient states that before cardioversion she would experience some shortness of breath but no significant symptoms. Since cardioversion she states she feels essentially the same. She is back in atrial fibrillation today with controlled rate. She is anticoagulated with Xarelto 15 mg daily, CKD dosing. Serum creatinine is 1.56 and GFR 34 on 10/19/2020. Barbara states she has never been evaluated for sleep apnea. Referrals for nephrology and sleep medicine has been made. She prefersto have her sleep study done in [place]. -Sleep medicine consultation -Referral to nephrology -Continue current medications -Follow-up after sleep medicine and nephrology consultations Electronically signed by CRISTOPHER Da Silva 12/05/2020 3:41 PM documented in this encounter Plan of Treatment Scheduled Referrals Name Type Priority Associated Diagnoses Order S chedule XTRNL Referral to Outpatient Referral Routine Atrial fibrillat ion, Ordered: Sleep Medicine unspecified type 1 (CMS/HCC) History of cardioversion Morbid obesity with BMI of 45.0-49.9, adult (CMS/HCC) *SRC MV Referral to Outpatient Referral Routine Hypertension, Ordered: Nephrology unspecified type 12/05/2020 Atrial fibrillation, unspecified type (CMS/HCC) Morbid obesity with BMI of 45.0-49.9, adult (CMS/HCC) Stage 3 chronic kidney disease, unspecified whether stage 3a or 3b CKD documented as of this encounter Procedures Procedure Name Priority Date/Time Associated Diagnosis Comme nts ECG 12-LEAD Routine 12/05/2020 3:43 PM Hypertension, Results for this PDT unspecified type procedure a re in the results section. documented in this encounter Results ECG 12 Lead (Clinic - Same Day) (12/05/2020 3:43 PM PDT) Narrative Performed At This result has an attachment that is no t available. documented in this encounter Visit Diagnoses Diagnosis Hypertension, unspecified type - Primary Atrial fibrillation, unspecified type ([facility]/HCC) History of cardioversion Morbid obesity with BMI of 45.0-49.9, ad ult (CMS/HCC) Stage 3 chronic kidney disease, unspecif ied whether stage 3a or 3b CKD documented in this encounter Insurance Payer Benefit Plan / Subscriber ID Effective Dates Phone Addre ss Type Group MEDICARE MEDICARE PART A [id number] 2017-Present AND B [facility] SUPP [id number] 2019-Present SUPP documented as of this encounter Advance Directives Documents on File Type Date Recorded Patient Accounts Payable Accountant Explanati on Advance Directives and Living Will
== END ==
PROVIDERS: PCP Family Medicine; Referring Provider Internal Medicine Cardiovascular Disease; Visit Provider Internal Medicine Cardiovascular Disease
DX: E78.5 Hyperlipidemia, unspecified (principal); I48.11 Longstanding persistent atrial fibrillation
CPT/HCPCS: 36415; 80048; 80061

== ENCOUNTER → 2021-02-24 07:56 | Outpatient (CLI) | payer MEDICARE, SELFPAY ==
[2018-12-22 22:06] VITALS: BMI 47.5
[2021-02-24 08:48] LABS: Hemoglobin A1C% w Est Avg Glu 5.5 % (4.0-6.0)
[2021-02-24 09:45] LABS: Blood Urea Nitrogen 35 mg/dL (7-17); Calcium 10.1 mg/dL (8.4-10.2); Carbon Dioxide 26 mmol/L (22-32); Chloride 106 mmol/L (98-107); Estimated Glomerular Filt Rate 35.5 mL/min (>60); Glucose 106 mg/dL (80-110); HEMOLYSIS < 15 (0-50); Sodium 139 mmol/L (137-145)
[2021-02-24 09:47] LABS: Potassium 5.4 mmol/L (3.4-5.1)
== END ==
PROVIDERS: PCP Family Medicine; Referring Provider Family Medicine; Visit Provider Family Medicine
DX: E11.9 Type 2 diabetes mellitus without complications (principal); N18.30 Chronic kidney disease, stage 3 unspecified
CPT/HCPCS: 36415; 80048; 83036

== ENCOUNTER → 2021-03-06 07:56 | Outpatient (CLI) | payer MEDICARE, SELFPAY ==
[2018-12-22 22:06] VITALS: BMI 47.5
[2021-03-06 09:34] LABS: Blood Urea Nitrogen 34 mg/dL (7-17); Calcium 9.3 mg/dL (8.4-10.2); Carbon Dioxide 23 mmol/L (22-32); Chloride 109 mmol/L (98-107); Estimated Glomerular Filt Rate 40.3 mL/min (>60); Glucose 101 mg/dL (80-110); HEMOLYSIS < 15 (0-50); Potassium 4.9 mmol/L (3.4-5.1); Sodium 139 mmol/L (137-145)
== END ==
PROVIDERS: PCP Family Medicine; Referring Provider Internal Medicine Cardiovascular Disease; Visit Provider Internal Medicine Cardiovascular Disease
DX: N18.30 Chronic kidney disease, stage 3 unspecified (principal); I10 Essential (primary) hypertension
CPT/HCPCS: 36415; 80048

== ENCOUNTER → 2021-05-16 07:00 | Outpatient (CLI) | payer MEDICARE, SELFPAY ==
[2018-12-22 22:06] VITALS: BMI 47.5
--- NOTE | 2021-05-16 | DI.US.S_ITS ---
PROCEDURE: US RENAL COMPLETE INDICATIONS: STAGE 3 CHRONIC RENAL DISEASE TECHNIQUE: Real-time scanning was performed of the kidneys and bladder, with image documentation. COMPARISON: None. FINDINGS: Kidneys: Kidneys are normal in size. Right kidney measures 9.8 cm long; left kidney measures 9.8 cm long. Right renal cortical thickness is 1.6 cm; left renal cortical thickness is 1.2 cm. Renal cortical echotexture is normal. No hydronephrosis. No suspicious solid mass lesions. There is a 6 mm nonobstructing stone seen on the right inferiorly. On the left, there is a nonobstructing 7 mm stone seen superiorly. There is a simple appearing left renal cyst seen that measures 3.5 cm anteriorly and superiorly. Bladder: Evaluation of the bladder is highly limited, secondary to its decompressed state. Miscellaneous: No free pelvic fluid. This study is limited by body habitus. IMPRESSION: Negative for hydronephrosis. Bilateral nonobstructing kidney stones seen. 3.5 cm simple appearing left renal cyst incidentally noted. Evaluation of the bladder is highly limited. Dictated by: Bret Maldonado M.D. on 05/16/2021 at 8:25 Approved by: Bret Maldonado M.D. on 05/16/2021 at 8:27
== END ==
PROVIDERS: PCP Family Medicine; Referring Provider Internal Medicine Nephrology; Visit Provider Internal Medicine Nephrology
DX: N18.30 Chronic kidney disease, stage 3 unspecified (principal); N20.0 Calculus of kidney; N28.1 Cyst of kidney, acquired
CPT/HCPCS: 76770

== ENCOUNTER → 2021-06-27 14:01 | Outpatient (CLI) | payer MEDICARE, SELFPAY ==
[2018-12-22 22:06] VITALS: BMI 47.5
--- NOTE | 2021-06-27 14:04 | DI.CT.S_ITS ---
PROCEDURE: CT KIDNEY URETER BLADDER (KUB) INDICATIONS: Calculus of kidney TECHNIQUE: Axial sections were acquired from the lung bases to the pubic symphysis. Coronal and sagittal reformats were performed. For radiation dose reduction, the following was used: automated exposure control, adjustment of mA and/or kV according to patient size. COMPARISON: [facility], CR, XR CHEST 1V, 03/13/2020, 13:39. FINDINGS: Image quality: Excellent. Lung bases: Unremarkable. Heart: Cardiomegaly. URINARY: Right Kidney: 3 mm nonobstructive middle pole stone. No hydronephrosis. Right Ureter: No hydroureter. Left Kidney: 4 mm nonobstructive left upper pole renal stone. No hydronephrosis. Left Ureter: No hydroureter. Bladder: Bladder is decompressed. No stones. ABDOMEN: Liver: Unremarkable. Gallbladder: Question tiny stone. No gallbladder wall thickening. Biliary ducts: Unremarkable. Pancreas: Unremarkable. Spleen: Unremarkable. Adrenal Glands: Unremarkable. Stomach and Bowel: Extensive sigmoid diverticulosis without evidence of diverticulitis. Diffuse colonic diverticulosis. Peritoneum: No abnormal intraperitoneal fluid. No free air. Ventral Wall: No hernia. Abdominal Nodes: No enlarged retroperitoneal or mesenteric lymph nodes. Vessels: Aorta and inferior vena cava are normal in size. PELVIS: Pelvic Organs: Uterus is surgically absent. Pelvic Nodes: Unremarkable. Miscellaneous: Small fat containing left inguinal hernia. Bones: Lumbar degenerative change. No lytic or blastic bony lesions. No compression fractures. IMPRESSION: 1. Bilateral small nonobstructing renal stones. No hydronephrosis. 2. Diffuse colonic diverticulosis, including extensive sigmoid diverticulosis without evidence of diverticulitis. 3. Cardiomegaly. 4. Small fat containing left inguinal hernia. Dictated by: Valente Kirkpatrick M.D. on 06/27/2021 at 15:40 Approved by: Valente Kirkpatrick M.D. on 06/27/2021 at 15:45
== END ==
PROVIDERS: PCP Family Medicine; Referring Provider Urology; Visit Provider Urology
DX: N20.0 Calculus of kidney (principal); K57.30 Diverticulosis of large intestine without perforation or abscess without bleeding; I51.7 Cardiomegaly; K40.90 Unilateral inguinal hernia, without obstruction or gangrene, not specified as recurrent
CPT/HCPCS: 74176

== ENCOUNTER → 2021-09-17 07:55 | Outpatient (CLI) | payer MEDICARE, SELFPAY ==
[2021-07-30 11:49] VITALS: BMI 47.5
[2021-09-17 09:04] LABS: Add Manual Diff / Slide Review NO; Basophils Absolute Auto 100 /uL (0-100); Basophils Percent Auto 1.3 % (0-2); Eosinophils Absolute Auto 400 /uL (0-450); Eosinophils Percent Auto 8.9 % (2-4); Hematocrit 38.5 % (36-46); Lymphocytes Absolute Auto 1100 /uL (1100-4500); Lymphocytes Percent Auto 23.7 % (25-40); Mean Corpuscular HGB Conc 33.9 % (30-36); Mean Corpuscular Hemoglobin 30.1 PG (26-34); Monocytes Absolute Auto 400 /uL (0-900); Monocytes Percent Auto 9.5 % (3-14); Neutrophils Absolute Auto 2500 /uL (1500-7000); Neutrophils Percent Auto 56.6 % (50-75); Platelet Count 174 X10^3/uL (150-400); Red Blood Cell Count 4.33 X10^6/uL (4.0-5.2); Red Cell Distribution Width 13.5 % (11.6-14.8); White Blood Cell Count 4.5 X10^3/uL (4.5-11.0)
[2021-09-17 09:43] LABS: Alanine Aminotransferase 14 IU/L (<35); Albumin Globulin Ratio 1.3 (1.0-2.8); Alkaline Phosphatase 51 U/L (38-126); Aspartate Aminotransferase 28 IU/L (14-36); BUN Creatinine Ratio 18.5 (6-22); Blood Urea Nitrogen 23 mg/dL (7-17); Calcium 9.6 mg/dL (8.4-10.2); Carbon Dioxide 26 mmol/L (22-32); Chloride 106 mmol/L (98-107); Cholesterol 129 mg/dL (140-199); Estimated Glomerular Filt Rate 42.8 mL/min (>60); Globulin 3.1 g/dL (1.7-4.1); Glucose 101 mg/dL (80-110); HDL Cholesterol 70 mg/dL (40-60); HEMOLYSIS 22 (0-50); LDL Cholesterol Calculated 41 mg/dL (<100); Potassium 4.8 mmol/L (3.4-5.1); Sodium 137 mmol/L (137-145); Total Protein 7.1 g/dL (6.3-8.2); Triglycerides 91 mg/dL (35-150)
[2021-09-17 15:12] LABS: Creatinine Urine Random 113.3 mg/dL
[2021-09-17 15:18] LABS: Microalbumi Creatinin Ratio Ur 76.7 ug/mg CR (<30); Microalbumin Urine Random 8.7 mg/dL (0-1.6)
== END ==
PROVIDERS: PCP Family Medicine; Referring Provider Family Medicine; Visit Provider Family Medicine
DX: E11.9 Type 2 diabetes mellitus without complications (principal); I10 Essential (primary) hypertension; E78.5 Hyperlipidemia, unspecified; I48.91 Unspecified atrial fibrillation
CPT/HCPCS: 36415; 80053; 80061; 82043; 82570; 84443; 85025

== ENCOUNTER → 2021-12-20 07:39 | Outpatient (CLI) | payer MEDICARE, SELFPAY ==
[2021-09-20 09:03] VITALS: BMI 47.5
--- NOTE | 2021-12-20 | DI.ECHO.S_ITS ---
[place] [facility]---------+ [facility] +---------+ : : [address] [place] : : : : [id number] : : : : Phone: [phone]+ Echocardiogram Report + + :Name: OLAMIDE ESQUIVEL Study Date: 12/20/2021 Height: 67 in : :[facility] : Weight: 278 lb : : Gender: Female BSA: 2.3 m2 : :: 1950 Age: 71 yrs BP: 147/90 mmHg: :Reason For Study: Cardiomyopathy : :Ordering Physician: Prem : :Osiel Gordon Performed By: Jesus Lubin : :Referring: PREM GORDON : + + Interpretation Summary 1) Mildly enlarged left ventricle with low normal systolic function (EF 50- 55%). 2) The right ventricle is mildly dilated. Right ventricular systolic function is mildly reduced. 3) Both atria are moderately dilated. 4) No significant valvular abnormalities. 5) The right ventricular systolic pressure is estimated to be at least 48 mmHg based on an estimated right atrial pressure of 3 mm Hg. 6) Compared to the Echo done 09/27/2020, LVEF has improved slightly from 45-50% to 50-55% on this study and the RVSP is noted to elevated on this study. Procedure: A two-dimensional transthoracic echocardiogram with color flow and Doppler was performed. The study quality was technically adequate. Comparison is made with the echocardiogram of 09/27/2020. Left Ventricle: The left ventricle is mildly dilated. There is normal left ventricular wall thickness. The ejection fraction is estimated to be 50-55%. Left ventricular systolic function is low normal. There are no focal wall motion abnormalities. Diastolic function could not be accurately assessed due to unobtainable data. Right Ventricle: The right ventricle is mildly dilated. Right ventricular systolic function is mildly reduced. Atria: Both atria are moderately dilated. The interatrial septum grossly appears intact with no obvious evidence for an atrial septal defect. Mitral Valve: The mitral valve is normal in structure and function. There is mild mitral regurgitation. Aortic Valve: The aortic valve is normal in structure and function. There is no aortic valve stenosis. There is trace aortic regurgitation. Tricuspid Valve: The tricuspid valve is normal in structure and function. There is mild tricuspid regurgitation. The right ventricular systolic pressure is estimated to be at least 48 mmHg based on an estimated right atrial pressure of 3 mm Hg. Pulmonic Valve: The pulmonic valve is normal in structure and function. There is mild pulmonic regurgitation. Great Vessels: The aortic root is normal size. The dimensions of the ascending aorta are normal. The IVC is of normal diameter and collapses greater than 50% with a sniff. This suggests a low right atrial pressure of 3 mm Hg. Pericardium/ Pleura There is no pericardial effusion. There is no pleural effusion. MMode/2D Measurements & Calculations LVIDd: 5.2 cm LVOT diam: 2.2 cm LVIDs: 3.7 cm Ao root diam: 3.1 cm FS: 28.5 % asc Aorta Diam: 3.4 cm IVSd: 0.89 cm LVPWd: 0.94 cm LV irvin. diameter/BSA (cm/m^2): 2.2 LV sys. diameter/BSA (cm/m^2): 1.6 LA A2 area: 28.0 cm2 RA long axis: 7.2 cm LA A4 area: 33.1 cm2 RA area: 27.6 cm2 LA length (vol): 7.8 cm RA vol: 90.1 ml LA vol: 100.5 ml RA : 38.7 ml/m2 LA vol index: 43.2 ml/m2 TAPSE: 2.4 cm Doppler Measurements & Calculations Ao V2 max: 128.9 cm/sec LVOT Max Espinoza: 85.9 cm/sec Ao V2 mean: 83.8 cm/sec LV V1 max P.0 mmHg Ao max P.7 mmHg LV V1 VTI: 20.4 cm Ao mean P.1 mmHg KEELEY(I,D): 2.9 cm2 Ao V2 VTI: 26.8 cm KEELEY(V,D): 2.5 cm2 sev ratio: 0.76 KEELEY indexed to BSA (cm^2/m^2): 1.2 TR max espinoza: 337.3 cm/sec SV(LVOT): 76.5 ml TR max P.5 mmHg Reading Physician:12:01 PM
== END ==
PROVIDERS: PCP Family Medicine; Referring Provider Internal Medicine Cardiovascular Disease; Visit Provider Internal Medicine Cardiovascular Disease
DX: I08.1 Rheumatic disorders of both mitral and tricuspid valves; I48.19 Other persistent atrial fibrillation
CPT/HCPCS: 93306

== ENCOUNTER → 2022-03-16 07:29 | Outpatient (CLI) | payer MEDICARE, SELFPAY ==
[2021-09-20 09:03] VITALS: BMI 47.5
[2022-03-16 09:41] LABS: Hemoglobin A1C% w Est Avg Glu 5.6 % (4.0-6.0)
[2022-03-16 09:58] LABS: BUN Creatinine Ratio 22.8 (6-22); Blood Urea Nitrogen 28 mg/dL (7-17); Calcium 9.3 mg/dL (8.4-10.2); Carbon Dioxide 28 mmol/L (22-32); Chloride 105 mmol/L (98-107); Estimated Glomerular Filt Rate 47 mL/min (>60); Glucose 106 mg/dL (80-110); HEMOLYSIS < 15 (0-50); Potassium 5.3 mmol/L (3.4-5.1); Sodium 139 mmol/L (137-145)
== END ==
PROVIDERS: PCP Family Medicine; Referring Provider Family Medicine; Visit Provider Family Medicine
DX: E11.9 Type 2 diabetes mellitus without complications (principal); E78.5 Hyperlipidemia, unspecified
CPT/HCPCS: 36415; 80048; 83036

== ENCOUNTER → 2022-04-25 07:36 | Outpatient (CLI) | payer MEDICARE, SELFPAY ==
[2021-09-20 09:03] VITALS: BMI 47.5
[2022-04-25 10:43] LABS: Appearance Urine UA CLEAR; Bilirubin Urine UA NEGATIVE (NEGATIVE); Color Urine UA YELLOW; Glucose Urine UA NEGATIVE (Negative); Ketones Urine UA NEGATIVE (NEGATIVE); Leukocyte Esterase Urine UA TRACE (NEGATIVE); Nitrite Urine UA POSITIVE (Negative); Occult Blood Urine UA 3+ (Negative); Protein Urine UA TRACE (Negative); Urobilinogen Urine UA 0.2 E.U./dL (0.2)
[2022-04-25 11:18] LABS: BUN Creatinine Ratio 23.6 (6-22); Blood Urea Nitrogen 34 mg/dL (7-17); Calcium 9.2 mg/dL (8.4-10.2); Carbon Dioxide 23 mmol/L (22-32); Chloride 103 mmol/L (98-107); Creatinine Urine Random 97.6 mg/dL; Estimated Glomerular Filt Rate 39 mL/min (>60); Glucose 114 mg/dL (80-110); HEMOLYSIS 25 (0-50); Potassium 4.6 mmol/L (3.4-5.1); Sodium 138 mmol/L (137-145)
[2022-04-25 11:21] LABS: Microalbumin Urine Random 8.2 mg/dL (0-1.6); pH Urine UA 5.5 (4.5-8.0)
[2022-04-25 11:24] LABS: Bacteria Urine Many (>30); Culture Indicated Urine Specimen Cultured; RBC Urine 1-5/HPF (0-5/HPF); Squamous Epithelial Cell Urine 1-5 /HPF (0-5/HPF); WBC Urine 1-5/HPF (0-5/HPF)
[2022-04-25 11:26] LABS: Amorphous Sediment Urine 1+
== END ==
PROVIDERS: PCP Family Medicine; Referring Provider Internal Medicine Nephrology; Visit Provider Internal Medicine Nephrology
DX: N18.30 Chronic kidney disease, stage 3 unspecified (principal)
CPT/HCPCS: 36415; 80048; 81001; 82043; 82570; 87077; 87086; 87186

== ENCOUNTER → 2022-05-01 07:41 | Outpatient (CLI) | payer MEDICARE, SELFPAY ==
[2021-09-20 09:03] VITALS: BMI 47.5
--- NOTE | 2022-05-01 07:45 | DI.MG.S_ITS ---
BILATERAL DIGITAL SCREENING MAMMOGRAM 3D/2D WITH CAD: 05/01/2022 CLINICAL: Routine screening. Comparison is made to exams dated: 12/29/2015 mammogram - [facility], 04/07/2002 mammogram, and 03/03/2001 mammogram - [facility]. Both breasts are almost entirely fatty (category a/<25% glandular tissue). Current study was also evaluated with a Computer Aided Detection (CAD) system. No significant masses, calcifications, or other findings are seen in either breast. There has been no significant interval change. IMPRESSION: NEGATIVE There is no mammographic evidence of malignancy. A 1 year screening mammogram is recommended. Based on the Tyrer Cuzick model (a risk assessment model) the patient's lifetime risk is 2.9% and her 10 year risk is 1.8%. According to the ACR, ACS, and NCCN guidelines, an annual breast MRI exam along with mammogram is recommended if the patient's lifetime risk is 20% or greater. This exam was interpreted at Station ID: [id number]. NOTE: For mammograms, a report in lay terms will be sent to the patient. Approximately 15% of breast malignancies will not be visualized mammographically. In the management of a palpable breast mass, a negative mammogram must not discourage biopsy of a clinically suspicious lesion. Electronically Signed By: Marc Bustos M.D., jr/tiago:05/02/2022 09:48:18 letter sent: Normal Exam ACR BI-RADS Category 1: Negative [id number]
== END ==
PROVIDERS: PCP Family Medicine; Referring Provider Family Medicine; Visit Provider Family Medicine
DX: Z12.31 Encounter for screening mammogram for malignant neoplasm of breast (principal)
CPT/HCPCS: 77063; 77067

== ENCOUNTER → 2022-05-30 10:35 | Outpatient (CLI) | payer MEDICARE, SELFPAY ==
[2021-09-20 09:03] VITALS: BMI 47.5
== END ==
PROVIDERS: PCP Family Medicine; Referring Provider Family Medicine; Visit Provider Family Medicine
DX: M85.852 Other specified disorders of bone density and structure, left thigh (principal); Z13.820 Encounter for screening for osteoporosis; Z78.0 Asymptomatic menopausal state; Z90.710 Acquired absence of both cervix and uterus
CPT/HCPCS: 77080

== ENCOUNTER → 2022-09-21 08:11 | Outpatient (CLI) | payer MEDICARE, SELFPAY ==
[2021-09-20 09:03] VITALS: BMI 47.5
[2022-09-21 09:04] LABS: Add Manual Diff / Slide Review NO; Basophils Absolute Auto 0 /uL (0-100); Basophils Percent Auto 0.7 % (0-2); Eosinophils Absolute Auto 600 /uL (0-450); Eosinophils Percent Auto 13.8 % (2-4); Hematocrit 40.7 % (36-46); Hemoglobin 13.5 g/dL (12.0-16.0); Lymphocytes Absolute Auto 500 /uL (1100-4500); Lymphocytes Percent Auto 12.9 % (25-40); Mean Corpuscular HGB Conc 33.1 % (30-36); Mean Corpuscular Hemoglobin 29.5 PG (26-34); Monocytes Absolute Auto 500 /uL (0-900); Monocytes Percent Auto 12.7 % (3-14); Neutrophils Absolute Auto 2500 /uL (1500-7000); Neutrophils Percent Auto 59.9 % (50-75); Platelet Count 175 X10^3/uL (150-400); Red Blood Cell Count 4.57 X10^6/uL (4.0-5.2); Red Cell Distribution Width 13.4 % (11.6-14.8); White Blood Cell Count 4.2 X10^3/uL (4.5-11.0)
[2022-09-21 09:21] LABS: Hemoglobin A1C% w Est Avg Glu 5.7 % (4.0-6.0)
[2022-09-21 09:30] LABS: Alanine Aminotransferase 15 IU/L (<35); Albumin 4.1 g/dL (3.5-5.0); Albumin Globulin Ratio 1.3 (1.0-2.8); Alkaline Phosphatase 53 U/L (38-126); Aspartate Aminotransferase 24 IU/L (14-36); BUN Creatinine Ratio 13.8 (6-22); Bilirubin Total 1.1 mg/dL (0.2-1.3); Blood Urea Nitrogen 18 mg/dL (7-17); Calcium 9.2 mg/dL (8.4-10.2); Carbon Dioxide 28 mmol/L (22-32); Chloride 104 mmol/L (98-107); Cholesterol 120 mg/dL (140-199); Estimated Glomerular Filt Rate 44 mL/min (>60); Globulin 3.1 g/dL (1.7-4.1); Glucose 112 mg/dL (80-110); HDL Cholesterol 74 mg/dL (40-60); HEMOLYSIS < 15 (0-50); LDL Cholesterol Calculated 31 mg/dL (<100); Sodium 140 mmol/L (137-145); Total Protein 7.2 g/dL (6.3-8.2); Triglycerides 77 mg/dL (35-150)
[2022-09-21 09:34] LABS: Potassium 5.4 mmol/L (3.4-5.1)
== END ==
PROVIDERS: PCP Family Medicine; Referring Provider Family Medicine; Visit Provider Family Medicine
DX: E11.9 Type 2 diabetes mellitus without complications (principal); E66.01 Morbid (severe) obesity due to excess calories; E78.5 Hyperlipidemia, unspecified; I48.91 Unspecified atrial fibrillation
CPT/HCPCS: 36415; 80053; 80061; 83036; 85025

== ENCOUNTER → 2022-09-23 08:02 | Outpatient (CLI) | payer MEDICARE, SELFPAY ==
[2021-09-20 09:03] VITALS: BMI 47.5
[2022-09-23 08:56] LABS: Creatinine Urine Random 111.5 mg/dL
[2022-09-23 09:00] LABS: Microalbumin Urine Random 4.8 mg/dL (0-1.6)
== END ==
PROVIDERS: PCP Family Medicine; Referring Provider Family Medicine; Visit Provider Family Medicine
DX: E11.9 Type 2 diabetes mellitus without complications (principal)
CPT/HCPCS: 82043; 82570

== ENCOUNTER → 2022-11-02 07:49 | Outpatient (CLI) | payer MEDICARE, SELFPAY ==
[2021-09-20 09:03] VITALS: BMI 47.5
[2022-11-02 09:11] LABS: BUN Creatinine Ratio 17.8 (6-22); Blood Urea Nitrogen 24 mg/dL (7-17); Calcium 9.2 mg/dL (8.4-10.2); Carbon Dioxide 28 mmol/L (22-32); Chloride 102 mmol/L (98-107); Estimated Glomerular Filt Rate 42 mL/min (>60); Glucose 116 mg/dL (80-110); HEMOLYSIS < 15 (0-50); Potassium 4.8 mmol/L (3.4-5.1); Sodium 138 mmol/L (137-145)
== END ==
PROVIDERS: PCP Family Medicine; Referring Provider Internal Medicine Cardiovascular Disease; Visit Provider Internal Medicine Cardiovascular Disease
DX: E87.5 Hyperkalemia (principal)
CPT/HCPCS: 36415; 80048

== ENCOUNTER → 2023-04-19 07:56 | Outpatient (CLI) | payer MEDICARE, SELFPAY ==
[2021-09-20 09:03] VITALS: BMI 47.5
[2023-04-19 10:20] LABS: Add Manual Diff / Slide Review NO; Basophils Absolute Auto 100 /uL (0-100); Basophils Percent Auto 1.3 % (0-2); Eosinophils Absolute Auto 500 /uL (0-450); Eosinophils Percent Auto 11.2 % (2-4); Hemoglobin 13.6 g/dL (12.0-16.0); Lymphocytes Absolute Auto 600 /uL (1100-4500); Lymphocytes Percent Auto 15.4 % (25-40); Mean Corpuscular HGB Conc 33.9 % (30-36); Mean Corpuscular Hemoglobin 29.9 PG (26-34); Mean Corpuscular Volume 88.3 fL (80-100); Monocytes Absolute Auto 400 /uL (0-900); Monocytes Percent Auto 9.5 % (3-14); Neutrophils Absolute Auto 2600 /uL (1500-7000); Neutrophils Percent Auto 62.6 % (50-75); Platelet Count 169 X10^3/uL (150-400); Red Blood Cell Count 4.54 X10^6/uL (4.0-5.2); Red Cell Distribution Width 13.9 % (11.6-14.8); White Blood Cell Count 4.2 X10^3/uL (4.5-11.0)
[2023-04-19 10:52] LABS: Creatinine Urine Random 90.5 mg/dL
[2023-04-19 10:57] LABS: BUN Creatinine Ratio 19.2 (6-22); Blood Urea Nitrogen 25 mg/dL (7-17); Calcium 9.3 mg/dL (8.4-10.2); Carbon Dioxide 29 mmol/L (22-32); Chloride 101 mmol/L (98-107); Estimated Glomerular Filt Rate 44 mL/min (>60); Glucose 106 mg/dL (80-110); HEMOLYSIS < 15 (0-50); Potassium 4.9 mmol/L (3.4-5.1); Sodium 136 mmol/L (137-145)
[2023-04-19 11:25] LABS: Microalbumin Urine Random 24.8 mg/dL (0-1.6)
[2023-04-22 07:43] LABS: Parathyroid Hormone Int 54 pg/mL (15-65)
== END ==
PROVIDERS: PCP Family Medicine; Referring Provider Internal Medicine Cardiovascular Disease; Visit Provider Internal Medicine Nephrology
DX: N18.32 Chronic kidney disease, stage 3b (principal)
CPT/HCPCS: 36415; 80069; 82043; 82306; 82570; 83970; 85025

== ENCOUNTER → 2023-10-25 07:59 | Outpatient (CLI) | payer MEDICARE, SELFPAY ==
[2021-09-20 09:03] VITALS: BMI 47.5
[2023-10-25 08:55] LABS: Add Manual Diff / Slide Review NO; Basophils Absolute Auto 0 /uL (0-100); Basophils Percent Auto 0.8 % (0-2); Eosinophils Absolute Auto 300 /uL (0-450); Hemoglobin 12.2 g/dL (12.0-16.0); Lymphocytes Absolute Auto 600 /uL (1100-4500); Mean Corpuscular Hemoglobin 29.2 PG (26-34); Mean Corpuscular Volume 88.4 fL (80-100); Monocytes Absolute Auto 400 /uL (0-900); Monocytes Percent Auto 10.8 % (3-14); Neutrophils Absolute Auto 2800 /uL (1500-7000); Neutrophils Percent Auto 67.4 % (50-75); Platelet Count 159 X10^3/uL (150-400); Red Blood Cell Count 4.19 X10^6/uL (4.0-5.2); Red Cell Distribution Width 14.1 % (11.6-14.8); White Blood Cell Count 4.1 X10^3/uL (4.5-11.0)
[2023-10-25 09:56] LABS: Creatinine Urine Random 79.9 mg/dL
[2023-10-25 10:23] LABS: Alanine Aminotransferase 28 IU/L (<35); Albumin 3.6 g/dL (3.5-5.0); Albumin Globulin Ratio 1.2 (1.0-2.8); Alkaline Phosphatase 77 U/L (38-126); Aspartate Aminotransferase 35 IU/L (14-36); BUN Creatinine Ratio 17.9 (6-22); Bilirubin Total 1.4 mg/dL (0.2-1.3); Blood Urea Nitrogen 22 mg/dL (7-17); Calcium 9.2 mg/dL (8.4-10.2); Carbon Dioxide 28 mmol/L (22-32); Chloride 106 mmol/L (98-107); Cholesterol 102 mg/dL (140-199); Estimated Glomerular Filt Rate 47 mL/min (>60); Globulin 3.1 g/dL (1.7-4.1); Glucose 128 mg/dL (80-110); HDL Cholesterol 62 mg/dL (40-60); HEMOLYSIS < 15 (0-50); LDL Cholesterol Calculated 24 mg/dL (<100); Potassium 5.2 mmol/L (3.4-5.1); Sodium 139 mmol/L (137-145); Total Protein 6.7 g/dL (6.3-8.2); Triglycerides 79 mg/dL (35-150)
[2023-10-25 10:49] LABS: TSH w/ Reflex to FT4 1.99 uIU/mL (0.47-4.68)
[2023-10-25 11:18] LABS: Microalbumi Creatinin Ratio Ur 1337.9 ug/mg CR (<30); Microalbumin Urine Random 106.9 mg/dL (0-1.6)
[2023-10-25 11:32] LABS: Hemoglobin A1C% w Est Avg Glu 5.8 % (4.0-6.0)
== END ==
LOC: LAB 08:06
PROVIDERS: PCP Family Medicine; Referring Provider Internal Medicine Cardiovascular Disease; Visit Provider Internal Medicine Cardiovascular Disease
DX: E78.5 Hyperlipidemia, unspecified (principal); E11.9 Type 2 diabetes mellitus without complications; N18.30 Chronic kidney disease, stage 3 unspecified
CPT/HCPCS: 36415; 80053; 80061; 82043; 82570; 83036; 84443; 85025

== ENCOUNTER → 2024-01-01 10:47 | Outpatient (CLI) | payer MEDICARE, SELFPAY ==
[2021-09-20 09:03] VITALS: BMI 47.5
--- NOTE | 2024-01-01 10:49 | DI.RAD.S_ITS ---
PROCEDURE: XR CHEST 2V INDICATIONS: short of breath pulomnary edema TECHNIQUE: 2 views of the chest were acquired. COMPARISON: [facility], CR, XR CHEST 1V, 03/13/2020, 13:39. FINDINGS: Surgical changes and devices: None. Lungs and pleura: Increased pulmonary vascularity. No consolidations. Mediastinum: Mediastinal contours are normal. Heart size is enlarged. Bones and chest wall: No suspicious bony abnormalities. Soft tissues appear unremarkable. IMPRESSION: Cardiomegaly and increased vascularity suggestive of edema. Dictated by: Shaila Shepherd M.D. on 01/01/2024 at 17:02 Approved by: Shaila Shepherd M.D. on 01/01/2024 at 17:02
[2024-01-01 12:53] LABS: Add Manual Diff / Slide Review NO; Basophils Absolute Auto 0 /uL (0-100); Eosinophils Absolute Auto 100 /uL (0-450); Eosinophils Percent Auto 2.8 % (2-4); Hematocrit 35.8 % (36-46); Hemoglobin 11.7 g/dL (12.0-16.0); Lymphocytes Absolute Auto 400 /uL (1100-4500); Lymphocytes Percent Auto 10.3 % (25-40); Mean Corpuscular HGB Conc 32.7 % (30-36); Mean Corpuscular Hemoglobin 29.1 PG (26-34); Mean Corpuscular Volume 89.1 fL (80-100); Monocytes Absolute Auto 400 /uL (0-900); Monocytes Percent Auto 10.4 % (3-14); Neutrophils Absolute Auto 2900 /uL (1500-7000); Neutrophils Percent Auto 75.5 % (50-75); Platelet Count 134 X10^3/uL (150-400); Red Blood Cell Count 4.01 X10^6/uL (4.0-5.2); Red Cell Distribution Width 15.1 % (11.6-14.8); White Blood Cell Count 3.8 X10^3/uL (4.5-11.0)
[2024-01-01 13:21] LABS: Alanine Aminotransferase 14 IU/L (<35); Albumin 4.1 g/dL (3.5-5.0); Albumin Globulin Ratio 1.3 (1.0-2.8); Alkaline Phosphatase 89 U/L (38-126); Aspartate Aminotransferase 26 IU/L (14-36); BUN Creatinine Ratio 20.5 (6-22); Bilirubin Total 1.7 mg/dL (0.2-1.3); Blood Urea Nitrogen 25 mg/dL (7-17); Calcium 9.2 mg/dL (8.4-10.2); Carbon Dioxide 26 mmol/L (22-32); Chloride 109 mmol/L (98-107); Estimated Glomerular Filt Rate 47 mL/min (>60); Globulin 3.2 g/dL (1.7-4.1); Glucose 107 mg/dL (80-110); HEMOLYSIS < 15 (0-50); Sodium 143 mmol/L (137-145); Total Protein 7.3 g/dL (6.3-8.2)
[2024-01-01 13:25] LABS: NT-proBNP (BNP-Adult 18+) 5260 pg/mL (<125)
[2024-01-01 13:46] LABS: TSH w/ Reflex to FT4 1.97 uIU/mL (0.47-4.68)
== END ==
PROVIDERS: PCP Family Medicine; Referring Provider Family Medicine; Visit Provider Family Medicine
DX: I48.91 Unspecified atrial fibrillation (principal); I51.7 Cardiomegaly; E66.01 Morbid (severe) obesity due to excess calories; N18.30 Chronic kidney disease, stage 3 unspecified; E11.22 Type 2 diabetes mellitus with diabetic chronic kidney disease
CPT/HCPCS: 36415; 71046; 80053; 83880; 84443; 85025

== ENCOUNTER → 2024-01-21 07:28 | Outpatient (CLI) | payer MEDICARE, SELFPAY ==
[2021-09-20 09:03] VITALS: BMI 47.5
[2024-01-21 08:31] LABS: Add Manual Diff / Slide Review NO; Basophils Absolute Auto 0 /uL (0-100); Basophils Percent Auto 0.9 % (0-2); Eosinophils Absolute Auto 400 /uL (0-450); Eosinophils Percent Auto 8.2 % (2-4); Hematocrit 40.8 % (36-46); Hemoglobin 13.5 g/dL (12.0-16.0); Lymphocytes Absolute Auto 800 /uL (1100-4500); Lymphocytes Percent Auto 18.3 % (25-40); Mean Corpuscular HGB Conc 33.2 % (30-36); Mean Corpuscular Hemoglobin 28.8 PG (26-34); Mean Corpuscular Volume 86.9 fL (80-100); Monocytes Absolute Auto 600 /uL (0-900); Monocytes Percent Auto 13.5 % (3-14); Neutrophils Absolute Auto 2700 /uL (1500-7000); Neutrophils Percent Auto 59.1 % (50-75); Platelet Count 186 X10^3/uL (150-400); Red Cell Distribution Width 15.7 % (11.6-14.8); White Blood Cell Count 4.6 X10^3/uL (4.5-11.0)
[2024-01-21 08:53] LABS: Alanine Aminotransferase 13 IU/L (<35); Albumin 3.9 g/dL (3.5-5.0); Albumin Globulin Ratio 1.3 (1.0-2.8); Alkaline Phosphatase 78 U/L (38-126); Aspartate Aminotransferase 30 IU/L (14-36); BUN Creatinine Ratio 19.2 (6-22); Bilirubin Total 1.6 mg/dL (0.2-1.3); Blood Urea Nitrogen 24 mg/dL (7-17); Calcium 9.2 mg/dL (8.4-10.2); Carbon Dioxide 29 mmol/L (22-32); Chloride 104 mmol/L (98-107); Estimated Glomerular Filt Rate 46 mL/min (>60); Globulin 3.1 g/dL (1.7-4.1); Glucose 128 mg/dL (80-110); HEMOLYSIS 16 (0-50); Sodium 137 mmol/L (137-145)
[2024-01-21 08:58] LABS: NT-proBNP (BNP-Adult 18+) 2620 pg/mL (<125)
== END ==
LOC: LAB 07:29
PROVIDERS: PCP Family Medicine; Referring Provider Internal Medicine Cardiovascular Disease; Visit Provider Internal Medicine Cardiovascular Disease
DX: I50.22 Chronic systolic (congestive) heart failure (principal)
CPT/HCPCS: 36415; 80053; 83880; 85025

== ENCOUNTER → 2024-02-02 08:36 | Outpatient (CLI) | payer MEDICARE, SELFPAY ==
[2021-09-20 09:03] VITALS: BMI 47.5
--- NOTE | 2024-02-02 08:37 | DI.ECHO.S_ITS ---
[facility]---------+ [facility] : : [id number] : [place] : : [id number] : : Phone: [phone] Echocardiogram Report + + :Name: OLAMIDE ESQUIVEL Study Date: 02/02/2024 Height: 67 in : :Hospital ReadingLocation: Weight: 306 lb : : Gender: Female BSA: 2.4 m2 : :: 1950 Age: 73 yrs BP: 124/85 mmHg: :Reason For Study: ATRIAL FIBRILLATION, LOWER EXTREMITY EDEMA : :Ordering Physician: SANTOSH, : :MARC Performed By: Marc Dodson : :Referring: MARC FROST : + + Interpretation Summary The patient was in atrial fibrillation with heart rates between 55-91 bpm during the exam. The left ventricle is normal in size and wall thickness. The ejection fraction is estimated to be 50-55%. There has been no significant change in LVEF since the previous exam. Visually RV function appears to be moderately dilated. Previously mildly dilated. Right ventricular systolic function is mildly reduced. No significant change in RV function. There is moderate tricuspid regurgitation. Previously mild TR. The right ventricular systolic pressure is estimated to be at least 68 mmHg based on an estimated right atrial pressure of 3 mm Hg. Previously 48 mmHg. Compared to the prior echo exam, there has been an increase in TR severity. Compared to the prior echo exam, there has been an increase in the severity of pulmonary hypertension. Procedure: A two-dimensional transthoracic echocardiogram with color flow and Doppler was performed. The study quality was technically adequate. Comparison is made with the echocardiogram of 12/20/2021. The patient was in atrial fibrillation with heart rates between 55-91 bpm during the exam. Left Ventricle: The left ventricle is normal in size and wall thickness. There is no thrombus. The ejection fraction is estimated to be 50-55%. There has been no significant change since the previous exam. Septal motion is consistent with conduction abnormality. Diastolic function could not be accurately assessed due to atrial fibrillation. Right Ventricle: Visually RV function appears to be moderately dilated. Previously mildly dilated. Right ventricular systolic function is mildly reduced. There has been no significant change since the previous exam. Atria: The left atrium is moderately dilated. The right atrium is severely dilated. The right atrium has mildly increased in size since the prior echo exam. The interatrial septum grossly appears intact with no obvious evidence for an atrial septal defect. Mitral Valve: There is mild mitral annular calcification. There is no mitral valve stenosis. There is mild to moderate mitral regurgitation. Compared to the prior echo study, there has been an increase in the severity of mitral regurgitation. Aortic Valve: The aortic valve is trileaflet. The aortic valve is slightly calcified. There is no aortic valve stenosis. No aortic regurgitation is present. Tricuspid Valve: The tricuspid valve is normal. There is no tricuspid stenosis. There is moderate tricuspid regurgitation. The right ventricular systolic pressure is estimated to be at least 68 mmHg based on an estimated right atrial pressure of 3 mm Hg. Compared to the prior echo exam, there has been an increase in TR severity. Compared to the prior echo exam, there has been an increase in the severity of pulmonary hypertension. Pulmonic Valve: The pulmonic valve is not well visualized. There is no pulmonic valvular stenosis. There is mild pulmonic regurgitation. Great Vessels: The aortic root is normal size. The dimensions of the ascending aorta are normal. The IVC is of normal diameter and collapses greater than 50% with a sniff. This suggests a low right atrial pressure of 3 mm Hg. Pericardium/ Pleura There is no pericardial effusion. There is no pleural effusion. MMode/2D Measurements & Calculations LVIDd: 5.5 cm LVOT diam: 2.2 cm LVIDs: 4.1 cm Ao root diam: 3.1 cm FS: 25.6 % asc Aorta Diam: 3.5 cm IVSd: 0.88 cm Ao Arch Diam (Prox Trans): 2.7 cm LVPWd: 0.98 cm LV irvin. diameter/BSA (cm/m^2): 2.3 LV sys. diameter/BSA (cm/m^2): 1.7 LA A2 area: 21.6 cm2 RA long axis: 7.2 cm LA A4 area: 28.6 cm2 RA area: 30.9 cm2 LA length (vol): 6.0 cm RA vol: 112.8 ml LA vol: 87.1 ml RA : 46.6 ml/m2 LA vol index: 36.0 ml/m2 IVC diam: 1.8 cm RVD1 (basal): 3.9 cm RVD2 (mid): 3.6 cm TAPSE: 1.9 cm Doppler Measurements & Calculations Ao V2 max: 94.1 cm/sec LVOT Max Espinoza: 71.7 cm/sec Ao V2 mean: 68.6 cm/sec LV V1 max P.1 mmHg Ao max P.6 mmHg LV V1 VTI: 13.9 cm Ao mean P.1 mmHg KEELEY(I,D): 3.4 cm2 Ao V2 VTI: 16.1 cm KEELEY(V,D): 3.0 cm2 sev ratio: 0.87 KEELEY indexed to BSA (cm^2/m^2): 1.4 MV E max espinoza: 69.9 cm/sec TR max espinoza: 372.5 cm/sec MV A max espinoza: 15.3 cm/sec TR max P.7 mmHg MV E/A: 4.6 PA V2 max: 122.5 cm/sec MV dec time: 0.21 sec PA V2 mean: 77.3 cm/sec PA mean P.8 mmHg PA pr(Accel): 49.9 mmHg SV(LVOT): 55.3 ml Reading Physician:12:58 PM
== END ==
PROVIDERS: PCP Family Medicine; Referring Provider Family Medicine; Visit Provider Family Medicine
DX: I08.1 Rheumatic disorders of both mitral and tricuspid valves (principal); I48.91 Unspecified atrial fibrillation; E87.70 Fluid overload, unspecified; R60.0 Localized edema
CPT/HCPCS: 93306

== ENCOUNTER → 2024-02-05 09:53 | Outpatient (CLI) | payer MEDICARE, SELFPAY ==
[2021-09-20 09:03] VITALS: BMI 47.5
[2024-02-05 11:17] LABS: BUN Creatinine Ratio 30.3 (6-22); Blood Urea Nitrogen 43 mg/dL (7-17); Calcium 9.9 mg/dL (8.4-10.2); Carbon Dioxide 25 mmol/L (22-32); Chloride 103 mmol/L (98-107); Estimated Glomerular Filt Rate 39 mL/min (>60); Glucose 121 mg/dL (80-110); HEMOLYSIS 20 (0-50); Sodium 138 mmol/L (137-145)
[2024-02-05 11:18] LABS: Potassium 5.5 mmol/L (3.4-5.1)
== END ==
PROVIDERS: PCP Family Medicine; Referring Provider Family Medicine; Visit Provider Family Medicine
DX: I48.91 Unspecified atrial fibrillation (principal); E66.01 Morbid (severe) obesity due to excess calories; E11.9 Type 2 diabetes mellitus without complications; E87.70 Fluid overload, unspecified; R60.0 Localized edema
CPT/HCPCS: 36415; 80048

== ENCOUNTER → 2024-02-09 07:47 | Outpatient (CLI) | payer MEDICARE, SELFPAY ==
[2021-09-20 09:03] VITALS: BMI 47.5
[2024-02-09 09:56] LABS: Blood Urea Nitrogen 42 mg/dL (7-17); Carbon Dioxide 25 mmol/L (22-32); Chloride 103 mmol/L (98-107); Estimated Glomerular Filt Rate 38 mL/min (>60); Glucose 117 mg/dL (80-110); HEMOLYSIS < 15 (0-50); Potassium 4.9 mmol/L (3.4-5.1); Sodium 136 mmol/L (137-145)
== END ==
LOC: LAB 07:49
PROVIDERS: PCP Family Medicine; Referring Provider Internal Medicine Cardiovascular Disease; Visit Provider Internal Medicine Cardiovascular Disease
DX: E87.5 Hyperkalemia (principal)
CPT/HCPCS: 36415; 80048

== ENCOUNTER → 2024-02-13 07:42 | Outpatient (CLI) | payer MEDICARE, SELFPAY ==
[2021-09-20 09:03] VITALS: BMI 47.5
[2024-02-13 08:42] LABS: Alanine Aminotransferase 14 IU/L (<35); Albumin Globulin Ratio 1.1 (1.0-2.8); Alkaline Phosphatase 89 U/L (38-126); Aspartate Aminotransferase 28 IU/L (14-36); BUN Creatinine Ratio 28.1 (6-22); Bilirubin Total 1.4 mg/dL (0.2-1.3); Blood Urea Nitrogen 38 mg/dL (7-17); Calcium 9.3 mg/dL (8.4-10.2); Carbon Dioxide 26 mmol/L (22-32); Chloride 104 mmol/L (98-107); Estimated Glomerular Filt Rate 42 mL/min (>60); Globulin 3.5 g/dL (1.7-4.1); Glucose 129 mg/dL (80-110); HEMOLYSIS < 15 (0-50); Potassium 4.8 mmol/L (3.4-5.1); Sodium 137 mmol/L (137-145); Total Protein 7.5 g/dL (6.3-8.2)
== END ==
PROVIDERS: PCP Family Medicine; Referring Provider Family Medicine; Visit Provider Family Medicine
DX: N18.30 Chronic kidney disease, stage 3 unspecified (principal)
CPT/HCPCS: 36415; 80053

== ENCOUNTER → 2024-02-23 07:49 | Outpatient (CLI) | payer MEDICARE, SELFPAY ==
[2021-09-20 09:03] VITALS: BMI 47.5
[2024-02-23 10:03] LABS: BUN Creatinine Ratio 21.1 (6-22); Blood Urea Nitrogen 31 mg/dL (7-17); Calcium 9.7 mg/dL (8.4-10.2); Carbon Dioxide 29 mmol/L (22-32); Chloride 104 mmol/L (98-107); Estimated Glomerular Filt Rate 38 mL/min (>60); Glucose 113 mg/dL (80-110); HEMOLYSIS < 15 (0-50); Potassium 4.7 mmol/L (3.4-5.1); Sodium 138 mmol/L (137-145)
== END ==
PROVIDERS: PCP Family Medicine; Referring Provider Internal Medicine Cardiovascular Disease; Visit Provider Internal Medicine Cardiovascular Disease
DX: I10 Essential (primary) hypertension (principal)
CPT/HCPCS: 36415; 80048

== ENCOUNTER → 2024-03-24 07:36 | Outpatient (CLI) | payer MEDICARE, SELFPAY ==
[2021-09-20 09:03] VITALS: BMI 47.5
[2024-03-24 08:41] LABS: BUN Creatinine Ratio 22.9 (6-22); Blood Urea Nitrogen 27 mg/dL (7-17); Calcium 9.3 mg/dL (8.4-10.2); Carbon Dioxide 26 mmol/L (22-32); Chloride 106 mmol/L (98-107); Estimated Glomerular Filt Rate 49 mL/min (>60); Glucose 109 mg/dL (80-110); HEMOLYSIS 20 (0-50); Potassium 4.7 mmol/L (3.4-5.1); Sodium 139 mmol/L (137-145)
== END ==
PROVIDERS: PCP Family Medicine; Referring Provider Nurse Practitioner Acute Care; Visit Provider Nurse Practitioner Acute Care
DX: Z86.79 Personal history of other diseases of the circulatory system (principal)
CPT/HCPCS: 36415; 80048

== ENCOUNTER → 2024-05-06 07:41 | Outpatient (CLI) | payer MEDICARE, SELFPAY ==
[2021-09-20 09:03] VITALS: BMI 47.5
[2024-05-06 08:17] LABS: Hematocrit 39.3 % (36-46); Hemoglobin 13.3 g/dL (12.0-16.0); Mean Corpuscular HGB Conc 33.8 % (30-36); Mean Corpuscular Hemoglobin 30.6 PG (26-34); Mean Corpuscular Volume 90.6 fL (80-100); Platelet Count 170 X10^3/uL (150-400); Red Blood Cell Count 4.34 X10^6/uL (4.0-5.2); Red Cell Distribution Width 14.7 % (11.6-14.8); White Blood Cell Count 4.3 X10^3/uL (4.5-11.0)
[2024-05-06 08:42] LABS: HEMOLYSIS < 15 (0-50); Iron 97 ug/dL (37-170)
[2024-05-06 08:59] LABS: Vitamin D 25 Hydroxy (D3) 58.7 ng/mL (30.0-100.0)
[2024-05-06 09:05] LABS: Appearance Urine UA SL CLOUDY; Bilirubin Urine UA NEGATIVE (NEGATIVE); Color Urine UA YELLOW; Glucose Urine UA NEGATIVE (Negative); Ketones Urine UA NEGATIVE (NEGATIVE); Leukocyte Esterase Urine UA 2+ (NEGATIVE); Nitrite Urine UA POSITIVE (Negative); Occult Blood Urine UA 2+ (Negative); Protein Urine UA 1+ (Negative); Specific Gravity Urine UA 1.015 (1.000-1.035); Urobilinogen Urine UA 0.2 E.U./dL (0.2)
[2024-05-06 09:24] LABS: Bacteria Urine Many (>30); Culture Indicated Urine Specimen Cultured; HEMOLYSIS < 15 (0-50); RBC Urine 0-1/HPF (0-5/HPF); Squamous Epithelial Cell Urine 10-30 /HPF (0-5/HPF); Urine Volume 10mL (spun); WBC Urine 30-100/HPF (0-5/HPF)
[2024-05-06 09:26] LABS: Alanine Aminotransferase 13 IU/L (<35); Albumin 3.8 g/dL (3.5-5.0); Albumin Globulin Ratio 1.2 (1.0-2.8); Alkaline Phosphatase 70 U/L (38-126); Aspartate Aminotransferase 24 IU/L (14-36); BUN Creatinine Ratio 20.7 (6-22); Bilirubin Total 1.4 mg/dL (0.2-1.3); Blood Urea Nitrogen 25 mg/dL (7-17); Calcium 9.4 mg/dL (8.4-10.2); Carbon Dioxide 27 mmol/L (22-32); Chloride 103 mmol/L (98-107); Estimated Glomerular Filt Rate 48 mL/min (>60); Globulin 3.3 g/dL (1.7-4.1); Glucose 108 mg/dL (80-110); HEMOLYSIS < 15 (0-50); Potassium 4.2 mmol/L (3.4-5.1); Sodium 136 mmol/L (137-145); Total Protein 7.1 g/dL (6.3-8.2)
[2024-05-06 10:00] LABS: Creatinine Urine Random 86.22 mg/dL; Protein (Total) Urine Random 57 mg/dL (0-12); Protein Creatinine Ratio Urine 0.66 GRAM/24H
[2024-05-06 10:04] LABS: Albumin 3.9 g/dL (3.5-5.0); BUN Creatinine Ratio 19.7 (6-22); Blood Urea Nitrogen 24 mg/dL (7-17); Calcium 9.4 mg/dL (8.4-10.2); Carbon Dioxide 25 mmol/L (22-32); Chloride 104 mmol/L (98-107); Estimated Glomerular Filt Rate 47 mL/min (>60); Glucose 109 mg/dL (80-110); Phosphorous 4.2 mg/dL (2.8-4.1); Potassium 4.2 mmol/L (3.4-5.1); Sodium 138 mmol/L (137-145)
[2024-05-06 10:05] LABS: Ferritin 55 ng/mL (11-264)
[2024-05-06 10:38] LABS: Hemoglobin A1C% w Est Avg Glu 5.4 % (4.0-6.0)
[2024-05-06 10:53] LABS: Percent Iron Saturation 32 % (15-50); Total Iron Binding Capacity 307 ug/dL (265-497); Transferrin 228 mg/dL (206-381)
[2024-05-06 10:56] LABS: Microalbumin Urine Random 27.9 mg/dL (0-1.6)
[2024-05-07 07:11] LABS: Parathyroid Hormone Int 51 pg/mL (15-65)
== END ==
PROVIDERS: PCP Family Medicine; Referring Provider Internal Medicine Nephrology; Visit Provider Internal Medicine Nephrology
DX: E11.29 Type 2 diabetes mellitus with other diabetic kidney complication (principal); N18.31 Chronic kidney disease, stage 3a; R80.9 Proteinuria, unspecified; Z79.4 Long term (current) use of insulin; N20.0 Calculus of kidney; E11.9 Type 2 diabetes mellitus without complications; E78.5 Hyperlipidemia, unspecified; I12.9 Hypertensive chronic kidney disease with stage 1 through stage 4 chronic kidney disease, or unspecified chronic kidney disease
CPT/HCPCS: 36415; 80053; 80069; 81001; 82043; 82306; 82570; 82728; 83036; 83540; 83550; 83970; 84156; 85027; 87077; 87086; 87186

== ENCOUNTER → 2024-07-01 07:14 | Outpatient (CLI) | payer MEDICARE, SELFPAY ==
[2021-09-20 09:03] VITALS: BMI 47.5
[2024-07-01 08:13] LABS: BUN Creatinine Ratio 21.4 (6-22); Blood Urea Nitrogen 27 mg/dL (7-17); Calcium 9.6 mg/dL (8.4-10.2); Carbon Dioxide 26 mmol/L (22-32); Chloride 104 mmol/L (98-107); Estimated Glomerular Filt Rate 45 mL/min (>60); Glucose 105 mg/dL (80-110); HEMOLYSIS 37 (0-50); Potassium 4.7 mmol/L (3.4-5.1); Sodium 138 mmol/L (137-145)
== END ==
PROVIDERS: PCP Family Medicine; Referring Provider Internal Medicine Cardiovascular Disease; Visit Provider Internal Medicine Cardiovascular Disease
DX: I50.42 Chronic combined systolic (congestive) and diastolic (congestive) heart failure (principal)
CPT/HCPCS: 36415; 80048

== ENCOUNTER → 2024-10-19 07:38 | Outpatient (CLI) | payer MEDICARE, SELFPAY ==
[2021-09-20 09:03] VITALS: BMI 47.5
[2024-10-19 08:44] LABS: Add Manual Diff / Slide Review NO; Basophils Absolute Auto 0 /uL (0-100); Basophils Percent Auto 0.9 % (0-2); Eosinophils Absolute Auto 400 /uL (0-450); Eosinophils Percent Auto 9.9 % (2-4); Hemoglobin 13.9 g/dL (12.0-16.0); Lymphocytes Absolute Auto 700 /uL (1100-4500); Lymphocytes Percent Auto 18.7 % (25-40); Mean Corpuscular HGB Conc 33.1 % (30-36); Mean Corpuscular Volume 90.5 fL (80-100); Monocytes Absolute Auto 400 /uL (0-900); Monocytes Percent Auto 9.8 % (3-14); Neutrophils Absolute Auto 2400 /uL (1500-7000); Neutrophils Percent Auto 60.7 % (50-75); Platelet Count 151 X10^3/uL (150-400); Red Blood Cell Count 4.64 X10^6/uL (4.0-5.2); Red Cell Distribution Width 13.7 % (11.6-14.8)
[2024-10-19 09:20] LABS: Alanine Aminotransferase 15 IU/L (<35); Albumin Globulin Ratio 1.3 (1.0-2.8); Alkaline Phosphatase 72 U/L (38-126); Aspartate Aminotransferase 26 IU/L (14-36); BUN Creatinine Ratio 23.1 (6-22); Bilirubin Total 1.4 mg/dL (0.2-1.3); Blood Urea Nitrogen 30 mg/dL (7-17); Calcium 9.6 mg/dL (8.4-10.2); Carbon Dioxide 26 mmol/L (22-32); Chloride 102 mmol/L (98-107); Cholesterol 148 mg/dL (140-199); Estimated Glomerular Filt Rate 43 mL/min (>60); Globulin 3.1 g/dL (1.7-4.1); Glucose 112 mg/dL (80-110); HDL Cholesterol 68 mg/dL (40-60); HEMOLYSIS < 15 (0-50); LDL Cholesterol Calculated 61 mg/dL (<100); Potassium 4.6 mmol/L (3.4-5.1); Sodium 136 mmol/L (137-145); Total Protein 7.1 g/dL (6.3-8.2); Triglycerides 96 mg/dL (35-150)
[2024-10-19 09:22] LABS: Hemoglobin A1C% w Est Avg Glu 5.3 % (4.0-6.0)
== END ==
PROVIDERS: PCP Family Medicine; Referring Provider Nurse Practitioner Acute Care; Visit Provider Nurse Practitioner Acute Care
DX: I48.19 Other persistent atrial fibrillation (principal); E11.9 Type 2 diabetes mellitus without complications; E78.5 Hyperlipidemia, unspecified; R60.0 Localized edema; I48.91 Unspecified atrial fibrillation; I10 Essential (primary) hypertension
CPT/HCPCS: 36415; 80053; 80061; 83036; 85025

== ENCOUNTER → 2024-12-06 06:32 | Outpatient (CLI) | payer MEDICARE, SELFPAY ==
[2021-09-20 09:03] VITALS: BMI 47.5
--- NOTE | 2024-12-06 06:33 | DI.US.S_ITS ---
PROCEDURE: US RENAL COMPLETE INDICATIONS: ckd TECHNIQUE: Real-time scanning was performed of the kidneys and bladder, with image documentation. COMPARISON: [facility], , US RENAL COMPLETE, 05/16/2021, 7:15. FINDINGS: Kidneys: Kidneys are normal in size. Right kidney measures 9.9 cm long; left kidney measures 9.5 cm long. Right renal cortical thickness is 1.4 cm; left renal cortical thickness is 1.3 cm. Renal cortical echotexture is normal. No hydronephrosis or nephrolithiasis. No suspicious solid mass lesions. Benign cyst on the superior pole measuring 3.7 centimeter. Bladder: Decompressed. Miscellaneous: No free pelvic fluid. IMPRESSION: Bosniak 1 equivalent cyst on the superior pole of the left kidney, which does not require follow-up. Otherwise, unremarkable renal ultrasound. Bladder is decompressed. Dictated by: Case Mas M.D. on 12/06/2024 at 9:49 Approved by: Case Mas M.D. on 12/06/2024 at 9:52
--- NOTE | 2024-12-06 06:33 | DI.MG.S_ITS ---
MM screening mammo BI: 12/06/2024. BI-RADS: 1 CLINICAL: 74-year old female for bilateral screening mammogram. Tyrer-Cuzick lifetime risk of 2.1%. No personal or first-degree family history of breast cancer. PRIOR EXAMS 05/01/2022, 12/29/2015. MAMMOGRAPHY TECHNIQUE: 2D and 3D (tomosynthesis) digital mammographic views obtained, with additional images as needed for full coverage. Current study was also evaluated with a Computer Aided Detection (CAD) system. DENSITY A. The breasts are almost entirely fatty. MAMMOGRAPHY FINDINGS Bilateral: No suspicious mass, asymmetry, microcalcification, or other abnormality seen. IMPRESSION: * No evidence of malignancy. RECOMMENDATIONS Bilateral * Annual screening mammography. OVERALL ASSESSMENT CATEGORY BI-RADS-1: Negative. The [employer] recommends annual screening mammography beginning at age 40 for women with average risk of breast cancer. ELECTRONICALLY SIGNED: Jaydon Lr M.D. on 12/06/2024 at 06:37:55 PM PT Interpreting Station ID: [id number]
== END ==
LOC: US 06:33
PROVIDERS: PCP Family Medicine; Referring Provider Family Medicine; Visit Provider Family Medicine
DX: Z12.31 Encounter for screening mammogram for malignant neoplasm of breast (principal); R92.313 Mammographic fatty tissue density, bilateral breasts; N18.30 Chronic kidney disease, stage 3 unspecified; N28.1 Cyst of kidney, acquired
CPT/HCPCS: 76770; 77063; 77067

== ENCOUNTER → 2024-12-10 07:14 | Outpatient (CLI) | payer MEDICARE, SELFPAY ==
[2021-09-20 09:03] VITALS: BMI 47.5
[2024-12-10 08:35] LABS: Albumin 3.8 g/dL (3.5-5.0); BUN Creatinine Ratio 30.2 (6-22); Blood Urea Nitrogen 35 mg/dL (7-17); Calcium 9.2 mg/dL (8.4-10.2); Carbon Dioxide 24 mmol/L (22-32); Chloride 108 mmol/L (98-107); Estimated Glomerular Filt Rate 50 mL/min (>60); Glucose 109 mg/dL (70-99); HEMOLYSIS 21 (0-50); Potassium 4.3 mmol/L (3.4-5.1); Sodium 139 mmol/L (137-145)
[2024-12-10 08:50] LABS: Vitamin D 25 Hydroxy (D3) 58.3 ng/mL (30.0-100.0)
[2024-12-10 08:56] LABS: HEMOLYSIS < 15 (0-50); Total Iron Binding Capacity 283 ug/dL (265-497); Transferrin 231 mg/dL (206-381)
[2024-12-10 09:12] LABS: Ferritin 30 ng/mL (11-264)
[2024-12-10 11:34] LABS: Iron 81 ug/dL (37-170); Percent Iron Saturation 29 % (15-50)
[2024-12-11 08:08] LABS: Parathyroid Hormone Int 56 pg/mL (15-65)
== END ==
PROVIDERS: PCP Family Medicine; Referring Provider Internal Medicine Nephrology; Visit Provider Internal Medicine Nephrology
DX: E11.29 Type 2 diabetes mellitus with other diabetic kidney complication (principal); N18.31 Chronic kidney disease, stage 3a; R80.9 Proteinuria, unspecified; N20.0 Calculus of kidney; I13.10 Hypertensive heart and chronic kidney disease without heart failure, with stage 1 through stage 4 chronic kidney disease, or unspecified chronic kidney disease; Z79.4 Long term (current) use of insulin
CPT/HCPCS: 36415; 80069; 82306; 82728; 83540; 83550; 83970

== ENCOUNTER → 2025-04-23 08:19 | Outpatient (CLI) | payer MEDICARE, SELFPAY ==
[2021-09-20 09:03] VITALS: BMI 47.5
[2025-04-23 10:20] LABS: Hemoglobin A1C% w Est Avg Glu 5.6 % (4.0-6.0)
[2025-04-23 10:23] LABS: Blood Urea Nitrogen 28 mg/dL (7-17); Calcium 9.4 mg/dL (8.4-10.2); Carbon Dioxide 25 mmol/L (22-32); Chloride 102 mmol/L (98-107); Estimated Glomerular Filt Rate 49 mL/min (>60); Glucose 106 mg/dL (70-99); HEMOLYSIS < 15 (0-50); Potassium 4.7 mmol/L (3.4-5.1); Sodium 137 mmol/L (137-145)
[2025-04-23 11:51] LABS: Microalbumi Creatinin Ratio Ur 261.0 ug/mg CR (<30)
== END ==
PROVIDERS: PCP Family Medicine; Referring Provider Family Medicine; Visit Provider Family Medicine
DX: E11.9 Type 2 diabetes mellitus without complications (principal); I10 Essential (primary) hypertension
CPT/HCPCS: 36415; 80048; 82043; 82570; 83036

== ENCOUNTER → 2025-06-02 07:03 | Outpatient (CLI) | payer MEDICARE, SELFPAY ==
[2021-09-20 09:03] VITALS: BMI 47.5
[2025-06-02 08:11] LABS: Blood Urea Nitrogen 22 mg/dL (7-17); Calcium 9.3 mg/dL (8.4-10.2); Carbon Dioxide 26 mmol/L (22-32); Chloride 103 mmol/L (98-107); Cholesterol 124 mg/dL (140-199); Estimated Glomerular Filt Rate 57 mL/min (>60); Glucose 118 mg/dL (70-99); HDL Cholesterol 71 mg/dL (40-60); HEMOLYSIS 23 (0-50); Potassium 4.6 mmol/L (3.4-5.1); Sodium 138 mmol/L (137-145); Triglycerides 98 mg/dL (35-150)
== END ==
PROVIDERS: PCP Family Medicine; Referring Provider Family Medicine; Visit Provider Nurse Practitioner Acute Care
DX: E78.5 Hyperlipidemia, unspecified (principal); I48.19 Other persistent atrial fibrillation
CPT/HCPCS: 36415; 80048; 80061

== ENCOUNTER → 2025-06-27 06:59 | Outpatient (CLI) | payer MEDICARE, SELFPAY ==
[2021-09-20 09:03] VITALS: BMI 47.5
[2025-06-27 07:42] LABS: Hematocrit 41.8 % (36-46); Hemoglobin 13.9 g/dL (12.0-16.0); Mean Corpuscular HGB Conc 33.3 % (30-36); Mean Corpuscular Hemoglobin 30.3 PG (26-34); Mean Corpuscular Volume 91.0 fL (80-100); Platelet Count 174 X10^3/uL (150-400)
[2025-06-27 07:52] LABS: Appearance Urine UA CLOUDY; Bilirubin Urine UA NEGATIVE (NEGATIVE); Color Urine UA YELLOW; Glucose Urine UA NEGATIVE (Negative); Ketones Urine UA NEGATIVE (NEGATIVE); Leukocyte Esterase Urine UA 2+ (NEGATIVE); Nitrite Urine UA POSITIVE (Negative); Occult Blood Urine UA 2+ (Negative); Protein Urine UA 3+ (Negative); Specific Gravity Urine UA 1.015 (1.000-1.035); Urobilinogen Urine UA 1.0 E.U./dL (0.2)
[2025-06-27 07:53] LABS: pH Urine UA 7.0 (4.5-8.0)
[2025-06-27 07:59] LABS: Culture Indicated Urine Specimen Cultured
[2025-06-27 08:09] LABS: Albumin 4.5 g/dL (3.5-5.0); Blood Urea Nitrogen 22 mg/dL (7-17); Calcium 9.7 mg/dL (8.4-10.2); Carbon Dioxide 27 mmol/L (22-32); Chloride 106 mmol/L (98-107); Estimated Glomerular Filt Rate 47 mL/min (>60); Glucose 126 mg/dL (70-99); HEMOLYSIS < 15 (0-50); Phosphorous 3.9 mg/dL (2.8-4.1); Potassium 4.2 mmol/L (3.4-5.1); Sodium 142 mmol/L (137-145)
[2025-06-27 08:10] LABS: HEMOLYSIS < 15 (0-50); Iron 101 ug/dL (37-170)
[2025-06-27 08:22] LABS: Percent Iron Saturation 32 % (15-50); Total Iron Binding Capacity 320 ug/dL (265-497); Transferrin 276 mg/dL (206-381)
[2025-06-27 08:26] LABS: Vitamin D 25 Hydroxy (D3) 42.8 ng/mL (30.0-100.0)
[2025-06-27 08:44] LABS: Ferritin 34 ng/mL (11-264)
[2025-06-27 08:47] LABS: Protein (Total) Urine Random 305 mg/dL (0-12); Protein Creatinine Ratio Urine 2.18 GRAM/24H
[2025-06-27 08:50] LABS: Microalbumi Creatinin Ratio Ur 765.0 ug/mg CR (<30)
== END ==
PROVIDERS: PCP Family Medicine; Referring Provider Family Medicine; Visit Provider Internal Medicine Nephrology
DX: E11.29 Type 2 diabetes mellitus with other diabetic kidney complication (principal); N18.31 Chronic kidney disease, stage 3a; I10 Essential (primary) hypertension; R80.9 Proteinuria, unspecified; N20.0 Calculus of kidney; Z79.4 Long term (current) use of insulin
CPT/HCPCS: 36415; 80069; 81001; 82043; 82306; 82570; 82610; 82728; 83540; 83550; 83970; 84156; 85027; 87077; 87086